=== PATIENT | male | born 1975 | race Two or more races ===

== ENCOUNTER 2018-01-17 12:29 | Inpatient (IN) | payer OTHER ==
[2018-01-17 14:16] VITALS: BMI 25.9
--- NOTE | 2018-01-17 14:50 | HP ---
CIWA Score Nausea/Vomitin Muscle Tremors: 2 Anxiety: 3 Agitation: 2 Paroxysmal Sweats: No Perspiration Orientation: 1-Uncertain about Date Tacttile Disturbances: 2-Mild Itch/Numbness/Burn Auditory Disturbances: 0-None Visual Disturbances: 0-None Headache: 2-Mild CIWA-Ar Total Score: 15 - Admission Criteria OASAS Guidelines: Admission for Medically Managed Detox: Requires at least one of the followin. CIWA greater than 12 2. Seizures within the past 24 hours 3. Delirium tremens within the past 24 hours 4. Hallucinations within the past 24 hours 5. Acute intervention needed for co occurring medical disorder 6. Acute intervention needed for co occurring psychiatric disorder 7. Severe withdrawal that cannot be handled at a lower level of care (continued vomiting, continued diarrhea, abnormal vital signs) requiring intravenous medication and/or fluids 8. Admission ROS [facility] - [facility] Chief Complaint: ETOH WITHDRAWAL SYMPTOMS AND MARIJUANA DEPENDENCE. Allergies/Adverse Reactions: Allergies Allergy/AdvReac Type Severity Reaction Status Date / Time No Known Allergies Allergy Verified 01/17/18 14:46 History of Present Illness: PATIENT PRESENTS WITH ETOH WITHDRAWAL SX AND MARIJUANA DEPENDENCE. PATIENT STARTED DRINKING AT AGE 16 AND DRINKS ONE PINT OF VODKA AND 2 40 OUNCE BEERS DAILY. LAST DRINK WAS TODAY. PATIENT WAS IN [address] 2-3 WEEKS AGO BUT LEFT HE STATES " I DIDN'T LIKE THE PLACE". UDS +BZO/THC. PATIENT SMOKES MARIJUANA 6 BLUNTS DAILY SINCE AGE 16 AND LAST TIME HE SMOKED WAS THIS MORNING. DENIES HX OF BLACKOUTS, SEIZURES AND FALLS. FIRST TIME ADMISSION TO [facility]. PMH INCLUDES BIPOLAR DISORDER, OCD, GERD, ANXIETY, HTN AND DEPRESSION. DENIES SI/HI AND SUICIDE ATTEMPTS. PATIENT CAME IN WITH CURRENT BLISTER PACK OF MEDICATION FROM [facility] AND REPORTS COMPLIANCE. Exam Limitations: No Limitations - Ebola screening Have you traveled outside of the country in the last 21 days: No Have you had contact with anyone from an Ebola affected area: No Have you been sick,other than usual withdrawal symptoms: No Do you have a fever: No - Review of Systems Constitutional: Chills, Night Sweats, Changes in sleep EENT: reports: No Symptoms Reported Respiratory: reports: No Symptoms reported Cardiac: reports: No Symptoms Reported GI: reports: Diarrhea, Nausea, Poor Fluid Intake, Abdominal cramping : reports: No Symptoms Reported Musculoskeletal: reports: Back Pain, Joint Pain, Muscle Pain Integumentary: reports: Sweating Neuro: reports: Headache, Numbness, Tingling, Tremors Endocrine: reports: No Symptoms Reported Hematology: reports: No Symptoms Reported Psychiatric: reports: Anxious, Depressed Patient History - Patient Medical History Hx Anemia: No Hx Asthma: No Hx Chronic Obstructive Pulmonary Disease (COPD): No Hx Cancer: No Hx Cardiac Disorders: No Hx Congestive Heart Failure: No Hx Hypertension: Yes Hx Hypercholesterolemia: No Hx Pacemaker: No HX Cerebrovascular Accident: No Hx Seizures: No Hx Dementia: No Hx Diabetes: No Hx Gastrointestinal Disorders: Yes (GERD) Hx Liver Disease: No Hx Genitourinary Disorders: No Hx Sexually Transmitted Disorders: No Hx Renal Disease (ESRD): No Hx Thyroid Disease: No Hx Human Immunodeficiency Virus (HIV): No Hx Hepatitis C: No Hx Depression: Yes Hx Suicide Attempt: No Hx Bipolar Disorder: Yes Hx Schizophrenia: No - Patient Surgical History Past Surgical History: Yes Other Surgical History: RIGHT INDEX FINGER SURGERY Anesthesia Reaction: No - PPD History Previous Implant?: Yes Documented Results: Negative w/o proof PPD to be Administered?: Yes - Smoking Cessation Smoking history: Current every day smoker Have you smoked in the past 12 months: Yes Aproximately how many cigarettes per day: 10 Hx Chewing Tobacco Use: No Initiated information on smoking cessation: Yes 'Breaking Loose' booklet given: 01/17/18 - Substance & Tx. History Hx Alcohol Use: Yes Hx Substance Use: Yes Substance Use Type: Alcohol, Marijuana Hx Substance Use Treatment: Yes - Substances Abused Alcohol Route: Oral Frequency: Daily Amount used: 1 PINT, 2 40OZ BEERS Age of first use: 16 Date of Last Use: 01/17/18 Marijuana/Hashish Route: Smoking Frequency: Daily Amount used: 6 BLUNTS Age of first use: 16 Date of Last Use: 01/17/18 Family Disease History - Family Disease History Family History: Denies Admission Physical Exam S - Vital Signs Vital Signs: Vital Signs - 24 hr 01/17/18 14:13 Temperature 96 F L Pulse Rate 84 Respiratory 20 Rate Blood Pressure 118/81 - Physical General Appearance: Yes: No Apparent Distress, Alcohol on Breath, Tremorous, Sweating, Anxious HEENTM: Yes: EOMI, Hearing grossly Normal, Normal ENT Inspection, Normocephalic , Normal Voice, MARIO, Pharynx Normal Respiratory: Yes: Chest Non-Tender, Lungs Clear, No Respiratory Distress, No Accessory Muscle Use, Wheezing Neck: Yes: No masses,lesions,Nodules, Supple, Trachea in good position Breast: Yes: Breast Exam Deferred Cardiology: Yes: Regular Rhythm, Regular Rate, S1, S2 Abdominal: Yes: Normal Bowel Sounds, Non Tender, Soft Genitourinary: Yes: Within Normal Limits Musculoskeletal: Yes: full range of Motion, Gait Steady, Back pain, Muscle Pain Extremities: Yes: Normal Inspection, Normal Range of Motion, Non-Tender, Tremors 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: Yes: criminal justice social worker II-XII NML intact, Fully Oriented, Alert, Motor Strength 5/5, Unresponsive, Depressed Affect Integumentary: Yes: Normal Color, Dry, Warm Lymphatic: Yes: Within Normal Limits Cleared for Admission [facility] - Detox or Rehab [facility] Level of Care: Medically Managed Detox Regimen/Protocol: Librium [facility] Breath Alcohol Content Breath Alcohol Content: 0.100 Vital Signs - Vital Signs Vital Signs Refused: Yes Temperature: 96.0 F Temperature Source: Oral Pulse Rate: 84 Respiratory Rate: 20 Blood Pressure: 118/81 BP Location: Left Arm Blood Pressure Position: Sitting - Height Height: 5 ft 7 in - Weight Weight: 166 lb Weight Measurement Method: Standing Scale Body Mass Index (BMI): 25.9 - Bowel Function Bowel Movement: Yes Urine Drug Screen - Results Drug Screen Negative: No Urine Drug Screen Results: THC-Marijuana, BZO-Benzodiazepines
[2018-01-17] MEDS ORDERED: ACETAMINOPHEN 325 MG TABLET (FP) PO PRN (15:11)
[2018-01-17] MEDS ORDERED: guaiFENesin/D-METHORPHAN HB 10 ML UNIT-DOSE CUPS PO PRN (15:11)
[2018-01-17] MEDS ORDERED: P-EPHED 60MG/TRIPROLIDI 2.5MG TABLET PO PRN (15:11)
[2018-01-17] MEDS ORDERED: MAGNESIUM CITRATE 300 ML BOTTLE PO PRN (15:11)
[2018-01-17] MEDS ORDERED: MAGNESIUM HYDROX 2400MG/30ML ORAL SUSPENSION 30 ML CUP PO PRN (15:11)
[2018-01-17] MEDS ORDERED: LOPERAMIDE HCL 2 MG CAPSULE PO PRN (15:11)
[2018-01-17] MEDS ORDERED: MAG HYDROX/AL HYDROX/SIMETH 30 ML UNIT-DOSE CUP PO PRN (15:11)
[2018-01-17] MEDS ORDERED: hydrOXYzine PAMOATE 50 MG CAPSULE (FP) PO PRN (15:11)
[2018-01-17] MEDS ORDERED: MENTHOL/PHENOL 1 EACH UD MM PRN (15:11)
[2018-01-17] MEDS ORDERED: IBUPROFEN 400 MG TABLET (FP) PO PRN (15:11)
[2018-01-17] MEDS ORDERED: NICOTINE POLACRILEX 2 MG GUM BC PRN (15:11)
[2018-01-17] MEDS ORDERED: chlordiazePOXIDE HCL 25 MG CAPSULE PO PRN (15:13)
[2018-01-17] MEDS: chlordiazePOXIDE HCL 25 MG CAPSULE PO SCH ×2 (17:59→22:56)
[2018-01-17] MEDS: RANITIDINE HCL 150 MG TABLET (FP) PO SCH (22:56)
[2018-01-17] MEDS: THIAMINE HCL 100 MG TABLET (FP) PO SCH (22:56)
[2018-01-18] MEDS: chlordiazePOXIDE HCL 25 MG CAPSULE PO SCH ×4 (05:12→22:13)
--- NOTE | 2018-01-18 07:36 | CONSULT ---
[facility] Psychiatric Consult - Data Date of interview: 01/18/18 Admission source: [facility] Identifying data: This is a 55 years old female, , mother of three, ellen, on PA, with no psychiatric hospitalization history, with history of Bipolar Disorder, currently on MMTP 150mg /day, repots Alcohol, Heroin, Cannabis and Nicotine dependence, reports withdrawal symptoms and seeking for detox. Substance Abuse History: Smoking history: Current every day smoker. Have you smoked in the past 12 months: Yes. Aproximately how many cigarettes per day: 10. Hx Chewing Tobacco Use: No. Initiated information on smoking cessation: Yes. 'Breaking Loose' booklet given: 01/17/18. - Substance & Tx. History. Hx Alcohol Use: Yes. Hx Substance Use: Yes. Substance Use Type: Alcohol, Marijuana. Hx Substance Use Treatment: Yes. - Substances Abused. Alcohol. Route: Oral. Frequency: Daily. Amount used: 1 PINT, 2 40OZ BEERS. Age of first use: 16. Date of Last Use: 01/17/18. Marijuana/Hashish. Route: Smoking. Frequency: Daily. Amount used: 6 BLUNTS. Age of first use: 16. Date of Last Use: 01/17/18 Medical History: Asthma, HepC+, HIV, HTN Psychiatric History: Patient reports to carry Bipolar Disorder, denies history of psychiatric hospitalizations, suicidal and homiciadal history, reports currently stable on: Zyprexa 5mg po qhs. Malinta 300mg po bid. Prozac 10mg poqd. Vistaril 50mg po pen q4 for anxiety Physical/Sexual Abuse/Trauma History: Denies Additional Comment: Zyprexa 5mg po qhs. Malinta 300mg po bid. Prozac 10mg poqd. Vistaril 50mg po pen q4 for anxiety Mental Status Exam - Mental Status Exam Alert and Oriented to: Person Cognitive Function: Fair Patient Appearance: Unkempt Mood: Sad Affect: Flat Patient Behavior: Cooperative Speech Pattern: Appropriate Voice Loudness: Mildly Soft/Quiet Thought Process: Circumstantial, Goal Oriented Thought Disorder: Being Controlled Hallucinations: Denies Suicidal Ideation: Denies Homicidal Ideation: Denies Insight/Judgement: Fair Sleep: Difficulty falling asleep Appetite: Fair Muscle strength/Tone: Mild Hypotonicity Gait/Station: Shuffling Additional Comments: Zyprexa 5mg po qhs. Malinta 300mg po bid. Prozac 10mg poqd. Vistaril 50mg po pen q4 for anxiety Psychiatric Findings - Problem List (Dema 1, 2,3) (1) Alcohol dependence with uncomplicated withdrawal Current Visit: Yes Status: Acute (2) Anxiety Current Visit: Yes Status: Chronic (3) Bipolar disorder Current Visit: Yes Status: Chronic Qualifiers: Current episode severity: unspecified (4) GERD (gastroesophageal reflux disease) Current Visit: Yes Status: Chronic Qualifiers: Esophagitis presence: without esophagitis Qualified Code(s): K21.9 - Gastro -esophageal reflux disease without esophagitis (5) HTN (hypertension) Current Visit: Yes Status: Chronic Qualifiers: Hypertension type: essential hypertension Qualified Code(s): I10 - Essential (primary) hypertension (6) Marijuana dependence Current Visit: Yes Status: Chronic - Initial Treatment Plan Initial Treatment Plan: Zyprexa 5mg po qhs. Malinta 300mg po bid. Prozac 10mg poqd. Vistaril 50mg po pen q4 for anxiety
[2018-01-18] MEDS ORDERED: hydrOXYzine PAMOATE 50 MG CAPSULE (FP) PO PRN (08:01)
[2018-01-18] MEDS ORDERED: FLUoxetine HCL 10 MG CAPSULE (FP) PO SCH (10:00)
[2018-01-18] MEDS ORDERED: LITHIUM CARBONATE 300 MG CAPSULE (FP) PO SCH (10:00)
[2018-01-18 10:09] LABS: HEMATOCRIT 46.8 % (35.4-49); HEMOGLOBIN 15.4 GM/dL (11.7-16.9); MCH 32.2 pg (25.7-33.7); MCHC 32.9 g/dl (32.0-35.9); MEAN PLT VOLUME 9.9 fl (7.5-11.1); PLATELET COUNT 175 K/MM3 (134-434); RBC 4.78 M/mm3 (4.00-5.60); RDW 14.3 % (11.9-15.9); WHITE BLOOD COUNT 4.5 K/mm3 (4.0-10.0)
[2018-01-18] MEDS: FLUoxetine HCL 10 MG CAPSULE (FP) PO SCH (10:27)
[2018-01-18] MEDS: RANITIDINE HCL 150 MG TABLET (FP) PO SCH ×2 (10:27→22:13)
[2018-01-18] MEDS: cloNIDine HCL 0.1 MG TABLET PO SCH (10:27)
[2018-01-18] MEDS: PRENATAL VITAMINS W/ FOLIC ACID TABLET (FP) PO SCH (10:27)
[2018-01-18] MEDS: NICOTINE 21 MG/24 HOURS TOPICAL PATCH TD SCH (10:28)
[2018-01-18] MEDS: LITHIUM CARBONATE 300 MG CAPSULE (FP) PO SCH ×2 (11:00→22:13)
[2018-01-18 11:31] LABS: ALBUMIN 3.3 g/dl (3.4-5.0); ALK PHOS 65 U/L (45-117); ANION GAP 7 MMOL/L (8-16); BILIRUBIN,TOTAL 1.2 mg/dL (0.2-1); BLOOD UREA NITROGEN 13 mg/dL (7-18); CALCIUM 8.6 mg/dL (8.5-10.1); CHLORIDE 105 mmol/L (98-107); CO2 27 mmol/L (21-32); CREATININE 0.7 mg/dL (0.55-1.3); GLUCOSE,RANDOM 78 mg/dL (74-106); POTASSIUM 3.9 mmol/L (3.5-5.1); SGOT/AST 53 U/L (15-37); SGPT/ALT 78 U/L (13-61); SODIUM 140 mmol/L (136-145); TOT PROT 6.2 g/dl (6.4-8.2)
[2018-01-18] MEDS ORDERED: FLU VACCINE QUAD 60 MCG/0.5 ML (MDV 18-19) IM ONE (12:00)
--- NOTE | 2018-01-18 13:39 | EKG ---
Test Reason : Blood Pressure : / mmHG Vent. Rate : 073 BPM Atrial Rate : 073 BPM P-R Int : 148 ms QRS Dur : 082 ms QT Int : 338 ms P-R-T Axes : 076 059 057 degrees QTc Int : 372 ms NORMAL SINUS RHYTHM POSSIBLE LEFT ATRIAL ENLARGEMENT BORDERLINE ECG NO PREVIOUS ECGS AVAILABLE Confirmed by DUNCAN FOSTER, YASH ([id number]) on 01/18/2018 1:39:04 PM Referred By: Confirmed By:YASH SONG MD
--- NOTE | 2018-01-18 13:46 | PN ---
[facility] CIWA - CIWA Score Nausea/Vomitin-Mild Nausea/No Vomiting Muscle Tremors: 3 Anxiety: 3 Agitation: 3 Paroxysmal Sweats: 1-Minimal Palms Moist Orientation: 0-Oriented Tacttile Disturbances: 0-None Auditory Disturbances: 0-None Visual Disturbances: 0-None Headache: 1-Very Mild CIWA-Ar Total Score: 12 S Progress Note (SOAP) Subjective: tremor sweat anxiety agitation restlessness Objective: 01/18/18 13:48 Vital Signs Temperature 98.1 F 01/18/18 08:54 Pulse Rate 82 01/18/18 08:54 Respiratory Rate 18 01/18/18 08:54 Blood Pressure 131/74 01/18/18 08:54 O2 Sat by Pulse Oximetry (%) Laboratory Last Values WBC 4.5 K/mm3 (4.0-10.0) 01/18/18 07:00 RBC 4.78 M/mm3 (4.00-5.60) 01/18/18 07:00 Hgb 15.4 GM/dL (11.7-16.9) 01/18/18 07:00 Hct 46.8 % (35.4-49) 01/18/18 07:00 MCV 98.0 fl (80-96) H 01/18/18 07:00 MCH 32.2 pg (25.7-33.7) 01/18/18 07:00 MCHC 32.9 g/dl (32.0-35.9) 01/18/18 07:00 RDW 14.3 % (11.9-15.9) 01/18/18 07:00 Plt Count 175 K/MM3 (134-434) 01/18/18 07:00 MPV 9.9 fl (7.5-11.1) 01/18/18 07:00 Sodium 140 mmol/L (136-145) 01/18/18 07:00 Potassium 3.9 mmol/L (3.5-5.1) 01/18/18 07:00 Chloride 105 mmol/L (98-107) 01/18/18 07:00 Carbon Dioxide 27 mmol/L (21-32) 01/18/18 07:00 Anion Gap 7 MMOL/L (8-16) L 01/18/18 07:00 BUN 13 mg/dL (7-18) 01/18/18 07:00 Creatinine 0.7 mg/dL (0.55-1.3) 01/18/18 07:00 Creat Clearance w eGFR > 60 (>60) 01/18/18 07:00 Random Glucose 78 mg/dL (74-106) 01/18/18 07:00 Calcium 8.6 mg/dL (8.5-10.1) 01/18/18 07:00 Total Bilirubin 1.2 mg/dL (0.2-1) H 01/18/18 07:00 AST 53 U/L (15-37) H 01/18/18 07:00 ALT 78 U/L (13-61) H 01/18/18 07:00 Alkaline Phosphatase 65 U/L (45-117) 01/18/18 07:00 Total Protein 6.2 g/dl (6.4-8.2) L 01/18/18 07:00 Albumin 3.3 g/dl (3.4-5.0) L 01/18/18 07:00 HIV 1&2 Antibody Screen Negative 01/18/18 07:00 HIV P24 Antigen Negative 01/18/18 07:00 lab noted Assessment: 01/18/18 13:49 withdrawal sx Plan: continue detox
[2018-01-18] MEDS ORDERED: OLANZapine 5 MG TABLET PO SCH (22:00)
[2018-01-18] MEDS: MELATONIN 5 MG TABLETS PO PRN (22:13)
[2018-01-18] MEDS: THIAMINE HCL 100 MG TABLET (FP) PO SCH (22:13)
[2018-01-18] MEDS: OLANZapine 5 MG TABLET PO SCH (22:14)
[2018-01-19] MEDS: chlordiazePOXIDE HCL 25 MG CAPSULE PO SCH ×2 (05:36→10:57)
[2018-01-19] MEDS: cloNIDine HCL 0.1 MG TABLET PO SCH (10:56)
[2018-01-19] MEDS: RANITIDINE HCL 150 MG TABLET (FP) PO SCH (10:57)
[2018-01-19] MEDS: LITHIUM CARBONATE 300 MG CAPSULE (FP) PO SCH ×2 (10:57→22:21)
[2018-01-19] MEDS: FLUoxetine HCL 10 MG CAPSULE (FP) PO SCH (10:57)
[2018-01-19] MEDS: NICOTINE 21 MG/24 HOURS TOPICAL PATCH TD SCH (10:57)
[2018-01-19] MEDS: PRENATAL VITAMINS W/ FOLIC ACID TABLET (FP) PO SCH (10:57)
--- NOTE | 2018-01-19 11:08 | PN ---
[facility] CIWA - CIWA Score Nausea/Vomitin Muscle Tremors: 2 Anxiety: 2 Agitation: 1-Slight > Activity Paroxysmal Sweats: 2 Orientation: 0-Oriented Tacttile Disturbances: 1-Very Mild Itch/Numbness Auditory Disturbances: 0-None Visual Disturbances: 0-None Headache: 0-None Present CIWA-Ar Total Score: 11 S Progress Note (SOAP) Subjective: I"m feeling lazy , tired , shakes : my reflux is bad Objective: 01/19/18 11:06 Vital Signs Temperature 97.7 F 01/19/18 06:00 Pulse Rate 70 01/19/18 06:00 Respiratory Rate 18 01/19/18 06:00 Blood Pressure 100/58 L 01/19/18 06:00 O2 Sat by Pulse Oximetry (%) Laboratory Tests 01/18/18 01/18/18 01/18/18 07:00 07:00 07:00 WBC 4.5 RBC 4.78 Hgb 15.4 Hct 46.8 MCV 98.0 H MCH 32.2 MCHC 32.9 RDW 14.3 Plt Count 175 MPV 9.9 Sodium 140 Potassium 3.9 Chloride 105 Carbon Dioxide 27 Anion Gap 7 L BUN 13 Creatinine 0.7 Creat Clearance w eGFR > 60 Random Glucose 78 Calcium 8.6 Total Bilirubin 1.2 H AST 53 H ALT 78 H Alkaline Phosphatase 65 Total Protein 6.2 L Albumin 3.3 L HIV 1&2 Antibody Screen Negative HIV P24 Antigen Negative pt aox3 in nad, lying in bed , appearing tired mildly elevated transaminases 01/19/18 11:07 Assessment: 01/19/18 11:07 withdrawal sx's gerd Plan: cont detox increase fluids d/c zantac start protonix
[2018-01-19] MEDS ORDERED: PANTOPRAZOLE 40 MG TABLET (FP) PO ONE (11:13)
[2018-01-19] MEDS: chlordiazePOXIDE 5 MG CAPSULE PO SCH ×2 (18:30→22:22)
[2018-01-19] MEDS: THIAMINE HCL 100 MG TABLET (FP) PO SCH (22:21)
[2018-01-19] MEDS: MELATONIN 5 MG TABLETS PO PRN (22:21)
[2018-01-19] MEDS: OLANZapine 5 MG TABLET PO SCH (22:21)
[2018-01-20] MEDS: chlordiazePOXIDE 5 MG CAPSULE PO SCH ×2 (06:05→10:15)
[2018-01-20] MEDS ORDERED: PANTOPRAZOLE 40 MG TABLET (FP) PO SCH (10:00)
[2018-01-20] MEDS: PRENATAL VITAMINS W/ FOLIC ACID TABLET (FP) PO SCH (10:14)
[2018-01-20] MEDS: cloNIDine HCL 0.1 MG TABLET PO SCH (10:14)
[2018-01-20] MEDS: LITHIUM CARBONATE 300 MG CAPSULE (FP) PO SCH ×2 (10:15→23:35)
[2018-01-20] MEDS: FLUoxetine HCL 10 MG CAPSULE (FP) PO SCH (10:15)
[2018-01-20] MEDS: NICOTINE 21 MG/24 HOURS TOPICAL PATCH TD SCH (10:16)
--- NOTE | 2018-01-20 10:19 | PN ---
[facility] Progress Note (SOAP) Subjective: Weakness, unable to sleep well Objective: 01/20/18 10:18 Vital Signs - 8 hr 01/20/18 01/20/18 01/20/18 03:30 06:32 09:06 Temperature 98.1 F 97.7 F Pulse Rate 81 89 Respiratory 18 18 16 Rate Blood Pressure 109/69 113/70 Laboratory Last Values WBC 4.5 K/mm3 (4.0-10.0) 01/18/18 07:00 RBC 4.78 M/mm3 (4.00-5.60) 01/18/18 07:00 Hgb 15.4 GM/dL (11.7-16.9) 01/18/18 07:00 Hct 46.8 % (35.4-49) 01/18/18 07:00 MCV 98.0 fl (80-96) H 01/18/18 07:00 MCH 32.2 pg (25.7-33.7) 01/18/18 07:00 MCHC 32.9 g/dl (32.0-35.9) 01/18/18 07:00 RDW 14.3 % (11.9-15.9) 01/18/18 07:00 Plt Count 175 K/MM3 (134-434) 01/18/18 07:00 MPV 9.9 fl (7.5-11.1) 01/18/18 07:00 Sodium 140 mmol/L (136-145) 01/18/18 07:00 Potassium 3.9 mmol/L (3.5-5.1) 01/18/18 07:00 Chloride 105 mmol/L (98-107) 01/18/18 07:00 Carbon Dioxide 27 mmol/L (21-32) 01/18/18 07:00 Anion Gap 7 MMOL/L (8-16) L 01/18/18 07:00 BUN 13 mg/dL (7-18) 01/18/18 07:00 Creatinine 0.7 mg/dL (0.55-1.3) 01/18/18 07:00 Creat Clearance w eGFR > 60 (>60) 01/18/18 07:00 Random Glucose 78 mg/dL (74-106) 01/18/18 07:00 Calcium 8.6 mg/dL (8.5-10.1) 01/18/18 07:00 Total Bilirubin 1.2 mg/dL (0.2-1) H 01/18/18 07:00 AST 53 U/L (15-37) H 01/18/18 07:00 ALT 78 U/L (13-61) H 01/18/18 07:00 Alkaline Phosphatase 65 U/L (45-117) 01/18/18 07:00 Total Protein 6.2 g/dl (6.4-8.2) L 01/18/18 07:00 Albumin 3.3 g/dl (3.4-5.0) L 01/18/18 07:00 RPR Titer Nonreactive (NONREACTIVE) 01/18/18 07:00 HIV 1&2 Antibody Screen Negative 01/18/18 07:00 HIV P24 Antigen Negative 01/18/18 07:00 Labs and vitals noted, no panic values Assessment: 01/20/18 10:19 Withdrawal sx Plan: Continue detox
[2018-01-20] MEDS: chlordiazePOXIDE HCL 10 MG CAPSULE PO SCH ×2 (17:55→23:35)
[2018-01-20] MEDS: THIAMINE HCL 100 MG TABLET (FP) PO SCH (23:35)
[2018-01-20] MEDS: OLANZapine 5 MG TABLET PO SCH (23:35)
[2018-01-21] MEDS: chlordiazePOXIDE HCL 10 MG CAPSULE PO SCH (06:05)
[2018-01-21 09:36] VITALS: BP 122/84; PULSE 74; TEMP 97.2
--- NOTE | 2018-01-21 09:54 | DS ---
[facility] Detox Discharge Summary Admission Date: 01/17/18 Discharge Date: 01/21/18 - History Present History: Alcohol Dependence Additional Comments: 42 years old male admitted on 01/17/18 for alcohol withdrawal sx completed detox regimen tolerated well alert oriented x 3 no acute distress aftercare [facility] - Physical Exam Results Vital Signs: Vital Signs Temperature 97.2 F L 01/21/18 09:35 Pulse Rate 74 01/21/18 09:35 Respiratory Rate 16 01/21/18 09:35 Blood Pressure 122/84 01/21/18 09:35 O2 Sat by Pulse Oximetry (%) Pertinent Admission Physical Exam Findings: alcohol withdrawal sx Vital Signs Temperature 97.2 F L 01/21/18 09:35 Pulse Rate 74 01/21/18 09:35 Respiratory Rate 16 01/21/18 09:35 Blood Pressure 122/84 01/21/18 09:35 O2 Sat by Pulse Oximetry (%) Laboratory Last Values WBC 4.5 K/mm3 (4.0-10.0) 01/18/18 07:00 RBC 4.78 M/mm3 (4.00-5.60) 01/18/18 07:00 Hgb 15.4 GM/dL (11.7-16.9) 01/18/18 07:00 Hct 46.8 % (35.4-49) 01/18/18 07:00 MCV 98.0 fl (80-96) H 01/18/18 07:00 MCH 32.2 pg (25.7-33.7) 01/18/18 07:00 MCHC 32.9 g/dl (32.0-35.9) 01/18/18 07:00 RDW 14.3 % (11.9-15.9) 01/18/18 07:00 Plt Count 175 K/MM3 (134-434) 01/18/18 07:00 MPV 9.9 fl (7.5-11.1) 01/18/18 07:00 Sodium 140 mmol/L (136-145) 01/18/18 07:00 Potassium 3.9 mmol/L (3.5-5.1) 01/18/18 07:00 Chloride 105 mmol/L (98-107) 01/18/18 07:00 Carbon Dioxide 27 mmol/L (21-32) 01/18/18 07:00 Anion Gap 7 MMOL/L (8-16) L 01/18/18 07:00 BUN 13 mg/dL (7-18) 01/18/18 07:00 Creatinine 0.7 mg/dL (0.55-1.3) 01/18/18 07:00 Creat Clearance w eGFR > 60 (>60) 01/18/18 07:00 Random Glucose 78 mg/dL (74-106) 01/18/18 07:00 Calcium 8.6 mg/dL (8.5-10.1) 01/18/18 07:00 Total Bilirubin 1.2 mg/dL (0.2-1) H 01/18/18 07:00 AST 53 U/L (15-37) H 01/18/18 07:00 ALT 78 U/L (13-61) H 01/18/18 07:00 Alkaline Phosphatase 65 U/L (45-117) 01/18/18 07:00 Total Protein 6.2 g/dl (6.4-8.2) L 01/18/18 07:00 Albumin 3.3 g/dl (3.4-5.0) L 01/18/18 07:00 RPR Titer Nonreactive (NONREACTIVE) 01/18/18 07:00 HIV 1&2 Antibody Screen Negative 01/18/18 07:00 HIV P24 Antigen Negative 01/18/18 07:00 lab noted - Treatment Hospital Course: Detox Protocol Followed, Detoxed Safely, Responded well, Discharged Condition Good, Rehab Referral Accepted Patient has Accepted a [facility] Referral to: [facility] - Medication Discharge Medications: Ambulatory Orders Clonidine HCl [Catapres] 0.1 mg PO DAILY 01/17/18 Ranitidine [Zantac -] 150 mg PO BID 01/17/18 hydrOXYzine PAMOATE [Vistaril -] 50 mg PO HS PRN 01/17/18 Fluoxetine HCl [Prozac -] 10 mg PO DAILY #30 capsule 01/18/18 Mesilla Carbonate [Eskalith -] 300 mg PO BID #60 capsule 01/18/18 Olanzapine [Zyprexa -] 5 mg PO HS #30 tablet 01/18/18 hydrOXYzine PAMOATE [Vistaril -] 50 mg PO Q4H PRN #90 capsule 12/06/18 - Diagnosis (1) Bipolar II disorder Current Visit: Yes Status: Suspected (2) Alcohol dependence with uncomplicated withdrawal Current Visit: Yes Status: Acute (3) GERD (gastroesophageal reflux disease) Current Visit: Yes Status: Chronic Qualifiers: Esophagitis presence: without esophagitis Qualified Code(s): K21.9 - Gastro -esophageal reflux disease without esophagitis (4) HTN (hypertension) Current Visit: Yes Status: Chronic Qualifiers: Hypertension type: essential hypertension Qualified Code(s): I10 - Essential (primary) hypertension - AMA Did Patient Leave Against Medical Advice: No
== END 2018-01-21 09:10 | disposition home or self-care (01) | DRG 773 ==
LOC: EDSEX → YASAS 12:29 → Y6N 15:58
PROC: HZ2ZZZZ Detoxification Services for Substance Abuse Treatment (ICD-10-PCS; principal; 2018-01-17)
DX: F10.230 Alcohol dependence with withdrawal, uncomplicated (principal); F12.20 Cannabis dependence, uncomplicated; F11.20 Opioid dependence, uncomplicated; F31.81 Bipolar II disorder; F41.9 Anxiety disorder, unspecified; F42.9 Obsessive-compulsive disorder, unspecified; I10 Essential (primary) hypertension; K21.9 Gastro-esophageal reflux disease without esophagitis; B18.2 Chronic viral hepatitis C
CPT/HCPCS: 36415; 80053; 85027; 86593; 87389; 93005; 93010; J0735

== ENCOUNTER 2018-03-08 09:39 | Inpatient (IN) | payer OTHER ==
[2018-03-08 10:13] VITALS: BMI 24.5
--- NOTE | 2018-03-08 12:16 | HP ---
CIWA Score Nausea/Vomitin Muscle Tremors: None Anxiety: 3 Agitation: 2 Paroxysmal Sweats: No Perspiration Orientation: 0-Oriented Tacttile Disturbances: 0-None Auditory Disturbances: 0-None Visual Disturbances: 0-None Headache: 3-Moderate CIWA-Ar Total Score: 10 - Admission Criteria OASAS Guidelines: Admission for Medically Managed Detox: Requires at least one of the followin. CIWA greater than 12 2. Seizures within the past 24 hours 3. Delirium tremens within the past 24 hours 4. Hallucinations within the past 24 hours 5. Acute intervention needed for co occurring medical disorder 6. Acute intervention needed for co occurring psychiatric disorder 7. Severe withdrawal that cannot be handled at a lower level of care (continued vomiting, continued diarrhea, abnormal vital signs) requiring intravenous medication and/or fluids 8. Admission ROS S - [facility] Chief Complaint: ETOH WITHDRAWAL SX Allergies/Adverse Reactions: Allergies Allergy/AdvReac Type Severity Reaction Status Date / Time No Known Allergies Allergy Verified 03/08/18 10:59 History of Present Illness: PATIENT IS KNOWN TO FACILITY. LAST DETOX ADMISSION HERE AT [facility] 12/2017. PATIENT STATES HE RELAPSED SOON AFTER D/C AND ADMITTED ONE MONTH AGO AT [facility] [place], [place] AND COMPLETED DETOX. RELAPSED AFTER PATIENT HAD ARGUMENT WITH DAUGHTER. PATIENT DRINKS 1 PINT OF VODKA DAILY SINCE AGE 17. LAST DRINK EARLY THIS MORNING. PATIENT REPORTS BINGE DRINKING AND DRINKS FIRST THING IN THE MORNING. PATIENT DENIES HX OF SEIZURES AND FALLS. PMH INCLUDES BIPOLAR DISORDER, ACID REFLUX, ANXIETY. DENIES SI/HI AND SUICIDE ATTEMPTS. + MARIJUANA USE, 3-4 BLUNTS DAILY. - Ebola screening Have you traveled outside of the country in the last 21 days: No Have you had contact with anyone from an Ebola affected area: No Have you been sick,other than usual withdrawal symptoms: No Do you have a fever: No - Review of Systems Constitutional: Night Sweats, Changes in sleep EENT: reports: No Symptoms Reported Respiratory: reports: Cough Cardiac: reports: No Symptoms Reported GI: reports: Nausea, Poor Fluid Intake, Abdominal cramping : reports: No Symptoms Reported Musculoskeletal: reports: Back Pain, Joint Pain Integumentary: reports: No Symptoms Reported Neuro: reports: Headache Endocrine: reports: No Symptoms Reported Hematology: reports: No Symptoms Reported Psychiatric: reports: Orientated x3, Anxious, Depressed Patient History - Patient Medical History Hx Anemia: No Hx Asthma: No Hx Chronic Obstructive Pulmonary Disease (COPD): No Hx Cancer: No Hx Cardiac Disorders: No Hx Congestive Heart Failure: No Hx Hypertension: Yes Hx Hypercholesterolemia: No Hx Pacemaker: No HX Cerebrovascular Accident: No Hx Seizures: No Hx Dementia: No Hx Diabetes: No Hx Gastrointestinal Disorders: Yes (Pt has acid reflux.) Hx Liver Disease: No Hx Genitourinary Disorders: No Hx Sexually Transmitted Disorders: No Hx Renal Disease (ESRD): No Hx Thyroid Disease: No Hx Human Immunodeficiency Virus (HIV): No Hx Hepatitis C: No Hx Depression: Yes Hx Suicide Attempt: No Hx Bipolar Disorder: Yes Hx Schizophrenia: No - Patient Surgical History Past Surgical History: Yes Other Surgical History: partial amputation, right index finger Anesthesia Reaction: No - PPD History Previous Implant?: Yes Documented Results: Negative w/proof Implanted On Prior [facility] Admission?: No Date: 01/19/18 Results: 0 mm PPD to be Administered?: No - Smoking Cessation Smoking history: Current every day smoker Have you smoked in the past 12 months: Yes Aproximately how many cigarettes per day: 10 Hx Chewing Tobacco Use: No Initiated information on smoking cessation: Yes 'Breaking Loose' booklet given: 03/08/18 - Substance & Tx. History Hx Alcohol Use: Yes Hx Substance Use: No Substance Use Type: Alcohol, Marijuana Hx Substance Use Treatment: Yes - Substances Abused Alcohol Route: Oral Frequency: Daily Amount used: 1 pint vodka Age of first use: 17 Date of Last Use: 03/08/18 Marijuana/Hashish Route: Smoking Frequency: Daily Amount used: 4-5 blunts Age of first use: 16 Date of Last Use: 03/08/18 Family Disease History - Family Disease History Family History: Denies Admission Physical Exam [facility] - Vital Signs Vital Signs: Vital Signs - 24 hr 03/08/18 10:08 Temperature 98.7 F Pulse Rate 95 H Respiratory 20 Rate Blood Pressure 139/88 - Physical General Appearance: Yes: Nourished, Appropriately Dressed, Alcohol on Breath, Anxious HEENTM: Yes: EOMI, Hearing grossly Normal, Normal ENT Inspection, Normocephalic , Normal Voice, MARIO, Pharynx Normal Respiratory: Yes: Chest Non-Tender, Lungs Clear, Normal Breath Sounds, No Respiratory Distress, No Accessory Muscle Use Neck: Yes: No masses,lesions,Nodules, Supple, Trachea in good position Breast: Yes: Breast Exam Deferred Cardiology: Yes: Regular Rhythm, Regular Rate, S1, S2 Abdominal: Yes: Normal Bowel Sounds, Non Tender, Soft Genitourinary: Yes: Within Normal Limits Back: Yes: Muscle Spasm Musculoskeletal: Yes: full range of Motion, Gait Steady, Back pain, Muscle Pain Extremities: Yes: Normal Inspection, Normal Range of Motion, Non-Tender 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: Yes: shake feeder II-XII NML intact, Fully Oriented, Alert, Motor Strength 5/5, Normal Response, Depressed Affect Integumentary: Yes: Normal Color, Dry, Warm Lymphatic: Yes: Within Normal Limits Cleared for Admission [facility] - Detox or Rehab [facility] Level of Care: Medically Managed Detox Regimen/Protocol: Librium [facility] Breath Alcohol Content Breath Alcohol Content: 0.082 Urine Drug Screen - Results Drug Screen Negative: No Urine Drug Screen Results: THC-Marijuana, BZO-Benzodiazepines
[2018-03-08] MEDS ORDERED: MENTHOL/PHENOL 1 EACH UD MM PRN (12:25)
[2018-03-08] MEDS ORDERED: guaiFENesin/D-METHORPHAN HB 10 ML UNIT-DOSE CUPS PO PRN (12:25)
[2018-03-08] MEDS ORDERED: NICOTINE POLACRILEX 2 MG GUM BUC PRN (12:25)
[2018-03-08] MEDS ORDERED: MAGNESIUM HYDROX 2400MG/30ML ORAL SUSPENSION 30 ML CUP PO PRN (12:25)
[2018-03-08] MEDS ORDERED: LOPERAMIDE HCL 2 MG CAPSULE PO PRN (12:25)
[2018-03-08] MEDS ORDERED: IBUPROFEN 400 MG TABLET (FP) PO PRN (12:25)
[2018-03-08] MEDS ORDERED: ACETAMINOPHEN 325 MG TABLET (FP) PO PRN (12:25)
[2018-03-08] MEDS ORDERED: P-EPHED 60MG/TRIPROLIDI 2.5MG TABLET PO PRN (12:25)
[2018-03-08] MEDS ORDERED: hydrOXYzine PAMOATE 50 MG CAPSULE (FP) PO PRN ×2 (12:25→14:40)
[2018-03-08] MEDS ORDERED: MAGNESIUM CITRATE 300 ML BOTTLE PO PRN (12:25)
[2018-03-08] MEDS ORDERED: MAG HYDROX/AL HYDROX/SIMETH 30 ML UNIT-DOSE CUP PO PRN (12:25)
[2018-03-08] MEDS ORDERED: chlordiazePOXIDE HCL 25 MG CAPSULE PO PRN (12:28)
--- NOTE | 2018-03-08 14:22 | CONSULT ---
[facility] Psychiatric Consult - Data Date of interview: 03/08/18 Admission source: [facility] Identifying data: This is a 42 years old male, father of one, homeless , on PA support, with Bipolar dsiorder history, with no psychiatric hospitalizatiopn history. Patient reports long history of Alcohol, Cannabis and Nicotine dependence, reports withdrawal symptoms and seeking for detox. Substance Abuse History: Smoking history: Current every day smoker. Have you smoked in the past 12 months: Yes. Aproximately how many cigarettes per day: 10. Hx Chewing Tobacco Use: No. Initiated information on smoking cessation: Yes. 'Breaking Loose' booklet given: 03/08/18. - Substance & Tx. History. Hx Alcohol Use: Yes. Hx Substance Use: No. Substance Use Type: Alcohol, Marijuana. Hx Substance Use Treatment: Yes. - Substances Abused. Alcohol. Route: Oral. Frequency: Daily. Amount used: 1 pint vodka. Age of first use : 17. Date of Last Use: 03/08/18. Marijuana/Hashish. Route: Smoking. Frequency: Daily. Amount used: 4-5 blunts. Age of first use: 16. Date of Last Use: 03/08/18 Medical History: HTN, GERD, Psychiatric History: Patient reports history of Bipolar Disorder, anxiety and depression, reports no psychiatric hospitalization history, no suicidal, homicidal history. Patient taking prior to admission: Zyprexa 5mg po qhs. Prozac 20mg poqd. [place] 300mg po bid. Vistaril 50mg po prn q4 for anxiety Physical/Sexual Abuse/Trauma History: Denies Additional Comment: Zyprexa 5mg po qhs. Prozac 20mg poqd. [place] 300mg po bid. Vistaril 50mg po prn q4 for anxiety Mental Status Exam - Mental Status Exam Alert and Oriented to: Person Cognitive Function: Fair Patient Appearance: Unkempt Mood: Anxious Affect: Mood Congruent Patient Behavior: Cooperative Speech Pattern: Appropriate Voice Loudness: Mildly Soft/Quiet Thought Process: Goal Oriented Thought Disorder: Being Controlled Hallucinations: Denies Suicidal Ideation: Denies Homicidal Ideation: Denies Insight/Judgement: Fair Sleep: Difficulty falling asleep Appetite: Fair Muscle strength/Tone: Normal Gait/Station: Normal Additional Comments: Zyprexa 5mg po qhs. Prozac 20mg poqd. [place] 300mg po bid. Vistaril 50mg po prn q4 for anxiety Psychiatric Findings - Problem List ([place] 1, 2,3) (1) Alcohol dependence with uncomplicated withdrawal Current Visit: Yes Status: Acute (2) Bipolar disorder Current Visit: Yes Status: Chronic Qualifiers: Current episode severity: unspecified (3) Marijuana dependence Current Visit: Yes Status: Chronic (4) GERD (gastroesophageal reflux disease) Current Visit: No Status: Chronic Qualifiers: Esophagitis presence: without esophagitis Qualified Code(s): K21.9 - Gastro -esophageal reflux disease without esophagitis (5) HTN (hypertension) Current Visit: No Status: Chronic Qualifiers: Hypertension type: essential hypertension Qualified Code(s): I10 - Essential (primary) hypertension - Initial Treatment Plan Initial Treatment Plan: Zyprexa 5mg po qhs. Prozac 20mg poqd. [place] 300mg po bid. Vistaril 50mg po prn q4 for anxiety. [place] blood level
[2018-03-08] MEDS: FLUoxetine HCL 20 MG CAPSULE (FP) PO SCH (15:44)
[2018-03-08] MEDS: chlordiazePOXIDE HCL 25 MG CAPSULE PO SCH ×2 (16:46→22:46)
[2018-03-08 17:25] LABS: URINE APPEARANCE CLEAR; URINE BILIRUBIN NEGATIVE (<2.0 mg/dL); URINE COLOR LTYELLOW; URINE GLUCOSE (UA) NEGATIVE (NEGATIVE); URINE KETONE NEGATIVE (NEGATIVE); URINE LEUK ESTERASE NEGATIVE (NEGATIVE); URINE NITRITE NEGATIVE (NEGATIVE); URINE PROTEIN NEGATIVE (NEGATIVE); URINE UROBILINOGEN NEGATIVE mg/dL (0.2-1.0)
[2018-03-08] MEDS ORDERED: MELATONIN 5 MG TABLETS PO PRN (22:00)
[2018-03-08] MEDS: LITHIUM CARBONATE 300 MG CAPSULE (FP) PO SCH (22:44)
[2018-03-08] MEDS: RANITIDINE HCL 150 MG TABLET (FP) PO SCH (22:44)
[2018-03-08] MEDS: THIAMINE HCL 100 MG TABLET (FP) PO SCH (22:45)
[2018-03-08] MEDS: OLANZapine 5 MG TABLET PO SCH (22:45)
[2018-03-08] MEDS: traZODone HCL 50 MG TABLET (FP) PO SCH (22:45)
[2018-03-09] MEDS: chlordiazePOXIDE HCL 25 MG CAPSULE PO SCH ×4 (05:21→23:09)
[2018-03-09 10:38] LABS: HEMATOCRIT 43.4 % (35.4-49); HEMOGLOBIN 14.9 GM/dL (11.7-16.9); MCH 34.2 pg (25.7-33.7); MCHC 34.2 g/dl (32.0-35.9); MEAN CELL VOLUME 99.8 fl (80-96); MEAN PLT VOLUME 10.5 fl (7.5-11.1); PLATELET COUNT 183 K/MM3 (134-434); RBC 4.35 M/mm3 (4.00-5.60); RDW 13.6 % (11.9-15.9); WHITE BLOOD COUNT 4.7 K/mm3 (4.0-10.0)
[2018-03-09] MEDS: RANITIDINE HCL 150 MG TABLET (FP) PO SCH ×2 (10:39→23:09)
[2018-03-09] MEDS: FLUoxetine HCL 20 MG CAPSULE (FP) PO SCH (10:39)
[2018-03-09] MEDS: NICOTINE 21 MG/24 HOURS TOPICAL PATCH TD SCH (10:39)
[2018-03-09] MEDS: LITHIUM CARBONATE 300 MG CAPSULE (FP) PO SCH ×2 (10:39→23:09)
[2018-03-09] MEDS: PRENATAL VITAMINS W/ FOLIC ACID TABLET (FP) PO SCH (10:41)
[2018-03-09 10:56] LABS: ALBUMIN 3.7 g/dl (3.4-5.0); ALK PHOS 78 U/L (45-117); ANION GAP 10 MMOL/L (8-16); BILIRUBIN,TOTAL 1.3 mg/dL (0.2-1); BLOOD UREA NITROGEN 17 mg/dL (7-18); CALCIUM 8.4 mg/dL (8.5-10.1); CHLORIDE 104 mmol/L (98-107); CO2 24 mmol/L (21-32); CREATININE 1.1 mg/dL (0.55-1.3); GLUCOSE,RANDOM 118 mg/dL (74-106); POTASSIUM 4.1 mmol/L (3.5-5.1); SGOT/AST 39 U/L (15-37); SGPT/ALT 47 U/L (13-61); SODIUM 138 mmol/L (136-145); TOT PROT 6.7 g/dl (6.4-8.2)
--- NOTE | 2018-03-09 15:55 | PN ---
S CIWA - CIWA Score Nausea/Vomitin Muscle Tremors: None Anxiety: 3 Agitation: 2 Paroxysmal Sweats: No Perspiration Orientation: 0-Oriented Tacttile Disturbances: 2-Mild Itch/Numbness/Burn Auditory Disturbances: 0-None Visual Disturbances: 2-Mild Sensitivity Headache: 2-Mild CIWA-Ar Total Score: 13 BHS Progress Note (SOAP) Subjective: Nausea, Fatigue, Anxious. Objective: PATIENT A & O X 3. IN NO ACUTE DISTRESS. 03/09/18 15:53 Vital Signs Temperature 98.1 F 03/09/18 14:02 Pulse Rate 78 03/09/18 14:02 Respiratory Rate 18 03/09/18 14:02 Blood Pressure 119/74 03/09/18 14:02 O2 Sat by Pulse Oximetry (%) Laboratory Tests 03/08/18 03/09/18 03/09/18 13:07 06:00 06:00 WBC 4.7 RBC 4.35 Hgb 14.9 Hct 43.4 MCV 99.8 H MCH 34.2 H MCHC 34.2 RDW 13.6 Plt Count 183 MPV 10.5 Sodium 138 Potassium 4.1 Chloride 104 Carbon Dioxide 24 Anion Gap 10 BUN 17 Creatinine 1.1 Creat Clearance w eGFR > 60 Random Glucose 118 H Calcium 8.4 L Total Bilirubin 1.3 H AST 39 H ALT 47 Alkaline Phosphatase 78 Total Protein 6.7 Albumin 3.7 Urine Color Ltyellow Urine Appearance Clear Urine pH 6.0 Ur Specific [place] 1.010 Urine Protein Negative Urine Glucose (UA) Negative Urine Ketones Negative Urine Blood Negative Urine Nitrite Negative Urine Bilirubin Negative Urine Urobilinogen Negative Ur Leukocyte Esterase Negative LABS NOTED. RPR RESULT PENDING. 03/09/18 15:54 Assessment: 03/09/18 15:53 WITHDRAWAL SYMPTOMS. Plan: CONTINUE DETOX.
[2018-03-09] MEDS: traZODone HCL 50 MG TABLET (FP) PO SCH (23:09)
[2018-03-09] MEDS: OLANZapine 5 MG TABLET PO SCH (23:09)
[2018-03-09] MEDS: THIAMINE HCL 100 MG TABLET (FP) PO SCH (23:09)
[2018-03-10] MEDS: chlordiazePOXIDE HCL 25 MG CAPSULE PO SCH ×2 (05:43→10:27)
[2018-03-10] MEDS: PRENATAL VITAMINS W/ FOLIC ACID TABLET (FP) PO SCH (10:27)
[2018-03-10] MEDS: LITHIUM CARBONATE 300 MG CAPSULE (FP) PO SCH ×2 (10:27→23:06)
[2018-03-10] MEDS: FLUoxetine HCL 20 MG CAPSULE (FP) PO SCH (10:27)
[2018-03-10] MEDS: RANITIDINE HCL 150 MG TABLET (FP) PO SCH ×2 (10:27→23:06)
[2018-03-10] MEDS: NICOTINE 21 MG/24 HOURS TOPICAL PATCH TD SCH (10:28)
--- NOTE | 2018-03-10 15:11 | PN ---
S CIWA - CIWA Score Nausea/Vomitin Muscle Tremors: None Anxiety: 3 Agitation: 1-Slight > Activity Paroxysmal Sweats: No Perspiration Orientation: 0-Oriented Tacttile Disturbances: 2-Mild Itch/Numbness/Burn Auditory Disturbances: 0-None Visual Disturbances: 2-Mild Sensitivity Headache: 0-None Present CIWA-Ar Total Score: 11 BHS Progress Note (SOAP) Subjective: Nausea, Stomach Cramping, Diarrhea. Objective: PATIENT A & O X 3, OBSERVED AMBULATING ON UNIT. IN NO ACUTE DISTRESS. 03/10/18 15:10 Vital Signs Temperature 98.7 F 03/10/18 13:26 Pulse Rate 82 03/10/18 13:26 Respiratory Rate 18 03/10/18 13:26 Blood Pressure 116/64 03/10/18 13:26 O2 Sat by Pulse Oximetry (%) Laboratory Tests 03/08/18 03/09/18 03/09/18 13:07 06:00 06:00 WBC 4.7 RBC 4.35 Hgb 14.9 Hct 43.4 MCV 99.8 H MCH 34.2 H MCHC 34.2 RDW 13.6 Plt Count 183 MPV 10.5 Sodium 138 Potassium 4.1 Chloride 104 Carbon Dioxide 24 Anion Gap 10 BUN 17 Creatinine 1.1 Creat Clearance w eGFR > 60 Random Glucose 118 H Calcium 8.4 L Total Bilirubin 1.3 H AST 39 H ALT 47 Alkaline Phosphatase 78 Total Protein 6.7 Albumin 3.7 Urine Color Ltyellow Urine Appearance Clear Urine pH 6.0 Ur Specific [place] 1.010 Urine Protein Negative Urine Glucose (UA) Negative Urine Ketones Negative Urine Blood Negative Urine Nitrite Negative Urine Bilirubin Negative Urine Urobilinogen Negative Ur Leukocyte Esterase Negative [place] RPR Titer 03/09/18 03/09/18 06:00 06:00 WBC RBC Hgb Hct MCV MCH MCHC RDW Plt Count MPV Sodium Potassium Chloride Carbon Dioxide Anion Gap BUN Creatinine Creat Clearance w eGFR Random Glucose Calcium Total Bilirubin AST ALT Alkaline Phosphatase Total Protein Albumin Urine Color Urine Appearance Urine pH Ur Specific [place] Urine Protein Urine Glucose (UA) Urine Ketones Urine Blood Urine Nitrite Urine Bilirubin Urine Urobilinogen Ur Leukocyte Esterase [place] < 0.1 L RPR Titer Nonreactive LABS NOTED. Assessment: 03/10/18 15:10 WITHDRAWAL SYMPTOMS. Plan: CONTINUE DETOX.
[2018-03-10] MEDS: chlordiazePOXIDE 5 MG CAPSULE PO SCH ×2 (18:03→23:06)
[2018-03-10] MEDS: OLANZapine 5 MG TABLET PO SCH (23:06)
[2018-03-10] MEDS: THIAMINE HCL 100 MG TABLET (FP) PO SCH (23:06)
[2018-03-10] MEDS: traZODone HCL 50 MG TABLET (FP) PO SCH (23:06)
[2018-03-11] MEDS: chlordiazePOXIDE 5 MG CAPSULE PO SCH (05:40)
[2018-03-11 06:23] VITALS: BP 108/78; PULSE 69; TEMP 97.7
--- NOTE | 2018-03-11 07:24 | DS ---
[facility] Detox Discharge Summary Admission Date: 03/08/18 Discharge Date: 03/11/18 - History Present History: Alcohol Dependence, Cannabis Dependence Pertinent Past History: NICOTINE DEPENDENCE HTN GERD - Physical Exam Results Vital Signs: Vital Signs Temperature 97.7 F 03/11/18 06:23 Pulse Rate 69 03/11/18 06:23 Respiratory Rate 18 03/11/18 06:23 Blood Pressure 108/78 03/11/18 06:23 O2 Sat by Pulse Oximetry (%) Pertinent Admission Physical Exam Findings: WITHDRAWAL SX'S - Treatment Hospital Course: Discharged Condition Good Patient has Accepted a Rehab Referral to: [facility] STATES HE WILL RETURN 2018 FOR REHAB SCREENING - Medication Discharge Medications: Ambulatory Orders Clonidine HCl [Catapres] 0.1 mg PO DAILY 01/17/18 Ranitidine [Zantac -] 150 mg PO BID 01/17/18 hydrOXYzine PAMOATE [Vistaril -] 50 mg PO HS PRN 01/17/18 Fluoxetine HCl [Prozac -] 10 mg PO DAILY #30 capsule 01/18/18 [place] Carbonate [Eskalith -] 300 mg PO BID #60 capsule 01/18/18 Olanzapine [Zyprexa -] 5 mg PO HS #30 tablet 01/18/18 - Diagnosis (1) Alcohol dependence with uncomplicated withdrawal Current Visit: Yes Status: Acute (2) Bipolar disorder Current Visit: Yes Status: Chronic Qualifiers: Current episode severity: unspecified (3) Marijuana dependence Current Visit: Yes Status: Chronic (4) GERD (gastroesophageal reflux disease) Current Visit: No Status: Chronic Qualifiers: Esophagitis presence: without esophagitis Qualified Code(s): K21.9 - Gastro -esophageal reflux disease without esophagitis (5) HTN (hypertension) Current Visit: No Status: Chronic Qualifiers: Hypertension type: essential hypertension Qualified Code(s): I10 - Essential (primary) hypertension - AMA Did Patient Leave Against Medical Advice: Yes (ACCEPTS RISK OF SEIZURE AND ; AWARE TO CALL 911 FOR ACUTE WITHDRAWAL )
[2018-03-11] MEDS ORDERED: chlordiazePOXIDE HCL 10 MG CAPSULE PO SCH (17:00)
== END 2018-03-11 07:25 | disposition left against medical advice (07) | DRG 770 ==
LOC: YASAS 09:39 → Y3N 12:57
PROVIDERS: ADMIT Neuromusculoskeletal Medicine & OMM; ATTEND Neuromusculoskeletal Medicine & OMM
PROC: HZ2ZZZZ Detoxification Services for Substance Abuse Treatment (ICD-10-PCS; principal; 2018-03-08)
DX: F10.230 Alcohol dependence with withdrawal, uncomplicated (principal); F12.20 Cannabis dependence, uncomplicated; F17.210 Nicotine dependence, cigarettes, uncomplicated; F31.9 Bipolar disorder, unspecified; I10 Essential (primary) hypertension; K21.9 Gastro-esophageal reflux disease without esophagitis; Z59.0 Homelessness
CPT/HCPCS: 36415; 80053; 80178; 81003; 85027; 86593

== ENCOUNTER 2018-04-21 09:13 | Inpatient (IN) | payer OTHER ==
[2018-04-21 10:41] VITALS: BMI 24.6
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
[2018-04-21] MEDS ORDERED: ACETAMINOPHEN 325 MG TABLET (FP) PO PRN ×2 (12:59)
[2018-04-21] MEDS ORDERED: chlordiazePOXIDE HCL 10 MG CAPSULE PO PRN (12:59)
[2018-04-21] MEDS ORDERED: DICYCLOMINE HCL 10 MG CAPSULE PO PRN (12:59)
[2018-04-21] MEDS ORDERED: MAGNESIUM HYDROX 2400MG/30ML ORAL SUSPENSION 30 ML CUP PO PRN (12:59)
[2018-04-21] MEDS ORDERED: MENTHOL/PHENOL 1 EACH UD MM PRN (12:59)
[2018-04-21] MEDS ORDERED: NICOTINE POLACRILEX 2 MG GUM BUC PRN (12:59)
[2018-04-21] MEDS ORDERED: IBUPROFEN 400 MG TABLET (FP) PO PRN (12:59)
[2018-04-21] MEDS ORDERED: MAGNESIUM CITRATE 300 ML BOTTLE PO PRN (12:59)
[2018-04-21] MEDS: chlordiazePOXIDE HCL 25 MG CAPSULE PO SCH ×2 (13:55→21:02)
[2018-04-21] MEDS: MAG HYDROX/AL HYDROX/SIMETH 30 ML UNIT-DOSE CUP PO PRN (17:12)
[2018-04-21] MEDS: THIAMINE HCL 100 MG TABLET (FP) PO SCH (21:02)
[2018-04-22] MEDS: chlordiazePOXIDE HCL 25 MG CAPSULE PO SCH (05:52)
[2018-04-22] MEDS: MAG HYDROX/AL HYDROX/SIMETH 30 ML UNIT-DOSE CUP PO PRN ×2 (05:53→13:05)
[2018-04-22] MEDS: PRENATAL VITAMINS W/ FOLIC ACID TABLET (FP) PO SCH (10:17)
[2018-04-22 10:55] LABS: ALBUMIN 3.4 g/dl (3.4-5.0); ALK PHOS 64 U/L (45-117); ANION GAP 4 MMOL/L (8-16); BILIRUBIN,TOTAL 0.8 mg/dL (0.2-1); BLOOD UREA NITROGEN 10 mg/dL (7-18); CALCIUM 8.4 mg/dL (8.5-10.1); CHLORIDE 103 mmol/L (98-107); CO2 30 mmol/L (21-32); CREATININE 0.8 mg/dL (0.55-1.3); GLUCOSE,RANDOM 87 mg/dL (74-106); POTASSIUM 4.2 mmol/L (3.5-5.1); SGOT/AST 41 U/L (15-37); SGPT/ALT 62 U/L (13-61); SODIUM 137 mmol/L (136-145); TOT PROT 6.3 g/dl (6.4-8.2)
[2018-04-22 11:30] LABS: HEMATOCRIT 45.1 % (35.4-49); HEMOGLOBIN 15.3 GM/dL (11.7-16.9); MCH 33.3 pg (25.7-33.7); MCHC 33.8 g/dl (32.0-35.9); MEAN CELL VOLUME 98.5 fl (80-96); MEAN PLT VOLUME 10.4 fl (7.5-11.1); PLATELET COUNT 164 K/MM3 (134-434); RBC 4.58 M/mm3 (4.00-5.60); RDW 13.1 % (11.9-15.9); WHITE BLOOD COUNT 5.9 K/mm3 (4.0-10.0)
--- NOTE | 2018-04-22 12:03 | CONSULT ---
[facility] Psychiatric Consult - Data Date of interview: 04/22/18 Admission source: Self-referred Identifying data: Mr Forman is a 43 years old eritrean-Macanese male, father of 3 children, unemployed on public assistance, homeless seeking detox treatment for alcohol and cannabis Substance Abuse History: Reports history of alcohol and marijuana use. Refer to addiction counselor's summary for further informartion Medical History: Significant for hypertension, history of orthosurgery for partial amputation right index finger at age 18. Smokes cigarettes up to 1ppd Psychiatric History: Reports that his first psychiatric contact was approximately 4-5 years ago while in detox at [facility]. He was diagnosed with Bipolar Disorder and OCD and started on Prozac, [place] and Zyprexa. Reports no adherence to OPD care and medications. Claims that he only sees psychiatrist and takes medications whenever he is admitted to inpatient substance abuse program. Reports seeing psychiatrist and taking medications last in March 2018 while at [facility]. Claims that he was prescribed Prozac 10 mg po daily, Zyprexa 5 mg po HS and [place] 300 mg po BID. Told principal technical writer that he does not take medication when he is outside and only takes them only while on inpatient detox. according to EMR, he was last admitted in this facility in February 2018 and he was prescribed these medications by Dr Flood. At present, repports feeling depressed and sleeping poorly Physical/Sexual Abuse/Trauma History: Denies history of emotional, physical or sexual abuse as well as DV relationship. No service Additional Comment: Denies criminal history Mental Status Exam - Mental Status Exam Alert and Oriented to: Time, Place, Person Cognitive Function: Fair Patient Appearance: Well Groomed Mood: Depressed Affect: Appropriate Patient Behavior: Cooperative Speech Pattern: Clear Voice Loudness: Normal Thought Process: Intact, Goal Oriented Thought Disorder: Not Present Hallucinations: Denies Suicidal Ideation: Denies Homicidal Ideation: Denies Insight/Judgement: Poor Sleep: Poorly Appetite: Good Muscle strength/Tone: Normal Gait/Station: Normal Psychiatric Findings - Problem List ([place] 1, 2,3) (1) Mood disorder Current Visit: Yes Status: Chronic (2) Bipolar disorder Current Visit: No Status: Ruled-out Qualifiers: Current episode severity: unspecified (3) OCD (obsessive compulsive disorder) Current Visit: Yes Status: Ruled-out (4) Substance induced mood disorder Current Visit: Yes Status: Acute (5) Substance-induced sleep disorder Current Visit: Yes Status: Acute (6) Alcohol dependence with uncomplicated withdrawal Current Visit: No Status: Acute (7) Cannabis dependence Current Visit: Yes Status: Acute (8) Nicotine dependence Current Visit: Yes Status: Acute Qualifiers: Nicotine product type: cigarettes (9) GERD (gastroesophageal reflux disease) Current Visit: No Status: Chronic Qualifiers: Esophagitis presence: without esophagitis Qualified Code(s): K21.9 - Gastro -esophageal reflux disease without esophagitis (10) HTN (hypertension) Current Visit: No Status: Chronic Qualifiers: Hypertension type: essential hypertension Qualified Code(s): I10 - Essential (primary) hypertension - Initial Treatment Plan Initial Treatment Plan: 1) Start Prozac 10 mg po daily and Zyprexa 5 mg po HS. Patient educated on the importance of medication compliance. 2) Continue inpatient detoxification
[2018-04-22] MEDS: FLUoxetine HCL 10 MG CAPSULE (FP) PO SCH (13:09)
[2018-04-22] MEDS: chlordiazePOXIDE 5 MG CAPSULE PO SCH ×2 (13:09→22:35)
--- NOTE | 2018-04-22 16:23 | PN ---
S CIWA - CIWA Score Nausea/Vomitin Muscle Tremors: 4-Moderate,w/Arms Extend Anxiety: 4-Mod. Anxious/Guarded Agitation: 4-Moderately Restless Paroxysmal Sweats: 3 Orientation: 0-Oriented Tacttile Disturbances: 0-None Auditory Disturbances: 0-None Visual Disturbances: 0-None Headache: 0-None Present CIWA-Ar Total Score: 17 BHS Progress Note (SOAP) Subjective: Interrupted sleep Objective: 04/22/18 16:21 Last Vital Signs Temp Pulse Resp BP Pulse Ox 98.1 F 71 16 122/74 04/22/18 14:11 04/22/18 14:11 04/22/18 14:11 04/22/18 14:11 Laboratory Tests 04/22/18 04/22/18 08:00 08:00 WBC 5.9 RBC 4.58 Hgb 15.3 Hct 45.1 MCV 98.5 H MCH 33.3 MCHC 33.8 RDW 13.1 Plt Count 164 MPV 10.4 Sodium 137 Potassium 4.2 Chloride 103 Carbon Dioxide 30 Anion Gap 4 L BUN 10 Creatinine 0.8 Creat Clearance w eGFR > 60 Random Glucose 87 Calcium 8.4 L Total Bilirubin 0.8 AST 41 H ALT 62 H Alkaline Phosphatase 64 Total Protein 6.3 L Albumin 3.4 Labs reviewed Assessment: 04/22/18 16:22 Withdrawal symptoms Plan: Continue detox Encouraged PO water intake
[2018-04-22] MEDS: MELATONIN 5 MG TABLETS PO PRN (22:34)
[2018-04-22] MEDS: OLANZapine 5 MG TABLET PO SCH (22:34)
[2018-04-22] MEDS: THIAMINE HCL 100 MG TABLET (FP) PO SCH (22:34)
[2018-04-23] MEDS: chlordiazePOXIDE 5 MG CAPSULE PO SCH (05:39)
[2018-04-23] MEDS: FLUoxetine HCL 10 MG CAPSULE (FP) PO SCH (10:16)
[2018-04-23] MEDS: PRENATAL VITAMINS W/ FOLIC ACID TABLET (FP) PO SCH (10:16)
[2018-04-23] MEDS ORDERED: chlordiazePOXIDE HCL 10 MG CAPSULE PO PRN (13:00)
--- NOTE | 2018-04-23 14:42 | PN ---
S CIWA - CIWA Score Nausea/Vomitin-No Nausea/No Vomiting Muscle Tremors: None Anxiety: 3 Agitation: 0-Normal Activity Paroxysmal Sweats: No Perspiration Orientation: 0-Oriented Tacttile Disturbances: 0-None Auditory Disturbances: 2-Mild Harshness/Frighten Visual Disturbances: 3-Moderate Sensitivity Headache: 0-None Present CIWA-Ar Total Score: 8 BHS Progress Note (SOAP) Subjective: Fatigue, Stomach Cramping, Interrupted Sleep. Objective: PATIENT A & O X 3. IN NO ACUTE DISTRESS. 04/23/18 14:41 Vital Signs Temperature 98.7 F 04/23/18 09:34 Pulse Rate 78 04/23/18 09:34 Respiratory Rate 18 04/23/18 09:34 Blood Pressure 101/53 L 04/23/18 09:34 O2 Sat by Pulse Oximetry (%) Laboratory Tests 04/22/18 04/22/18 04/22/18 08:00 08:00 08:00 WBC 5.9 RBC 4.58 Hgb 15.3 Hct 45.1 MCV 98.5 H MCH 33.3 MCHC 33.8 RDW 13.1 Plt Count 164 MPV 10.4 Sodium 137 Potassium 4.2 Chloride 103 Carbon Dioxide 30 Anion Gap 4 L BUN 10 Creatinine 0.8 Creat Clearance w eGFR > 60 Random Glucose 87 Calcium 8.4 L Total Bilirubin 0.8 AST 41 H ALT 62 H Alkaline Phosphatase 64 Total Protein 6.3 L Albumin 3.4 RPR Titer Nonreactive LABS NOTED. Assessment: 04/23/18 14:42 WITHDRAWAL SYMPTOMS. Plan: CONTINUE DETOX. INCREASE DAILY PO FLUID INTAKE.
[2018-04-23] MEDS: chlordiazePOXIDE HCL 10 MG CAPSULE PO SCH ×2 (15:34→22:23)
[2018-04-23] MEDS: OLANZapine 5 MG TABLET PO SCH (22:23)
[2018-04-23] MEDS: MELATONIN 5 MG TABLETS PO PRN (22:23)
[2018-04-23] MEDS: THIAMINE HCL 100 MG TABLET (FP) PO SCH (22:23)
[2018-04-24] MEDS: chlordiazePOXIDE HCL 10 MG CAPSULE PO SCH (06:32)
[2018-04-24 07:16] VITALS: BP 144/90; PULSE 82; TEMP 97.2
--- NOTE | 2018-04-24 09:18 | DS ---
[facility] Detox Discharge Summary Admission Date: 04/21/18 Discharge Date: 04/24/18 - History Present History: Alcohol Dependence, Cannabis Dependence - Physical Exam Results Vital Signs: Vital Signs Temperature 97.2 F L 04/24/18 07:15 Pulse Rate 82 04/24/18 07:15 Respiratory Rate 18 04/24/18 07:15 Blood Pressure 144/90 04/24/18 07:15 O2 Sat by Pulse Oximetry (%) - Treatment Hospital Course: Detox Protocol Followed, Detoxed Safely, Responded well, Discharged Condition Good, Rehab Referral Accepted - Medication Discharge Medications: Ambulatory Orders Clonidine HCl [Catapres] 0.1 mg PO DAILY 01/17/18 Ranitidine [Zantac -] 150 mg PO BID 01/17/18 Fluoxetine HCl [Prozac -] 10 mg PO DAILY #30 capsule 01/18/18 [place] Carbonate [Eskalith -] 300 mg PO BID #60 capsule 01/18/18 Olanzapine [Zyprexa -] 5 mg PO HS #30 tablet 01/18/18 - Diagnosis (1) Cannabis dependence Current Visit: Yes Status: Chronic (2) Nicotine dependence Current Visit: Yes Status: Chronic Qualifiers: Nicotine product type: cigarettes Substance use status: uncomplicated Qualified Code(s): F17.210 - Nicotine dependence, cigarettes, uncomplicated (3) Substance induced mood disorder Current Visit: Yes Status: Acute (4) Substance-induced sleep disorder Current Visit: Yes Status: Acute (5) Mood disorder Current Visit: Yes Status: Chronic (6) OCD (obsessive compulsive disorder) Current Visit: Yes Status: Ruled-out (7) Alcohol dependence with uncomplicated withdrawal Current Visit: Yes Status: Chronic (8) Anxiety Current Visit: No Status: Chronic (9) GERD (gastroesophageal reflux disease) Current Visit: No Status: Chronic Qualifiers: Esophagitis presence: without esophagitis Qualified Code(s): K21.9 - Gastro -esophageal reflux disease without esophagitis (10) HTN (hypertension) Current Visit: No Status: Chronic Qualifiers: Hypertension type: essential hypertension Qualified Code(s): I10 - Essential (primary) hypertension (11) Marijuana dependence Current Visit: Yes Status: Chronic (12) Bipolar II disorder Current Visit: No Status: Suspected (13) Bipolar disorder Current Visit: No Status: Ruled-out Qualifiers: Current episode severity: unspecified - AMA Did Patient Leave Against Medical Advice: No (refused rehab; going home)
== END 2018-04-24 08:47 | disposition home or self-care (01) | DRG 774 ==
LOC: YASAS 09:13 → Y6N 12:50
PROVIDERS: ADMIT Surgery; ATTEND Surgery
PROC: HZ2ZZZZ Detoxification Services for Substance Abuse Treatment (ICD-10-PCS; principal; 2018-04-21)
DX: F10.230 Alcohol dependence with withdrawal, uncomplicated (principal); F14.20 Cocaine dependence, uncomplicated; F12.20 Cannabis dependence, uncomplicated; F17.210 Nicotine dependence, cigarettes, uncomplicated; F19.24 Other psychoactive substance dependence with psychoactive substance-induced mood disorder; F19.282 Other psychoactive substance dependence with psychoactive substance-induced sleep disorder; F31.81 Bipolar II disorder; F39 Unspecified mood [affective] disorder; F41.9 Anxiety disorder, unspecified; F42.9 Obsessive-compulsive disorder, unspecified; I10 Essential (primary) hypertension; K21.9 Gastro-esophageal reflux disease without esophagitis; Z59.0 Homelessness
CPT/HCPCS: 36415; 80053; 85027; 86593

== ENCOUNTER 2018-05-12 10:44 | Inpatient (IN) | payer OTHER ==
[2018-05-12 10:52] VITALS: BMI 25.5
--- NOTE | 2018-05-12 11:14 | HP ---
CIWA Score Nausea/Vomitin Muscle Tremors: 2 Anxiety: 2 Agitation: 2 Paroxysmal Sweats: 1-Minimal Palms Moist Orientation: 0-Oriented Tacttile Disturbances: 1-Very Mild Itch/Numbness Auditory Disturbances: 1-Very Mild Visual Disturbances: 0-None Headache: 2-Mild CIWA-Ar Total Score: 13 - Admission Criteria OASAS Guidelines: Admission for Medically Managed Detox: Requires at least one of the followin. CIWA greater than 12 2. Seizures within the past 24 hours 3. Delirium tremens within the past 24 hours 4. Hallucinations within the past 24 hours 5. Acute intervention needed for co occurring medical disorder 6. Acute intervention needed for co occurring psychiatric disorder 7. Severe withdrawal that cannot be handled at a lower level of care (continued vomiting, continued diarrhea, abnormal vital signs) requiring intravenous medication and/or fluids 8. Admission ROS BHS - HPI Chief Complaint: i need help to stop drinking alcohol and marijuana Allergies/Adverse Reactions: Allergies Allergy/AdvReac Type Severity Reaction Status Date / Time No Known Allergies Allergy Verified 05/12/18 12:56 History of Present Illness: this 43 years old male with alcohol and marijuana abused,seeking detox, withdrawal symptom, multiple admissions in detox,but keep relapsing nicotine dependence 1 pack/day,requesting patch longest period of sobriety 4 months plan for rehab after detox - Ebola screening Have you traveled outside of the country in the last 21 days: No (N) Have you had contact with anyone from an Ebola affected area: No Have you been sick,other than usual withdrawal symptoms: No Do you have a fever: No - Review of Systems Constitutional: Night Sweats, Changes in sleep, Unintentional Wgt. Loss EENT: reports: Nose Congestion Respiratory: reports: No Symptoms reported Cardiac: reports: No Symptoms Reported GI: reports: Nausea, Poor Appetite, Abdominal cramping : reports: No Symptoms Reported Musculoskeletal: reports: Back Pain, Muscle Pain Integumentary: reports: Dryness Neuro: reports: Tremors Endocrine: reports: No Symptoms Reported Hematology: reports: No Symptoms Reported Psychiatric: reports: No Sypmtoms Reported, Judgement Intact, Mood/Affect Appropiate, Orientated x3 Other Systems: Reviewed and Negative Patient History - Patient Medical History Hx Anemia: No Hx Asthma: No Hx Chronic Obstructive Pulmonary Disease (COPD): No Hx Cancer: No Hx Cardiac Disorders: No Hx Congestive Heart Failure: No Hx Hypertension: Yes (no medication) Hx Hypercholesterolemia: No Hx Pacemaker: No HX Cerebrovascular Accident: No Hx Seizures: No Hx Dementia: No Hx Diabetes: No Hx Gastrointestinal Disorders: No Hx Liver Disease: No Hx Genitourinary Disorders: No Hx Sexually Transmitted Disorders: No Hx Renal Disease (ESRD): No Hx Thyroid Disease: No Hx Human Immunodeficiency Virus (HIV): No Hx Hepatitis C: No Hx Depression: Yes Hx Suicide Attempt: No Hx Bipolar Disorder: Yes Hx Schizophrenia: No Other Medical History: no suicidal,no homicidal - Patient Surgical History Past Surgical History: Yes Other Surgical History: partial amputation, right index finger in 2017 Anesthesia Reaction: No - PPD History Previous Implant?: Yes Documented Results: Negative w/proof Date: 01/19/18 Results: 0 mm PPD to be Administered?: No - Smoking Cessation Smoking history: Current every day smoker Have you smoked in the past 12 months: Yes Aproximately how many cigarettes per day: 10 Hx Chewing Tobacco Use: No Initiated information on smoking cessation: Yes 'Breaking Loose' booklet given: 05/12/18 - Substance & Tx. History Hx Alcohol Use: Yes Hx Substance Use: Yes Substance Use Type: Alcohol, Marijuana Hx Substance Use Treatment: Yes (04/21/18 to 04/24/18 [facility]) - Substances Abused Alcohol Route: Oral Frequency: Daily Amount used: 1pint of vodka/2 of 40 ozs of beer Age of first use: 17 Date of Last Use: 05/12/18 Marijuana/Hashish Route: Smoking Frequency: Daily Amount used: 30$ Age of first use: 16 Date of Last Use: 05/12/18 Family Disease History - Family Disease History Family History: Denies Admission Physical Exam S - Vital Signs Vital Signs: Vital Signs - 24 hr 05/12/18 10:50 Temperature 98.1 F Pulse Rate 94 H Respiratory 18 Rate Blood Pressure 125/89 - Physical General Appearance: Yes: Moderate Distress, Tremorous, Irritable, Sweating, Anxious HEENTM: Yes: Normal ENT Inspection, MARIO, Pharynx Normal Respiratory: Yes: Lungs Clear, Normal Breath Sounds, No Respiratory Distress Neck: Yes: Within Normal Limits, Supple, Trachea in good position Breast: Yes: Within Normal Limits Cardiology: Yes: Within Normal Limits, Regular Rhythm, Regular Rate, S1, S2 Abdominal: Yes: Within Normal Limits, Normal Bowel Sounds, Non Tender, Soft Genitourinary: Yes: Within Normal Limits Back: Yes: Normal Inspection, Muscle Spasm Musculoskeletal: Yes: full range of Motion, Back pain, Muscle Pain Extremities: Yes: Tremors 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: Yes: Within Normal Limits, appointment coordinator II-XII NML intact, Alert, Motor Strength 5/5 Integumentary: Yes: Dry Lymphatic: Yes: Within Normal Limits - Diagnostic (1) Alcohol dependence with uncomplicated withdrawal Current Visit: No Status: Chronic (2) GERD (gastroesophageal reflux disease) Current Visit: No Status: Chronic Qualifiers: Esophagitis presence: without esophagitis Qualified Code(s): K21.9 - Gastro -esophageal reflux disease without esophagitis (3) HTN (hypertension) Current Visit: No Status: Chronic Qualifiers: Hypertension type: essential hypertension Qualified Code(s): I10 - Essential (primary) hypertension (4) Marijuana dependence Current Visit: No Status: Chronic (5) Nicotine dependence Current Visit: No Status: Chronic Qualifiers: Nicotine product type: cigarettes Substance use status: uncomplicated Qualified Code(s): F17.210 - Nicotine dependence, cigarettes, uncomplicated (6) Bipolar disorder Current Visit: No Status: Ruled-out Qualifiers: Current episode severity: unspecified Cleared for Admission [facility] - Detox or Rehab [facility] Level of Care: Medically Managed Detox Regimen/Protocol: Librium [facility] Breath Alcohol Content Breath Alcohol Content: 0.057 Urine Drug Screen - Results Drug Screen Negative: No Urine Drug Screen Results: THC-Marijuana, BZO-Benzodiazepines Inpatient Rehab Admission - Rehab Decision to Admit Inpatient rehab admission?: No
[2018-05-12] MEDS ORDERED: MENTHOL/PHENOL 1 EACH UD MM PRN (11:25)
[2018-05-12] MEDS ORDERED: MAGNESIUM HYDROX 2400MG/30ML ORAL SUSPENSION 30 ML CUP PO PRN (11:25)
[2018-05-12] MEDS ORDERED: ACETAMINOPHEN 325 MG TABLET (FP) PO PRN ×2 (11:25)
[2018-05-12] MEDS ORDERED: METHOCARBAMOL 500 MG TABLET PO PRN (11:25)
[2018-05-12] MEDS ORDERED: MAGNESIUM CITRATE 300 ML BOTTLE PO PRN (11:25)
[2018-05-12] MEDS ORDERED: IBUPROFEN 400 MG TABLET (FP) PO PRN (11:25)
[2018-05-12] MEDS ORDERED: hydrOXYzine PAMOATE 25 MG CAPSULE (FP) PO PRN (11:25)
[2018-05-12] MEDS ORDERED: MAG HYDROX/AL HYDROX/SIMETH 30 ML UNIT-DOSE CUP PO PRN (11:25)
[2018-05-12] MEDS ORDERED: BISMUTH SUBSALICYLATE 524 MG/30 ML UD PO PRN (11:25)
[2018-05-12] MEDS: NICOTINE 21 MG/24 HOURS TOPICAL PATCH TD SCH (13:45)
[2018-05-12] MEDS: chlordiazePOXIDE HCL 25 MG CAPSULE PO PRN (13:45)
[2018-05-12] MEDS: chlordiazePOXIDE HCL 25 MG CAPSULE PO SCH ×2 (18:00→23:00)
[2018-05-12 19:28] LABS: PH,URINE 6.5 (5.0-8.0); URINE APPEARANCE CLEAR; URINE BILIRUBIN NEGATIVE (NEGATIVE); URINE COLOR YELLOW; URINE GLUCOSE (UA) NEGATIVE (NEGATIVE); URINE KETONE NEGATIVE (NEGATIVE); URINE LEUK ESTERASE NEGATIVE (NEGATIVE); URINE NITRITE NEGATIVE (NEGATIVE); URINE PROTEIN NEGATIVE (NEGATIVE); URINE UROBILINOGEN 0.2 mg/dL (0.2-1.0)
[2018-05-12] MEDS: RANITIDINE HCL 150 MG TABLET (FP) PO SCH (23:00)
[2018-05-12] MEDS: THIAMINE HCL 100 MG TABLET (FP) PO SCH (23:00)
[2018-05-12] MEDS: MELATONIN 5 MG TABLETS PO PRN (23:17)
[2018-05-13] MEDS: chlordiazePOXIDE HCL 25 MG CAPSULE PO SCH ×4 (05:34→22:30)
[2018-05-13] MEDS: chlordiazePOXIDE HCL 25 MG CAPSULE PO PRN (09:26)
[2018-05-13 10:34] LABS: HEMATOCRIT 45.8 % (35.4-49); HEMOGLOBIN 14.9 GM/dL (11.7-16.9); MCHC 32.6 g/dl (32.0-35.9); MEAN CELL VOLUME 98.1 fl (80-96); MEAN PLT VOLUME 10.2 fl (7.5-11.1); PLATELET COUNT 168 K/MM3 (134-434); RBC 4.67 M/mm3 (4.00-5.60); RDW 13.4 % (11.9-15.9); WHITE BLOOD COUNT 5.5 K/mm3 (4.0-10.0)
[2018-05-13 10:39] LABS: ALBUMIN 3.3 g/dl (3.4-5.0); ALK PHOS 50 U/L (45-117); ANION GAP 7 MMOL/L (8-16); BILIRUBIN,TOTAL 0.6 mg/dL (0.2-1); BLOOD UREA NITROGEN 12 mg/dL (7-18); CALCIUM 8.6 mg/dL (8.5-10.1); CHLORIDE 105 mmol/L (98-107); CO2 27 mmol/L (21-32); CREATININE 0.8 mg/dL (0.55-1.3); GLUCOSE,RANDOM 93 mg/dL (74-106); POTASSIUM 3.9 mmol/L (3.5-5.1); SGOT/AST 41 U/L (15-37); SGPT/ALT 45 U/L (13-61); SODIUM 140 mmol/L (136-145)
[2018-05-13] MEDS: RANITIDINE HCL 150 MG TABLET (FP) PO SCH ×2 (10:42→22:30)
[2018-05-13] MEDS: PRENATAL VITAMINS W/ FOLIC ACID TABLET (FP) PO SCH (10:43)
[2018-05-13] MEDS: NICOTINE 21 MG/24 HOURS TOPICAL PATCH TD SCH (10:43)
--- NOTE | 2018-05-13 12:02 | PN ---
[facility] CIWA - CIWA Score Nausea/Vomitin-No Nausea/No Vomiting Muscle Tremors: 2 Anxiety: 2 Agitation: 1-Slight > Activity Paroxysmal Sweats: 1-Minimal Palms Moist Orientation: 2-Disoriented Date<2 days Tacttile Disturbances: 0-None Auditory Disturbances: 0-None Visual Disturbances: 0-None Headache: 1-Very Mild CIWA-Ar Total Score: 9 S Progress Note (SOAP) Subjective: tremor feeling tired restlessness Objective: 05/13/18 12:01 Vital Signs Temperature 96.9 F L 05/13/18 09:48 Pulse Rate 78 05/13/18 09:48 Respiratory Rate 18 05/13/18 09:48 Blood Pressure 124/86 05/13/18 09:48 O2 Sat by Pulse Oximetry (%) Laboratory Last Values WBC 5.5 K/mm3 (4.0-10.0) 05/13/18 07:30 RBC 4.67 M/mm3 (4.00-5.60) 05/13/18 07:30 Hgb 14.9 GM/dL (11.7-16.9) 05/13/18 07:30 Hct 45.8 % (35.4-49) 05/13/18 07:30 MCV 98.1 fl (80-96) H 05/13/18 07:30 MCH 32.0 pg (25.7-33.7) 05/13/18 07:30 MCHC 32.6 g/dl (32.0-35.9) 05/13/18 07:30 RDW 13.4 % (11.9-15.9) 05/13/18 07:30 Plt Count 168 K/MM3 (134-434) 05/13/18 07:30 MPV 10.2 fl (7.5-11.1) 05/13/18 07:30 Sodium 140 mmol/L (136-145) 05/13/18 07:30 Potassium 3.9 mmol/L (3.5-5.1) 05/13/18 07:30 Chloride 105 mmol/L (98-107) 05/13/18 07:30 Carbon Dioxide 27 mmol/L (21-32) 05/13/18 07:30 Anion Gap 7 MMOL/L (8-16) L 05/13/18 07:30 BUN 12 mg/dL (7-18) 05/13/18 07:30 Creatinine 0.8 mg/dL (0.55-1.3) 05/13/18 07:30 Creat Clearance w eGFR 105.51 (>60) 05/13/18 07:30 Random Glucose 93 mg/dL (74-106) 05/13/18 07:30 Calcium 8.6 mg/dL (8.5-10.1) 05/13/18 07:30 Total Bilirubin 0.6 mg/dL (0.2-1) 05/13/18 07:30 AST 41 U/L (15-37) H 05/13/18 07:30 ALT 45 U/L (13-61) 05/13/18 07:30 Alkaline Phosphatase 50 U/L (45-117) 05/13/18 07:30 Total Protein 6.0 g/dl (6.4-8.2) L 05/13/18 07:30 Albumin 3.3 g/dl (3.4-5.0) L 05/13/18 07:30 Urine Color Yellow 05/12/18 15:47 Urine Appearance Clear 05/12/18 15:47 Urine pH 6.5 (5.0-8.0) 05/12/18 15:47 Ur Specific [place] 1.005 (1.010-1.035) L 05/12/18 15:47 Urine Protein Negative (NEGATIVE) 05/12/18 15:47 Urine Glucose (UA) Negative (NEGATIVE) 05/12/18 15:47 Urine Ketones Negative (NEGATIVE) 05/12/18 15:47 Urine Blood Negative (NEGATIVE) 05/12/18 15:47 Urine Nitrite Negative (NEGATIVE) 05/12/18 15:47 Urine Bilirubin Negative (NEGATIVE) 05/12/18 15:47 Urine Urobilinogen 0.2 mg/dL (0.2-1.0) 05/12/18 15:47 Ur Leukocyte Esterase Negative (NEGATIVE) 05/12/18 15:47 RPR Titer Nonreactive (NONREACTIVE) 05/13/18 07:30 lab noted Assessment: 05/13/18 12:02 withdrawal sx Plan: continue detox
[2018-05-13] MEDS: THIAMINE HCL 100 MG TABLET (FP) PO SCH (22:30)
[2018-05-13] MEDS: MELATONIN 5 MG TABLETS PO PRN (22:30)
[2018-05-14] MEDS: chlordiazePOXIDE HCL 25 MG CAPSULE PO SCH ×2 (05:18→10:31)
[2018-05-14 06:15] VITALS: BP 120/82; PULSE 77; TEMP 97.5
--- NOTE | 2018-05-14 08:29 | PN ---
S Progress Note Note: Patient did not want to be seen. He told development writer that he was leaving
[2018-05-14] MEDS: NICOTINE 21 MG/24 HOURS TOPICAL PATCH TD SCH (09:26)
[2018-05-14] MEDS: PRENATAL VITAMINS W/ FOLIC ACID TABLET (FP) PO SCH (09:27)
[2018-05-14] MEDS: RANITIDINE HCL 150 MG TABLET (FP) PO SCH (09:27)
[2018-05-14] MEDS ORDERED: chlordiazePOXIDE HCL 10 MG CAPSULE PO SCH (17:00)
[2018-05-14] MEDS ORDERED: chlordiazePOXIDE HCL 10 MG CAPSULE PO PRN (17:00)
--- NOTE | 2018-05-14 17:45 | PN ---
S CIWA - CIWA Score Nausea/Vomitin-No Nausea/No Vomiting Muscle Tremors: 2 Anxiety: 3 Agitation: 2 Paroxysmal Sweats: No Perspiration Orientation: 0-Oriented Tacttile Disturbances: 1-Very Mild Itch/Numbness Auditory Disturbances: 1-Very Mild Visual Disturbances: 2-Mild Sensitivity Headache: 0-None Present CIWA-Ar Total Score: 11 BHS Progress Note (SOAP) Subjective: Tremors, Anxious, Restless, Interrupted Sleep. Objective: PATIENT A & O X 3, OBSERVED AMBULATING ON UNIT. IN NO ACUTE DISTRESS. 05/14/18 17:44 Vital Signs Temperature 97.5 F L 05/14/18 06:15 Pulse Rate 77 05/14/18 06:15 Respiratory Rate 18 05/14/18 06:30 Blood Pressure 120/82 05/14/18 06:15 O2 Sat by Pulse Oximetry (%) Laboratory Tests 05/12/18 05/13/18 05/13/18 15:47 07:30 07:30 WBC 5.5 RBC 4.67 Hgb 14.9 Hct 45.8 MCV 98.1 H MCH 32.0 MCHC 32.6 RDW 13.4 Plt Count 168 MPV 10.2 Sodium 140 Potassium 3.9 Chloride 105 Carbon Dioxide 27 Anion Gap 7 L BUN 12 Creatinine 0.8 Creat Clearance w eGFR 105.51 Random Glucose 93 Calcium 8.6 Total Bilirubin 0.6 AST 41 H ALT 45 Alkaline Phosphatase 50 Total Protein 6.0 L Albumin 3.3 L Urine Color Yellow Urine Appearance Clear Urine pH 6.5 Ur Specific [place] 1.005 L Urine Protein Negative Urine Glucose (UA) Negative Urine Ketones Negative Urine Blood Negative Urine Nitrite Negative Urine Bilirubin Negative Urine Urobilinogen 0.2 Ur Leukocyte Esterase Negative RPR Titer 05/13/18 07:30 WBC RBC Hgb Hct MCV MCH MCHC RDW Plt Count MPV Sodium Potassium Chloride Carbon Dioxide Anion Gap BUN Creatinine Creat Clearance w eGFR Random Glucose Calcium Total Bilirubin AST ALT Alkaline Phosphatase Total Protein Albumin Urine Color Urine Appearance Urine pH Ur Specific [place] Urine Protein Urine Glucose (UA) Urine Ketones Urine Blood Urine Nitrite Urine Bilirubin Urine Urobilinogen Ur Leukocyte Esterase RPR Titer Nonreactive LABS NOTED. Assessment: 05/14/18 17:44 WITHDRAWAL SYMPTOMS. Plan: CONTINUE DETOX.
--- NOTE | 2018-05-14 17:49 | DS ---
[facility] Detox Discharge Summary Admission Date: 05/12/18 Discharge Date: 05/14/18 - History Present History: Alcohol Dependence, Cannabis Dependence Additional Comments: DESPITE ATTEMPTS BY SUGAR SAMPLER AND BY NURSING AND COUNSELING STAFF TO ADDRESS PATIENT'S MEDICAL NEEDS AND CONCERNS, PATIENT DOES NOT WISH TO REMAIN TO COMPLETE DETOX REGIMEN. RISKS OF LEAVING DETOX UNIT AGAINST MEDICAL ADVICE AND PRIOR TO COMPLETION OF DETOX REGIMEN EXPLAINED TO PATIENT. PATIENT ADVISED TO GO IMMEDIATELY TO NEAREST ER SHOULD ANY INTOLERABLE WITHDRAWAL / DETOX SYMPTOMS DEVELOP AT ANY TIME. PATIENT VERBALIZED UNDERSTANDING OF ALL INFORMATION / RECOMMENDATIONS PRESENTED TO HIM PRIOR TO DEPARTURE FROM DETOX UNIT. PATIENT LEFT DETOX UNIT IN STABLE MEDICAL CONDITION. Pertinent Past History: HTN, Depression, Nicotine Dependence, Bipolar Disorder, G.E.R.D. - Physical Exam Results Vital Signs: Vital Signs Temperature 97.5 F L 05/14/18 06:15 Pulse Rate 77 05/14/18 06:15 Respiratory Rate 18 05/14/18 06:30 Blood Pressure 120/82 05/14/18 06:15 O2 Sat by Pulse Oximetry (%) Pertinent Admission Physical Exam Findings: WITHDRAWAL SYMPTOMS. Laboratory Tests 05/12/18 05/13/18 05/13/18 15:47 07:30 07:30 WBC 5.5 RBC 4.67 Hgb 14.9 Hct 45.8 MCV 98.1 H MCH 32.0 MCHC 32.6 RDW 13.4 Plt Count 168 MPV 10.2 Sodium 140 Potassium 3.9 Chloride 105 Carbon Dioxide 27 Anion Gap 7 L BUN 12 Creatinine 0.8 Creat Clearance w eGFR 105.51 Random Glucose 93 Calcium 8.6 Total Bilirubin 0.6 AST 41 H ALT 45 Alkaline Phosphatase 50 Total Protein 6.0 L Albumin 3.3 L Urine Color Yellow Urine Appearance Clear Urine pH 6.5 Ur Specific [place] 1.005 L Urine Protein Negative Urine Glucose (UA) Negative Urine Ketones Negative Urine Blood Negative Urine Nitrite Negative Urine Bilirubin Negative Urine Urobilinogen 0.2 Ur Leukocyte Esterase Negative RPR Titer 05/13/18 07:30 WBC RBC Hgb Hct MCV MCH MCHC RDW Plt Count MPV Sodium Potassium Chloride Carbon Dioxide Anion Gap BUN Creatinine Creat Clearance w eGFR Random Glucose Calcium Total Bilirubin AST ALT Alkaline Phosphatase Total Protein Albumin Urine Color Urine Appearance Urine pH Ur Specific [place] Urine Protein Urine Glucose (UA) Urine Ketones Urine Blood Urine Nitrite Urine Bilirubin Urine Urobilinogen Ur Leukocyte Esterase RPR Titer Nonreactive LABS NOTED. - Treatment Hospital Course: Detox Protocol Followed, Detoxed Safely - Medication Discharge Medications: Ambulatory Orders Ranitidine [Zantac -] 150 mg PO BID 01/17/18 Fluoxetine HCl [Prozac -] 10 mg PO DAILY #30 capsule 01/18/18 [place] Carbonate [Eskalith -] 300 mg PO BID #60 capsule 01/18/18 Olanzapine [Zyprexa -] 5 mg PO HS #30 tablet 01/18/18 - Diagnosis (1) Alcohol dependence with uncomplicated withdrawal Status: Acute (2) GERD (gastroesophageal reflux disease) Status: Chronic Qualifiers: Esophagitis presence: without esophagitis Qualified Code(s): K21.9 - Gastro -esophageal reflux disease without esophagitis (3) HTN (hypertension) Status: Chronic Qualifiers: Hypertension type: essential hypertension Qualified Code(s): I10 - Essential (primary) hypertension (4) Marijuana dependence Status: Chronic (5) Nicotine dependence Status: Chronic Qualifiers: Nicotine product type: cigarettes Substance use status: uncomplicated Qualified Code(s): F17.210 - Nicotine dependence, cigarettes, uncomplicated (6) Bipolar II disorder Status: Suspected - AMA Did Patient Leave Against Medical Advice: Yes (PATIENT DID NOT WISH TO REMAIN TO COMPLETE DETOX REGIMEN.)
[2018-05-15] MEDS ORDERED: chlordiazePOXIDE HCL 10 MG CAPSULE PO SCH (17:00)
== END 2018-05-14 11:43 | disposition left against medical advice (07) | DRG 770 ==
LOC: YASAS 10:44 → Y3N 13:03
PROVIDERS: ADMIT Surgery; ATTEND Surgery
PROC: HZ2ZZZZ Detoxification Services for Substance Abuse Treatment (ICD-10-PCS; principal; 2018-05-12)
DX: F10.230 Alcohol dependence with withdrawal, uncomplicated (principal); F12.20 Cannabis dependence, uncomplicated; F17.213 Nicotine dependence, cigarettes, with withdrawal; I10 Essential (primary) hypertension; K21.9 Gastro-esophageal reflux disease without esophagitis; Z89.021 Acquired absence of right finger(s); Z59.0 Homelessness
CPT/HCPCS: 36415; 80053; 81003; 85027; 86593

== ENCOUNTER 2018-06-09 11:38 | Inpatient (IN) | payer OTHER ==
[2018-06-09 12:54] VITALS: BMI 27.4
--- NOTE | 2018-06-09 13:29 | HP ---
CIWA Score Nausea/Vomitin Muscle Tremors: 3 Anxiety: 3 Agitation: 2 Paroxysmal Sweats: 1-Minimal Palms Moist Orientation: 0-Oriented Tacttile Disturbances: 1-Very Mild Itch/Numbness Auditory Disturbances: 1-Very Mild Visual Disturbances: 0-None Headache: 2-Mild CIWA-Ar Total Score: 15 - Admission Criteria OASAS Guidelines: Admission for Medically Managed Detox: Requires at least one of the followin. CIWA greater than 12 2. Seizures within the past 24 hours 3. Delirium tremens within the past 24 hours 4. Hallucinations within the past 24 hours 5. Acute intervention needed for co occurring medical disorder 6. Acute intervention needed for co occurring psychiatric disorder 7. Severe withdrawal that cannot be handled at a lower level of care (continued vomiting, continued diarrhea, abnormal vital signs) requiring intravenous medication and/or fluids 8. Admission ROS BHS - HPI Chief Complaint: i need help to stop drinking alcohol and marijuana Allergies/Adverse Reactions: Allergies Allergy/AdvReac Type Severity Reaction Status Date / Time No Known Allergies Allergy Verified 06/09/18 13:01 History of Present Illness: this 43 years old male with alcohol and marijuana dependence,seeking detox, withdrawal symptom, multiple admissions in detox but keep relapsing last detox 04/15/18 to 05/14/18 syncope alcohol related nicotine dependence 1 pack/day, requesting nicotine patch and gum longest period of sobriety 3 months weight loss bipolar disorder with depression no med Exam Limitations: No Limitations - Ebola screening Have you traveled outside of the country in the last 21 days: No Have you had contact with anyone from an Ebola affected area: No - Review of Systems Constitutional: Chills, Loss of Appetite, Malaise, Night Sweats, Changes in sleep, Weakness, Unintentional Wgt. Loss EENT: reports: Tearing, Nose Congestion Respiratory: reports: No Symptoms reported Cardiac: reports: No Symptoms Reported GI: reports: Diarrhea, Nausea, Poor Appetite, Abdominal cramping : reports: No Symptoms Reported Musculoskeletal: reports: Back Pain, Muscle Pain Integumentary: reports: Dryness Neuro: reports: Headache, Tremors Endocrine: reports: No Symptoms Reported Hematology: reports: No Symptoms Reported Psychiatric: reports: No Sypmtoms Reported, Judgement Intact, Orientated x3, other (bipolar disorder with depression) Patient History - Patient Medical History Hx Anemia: No Hx Asthma: No Hx Chronic Obstructive Pulmonary Disease (COPD): No Hx Cancer: No Hx Cardiac Disorders: No Hx Congestive Heart Failure: No Hx Hypertension: Yes (no medication) Hx Hypercholesterolemia: No Hx Pacemaker: No HX Cerebrovascular Accident: No Hx Seizures: No Hx Dementia: No Hx Diabetes: No Hx Gastrointestinal Disorders: No Hx Liver Disease: No Hx Genitourinary Disorders: No Hx Sexually Transmitted Disorders: No Hx Renal Disease (ESRD): No Hx Thyroid Disease: No Hx Human Immunodeficiency Virus (HIV): No (last 2017 negative) Hx Hepatitis C: No Hx Depression: Yes Hx Suicide Attempt: No Hx Bipolar Disorder: Yes Hx Schizophrenia: No Other Medical History: no sucidal,no homicidal - Patient Surgical History Past Surgical History: Yes Other Surgical History: partial amputation, right index finger in 2017 Anesthesia Reaction: No - PPD History Previous Implant?: Yes Documented Results: Negative w/proof Implanted On Prior [facility] Admission?: Yes Date: 01/19/18 Results: 0 mm PPD to be Administered?: Yes - Smoking Cessation Smoking history: Current every day smoker Have you smoked in the past 12 months: Yes Aproximately how many cigarettes per day: 10 Hx Chewing Tobacco Use: No Initiated information on smoking cessation: Yes 'Breaking Loose' booklet given: 06/09/18 - Substance & Tx. History Hx Alcohol Use: Yes Hx Substance Use: Yes Substance Use Type: Alcohol, Marijuana Hx Substance Use Treatment: Yes ( to 05/14/18) - Substances abused Alcohol Substance route: Oral Frequency: Daily Amount used: 1 pint VODKA +2/[id number] Age of first use: 17 Date of last use: 06/09/18 Marijuana/Hashish Substance route: Smoking Frequency: Daily Amount used: 5 BLUNTS Age of first use: 16 Date of last use: 06/09/18 Family Disease History - Family Disease History Family History: Denies Family Disease History: Other: Father (alcohol,sober) Admission Physical Exam BHS - Vital Signs Vital Signs: Vital Signs - 24 hr 06/09/18 06/09/18 12:52 13:01 Temperature 98.6 F 98.6 F Pulse Rate 93 H 93 H Respiratory 18 18 Rate Blood Pressure 122/82 122/82 - Physical General Appearance: Yes: Moderate Distress, Tremorous, Irritable, Anxious HEENTM: Yes: Normal ENT Inspection, MARIO, Pharynx Normal Respiratory: Yes: Within Normal Limits, Lungs Clear, Normal Breath Sounds Neck: Yes: Within Normal Limits, Supple, Trachea in good position Breast: Yes: Within Normal Limits Cardiology: Yes: Within Normal Limits, Regular Rhythm, Regular Rate, S1, S2 Abdominal: Yes: Within Normal Limits, Normal Bowel Sounds, Flat, Soft Genitourinary: Yes: Within Normal Limits Back: Yes: Muscle Spasm Musculoskeletal: Yes: Back pain, Muscle Pain Extremities: Yes: Tremors, Other (s/p traumatic amputaion of right index) 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: Yes: fairing man II-XII NML intact, Alert, Motor Strength 5/5, Normal Mood /Affect Integumentary: Yes: Dry Lymphatic: Yes: Within Normal Limits - Diagnostic (1) Alcohol dependence with uncomplicated withdrawal Current Visit: No Status: Acute (2) GERD (gastroesophageal reflux disease) Current Visit: No Status: Chronic Qualifiers: Esophagitis presence: without esophagitis Qualified Code(s): K21.9 - Gastro -esophageal reflux disease without esophagitis (3) HTN (hypertension) Current Visit: No Status: Chronic Qualifiers: Hypertension type: essential hypertension Qualified Code(s): I10 - Essential (primary) hypertension (4) Marijuana dependence Current Visit: No Status: Chronic (5) Nicotine dependence Current Visit: No Status: Chronic Qualifiers: Nicotine product type: cigarettes Substance use status: uncomplicated Qualified Code(s): F17.210 - Nicotine dependence, cigarettes, uncomplicated (6) Syncope Current Visit: Yes Status: Acute (7) Dehydration Current Visit: Yes Status: Acute Cleared for Admission S - Detox or Rehab [facility] Level of Care: Medically Managed Detox Regimen/Protocol: Librium Breathalyzer - Breathalyzer Breathalyzer: 0.037 Urine Drug Screen - Test Device Lot number: [id number] Expiration date: 01/13/20 - Control Is test valid?: Yes - Results Drug screen NEGATIVE: No Urine drug screen results: THC-Marijuana, BZO-Benzodiazepines Inpatient Rehab Admission - Rehab Decision to Admit Inpatient rehab admission?: No
[2018-06-09] MEDS ORDERED: ACETAMINOPHEN 325 MG TABLET (FP) PO PRN ×2 (13:44)
[2018-06-09] MEDS ORDERED: MAGNESIUM HYDROX 2400MG/30ML ORAL SUSPENSION 30 ML CUP PO PRN (13:44)
[2018-06-09] MEDS ORDERED: MELATONIN 5 MG TABLETS PO PRN (13:44)
[2018-06-09] MEDS ORDERED: MENTHOL/PHENOL 1 EACH UD MM PRN (13:44)
[2018-06-09] MEDS ORDERED: IBUPROFEN 400 MG TABLET (FP) PO PRN (13:44)
[2018-06-09] MEDS ORDERED: MAG HYDROX/AL HYDROX/SIMETH 30 ML UNIT-DOSE CUP PO PRN (13:44)
[2018-06-09] MEDS ORDERED: chlordiazePOXIDE HCL 25 MG CAPSULE PO PRN (13:44)
[2018-06-09] MEDS ORDERED: MAGNESIUM CITRATE 300 ML BOTTLE PO PRN (13:44)
[2018-06-09] MEDS ORDERED: METHOCARBAMOL 500 MG TABLET PO PRN (13:44)
[2018-06-09] MEDS ORDERED: BISMUTH SUBSALICYLATE 524 MG/30 ML UD PO PRN (13:44)
[2018-06-09] MEDS ORDERED: NICOTINE POLACRILEX 2 MG GUM BUC PRN (13:44)
[2018-06-09] MEDS: NICOTINE 21 MG/24 HOURS TOPICAL PATCH TD SCH (15:08)
[2018-06-09] MEDS: chlordiazePOXIDE HCL 25 MG CAPSULE PO SCH ×2 (16:52→22:52)
[2018-06-09] MEDS: hydrOXYzine PAMOATE 25 MG CAPSULE (FP) PO PRN (16:52)
[2018-06-09] MEDS: RANITIDINE HCL 150 MG TABLET (FP) PO SCH (22:52)
[2018-06-09] MEDS: THIAMINE HCL 100 MG TABLET (FP) PO SCH (22:52)
[2018-06-10] MEDS: chlordiazePOXIDE HCL 25 MG CAPSULE PO SCH ×4 (06:13→22:55)
--- NOTE | 2018-06-10 09:36 | CONSULT ---
[facility] Psychiatric Consult - Data Date of interview: 06/10/18 Admission source: Self-referred Identifying data: This is a 43 y/o male with a history of substance use disorder admitted to Detox due to withdrwal symptoms. He is single, father of 3 , unemployed, homeless on public assistance Substance Abuse History: Patient has been using drinking alcohol since age 17 and smokingg marijuana daily. Drinks beers and Vodka, history of black out spells. He smokes cigarettes i pack a day. He has had numerous Detox admission since 1997 and kept relapsing following treatment. His most recent admission was @ [facility] last month. He has been in Rehab twice and left AMA. Refer to addiction counselor summary for more detailed drug history Medical History: Medical history: HTN, no medication. GERD. 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 He is treated with Prozac 40 mg po daily, lithium 300 mg po tid,. Past treatment with Zoloft, Zyprexa. He complains of insomnia, depression and anxiety , no clear evidence of OCD symptoms or behavior. Denies monika , psychosis, denies suicidal or homicidal ideation. Past Physical/Sexual Abuse/Trauma History: Denies history of abuse or trauma Mental Status Exam - Mental Status Exam Alert and Oriented to: Time, Place, Person Cognitive Function: Grossly Intact Patient Appearance: Well Groomed Mood: Anxious Affect: Appropriate Patient Behavior: Appropriate, Cooperative Speech Pattern: Appropriate Voice Loudness: Normal Thought Process: Intact, Goal Oriented Thought Disorder: Not Present Hallucinations: None Suicidal Ideation: None Homicidal Ideation: None Insight/Judgement: Poor Sleep: Poorly Appetite: Fair Muscle strength/Tone: Normal Gait/Station: Normal Psychiatric Findings - Problem List ([place] 1, 2,3) (1) Alcohol dependence with uncomplicated withdrawal Current Visit: No Status: Acute (2) Substance induced mood disorder Current Visit: No Status: Acute (3) Substance-induced sleep disorder Current Visit: No Status: Acute (4) Anxiety Current Visit: No Status: Chronic (5) Cannabis dependence Current Visit: No Status: Chronic (6) HTN (hypertension) Current Visit: No Status: Chronic Qualifiers: Hypertension type: essential hypertension Qualified Code(s): I10 - Essential (primary) hypertension (7) Nicotine dependence Current Visit: No Status: Chronic Qualifiers: Nicotine product type: cigarettes Substance use status: uncomplicated Qualified Code(s): F17.210 - Nicotine dependence, cigarettes, uncomplicated (8) OCD (obsessive compulsive disorder) Current Visit: No Status: Ruled-out - Initial Treatment Plan Initial Treatment Plan: Continue Detox treatment. Psychoeducation. Renew prozac 40 mg po daily. [place] carbonate 300 mg po bis. Thyroid function test. Blood serum lithium level. Monitor progress
[2018-06-10] MEDS ORDERED: PRENATAL VITAMINS W/ FOLIC ACID TABLET (FP) PO SCH (10:00)
[2018-06-10] MEDS ORDERED: FLUoxetine HCL 20 MG CAPSULE (FP) PO SCH (10:00)
[2018-06-10 10:52] LABS: ALBUMIN 3.5 g/dl (3.4-5.0); ALK PHOS 60 U/L (45-117); ANION GAP 3 MMOL/L (8-16); BILIRUBIN,TOTAL 0.5 mg/dL (0.2-1); BLOOD UREA NITROGEN 13 mg/dL (7-18); CALCIUM 8.9 mg/dL (8.5-10.1); CHLORIDE 102 mmol/L (98-107); CO2 31 mmol/L (21-32); CREATININE 0.8 mg/dL (0.55-1.3); GLUCOSE,RANDOM 59 mg/dL (74-106); POTASSIUM 4.2 mmol/L (3.5-5.1); SGOT/AST 26 U/L (15-37); SGPT/ALT 67 U/L (13-61); SODIUM 136 mmol/L (136-145); TOT PROT 6.8 g/dl (6.4-8.2)
[2018-06-10 10:55] LABS: HEMATOCRIT 44.3 % (35.4-49); MCH 33.5 pg (25.7-33.7); MCHC 33.9 g/dl (32.0-35.9); MEAN CELL VOLUME 98.8 fl (80-96); MEAN PLT VOLUME 10.5 fl (7.5-11.1); PLATELET COUNT 174 K/MM3 (134-434); RBC 4.48 M/mm3 (4.00-5.60); RDW 13.2 % (11.9-15.9); WHITE BLOOD COUNT 8.7 K/mm3 (4.0-10.0)
--- NOTE | 2018-06-10 10:58 | PN ---
S CIWA - CIWA Score Nausea/Vomitin-No Nausea/No Vomiting Muscle Tremors: 3 Anxiety: 3 Agitation: 4-Moderately Restless Paroxysmal Sweats: 2 Orientation: 0-Oriented Tacttile Disturbances: 0-None Auditory Disturbances: 0-None Visual Disturbances: 0-None Headache: 0-None Present CIWA-Ar Total Score: 12 BHS Progress Note (SOAP) Subjective: patient c/o feeling anxious, restless, sweating and shakes. Objective: 06/10/18 10:56 Laboratory Tests 06/10/18 07:00 Sodium 136 Potassium 4.2 Chloride 102 Carbon Dioxide 31 Anion Gap 3 L BUN 13 Creatinine 0.8 Creat Clearance w eGFR 105.51 Random Glucose 59 L Calcium 8.9 Total Bilirubin 0.5 AST 26 ALT 67 H Alkaline Phosphatase 60 Total Protein 6.8 Albumin 3.5 Vital Signs Temperature 97.5 F L 06/10/18 09:33 Pulse Rate 75 06/10/18 09:33 Respiratory Rate 18 06/10/18 09:33 Blood Pressure 126/82 06/10/18 09:33 O2 Sat by Pulse Oximetry (%) pe: alert and oriented x 3 skin warm, +facial moisture ext full rom, amb ad esthela, mild tremors anxious Assessment: 06/10/18 10:57 withdrawal sx Plan: continue detox encourage fluids monitor
[2018-06-10] MEDS: hydrOXYzine PAMOATE 25 MG CAPSULE (FP) PO PRN (11:06)
[2018-06-10] MEDS: RANITIDINE HCL 150 MG TABLET (FP) PO SCH ×2 (11:07→22:55)
[2018-06-10] MEDS: NICOTINE 21 MG/24 HOURS TOPICAL PATCH TD SCH (11:07)
[2018-06-10] MEDS: LITHIUM CARBONATE 300 MG CAPSULE (FP) PO SCH ×2 (12:18→22:55)
[2018-06-10] MEDS: THIAMINE HCL 100 MG TABLET (FP) PO SCH (22:55)
[2018-06-11] MEDS: chlordiazePOXIDE HCL 25 MG CAPSULE PO SCH (05:12)
[2018-06-11 09:04] VITALS: BP 129/87; PULSE 82; TEMP 97.5
--- NOTE | 2018-06-11 09:49 | PN ---
S Progress Note Note: pt states he wanted to go home and didnt want to stay for detox. Pt signed out AMA.
--- NOTE | 2018-06-11 09:51 | DS ---
[facility] Detox Discharge Summary Admission Date: 06/09/18 Discharge Date: 06/11/18 - History Present History: Alcohol Dependence, Cannabis Dependence - Physical Exam Results Vital Signs: Vital Signs Temperature 97.5 F L 06/11/18 09:03 Pulse Rate 82 06/11/18 09:03 Respiratory Rate 18 06/11/18 09:03 Blood Pressure 129/87 06/11/18 09:03 O2 Sat by Pulse Oximetry (%) - Treatment Hospital Course: Detox Protocol Followed, Detoxed Safely, Responded well, Discharged Condition Good, Rehab Referral Accepted - Medication Discharge Medications: Ambulatory Orders Ranitidine [Zantac -] 150 mg PO BID 01/17/18 Fluoxetine HCl [Prozac -] 10 mg PO DAILY #30 capsule 01/18/18 [place] Carbonate [Eskalith -] 300 mg PO BID #60 capsule 01/18/18 Olanzapine [Zyprexa -] 5 mg PO HS #30 tablet 01/18/18 - Diagnosis (1) Dehydration Current Visit: Yes Status: Chronic (2) Syncope Current Visit: Yes Status: Acute (3) Alcohol dependence with uncomplicated withdrawal Current Visit: Yes Status: Chronic (4) Substance induced mood disorder Current Visit: No Status: Acute (5) Substance-induced sleep disorder Current Visit: No Status: Acute (6) Anxiety Current Visit: No Status: Chronic (7) Cannabis dependence Current Visit: Yes Status: Chronic (8) GERD (gastroesophageal reflux disease) Current Visit: No Status: Chronic Qualifiers: Esophagitis presence: without esophagitis Qualified Code(s): K21.9 - Gastro -esophageal reflux disease without esophagitis (9) HTN (hypertension) Current Visit: Yes Status: Chronic Qualifiers: Hypertension type: essential hypertension Qualified Code(s): I10 - Essential (primary) hypertension (10) Mood disorder Current Visit: No Status: Chronic (11) Nicotine dependence Current Visit: Yes Status: Chronic Qualifiers: Nicotine product type: cigarettes Substance use status: uncomplicated Qualified Code(s): F17.210 - Nicotine dependence, cigarettes, uncomplicated (12) Bipolar II disorder Current Visit: No Status: Suspected (13) Bipolar disorder Current Visit: No Status: Ruled-out Qualifiers: Current episode severity: unspecified (14) OCD (obsessive compulsive disorder) Current Visit: No Status: Ruled-out - AMA Did Patient Leave Against Medical Advice: Yes (going home)
[2018-06-11] MEDS ORDERED: chlordiazePOXIDE HCL 10 MG CAPSULE PO PRN (17:00)
[2018-06-11] MEDS ORDERED: chlordiazePOXIDE HCL 10 MG CAPSULE PO SCH (17:00)
[2018-06-12] MEDS ORDERED: chlordiazePOXIDE HCL 10 MG CAPSULE PO SCH (17:00)
== END 2018-06-11 08:50 | disposition left against medical advice (07) | DRG 770 ==
LOC: YASAS 11:38 → Y6N 13:20
PROVIDERS: ADMIT Surgery; ATTEND Surgery
PROC: HZ2ZZZZ Detoxification Services for Substance Abuse Treatment (ICD-10-PCS; principal; 2018-06-09)
DX: F10.230 Alcohol dependence with withdrawal, uncomplicated (principal); F17.210 Nicotine dependence, cigarettes, uncomplicated; F31.9 Bipolar disorder, unspecified; F39 Unspecified mood [affective] disorder; F19.24 Other psychoactive substance dependence with psychoactive substance-induced mood disorder; F19.282 Other psychoactive substance dependence with psychoactive substance-induced sleep disorder; F41.9 Anxiety disorder, unspecified; I10 Essential (primary) hypertension; K21.9 Gastro-esophageal reflux disease without esophagitis; E86.0 Dehydration; Z59.0 Homelessness; Z89.021 Acquired absence of right finger(s)
CPT/HCPCS: 36415; 80053; 85027; 86593

== ENCOUNTER 2018-07-02 12:15 | Inpatient (IN) | payer OTHER ==
[2018-07-02 13:53] VITALS: BMI 28.0
--- NOTE | 2018-07-02 15:37 | HP ---
CIWA Score Nausea/Vomitin Muscle Tremors: 3 Anxiety: 2 Agitation: 2 Paroxysmal Sweats: 2 Orientation: 0-Oriented Tacttile Disturbances: 0-None Auditory Disturbances: 0-None Visual Disturbances: 0-None Headache: 1-Very Mild CIWA-Ar Total Score: 12 - Admission Criteria OASAS Guidelines: Admission for Medically Managed Detox: Requires at least one of the followin. CIWA greater than 12 2. Seizures within the past 24 hours 3. Delirium tremens within the past 24 hours 4. Hallucinations within the past 24 hours 5. Acute intervention needed for co occurring medical disorder 6. Acute intervention needed for co occurring psychiatric disorder 7. Severe withdrawal that cannot be handled at a lower level of care (continued vomiting, continued diarrhea, abnormal vital signs) requiring intravenous medication and/or fluids 8. Patient presents the following: CIWA greater than 12 Admission Criteria Met: Admission criteria met Admission [facility] Chief Complaint: alcohol detox 43 yo with h/o depression, OCD, bipolar. Was last here a month ago for alcohol detox, left A after 2 days (has been here every month since Jan 2018). Pt states he intends to finish detox and will go to rehab. Says he relapsed with alcohol use, immediately after leaving here. Pt was in detox last week at [facility] before completing treatment. Pt states he is homeless- lives in friends' house. Does not work. Alcohol- 2 40oz beer and a pint of Mikel Vodka daily, no h/o seizures/DT's MJ- 5 blunts/day no other drug use. DUR/ISTOP: librium #8 on 06/25/18 IDRIS- 0.083 Utox: THC and BZO Allergies/Adverse Reactions: Allergies Allergy/AdvReac Type Severity Reaction Status Date / Time No Known Allergies Allergy Verified 07/02/18 13:46 - Ebola screening Have you traveled outside of the country in the last 21 days: No (N) Have you had contact with anyone from an Ebola affected area: No Do you have a fever: No Patient History - Patient Medical History Hx Anemia: No Hx Asthma: No Hx Chronic Obstructive Pulmonary Disease (COPD): No Hx Cancer: No Hx Cardiac Disorders: No Hx Congestive Heart Failure: No Hx Hypertension: Yes (no medication) Hx Hypercholesterolemia: No Hx Pacemaker: No HX Cerebrovascular Accident: No Hx Seizures: No Hx Dementia: No Hx Diabetes: No Hx Gastrointestinal Disorders: No Hx Liver Disease: No Hx Genitourinary Disorders: No Hx Sexually Transmitted Disorders: No Hx Renal Disease (ESRD): No Hx Thyroid Disease: No Hx Human Immunodeficiency Virus (HIV): No (last 2017 negative) Hx Hepatitis C: No Hx Depression: Yes Hx Suicide Attempt: No Hx Bipolar Disorder: Yes Hx Schizophrenia: No - Patient Surgical History Past Surgical History: Yes Other Surgical History: partial amputation, right index finger in 2017 Anesthesia Reaction: No - PPD History Date: 01/19/18 Results: 0 mm - Smoking Cessation Smoking history: Current every day smoker Have you smoked in the past 12 months: Yes Aproximately how many cigarettes per day: 10 Hx Chewing Tobacco Use: No Initiated information on smoking cessation: Yes 'Breaking Loose' booklet given: 07/02/18 - Substances abused Alcohol Substance route: Oral Frequency: Daily Amount used: 1 pint VODKA +2/40ZBEER Age of first use: 17 Date of last use: 07/02/18 Marijuana/Hashish Substance route: Smoking Frequency: Daily Amount used: 5 BLUNTS Age of first use: 16 Date of last use: 07/02/18 Family Disease History - Family Disease History Family Disease History: Other: Father (alcohol,sober) Admission Physical Exam S - Vital Signs Vital Signs: Vital Signs - 24 hr 07/02/18 07/02/18 13:50 14:55 Temperature 98.9 F 98.9 F Pulse Rate 100 H 100 H Respiratory 19 19 Rate Blood Pressure 124/82 124/82 - Physical General Appearance: Yes: Disheveled, Anxious HEENTM: Yes: Within Normal Limits, EOMI, Hearing grossly Normal, Normal Voice, MARIO Respiratory: Yes: Within Normal Limits, Chest Non-Tender, Lungs Clear Neck: Yes: Within Normal Limits Cardiology: Yes: Within Normal Limits, Regular Rhythm, Regular Rate Abdominal: Yes: Within Normal Limits, Normal Bowel Sounds, Non Tender Back: Yes: Within Normal Limits, Normal Inspection Musculoskeletal: Yes: Within Normal Limits, Gait Steady Extremities: Yes: Within Normal Limits 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: Yes: Within Normal Limits, 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, Fully Oriented Integumentary: Yes: Within Normal Limits - Diagnostic (1) Alcohol dependence with uncomplicated withdrawal Current Visit: No Status: Chronic (2) Nicotine dependence Current Visit: No Status: Chronic Qualifiers: Nicotine product type: cigarettes Substance use status: uncomplicated Qualified Code(s): F17.210 - Nicotine dependence, cigarettes, uncomplicated (3) Bipolar II disorder Current Visit: No Status: Suspected Breathalyzer - Breathalyzer Breathalyzer: 0.083 Urine Drug Screen - Test Device Lot number: [id number] Expiration date: 03/15/20 - Control Is test valid?: Yes - Results Drug screen NEGATIVE: No Urine drug screen results: THC-Marijuana, BZO-Benzodiazepines Inpatient Rehab Admission - Rehab Decision to Admit Inpatient rehab admission?: No
[2018-07-02] MEDS ORDERED: LOPERAMIDE HCL 2 MG CAPSULE PO PRN (15:48)
[2018-07-02] MEDS ORDERED: guaiFENesin 200 MG/10 ML 10 ML UNIT-DOSE CUPS PO PRN (15:48)
[2018-07-02] MEDS ORDERED: MENTHOL/PHENOL 1 EACH UD MM PRN (15:48)
[2018-07-02] MEDS ORDERED: P-EPHED 60MG/TRIPROLIDI 2.5MG TABLET PO PRN (15:48)
[2018-07-02] MEDS ORDERED: ACETAMINOPHEN 325 MG TABLET (FP) PO PRN (15:48)
[2018-07-02] MEDS ORDERED: MAGNESIUM HYDROX 2400MG/30ML ORAL SUSPENSION 30 ML CUP PO PRN (15:48)
[2018-07-02] MEDS ORDERED: IBUPROFEN 400 MG TABLET (FP) PO PRN (15:48)
[2018-07-02] MEDS ORDERED: MAGNESIUM CITRATE 300 ML BOTTLE PO PRN (15:48)
[2018-07-02] MEDS ORDERED: hydrOXYzine PAMOATE 25 MG CAPSULE (FP) PO PRN (15:48)
[2018-07-02] MEDS ORDERED: chlordiazePOXIDE HCL 25 MG CAPSULE PO PRN (15:48)
[2018-07-02] MEDS ORDERED: chlordiazePOXIDE HCL 25 MG CAPSULE PO ONE (17:30)
[2018-07-02 18:19] LABS: HEMOGLOBIN 15.7 GM/dL (11.7-16.9); MCH 32.2 pg (25.7-33.7); MCHC 33.3 g/dl (32.0-35.9); MEAN CELL VOLUME 96.7 fl (80-96); MEAN PLT VOLUME 10.2 fl (7.5-11.1); PLATELET COUNT 204 K/MM3 (134-434); RBC 4.86 M/mm3 (4.00-5.60); RDW 13.6 % (11.9-15.9); WHITE BLOOD COUNT 6.8 K/mm3 (4.0-10.0)
[2018-07-02 18:26] LABS: BILIRUBIN,TOTAL 1.3 mg/dL (0.2-1); CALCIUM 9.2 mg/dL (8.5-10.1); CREATININE 0.8 mg/dL (0.55-1.3); POTASSIUM 3.8 mmol/L (3.5-5.1); TOT PROT 7.6 g/dl (6.4-8.2)
[2018-07-02] MEDS: MAG HYDROX/AL HYDROX/SIMETH 30 ML UNIT-DOSE CUP PO PRN (18:53)
[2018-07-02] MEDS: chlordiazePOXIDE HCL 25 MG CAPSULE PO SCH (22:16)
[2018-07-02] MEDS: THIAMINE HCL 100 MG TABLET (FP) PO SCH (22:16)
[2018-07-02] MEDS: MELATONIN 5 MG TABLETS PO PRN (22:18)
[2018-07-02] MEDS: LITHIUM CARBONATE 300 MG CAPSULE (FP) PO SCH (22:36)
[2018-07-02 23:05] LABS: URINE APPEARANCE CLEAR; URINE BILIRUBIN NEGATIVE (NEGATIVE); URINE COLOR YELLOW; URINE GLUCOSE (UA) NEGATIVE (NEGATIVE); URINE KETONE NEGATIVE (NEGATIVE); URINE LEUK ESTERASE NEGATIVE (NEGATIVE); URINE NITRITE NEGATIVE (NEGATIVE); URINE PROTEIN NEGATIVE (NEGATIVE); URINE UROBILINOGEN 0.2 mg/dL (0.2-1.0)
[2018-07-03] MEDS: chlordiazePOXIDE HCL 25 MG CAPSULE PO SCH ×4 (06:23→22:05)
[2018-07-03] MEDS: MAG HYDROX/AL HYDROX/SIMETH 30 ML UNIT-DOSE CUP PO PRN (06:25)
--- NOTE | 2018-07-03 09:21 | PN ---
S CIWA - CIWA Score Nausea/Vomitin Muscle Tremors: 2 Anxiety: 2 Agitation: 2 Paroxysmal Sweats: 1-Minimal Palms Moist Orientation: 0-Oriented Tacttile Disturbances: 1-Very Mild Itch/Numbness Auditory Disturbances: 1-Very Mild Visual Disturbances: 0-None Headache: 2-Mild CIWA-Ar Total Score: 13 BHS Progress Note (SOAP) Subjective: alert,irritable,anxious,interrupted sleep,tremor Objective: 07/03/18 09:19 Vital Signs Temperature 97.0 F L 07/03/18 09:18 Pulse Rate 77 07/03/18 09:18 Respiratory Rate 18 07/03/18 09:18 Blood Pressure 131/89 07/03/18 09:18 O2 Sat by Pulse Oximetry (%) 07/03/18 09:19 Laboratory Last Values WBC 6.8 K/mm3 (4.0-10.0) 07/02/18 15:50 RBC 4.86 M/mm3 (4.00-5.60) 07/02/18 15:50 Hgb 15.7 GM/dL (11.7-16.9) 07/02/18 15:50 Hct 47.0 % (35.4-49) 07/02/18 15:50 MCV 96.7 fl (80-96) H 07/02/18 15:50 MCH 32.2 pg (25.7-33.7) 07/02/18 15:50 MCHC 33.3 g/dl (32.0-35.9) 07/02/18 15:50 RDW 13.6 % (11.9-15.9) 07/02/18 15:50 Plt Count 204 K/MM3 (134-434) 07/02/18 15:50 MPV 10.2 fl (7.5-11.1) 07/02/18 15:50 Sodium 137 mmol/L (136-145) 07/02/18 15:50 Potassium 3.8 mmol/L (3.5-5.1) 07/02/18 15:50 Chloride 104 mmol/L (98-107) 07/02/18 15:50 Carbon Dioxide 24 mmol/L (21-32) 07/02/18 15:50 Anion Gap 9 MMOL/L (8-16) 07/02/18 15:50 BUN 19 mg/dL (7-18) H 07/02/18 15:50 Creatinine 0.8 mg/dL (0.55-1.3) 07/02/18 15:50 Est GFR (CKD-EPI)AfAm 126.81 07/02/18 15:50 Est GFR (CKD-EPI)NonAf 109.41 07/02/18 15:50 Random Glucose 119 mg/dL (74-106) H 07/02/18 15:50 Calcium 9.2 mg/dL (8.5-10.1) 07/02/18 15:50 Total Bilirubin 1.3 mg/dL (0.2-1) H 07/02/18 15:50 AST 30 U/L (15-37) 07/02/18 15:50 ALT 39 U/L (13-61) 07/02/18 15:50 Alkaline Phosphatase 59 U/L (45-117) 07/02/18 15:50 Total Protein 7.6 g/dl (6.4-8.2) 07/02/18 15:50 Albumin 4.0 g/dl (3.4-5.0) 07/02/18 15:50 Urine Color Yellow 07/02/18 23:00 Urine Appearance Clear 07/02/18 23:00 Urine pH 5.0 (5.0-8.0) D 07/02/18 23:00 Ur Specific [place] 1.008 (1.010-1.035) L 07/02/18 23:00 Urine Protein Negative (NEGATIVE) 07/02/18 23:00 Urine Glucose (UA) Negative (NEGATIVE) 07/02/18 23:00 Urine Ketones Negative (NEGATIVE) 07/02/18 23:00 Urine Blood Negative (NEGATIVE) 07/02/18 23:00 Urine Nitrite Negative (NEGATIVE) 07/02/18 23:00 Urine Bilirubin Negative (NEGATIVE) 07/02/18 23:00 Urine Urobilinogen 0.2 mg/dL (0.2-1.0) 07/02/18 23:00 Ur Leukocyte Esterase Negative (NEGATIVE) 07/02/18 23:00 RPR Titer Nonreactive (NONREACTIVE) 07/02/18 15:50 Assessment: 07/03/18 09:20 withdrawal symptom Plan: continue detox,fasting glucose in am
[2018-07-03] MEDS: NICOTINE 21 MG/24 HOURS TOPICAL PATCH TD SCH (10:27)
[2018-07-03] MEDS: FLUoxetine HCL 10 MG CAPSULE (FP) PO SCH (10:27)
[2018-07-03] MEDS: LITHIUM CARBONATE 300 MG CAPSULE (FP) PO SCH ×2 (10:27→22:05)
[2018-07-03] MEDS: PRENATAL VITAMINS W/ FOLIC ACID TABLET (FP) PO SCH (10:27)
--- NOTE | 2018-07-03 15:08 | CONSULT ---
[facility] Psychiatric Consult - Data Date of interview: 07/03/18 Admission source: [facility] Identifying data: This is one of multiple re-admissions to [facility] for this 43 y/o [place] male self-referred for detoxification (alcohol, cannabis) . Examined on . Patient is , a father of three, homeless, unemployed and supported on welfare. Substance Abuse History: Confirmed by patient. Discussed in interview. Details in current [facility] report as follows : Smoking history: Current every day smoker. Have you smoked in the past 12 months: Yes. Aproximately how many cigarettes per day: 10. Hx Chewing Tobacco Use: No. Initiated information on smoking cessation: Yes. 'Breaking Loose' booklet given: 07/02/18. - Substances abused. Alcohol. Substance route: Oral. Frequency: Daily. Amount used: 1 pint VODKA +2/40ZBEER. Age of first use: 17. Date of last use: 07/02/18. Marijuana/Hashish. Substance route: Smoking. Frequency: Daily. Amount used: 5 BLUNTS. Age of first use: 16. Date of last use: 07/02/18 Medical History: Medical profile is remarkable for hypertension, history of orthosurgery (partial amputation right index finger). Psychiatric History: Recent history of contacts with psychiatric care providers (admission to [facility] program, five years ago, for detoxification). Diagnosed with Bipolar Disorder + OCD while in detoxification treatment at [facility] and medicated with prozac + lithium + olanzapine. Mr Forman never stays adherent to OPD care. Ignores aftercare referrals. Last took psychotropic medications in March 2018 while at [facility] (was prescribed prozac 10 mg/day + zyprexa 5 mg/hs + lithium 300 mg/BID). Patient has remained non-adherent to pharmacotherapy in spite of several re-admissions to [facility] in past 5-6 months. Denies history of suicide attempts. Physical/Sexual Abuse/Trauma History: Patient denies. Additional Comment: Urine drug screen results: THC-Marijuana, BZO- Benzodiazepines. Noted. Mental Status Exam - Mental Status Exam Alert and Oriented to: Time, Place, Person Cognitive Function: Grossly Intact Patient Appearance: Unkempt, Disheveled Mood: Nervous, Expansive Affect: Mood Congruent, Labile Patient Behavior: Fatigued, Cooperative (overfriendly) Speech Pattern: Clear, Excessive Voice Loudness: Normal Thought Process: Goal Oriented Thought Disorder: Bizarre Hallucinations: Denies Suicidal Ideation: Denies Homicidal Ideation: Denies Insight/Judgement: Poor Sleep: Well Appetite: Good Muscle strength/Tone: Normal Gait/Station: Normal Psychiatric Findings - Problem List ([place] 1, 2,3) (1) Alcohol dependence with uncomplicated withdrawal Current Visit: Yes Status: Acute (2) Cannabis dependence Current Visit: Yes Status: Chronic (3) Nicotine dependence Current Visit: Yes Status: Chronic Qualifiers: Nicotine product type: cigarettes Substance use status: uncomplicated Qualified Code(s): F17.210 - Nicotine dependence, cigarettes, uncomplicated (4) Bipolar disorder Current Visit: Yes Status: Chronic Qualifiers: Current episode severity: unspecified Comment: As per history. On medications. (5) Substance induced mood disorder Current Visit: Yes Status: Chronic (6) Non-compliance Current Visit: Yes Status: Chronic - Initial Treatment Plan Initial Treatment Plan: [place] level (07/03/18) = 0.1 (indicative of non- adherence). Psychoeducation : patient is reminded of importance of adherence to OPD care + abstinence from drugs/alcohol. Made aware of benefits of Medication- assisted program (MAT) for relapse prevention. Motivational counseling. Sleep hyigiene. AA meetings. Groups. Medications revisited : prozac 10 mg po daily + lithium 300 mg po bid + olanzapine 5 mg po hs. Side effects/benefits of these drugs are discussed with the patient. Informed of risk of thyroid dysfunction, renal dysfunction, weight gain, cardiovascular adverse events, metabolic syndrome, sexual dysfunction and suicidal ideation. Patient gave verbal consent to MD. Denis.
[2018-07-03] MEDS: OLANZapine 5 MG TABLET PO SCH (22:05)
[2018-07-03] MEDS: THIAMINE HCL 100 MG TABLET (FP) PO SCH (22:05)
[2018-07-04] MEDS: chlordiazePOXIDE HCL 25 MG CAPSULE PO SCH ×3 (06:26→17:26)
[2018-07-04] MEDS: NICOTINE 21 MG/24 HOURS TOPICAL PATCH TD SCH (10:04)
[2018-07-04] MEDS: FLUoxetine HCL 10 MG CAPSULE (FP) PO SCH (10:05)
[2018-07-04] MEDS: PRENATAL VITAMINS W/ FOLIC ACID TABLET (FP) PO SCH (10:05)
[2018-07-04] MEDS: LITHIUM CARBONATE 300 MG CAPSULE (FP) PO SCH ×2 (10:05→22:21)
[2018-07-04] MEDS ORDERED: PROCHLORPERAZINE MALEATE 5 MG TABLET PO PRN (10:52)
--- NOTE | 2018-07-04 13:25 | PN ---
S CIWA - CIWA Score Nausea/Vomitin Muscle Tremors: None Anxiety: 4-Mod. Anxious/Guarded Agitation: 4-Moderately Restless Paroxysmal Sweats: No Perspiration Orientation: 0-Oriented Tacttile Disturbances: 1-Very Mild Itch/Numbness Auditory Disturbances: 0-None Visual Disturbances: 0-None Headache: 2-Mild CIWA-Ar Total Score: 14 BHS Progress Note (SOAP) Subjective: Anxious, Stomach Cramping, Diarrhea, Nausea, Poor Appetite, H/A. Objective: PATIENT A & O X 3, OBSERVED AMBULATING ON UNIT UNASSISTED. IN NO ACUTE DISTRESS. 07/04/18 13:21 Vital Signs Temperature 96.8 F L 07/04/18 10:43 Pulse Rate 83 07/04/18 10:43 Respiratory Rate 18 07/04/18 10:43 Blood Pressure 119/79 07/04/18 10:43 O2 Sat by Pulse Oximetry (%) Laboratory Tests 07/02/18 07/02/18 07/02/18 15:50 15:50 15:50 WBC 6.8 RBC 4.86 Hgb 15.7 Hct 47.0 MCV 96.7 H MCH 32.2 MCHC 33.3 RDW 13.6 Plt Count 204 MPV 10.2 Sodium 137 Potassium 3.8 Chloride 104 Carbon Dioxide 24 Anion Gap 9 BUN 19 H Creatinine 0.8 Est GFR (CKD-EPI)AfAm 126.81 Est GFR (CKD-EPI)NonAf 109.41 Random Glucose 119 H Calcium 9.2 Total Bilirubin 1.3 H AST 30 ALT 39 Alkaline Phosphatase 59 Total Protein 7.6 Albumin 4.0 Urine Color Urine Appearance Urine pH Ur Specific [place] Urine Protein Urine Glucose (UA) Urine Ketones Urine Blood Urine Nitrite Urine Bilirubin Urine Urobilinogen Ur Leukocyte Esterase [place] RPR Titer Nonreactive 07/02/18 07/03/18 23:00 06:00 WBC RBC Hgb Hct MCV MCH MCHC RDW Plt Count MPV Sodium Potassium Chloride Carbon Dioxide Anion Gap BUN Creatinine Est GFR (CKD-EPI)AfAm Est GFR (CKD-EPI)NonAf Random Glucose Calcium Total Bilirubin AST ALT Alkaline Phosphatase Total Protein Albumin Urine Color Yellow Urine Appearance Clear Urine pH 5.0 D Ur Specific [place] 1.008 L Urine Protein Negative Urine Glucose (UA) Negative Urine Ketones Negative Urine Blood Negative Urine Nitrite Negative Urine Bilirubin Negative Urine Urobilinogen 0.2 Ur Leukocyte Esterase Negative [place] 0 L RPR Titer LABS NOTED. PATIENT HAS HAD ELEVATED BILIRUBIN LEVELS ON PREVIOUS ADMISSIONS. 07/04/18 13:23 Assessment: 07/04/18 13:22 WITHDRAWAL SYMPTOMS. HYPERBILIRUBINEMIA. Plan: CONTINUE DETOX. INCREASE DAILY PO FLUID / WATER INTAKE.
[2018-07-04] MEDS: OLANZapine 5 MG TABLET PO SCH (22:21)
[2018-07-04] MEDS: THIAMINE HCL 100 MG TABLET (FP) PO SCH (22:21)
[2018-07-04] MEDS: MELATONIN 5 MG TABLETS PO PRN (22:21)
[2018-07-04] MEDS: chlordiazePOXIDE HCL 10 MG CAPSULE PO SCH (22:21)
[2018-07-04] MEDS ORDERED: chlordiazePOXIDE HCL 10 MG CAPSULE PO PRN (23:00)
[2018-07-05] MEDS: chlordiazePOXIDE HCL 10 MG CAPSULE PO SCH (05:58)
--- NOTE | 2018-07-05 08:32 | PN ---
S Progress Note Note: pt states this place and its medication is not doing anything for me. I rather go home. Pt signed out AMA.
--- NOTE | 2018-07-05 09:24 | DS ---
[facility] Detox Discharge Summary Admission Date: 07/02/18 - History Present History: Alcohol Dependence, Cannabis Dependence - Physical Exam Results Vital Signs: Vital Signs Temperature 97.7 F 07/05/18 07:29 Pulse Rate 77 07/05/18 07:29 Respiratory Rate 18 07/05/18 07:29 Blood Pressure 107/54 L 07/05/18 07:29 O2 Sat by Pulse Oximetry (%) - Treatment Hospital Course: Discharged Condition Good Patient has Accepted a Rehab Referral to: pt declined aftercare/referral - Medication Discharge Medications: Ambulatory Orders Ranitidine [Zantac -] 150 mg PO BID 01/17/18 Fluoxetine HCl [Prozac -] 10 mg PO DAILY #30 capsule 01/18/18 [place] Carbonate [Eskalith -] 300 mg PO BID #60 capsule 01/18/18 Olanzapine [Zyprexa -] 5 mg PO HS #30 tablet 01/18/18 - Diagnosis (1) Alcohol dependence with uncomplicated withdrawal Current Visit: Yes Status: Chronic (2) Hyperbilirubinemia Current Visit: Yes Status: Acute (3) Bipolar disorder Current Visit: Yes Status: Chronic Qualifiers: Current episode severity: unspecified (4) Cannabis dependence Current Visit: Yes Status: Chronic (5) Nicotine dependence Current Visit: Yes Status: Chronic Qualifiers: Nicotine product type: cigarettes Substance use status: uncomplicated Qualified Code(s): F17.210 - Nicotine dependence, cigarettes, uncomplicated (6) Non-compliance Current Visit: Yes Status: Chronic (7) Substance induced mood disorder Current Visit: Yes Status: Chronic (8) Substance-induced sleep disorder Current Visit: No Status: Acute (9) Syncope Current Visit: No Status: Acute (10) Anxiety Current Visit: No Status: Chronic (11) Dehydration Current Visit: No Status: Chronic (12) GERD (gastroesophageal reflux disease) Current Visit: Yes Status: Chronic Qualifiers: Esophagitis presence: without esophagitis Qualified Code(s): K21.9 - Gastro -esophageal reflux disease without esophagitis (13) HTN (hypertension) Current Visit: Yes Status: Chronic Qualifiers: Hypertension type: essential hypertension Qualified Code(s): I10 - Essential (primary) hypertension (14) Mood disorder Current Visit: No Status: Chronic (15) Bipolar II disorder Current Visit: No Status: Suspected (16) OCD (obsessive compulsive disorder) Current Visit: No Status: Ruled-out - AMA Did Patient Leave Against Medical Advice: Yes (going home.)
[2018-07-05 09:30] VITALS: BP 143/86; PULSE 76; TEMP 97
[2018-07-05] MEDS ORDERED: chlordiazePOXIDE HCL 10 MG CAPSULE PO SCH (23:00)
== END 2018-07-05 08:53 | disposition left against medical advice (07) | DRG 770 ==
LOC: YASAS 12:15 → Y6N 16:28
PROVIDERS: ADMIT Surgery; ATTEND Surgery
PROC: HZ2ZZZZ Detoxification Services for Substance Abuse Treatment (ICD-10-PCS; principal; 2018-07-02)
DX: F10.230 Alcohol dependence with withdrawal, uncomplicated (principal); F12.20 Cannabis dependence, uncomplicated; F17.210 Nicotine dependence, cigarettes, uncomplicated; F31.9 Bipolar disorder, unspecified; F19.24 Other psychoactive substance dependence with psychoactive substance-induced mood disorder; F19.282 Other psychoactive substance dependence with psychoactive substance-induced sleep disorder; F39 Unspecified mood [affective] disorder; F41.9 Anxiety disorder, unspecified; F42.9 Obsessive-compulsive disorder, unspecified; E80.6 Other disorders of bilirubin metabolism; R55 Syncope and collapse; K21.9 Gastro-esophageal reflux disease without esophagitis; Z59.0 Homelessness; Z91.19 Patient's noncompliance with other medical treatment and regimen
CPT/HCPCS: 36415; 80053; 80178; 81003; 85027; 86593

== ENCOUNTER 2018-07-26 11:32 | Inpatient (IN) | payer OTHER ==
[2018-07-26 14:11] VITALS: BMI 27.2
--- NOTE | 2018-07-26 15:34 | HP ---
CIWA Score Nausea/Vomitin Muscle Tremors: 2 Anxiety: 2 Agitation: 2 Paroxysmal Sweats: 1-Minimal Palms Moist Orientation: 0-Oriented Tacttile Disturbances: 1-Very Mild Itch/Numbness Auditory Disturbances: 1-Very Mild Visual Disturbances: 0-None Headache: 2-Mild CIWA-Ar Total Score: 13 - Admission Criteria OASAS Guidelines: Admission for Medically Managed Detox: Requires at least one of the followin. CIWA greater than 12 2. Seizures within the past 24 hours 3. Delirium tremens within the past 24 hours 4. Hallucinations within the past 24 hours 5. Acute intervention needed for co occurring medical disorder 6. Acute intervention needed for co occurring psychiatric disorder 7. Severe withdrawal that cannot be handled at a lower level of care (continued vomiting, continued diarrhea, abnormal vital signs) requiring intravenous medication and/or fluids 8. Admission ROS B[facility] - HPI Chief Complaint: i need help to stop drinking alcohol and marijuana Allergies/Adverse Reactions: Allergies Allergy/AdvReac Type Severity Reaction Status Date / Time No Known Allergies Allergy Verified 07/26/18 14:03 History of Present Illness: this 43 years old male with alcohol and marijuana dependence,seeking detox, withdrawal symptom, multiple admissions in detox,last detox 07/02/18 to 07/05/18 syncope alcohol related weight loss nicotine dependence 1 pack,requesting nicotine patch bipolar disorder,ocd,depression,ptsd plan for rehab after detox Exam Limitations: No Limitations - Ebola screening Have you traveled outside of the country in the last 21 days: No (N) Have you had contact with anyone from an Ebola affected area: No Do you have a fever: No - Review of Systems Constitutional: Loss of Appetite, Malaise, Night Sweats, Changes in sleep, Weakness, Unintentional Wgt. Loss EENT: reports: Nose Congestion Respiratory: reports: No Symptoms reported Cardiac: reports: No Symptoms Reported GI: reports: Nausea, Poor Appetite, Abdominal cramping : reports: No Symptoms Reported Integumentary: reports: Dryness Neuro: reports: Headache, Tremors Endocrine: reports: No Symptoms Reported Hematology: reports: No Symptoms Reported Psychiatric: reports: No Sypmtoms Reported, Judgement Intact, Mood/Affect Appropiate, Orientated x3 Other Systems: Reviewed and Negative Patient History - Patient Medical History Hx Anemia: No Hx Asthma: No Hx Chronic Obstructive Pulmonary Disease (COPD): No Hx Cancer: No Hx Cardiac Disorders: No Hx Congestive Heart Failure: No Hx Hypertension: Yes (no medication) Hx Hypercholesterolemia: No Hx Pacemaker: No HX Cerebrovascular Accident: No Hx Seizures: No Hx Dementia: No Hx Diabetes: No Hx Gastrointestinal Disorders: No Hx Liver Disease: No Hx Genitourinary Disorders: No Hx Sexually Transmitted Disorders: No Hx Renal Disease (ESRD): No Hx Thyroid Disease: No Hx Human Immunodeficiency Virus (HIV): No (last 2017 negative) Hx Hepatitis C: No Hx Depression: Yes Hx Suicide Attempt: No Hx Bipolar Disorder: Yes Hx Schizophrenia: No Other Medical History: no suicidal,no homicidal - Patient Surgical History Past Surgical History: Yes Hx Neurologic Surgery: No Hx Cataract Extraction: No Hx Cardiac Surgery: No Hx Lung Surgery: No Hx Breast Surgery: No Hx Breast Biopsy: No Hx Abdominal Surgery: No Hx Appendectomy: No Hx Cholecystectomy: No Hx Genitourinary Surgery: No Hx Section: No Hx Orthopedic Surgery: No Other Surgical History: partial amputation, right index finger in 2017 Anesthesia Reaction: No - PPD History Previous Implant?: Yes Documented Results: Negative w/proof Implanted On Prior [facility] Admission?: Yes Date: 01/19/18 Results: 0 mm PPD to be Administered?: No - Smoking Cessation Smoking history: Current every day smoker Have you smoked in the past 12 months: Yes Aproximately how many cigarettes per day: 20 Hx Chewing Tobacco Use: No Initiated information on smoking cessation: Yes 'Breaking Loose' booklet given: 07/26/18 - Substance & Tx. History Hx Alcohol Use: Yes Hx Substance Use: Yes Substance Use Type: Alcohol, Marijuana Hx Substance Use Treatment: Yes ([facility] 07/02/18 to 07/05/18) - Substances abused Alcohol Substance route: Oral Frequency: Daily Amount used: 1 pint VODKA +2/40ZBEER Age of first use: 17 Date of last use: 07/26/18 Marijuana/Hashish Substance route: Smoking Frequency: Daily Amount used: 5 BLUNTS Age of first use: 16 Date of last use: 07/26/18 Family Disease History - Family Disease History Family Disease History: Other: Father (alcohol,sober) Admission Physical Exam BHS - Vital Signs Vital Signs: Vital Signs - 24 hr 07/26/18 07/26/18 14:06 14:51 Temperature 97.6 F 97.6 F Pulse Rate 79 79 Respiratory 18 18 Rate Blood Pressure 119/79 119/79 - Physical General Appearance: Yes: Moderate Distress, Tremorous, Irritable, Sweating, Anxious HEENTM: Yes: Normal ENT Inspection, Normocephalic, MARIO, Pharynx Normal Respiratory: Yes: Lungs Clear, Normal Breath Sounds, No Respiratory Distress Neck: Yes: Within Normal Limits, Supple, Trachea in good position Breast: Yes: Within Normal Limits Cardiology: Yes: Within Normal Limits, Regular Rhythm, Regular Rate, S1, S2 Abdominal: Yes: Within Normal Limits, Normal Bowel Sounds, Non Tender, Soft Genitourinary: Yes: Within Normal Limits Back: Yes: Muscle Spasm Musculoskeletal: Yes: full range of Motion, Back pain, Muscle Pain Extremities: Yes: Within Normal Limits, Normal Range of Motion, Tremors 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: Yes: valve liner rubber II-XII NML intact, Fully Oriented, Alert, Motor Strength 5/5 Integumentary: Yes: Dry Lymphatic: Yes: Within Normal Limits - Diagnostic (1) Alcohol dependence with uncomplicated withdrawal Current Visit: No Status: Chronic (2) Syncope Current Visit: No Status: Acute (3) Bipolar disorder Current Visit: No Status: Chronic Qualifiers: Current episode severity: unspecified Comment: As per history. On medications. (4) Cannabis dependence Current Visit: No Status: Chronic (5) Dehydration Current Visit: No Status: Chronic (6) GERD (gastroesophageal reflux disease) Current Visit: No Status: Chronic Qualifiers: Esophagitis presence: without esophagitis Qualified Code(s): K21.9 - Gastro -esophageal reflux disease without esophagitis (7) HTN (hypertension) Current Visit: No Status: Chronic Qualifiers: Hypertension type: essential hypertension Qualified Code(s): I10 - Essential (primary) hypertension (8) Nicotine dependence Current Visit: No Status: Chronic Qualifiers: Nicotine product type: cigarettes Substance use status: uncomplicated Qualified Code(s): F17.210 - Nicotine dependence, cigarettes, uncomplicated (9) OCD (obsessive compulsive disorder) Current Visit: No Status: Ruled-out Cleared for Admission S - Detox or Rehab [facility] Level of Care: Medically Managed Detox Regimen/Protocol: Librium Breathalyzer - Breathalyzer Breathalyzer: 0 Urine Drug Screen - Test Device Lot number: [id number] Expiration date: 04/12/18 - Control Is test valid?: Yes - Results Drug screen NEGATIVE: No Urine drug screen results: THC-Marijuana, BZO-Benzodiazepines Inpatient Rehab Admission - Rehab Decision to Admit Inpatient rehab admission?: No
[2018-07-26] MEDS ORDERED: MAG HYDROX/AL HYDROX/SIMETH 30 ML UNIT-DOSE CUP PO PRN (15:47)
[2018-07-26] MEDS ORDERED: hydrOXYzine PAMOATE 25 MG CAPSULE (FP) PO PRN (15:47)
[2018-07-26] MEDS ORDERED: ACETAMINOPHEN 325 MG TABLET (FP) PO PRN ×2 (15:47)
[2018-07-26] MEDS ORDERED: IBUPROFEN 400 MG TABLET (FP) PO PRN (15:47)
[2018-07-26] MEDS ORDERED: chlordiazePOXIDE HCL 25 MG CAPSULE PO PRN (15:47)
[2018-07-26] MEDS ORDERED: BISMUTH SUBSALICYLATE 524 MG/30 ML UD PO PRN (15:47)
[2018-07-26] MEDS ORDERED: METHOCARBAMOL 500 MG TABLET PO PRN (15:47)
[2018-07-26] MEDS ORDERED: MAGNESIUM CITRATE 300 ML BOTTLE PO PRN (15:47)
[2018-07-26] MEDS ORDERED: MAGNESIUM HYDROX 2400MG/30ML ORAL SUSPENSION 30 ML CUP PO PRN (15:47)
[2018-07-26] MEDS ORDERED: MENTHOL/PHENOL 1 EACH UD MM PRN (15:47)
[2018-07-26] MEDS: NICOTINE 21 MG/24 HOURS TOPICAL PATCH TD SCH (17:27)
[2018-07-26] MEDS: chlordiazePOXIDE HCL 25 MG CAPSULE PO SCH ×2 (17:28→22:06)
[2018-07-26] MEDS: THIAMINE HCL 100 MG TABLET (FP) PO SCH (22:06)
[2018-07-26] MEDS: RANITIDINE HCL 150 MG TABLET (FP) PO SCH (22:06)
[2018-07-26] MEDS: MELATONIN 5 MG TABLETS PO PRN (22:07)
[2018-07-27] MEDS: chlordiazePOXIDE HCL 25 MG CAPSULE PO SCH ×4 (05:45→22:07)
[2018-07-27 10:02] LABS: HEMATOCRIT 50.2 % (35.4-49); HEMOGLOBIN 16.7 GM/dL (11.7-16.9); MCHC 33.4 g/dl (32.0-35.9); MEAN CELL VOLUME 98.9 fl (80-96); MEAN PLT VOLUME 10.4 fl (7.5-11.1); PLATELET COUNT 238 K/MM3 (134-434); RBC 5.07 M/mm3 (4.00-5.60); RDW 13.9 % (11.9-15.9)
[2018-07-27 10:14] LABS: ALBUMIN 3.9 g/dl (3.4-5.0); BILIRUBIN,TOTAL 0.8 mg/dL (0.2-1); BLOOD UREA NITROGEN 11.2 mg/dL (7-18); CALCIUM 9.3 mg/dL (8.5-10.1); CREATININE 1.1 mg/dL (0.55-1.3); POTASSIUM 4.1 mmol/L (3.5-5.1); TOT PROT 7.5 g/dl (6.4-8.2)
[2018-07-27] MEDS: NICOTINE 21 MG/24 HOURS TOPICAL PATCH TD SCH (10:26)
[2018-07-27] MEDS: PRENATAL VITAMINS W/ FOLIC ACID TABLET (FP) PO SCH (10:26)
[2018-07-27] MEDS: RANITIDINE HCL 150 MG TABLET (FP) PO SCH ×2 (10:26→22:08)
--- NOTE | 2018-07-27 10:44 | CONSULT ---
[facility] Psychiatric Consult - Data Date of interview: 07/27/18 Admission source: [facility] Identifying data: Readmission to [facility] for this 43 y/o [place] male self-referred for detoxification (alcohol, cannabis). Examined on . Patient is , a father of three, homeless, unemployed and supported on welfare. Substance Abuse History: Confirmed in this interview. details in current [facility] report as follows : Smoking history: Current every day smoker. Have you smoked in the past 12 months: Yes. Aproximately how many cigarettes per day: 20. Hx Chewing Tobacco Use: No. Initiated information on smoking cessation: Yes. ' Breaking Loose' booklet given: 07/26/18. - Substance & Tx. History. Hx Alcohol Use: Yes. Hx Substance Use: Yes. Substance Use Type: Alcohol, Marijuana. Hx Substance Use Treatment: Yes ([facility] 07/02/18 to 07/05/18). - Substances abused. Alcohol. Substance route: Oral. Frequency: Daily. Amount used: 1 pint VODKA +2/40ZBEER. Age of first use: 17. Date of last use: 07/26/18. Marijuana/Hashish. Substance route: Smoking. Frequency: Daily. Amount used: 5 BLUNTS. Age of first use: 16. Date of last use: 07/26/18 Medical History: Medical profile is remarkable for hypertension, history of orthosurgery (partial amputation right index finger). Psychiatric History: Patient denies history of psychiatric hospitalizations. Recent history of contacts with psychiatric care providers (admission to [facility] program, five years ago, for detoxification). Diagnosed with Bipolar Disorder + OCD while in detoxification treatment at [facility] and medicated with prozac + lithium + olanzapine. Mr Forman never stays adherent to OPD care. Ignores aftercare referrals. Gets medications from admissions to inpatient substance abuse treatment centers. Last took psychotropic medications in March 2018 while at [facility] (was prescribed prozac 10 mg/day + zyprexa 5 mg/hs + lithium 300 mg/bid). Patient has remained non-adherent to pharmacotherapy in spite of several re-admissions to [facility] in past 6 months. Denies history of suicide attempts. Physical/Sexual Abuse/Trauma History: Patient denies. Additional Comment: Urine drug screen results: THC-Marijuana, BZO- Benzodiazepines. Noted. Mental Status Exam - Mental Status Exam Alert and Oriented to: Time, Place, Person Cognitive Function: Good Patient Appearance: Well Groomed Mood: Withdrawn, Hopeful Affect: Appropriate, Normal Range Patient Behavior: Fatigued, Cooperative Speech Pattern: Clear, Appropriate Voice Loudness: Normal Thought Process: Goal Oriented Thought Disorder: Not Present Hallucinations: Denies Suicidal Ideation: Denies Homicidal Ideation: Denies Insight/Judgement: Poor Sleep: Well Appetite: Good Muscle strength/Tone: Normal Gait/Station: Normal Psychiatric Findings - Problem List ([place] 1, 2,3) (1) Alcohol dependence with uncomplicated withdrawal Current Visit: Yes Status: Acute (2) Cannabis dependence Current Visit: Yes Status: Chronic (3) Nicotine dependence Current Visit: Yes Status: Chronic Qualifiers: Nicotine product type: cigarettes Substance use status: uncomplicated Qualified Code(s): F17.210 - Nicotine dependence, cigarettes, uncomplicated (4) Substance induced mood disorder Current Visit: Yes Status: Chronic (5) Bipolar disorder Current Visit: Yes Status: Chronic Qualifiers: Current episode severity: unspecified Comment: As per history. On medications. (6) OCD (obsessive compulsive disorder) Current Visit: Yes Status: Chronic Comment: As per self-report. (7) Non-compliance Current Visit: Yes Status: Chronic - Initial Treatment Plan Initial Treatment Plan: Psychoeducation. Sleep hygiene. Detoxification. AA meetings. Relapse prevention (MAT) : discussed in this session. Resumed : lithium 300 mg po bid + zyprexa 5 mg po hs + prozac 20 mg po daily. Side effects /benefits of each drug are discused with patient. Mr Forman agrees with this plan of care. Verbal consent given to MD. [place] level requested. Observation.
--- NOTE | 2018-07-27 14:32 | PN ---
S CIWA - CIWA Score Nausea/Vomitin Muscle Tremors: 2 Anxiety: 2 Agitation: 1-Slight > Activity Paroxysmal Sweats: 1-Minimal Palms Moist Orientation: 0-Oriented Tacttile Disturbances: 2-Mild Itch/Numbness/Burn Auditory Disturbances: 1-Very Mild Visual Disturbances: 0-None Headache: 0-None Present CIWA-Ar Total Score: 12 BHS Progress Note (SOAP) Subjective: Stomach Cramping, Nausea, Poor Appetite, Tremors. Objective: PATIENT A & O X 3, OBSERVED AMBULATING ON UNIT UNASSISTED. IN NO ACUTE DISTRESS. 07/27/18 14:33 Vital Signs Temperature 97.0 F L 07/27/18 14:14 Pulse Rate 72 07/27/18 14:14 Respiratory Rate 18 07/27/18 14:14 Blood Pressure 136/86 07/27/18 14:14 O2 Sat by Pulse Oximetry (%) Laboratory Tests 07/27/18 07/27/18 07/27/18 07:00 07:00 07:00 WBC 6.0 RBC 5.07 Hgb 16.7 Hct 50.2 H MCV 98.9 H MCH 33.0 MCHC 33.4 RDW 13.9 Plt Count 238 MPV 10.4 Sodium 139 Potassium 4.1 Chloride 101 Carbon Dioxide 30 Anion Gap 8 BUN 11.2 Creatinine 1.1 Est GFR (CKD-EPI)AfAm 94.79 Est GFR (CKD-EPI)NonAf 81.78 Random Glucose 141 H Calcium 9.3 Total Bilirubin 0.8 AST 38 H ALT 49 Alkaline Phosphatase 70 Total Protein 7.5 Albumin 3.9 RPR Titer Nonreactive LABS NOTED. Assessment: 07/27/18 14:35 WITHDRAWAL SYMPTOMS. HYPERGLYCEMIA. Plan: CONTINUE DETOX. INCREASE DAILY PO FLUID / WATER INTAKE. BGM ACBK FOR ELEVATED ADMISSION RANDOM GLUCOSE LEVEL. PRN ZOFRAN SL FOR NAUSEA/VOMITING. ENSURE PO FOR CALORIC SUPPLEMENTATION.
[2018-07-27] MEDS ORDERED: ONDANSETRON *ODT* 4 MG TABLET SL PRN (14:34)
[2018-07-27 18:52] LABS: PH,URINE 7.5 (5.0-8.0); URINE APPEARANCE CLEAR; URINE BILIRUBIN NEGATIVE (NEGATIVE); URINE COLOR YELLOW; URINE GLUCOSE (UA) NEGATIVE (NEGATIVE); URINE KETONE NEGATIVE (NEGATIVE); URINE LEUK ESTERASE NEGATIVE (NEGATIVE); URINE NITRITE NEGATIVE (NEGATIVE); URINE PROTEIN NEGATIVE (NEGATIVE); URINE UROBILINOGEN 0.2 mg/dL (0.2-1.0)
[2018-07-27] MEDS: THIAMINE HCL 100 MG TABLET (FP) PO SCH (22:07)
[2018-07-27] MEDS: OLANZapine 5 MG TABLET PO SCH (22:08)
[2018-07-27] MEDS: MELATONIN 5 MG TABLETS PO PRN (22:08)
[2018-07-27] MEDS: LITHIUM CARBONATE 300 MG CAPSULE (FP) PO SCH (22:08)
[2018-07-28] MEDS: chlordiazePOXIDE HCL 25 MG CAPSULE PO SCH ×2 (05:50→10:43)
[2018-07-28] MEDS: FLUoxetine HCL 10 MG CAPSULE (FP) PO SCH (10:43)
[2018-07-28] MEDS: PRENATAL VITAMINS W/ FOLIC ACID TABLET (FP) PO SCH (10:43)
[2018-07-28] MEDS: LITHIUM CARBONATE 300 MG CAPSULE (FP) PO SCH ×2 (10:43→22:16)
[2018-07-28] MEDS: NICOTINE 21 MG/24 HOURS TOPICAL PATCH TD SCH (10:43)
[2018-07-28] MEDS: RANITIDINE HCL 150 MG TABLET (FP) PO SCH ×2 (10:43→22:16)
--- NOTE | 2018-07-28 13:11 | PN ---
S CIWA - CIWA Score Nausea/Vomitin-No Nausea/No Vomiting Muscle Tremors: 2 Anxiety: 2 Agitation: 2 Paroxysmal Sweats: 3 Orientation: 0-Oriented Tacttile Disturbances: 0-None Auditory Disturbances: 0-None Visual Disturbances: 0-None Headache: 2-Mild CIWA-Ar Total Score: 11 S Progress Note (SOAP) Subjective: c/o interrupted sleep, anxiety, sweats, and headache. Objective: 07/28/18 13:10 Vital Signs 07/28/18 07/28/18 06:27 09:44 Temperature 96.7 F L 97.3 F L Pulse Rate 70 72 Respiratory 18 17 Rate Blood Pressure 101/63 86/65 L Lab Results WBC 6.0 K/mm3 (4.0-10.0) 07/27/18 07:00 RBC 5.07 M/mm3 (4.00-5.60) 07/27/18 07:00 Hgb 16.7 GM/dL (11.7-16.9) 07/27/18 07:00 Hct 50.2 % (35.4-49) H 07/27/18 07:00 MCV 98.9 fl (80-96) H 07/27/18 07:00 MCHC 33.4 g/dl (32.0-35.9) 07/27/18 07:00 RDW 13.9 % (11.9-15.9) 07/27/18 07:00 Plt Count 238 K/MM3 (134-434) 07/27/18 07:00 Sodium 139 mmol/L (136-145) 07/27/18 07:00 Potassium 4.1 mmol/L (3.5-5.1) 07/27/18 07:00 Chloride 101 mmol/L (98-107) 07/27/18 07:00 Carbon Dioxide 30 mmol/L (21-32) 07/27/18 07:00 Anion Gap 8 MMOL/L (8-16) 07/27/18 07:00 BUN 11.2 mg/dL (7-18) 07/27/18 07:00 Creatinine 1.1 mg/dL (0.55-1.3) 07/27/18 07:00 Random Glucose 141 mg/dL (74-106) H 07/27/18 07:00 Calcium 9.3 mg/dL (8.5-10.1) 07/27/18 07:00 Labs noted. Assessment: 07/28/18 13:10 AOX3, in no acute distress Full ROM, ambulating in the unit. Withdrawal symptoms. Plan: continue detox increase fluids.
[2018-07-28] MEDS ORDERED: chlordiazePOXIDE HCL 10 MG CAPSULE PO PRN (17:00)
[2018-07-28] MEDS: chlordiazePOXIDE HCL 10 MG CAPSULE PO SCH ×2 (17:49→22:16)
[2018-07-28] MEDS: OLANZapine 5 MG TABLET PO SCH (22:16)
[2018-07-28] MEDS: THIAMINE HCL 100 MG TABLET (FP) PO SCH (22:16)
[2018-07-28] MEDS: MELATONIN 5 MG TABLETS PO PRN (22:17)
[2018-07-29] MEDS: chlordiazePOXIDE HCL 10 MG CAPSULE PO SCH ×3 (05:25→18:52)
[2018-07-29] MEDS: LITHIUM CARBONATE 300 MG CAPSULE (FP) PO SCH ×2 (10:30→22:50)
[2018-07-29] MEDS: NICOTINE 21 MG/24 HOURS TOPICAL PATCH TD SCH (10:30)
[2018-07-29] MEDS: FLUoxetine HCL 10 MG CAPSULE (FP) PO SCH (10:30)
[2018-07-29] MEDS: PRENATAL VITAMINS W/ FOLIC ACID TABLET (FP) PO SCH (10:30)
[2018-07-29] MEDS: RANITIDINE HCL 150 MG TABLET (FP) PO SCH ×2 (10:30→22:50)
--- NOTE | 2018-07-29 14:40 | PN ---
S CIWA - CIWA Score Nausea/Vomitin-Mild Nausea/No Vomiting Muscle Tremors: 2 Anxiety: 1-Mildly Anxious Agitation: 1-Slight > Activity Paroxysmal Sweats: 1-Minimal Palms Moist Orientation: 0-Oriented Tacttile Disturbances: 0-None Auditory Disturbances: 0-None Visual Disturbances: 1-Very Mild Sensitivity Headache: 1-Very Mild CIWA-Ar Total Score: 8 BHS Progress Note (SOAP) Subjective: POOR SLEEP, GI UPSET, SAHKY Objective: 07/29/18 14:39 Vital Signs - 24 hr 07/28/18 07/28/18 07/29/18 18:19 21:54 00:30 Temperature 97.5 F L 97.7 F Pulse Rate 82 75 Respiratory 18 18 18 Rate Blood Pressure 101/67 113/79 07/29/18 07/29/18 07/29/18 03:30 06:49 09:13 Temperature 96.8 F L 97.2 F L Pulse Rate 78 78 Respiratory 18 18 18 Rate Blood Pressure 104/66 121/82 07/29/18 13:18 Temperature 96.2 F L Pulse Rate 84 Respiratory 18 Rate Blood Pressure 116/72 Laboratory Tests 07/27/18 07/27/18 07/27/18 00:00 07:00 07:00 WBC 6.0 RBC 5.07 Hgb 16.7 Hct 50.2 H MCV 98.9 H MCH 33.0 MCHC 33.4 RDW 13.9 Plt Count 238 MPV 10.4 Sodium 139 Potassium 4.1 Chloride 101 Carbon Dioxide 30 Anion Gap 8 BUN 11.2 Creatinine 1.1 Est GFR (CKD-EPI)AfAm 94.79 Est GFR (CKD-EPI)NonAf 81.78 Random Glucose 141 H Calcium 9.3 Total Bilirubin 0.8 AST 38 H ALT 49 Alkaline Phosphatase 70 Total Protein 7.5 Albumin 3.9 Urine Color Yellow Urine Appearance Clear Urine pH 7.5 D Ur Specific [place] 1.003 L Urine Protein Negative Urine Glucose (UA) Negative Urine Ketones Negative Urine Blood Negative Urine Nitrite Negative Urine Bilirubin Negative Urine Urobilinogen 0.2 Ur Leukocyte Esterase Negative [place] RPR Titer 07/27/18 07/27/18 07:00 11:00 WBC RBC Hgb Hct MCV MCH MCHC RDW Plt Count MPV Sodium Potassium Chloride Carbon Dioxide Anion Gap BUN Creatinine Est GFR (CKD-EPI)AfAm Est GFR (CKD-EPI)NonAf Random Glucose Calcium Total Bilirubin AST ALT Alkaline Phosphatase Total Protein Albumin Urine Color Urine Appearance Urine pH Ur Specific [place] Urine Protein Urine Glucose (UA) Urine Ketones Urine Blood Urine Nitrite Urine Bilirubin Urine Urobilinogen Ur Leukocyte Esterase [place] 0 L RPR Titer Nonreactive Assessment: 07/29/18 14:40 ACUTE WITHDRAWAL Plan: CONT DETOX PROTOCOL
[2018-07-29] MEDS: OLANZapine 5 MG TABLET PO SCH (22:50)
[2018-07-29] MEDS: THIAMINE HCL 100 MG TABLET (FP) PO SCH (22:50)
[2018-07-29] MEDS: MELATONIN 5 MG TABLETS PO PRN (22:51)
[2018-07-30] MEDS: chlordiazePOXIDE HCL 10 MG CAPSULE PO SCH (05:48)
[2018-07-30 09:43] VITALS: BP 133/82; PULSE 73; TEMP 96.8
[2018-07-30] MEDS: PRENATAL VITAMINS W/ FOLIC ACID TABLET (FP) PO SCH (10:33)
[2018-07-30] MEDS: RANITIDINE HCL 150 MG TABLET (FP) PO SCH (10:33)
[2018-07-30] MEDS: NICOTINE 21 MG/24 HOURS TOPICAL PATCH TD SCH (10:33)
[2018-07-30] MEDS: LITHIUM CARBONATE 300 MG CAPSULE (FP) PO SCH (10:33)
[2018-07-30] MEDS: FLUoxetine HCL 10 MG CAPSULE (FP) PO SCH (12:21)
--- NOTE | 2018-07-30 13:15 | DS ---
[facility] Detox Discharge Summary Admission Date: 07/26/18 Discharge Date: 07/30/18 - History Present History: Alcohol Dependence, Cannabis Dependence Additional Comments: PATIENT GOING TO [facility] ([facility]) FOR AFTERCARE. PATIENT WAS DISCHARGED FROM DETOX UNIT TO BE TAKEN OVER TO REHAB UNIT IN STABLE MEDICAL CONDITION. Pertinent Past History: History Of Syncope, Bipolar Disorder, Dehydration, G.E.R.D., Nicotine Dependence , HTN, Obsessive Compulsive Disorder, Depression, Post-Traumatic Stress Disorder. - Physical Exam Results Vital Signs: Vital Signs Temperature 96.8 F L 07/30/18 09:43 Pulse Rate 73 07/30/18 09:43 Respiratory Rate 20 07/30/18 09:43 Blood Pressure 133/82 07/30/18 09:43 O2 Sat by Pulse Oximetry (%) Pertinent Admission Physical Exam Findings: WITHDRAWAL SYMPTOMS. Laboratory Tests 07/27/18 07/27/18 07/27/18 00:00 07:00 07:00 WBC 6.0 RBC 5.07 Hgb 16.7 Hct 50.2 H MCV 98.9 H MCH 33.0 MCHC 33.4 RDW 13.9 Plt Count 238 MPV 10.4 Sodium 139 Potassium 4.1 Chloride 101 Carbon Dioxide 30 Anion Gap 8 BUN 11.2 Creatinine 1.1 Est GFR (CKD-EPI)AfAm 94.79 Est GFR (CKD-EPI)NonAf 81.78 Random Glucose 141 H Calcium 9.3 Total Bilirubin 0.8 AST 38 H ALT 49 Alkaline Phosphatase 70 Total Protein 7.5 Albumin 3.9 Urine Color Yellow Urine Appearance Clear Urine pH 7.5 D Ur Specific [place] 1.003 L Urine Protein Negative Urine Glucose (UA) Negative Urine Ketones Negative Urine Blood Negative Urine Nitrite Negative Urine Bilirubin Negative Urine Urobilinogen 0.2 Ur Leukocyte Esterase Negative [place] RPR Titer 07/27/18 07/27/18 07:00 11:00 WBC RBC Hgb Hct MCV MCH MCHC RDW Plt Count MPV Sodium Potassium Chloride Carbon Dioxide Anion Gap BUN Creatinine Est GFR (CKD-EPI)AfAm Est GFR (CKD-EPI)NonAf Random Glucose Calcium Total Bilirubin AST ALT Alkaline Phosphatase Total Protein Albumin Urine Color Urine Appearance Urine pH Ur Specific [place] Urine Protein Urine Glucose (UA) Urine Ketones Urine Blood Urine Nitrite Urine Bilirubin Urine Urobilinogen Ur Leukocyte Esterase [place] 0 L RPR Titer Nonreactive LABS NOTED. - Treatment Hospital Course: Detox Protocol Followed, Detoxed Safely, Responded well, Discharged Condition Good, Rehab Referral Accepted Patient has Accepted a Rehab Referral to: [facility] ([place], [place]). - Medication Discharge Medications: Ambulatory Orders Ranitidine [Zantac -] 150 mg PO BID 01/17/18 Fluoxetine HCl [Prozac -] 10 mg PO DAILY #30 capsule 01/18/18 [place] Carbonate [Eskalith -] 300 mg PO BID #60 capsule 01/18/18 Olanzapine [Zyprexa -] 5 mg PO HS #30 tablet 01/18/18 Olanzapine [Zyprexa -] 5 mg PO HS #30 tablet 07/28/18 - Diagnosis (1) Alcohol dependence with uncomplicated withdrawal Status: Acute (2) Syncope Status: Acute Qualifiers: Syncope type: unspecified Qualified Code(s): R55 - Syncope and collapse (3) Bipolar disorder Status: Chronic Qualifiers: Active/Remission status: remission status unspecified Qualified Code(s): F31.9 - Bipolar disorder, unspecified (4) Cannabis dependence Status: Chronic (5) Dehydration Status: Chronic (6) GERD (gastroesophageal reflux disease) Status: Chronic Qualifiers: Esophagitis presence: without esophagitis Qualified Code(s): K21.9 - Gastro -esophageal reflux disease without esophagitis (7) HTN (hypertension) Status: Chronic Qualifiers: Hypertension type: essential hypertension Qualified Code(s): I10 - Essential (primary) hypertension (8) Nicotine dependence Status: Chronic Qualifiers: Nicotine product type: cigarettes Substance use status: uncomplicated Qualified Code(s): F17.210 - Nicotine dependence, cigarettes, uncomplicated (9) OCD (obsessive compulsive disorder) Status: Chronic Qualifiers: Obsessive-compulsive disorder type: unspecified Qualified Code(s): F42.9 - Obsessive-compulsive disorder, unspecified (10) Non-compliance Status: Chronic (11) Substance induced mood disorder Status: Chronic - AMA Did Patient Leave Against Medical Advice: No
== END 2018-07-30 13:07 | disposition home or self-care (01) | DRG 775 ==
LOC: YASAS 11:32 → Y3N 15:38
PROVIDERS: ADMIT Surgery; ATTEND Surgery
PROC: HZ2ZZZZ Detoxification Services for Substance Abuse Treatment (ICD-10-PCS; principal; 2018-07-26)
DX: F10.230 Alcohol dependence with withdrawal, uncomplicated (principal); F12.20 Cannabis dependence, uncomplicated; F17.210 Nicotine dependence, cigarettes, uncomplicated; F31.9 Bipolar disorder, unspecified; F42.9 Obsessive-compulsive disorder, unspecified; F19.24 Other psychoactive substance dependence with psychoactive substance-induced mood disorder; I10 Essential (primary) hypertension; E86.0 Dehydration; K21.9 Gastro-esophageal reflux disease without esophagitis; R73.9 Hyperglycemia, unspecified; R63.4 Abnormal weight loss; Z91.19 Patient's noncompliance with other medical treatment and regimen; Z89.021 Acquired absence of right finger(s); Z59.0 Homelessness
CPT/HCPCS: 36415; 80053; 80178; 81003; 85027; 86593

== ENCOUNTER 2018-07-30 13:06 | Inpatient (IN) | payer OTHER ==
[2018-07-30] MEDS ORDERED: ACETAMINOPHEN 325 MG TABLET (FP) PO PRN (13:20)
[2018-07-30] MEDS ORDERED: MAGNESIUM CITRATE 300 ML BOTTLE PO PRN (13:20)
[2018-07-30] MEDS ORDERED: P-EPHED 60MG/TRIPROLIDI 2.5MG TABLET PO PRN (13:20)
[2018-07-30] MEDS ORDERED: MENTHOL/PHENOL 1 EACH UD MM PRN (13:20)
[2018-07-30] MEDS ORDERED: IBUPROFEN 400 MG TABLET (FP) PO PRN (13:20)
[2018-07-30] MEDS ORDERED: MAG HYDROX/AL HYDROX/SIMETH 30 ML UNIT-DOSE CUP PO PRN (13:20)
[2018-07-30] MEDS ORDERED: LOPERAMIDE HCL 2 MG CAPSULE PO PRN (13:20)
[2018-07-30] MEDS ORDERED: MAGNESIUM HYDROX 2400MG/30ML ORAL SUSPENSION 30 ML CUP PO PRN (13:20)
[2018-07-30] MEDS ORDERED: guaiFENesin 200 MG/10 ML 10 ML UNIT-DOSE CUPS PO PRN (13:20)
--- NOTE | 2018-07-30 13:23 | HP ---
[facility] Rehab Assess/Revision - Admission History Admitted to Rehab from: [facility] Date of Admission to Rehab: 07/30/2018 - Vital signs Vital Signs: NOTED; STABLE. - Findings Detox History & Physical reviewed: Yes Concur with findings: Yes Comments/Additional Findings: PATIENT'S MEDICAL / MEDICATION HISTORY REVIEWED PRIOR TO DISCHARGE FROM DETOX UNIT. PATIENT WAS DISCHARGED FROM DETOX UNIT TO BE TAKEN OVER TO REHAB UNIT IN STABLE MEDICAL CONDITION. Inpatient Rehab Admission - Rehab Decision to Admit Inpatient rehab admission?: Yes - Initial Determination Are CD services needed?: Yes Free of communicable disease: Yes Not in need of hospitalization: Yes - Rehab Admission Criteria Previous failed treatment: Yes Poor recovery environment: Yes Comorbidities: Yes Lacks judgement: No Patient is meeting Inpatient Rehab admission criteria:: Yes
[2018-07-30] MEDS ORDERED: hydrOXYzine PAMOATE 25 MG CAPSULE (FP) PO PRN (15:15)
--- NOTE | 2018-07-30 17:04 | PN ---
[facility] Progress Note Note: Psychiatry Attending's note : Discharged from [address] [place] [address]. Transfer[address] to [address] Continuity of care : lithium 300 mg po bid zyprexa 5 mg po hs prozac 10 mg po daily Resumed.
[2018-07-30] MEDS: LITHIUM CARBONATE 300 MG CAPSULE (FP) PO SCH (21:15)
[2018-07-30] MEDS: RANITIDINE HCL 150 MG TABLET (FP) PO SCH (21:15)
[2018-07-30] MEDS ORDERED: THIAMINE HCL 100 MG TABLET (FP) PO SCH (22:00)
[2018-07-30] MEDS ORDERED: MELATONIN 5 MG TABLETS PO PRN (22:00)
[2018-07-30] MEDS ORDERED: OLANZapine 5 MG TABLET PO SCH (22:00)
[2018-07-31 06:56] VITALS: BP 109/76; PULSE 67; TEMP 97.6
--- NOTE | 2018-07-31 09:01 | PN ---
[facility]HS Progress Note (SOAP) Subjective: patient leaving AMA. States he does not like it here because he wants to smoke and cannot. Objective: No neurological deficits noted. Heart rate regular, lungs clear, abd soft, non- tender, non-distended. +BS. 07/31/18 09:00 Vital Signs (72 hours) 07/31/18 07/31/18 07/31/18 00:30 03:30 06:55 Temperature 97.6 F Pulse Rate 67 Respiratory 18 18 18 Rate Blood Pressure 109/76 Assessment: medically stable for discharge Discharge Dx; HTN ETOH dependence GERD 07/31/18 09:02 Plan: Patient is not seeking aftercare, does not have a PCP and does not need prescriptions. Encouraged patient to seek aftercare and/or AA meetings. Encouraged patient to establish primary care.
[2018-07-31] MEDS: LITHIUM CARBONATE 300 MG CAPSULE (FP) PO SCH (09:03)
[2018-07-31] MEDS: RANITIDINE HCL 150 MG TABLET (FP) PO SCH (09:03)
[2018-07-31] MEDS ORDERED: NICOTINE 21 MG/24 HOURS TOPICAL PATCH TD SCH (10:00)
[2018-07-31] MEDS ORDERED: PRENATAL VITAMINS W/ FOLIC ACID TABLET (FP) PO SCH (10:00)
[2018-07-31] MEDS ORDERED: FLUoxetine HCL 10 MG CAPSULE (FP) PO SCH (10:00)
== END 2018-07-31 09:05 | disposition left against medical advice (07) | DRG 770 ==
LOC: YASAS 13:06 → Y3W 13:07
PROVIDERS: ADMIT Neuromusculoskeletal Medicine & OMM; ATTEND Neuromusculoskeletal Medicine & OMM
PROC: HZ42ZZZ Group Counseling for Substance Abuse Treatment, Cognitive-Behavioral (ICD-10-PCS; principal; 2018-07-30)
DX: F10.20 Alcohol dependence, uncomplicated (principal); F12.20 Cannabis dependence, uncomplicated; F17.210 Nicotine dependence, cigarettes, uncomplicated; F31.9 Bipolar disorder, unspecified; F42.9 Obsessive-compulsive disorder, unspecified; I10 Essential (primary) hypertension; E86.0 Dehydration; K21.9 Gastro-esophageal reflux disease without esophagitis; R63.4 Abnormal weight loss; Z59.0 Homelessness

== ENCOUNTER 2018-08-22 08:38 | Inpatient (IN) | payer OTHER ==
[2018-08-22 09:07] VITALS: BMI 30.7
--- NOTE | 2018-08-22 09:37 | HP ---
CIWA Score Nausea/Vomitin Muscle Tremors: 2 Anxiety: 2 Agitation: 2 Paroxysmal Sweats: 1-Minimal Palms Moist Orientation: 0-Oriented Tacttile Disturbances: 1-Very Mild Itch/Numbness Auditory Disturbances: 1-Very Mild Visual Disturbances: 0-None Headache: 2-Mild CIWA-Ar Total Score: 13 - Admission Criteria [facility]ASAS Guidelines: Admission for Medically Managed Detox: Requires at least one of the followin. CIWA greater than 12 2. Seizures within the past 24 hours 3. Delirium tremens within the past 24 hours 4. Hallucinations within the past 24 hours 5. Acute intervention needed for co occurring medical disorder 6. Acute intervention needed for co occurring psychiatric disorder 7. Severe withdrawal that cannot be handled at a lower level of care (continued vomiting, continued diarrhea, abnormal vital signs) requiring intravenous medication and/or fluids 8. Admission ROS S - HPI Chief Complaint: i need help to stop drinking alcohol,cocaine and marijuana Allergies/Adverse Reactions: Allergies Allergy/AdvReac Type Severity Reaction Status Date / Time No Known Allergies Allergy Verified 07/26/18 14:03 History of Present Illness: this 43 years old male with alcohol,cocaine and marijuana dependence,seeking detox,withdrawal symptom extensive history of alcohol dependence multiple admissions in detox last 07/26/18 to 07/30/18 [facility] ,rehab 07/30/18 to but not completed stated hit the right knee on a chair 2 days ago,has abrasion and redness of right knee nicotine dependence 20 to 30 cigarette/day,would like to have nicotine patch weight loss syncope alcohol related anxiety,depression,bipolar disorder non compliance last medication 1 month ago - Ebola screening Have you traveled outside of the country in the last 21 days: No (N) Have you had contact with anyone from an Ebola affected area: No Do you have a fever: No - Review of Systems Constitutional: Loss of Appetite, Malaise, Night Sweats, Changes in sleep, Weakness, Unintentional Wgt. Loss EENT: reports: Nose Congestion Respiratory: reports: No Symptoms reported Cardiac: reports: No Symptoms Reported GI: reports: Nausea, Poor Appetite, Abdominal cramping : reports: No Symptoms Reported Musculoskeletal: reports: Back Pain, Muscle Pain Integumentary: reports: Dryness Neuro: reports: Tremors Endocrine: reports: No Symptoms Reported Hematology: reports: No Symptoms Reported Psychiatric: reports: No Sypmtoms Reported, Judgement Intact, Mood/Affect Appropiate, Orientated x3, other (bipolar disorder) Patient History - Patient Medical History Hx Anemia: No Hx Asthma: No Hx Chronic Obstructive Pulmonary Disease (COPD): No Hx Cancer: No Hx Cardiac Disorders: No Hx Congestive Heart Failure: No Hx Hypertension: Yes (no medication) Hx Hypercholesterolemia: No Hx Pacemaker: No HX Cerebrovascular Accident: No Hx Seizures: No Hx Dementia: No Hx Diabetes: No Hx Gastrointestinal Disorders: Yes (ACID REFLUX) Hx Liver Disease: No Hx Genitourinary Disorders: No Hx Sexually Transmitted Disorders: No Hx Renal Disease (ESRD): No Hx Thyroid Disease: No Hx Human Immunodeficiency Virus (HIV): No (last 2017 negative) Hx Hepatitis C: No Hx Depression: Yes (no med) Hx Suicide Attempt: No Hx Bipolar Disorder: Yes (no med for 1 month) Hx Schizophrenia: No Other Medical History: no suicidal,no homicidal,swelling of right knee for 2 days - Patient Surgical History Past Surgical History: Yes Hx Neurologic Surgery: No Hx Cataract Extraction: No Hx Cardiac Surgery: No Hx Lung Surgery: No Hx Breast Surgery: No Hx Breast Biopsy: No Hx Abdominal Surgery: No Hx Appendectomy: No Hx Cholecystectomy: No Hx Genitourinary Surgery: No Hx Section: No Hx Orthopedic Surgery: No Other Surgical History: partial amputation, right index finger in 2017 Anesthesia Reaction: No - PPD History Documented Results: Negative w/proof Implanted On Prior [facility] Admission?: Yes Date: 01/19/18 Results: not read PPD to be Administered?: No - Smoking Cessation Smoking history: Current every day smoker Have you smoked in the past 12 months: Yes Aproximately how many cigarettes per day: 20 Hx Chewing Tobacco Use: No Initiated information on smoking cessation: Yes 'Breaking Loose' booklet given: 08/22/18 - Substance & Tx. History Hx Alcohol Use: Yes Hx Substance Use: Yes Substance Use Type: Alcohol, Marijuana Hx Substance Use Treatment: Yes ([facility] 07/26/18 to 07/30/18) - Substances abused Alcohol Substance route: Oral Frequency: Daily Amount used: 1 pint VODKA +2/[id number] Age of first use: 17 Date of last use: 08/22/18 Marijuana/Hashish Substance route: Smoking Frequency: Daily Amount used: 5 BLUNTS Age of first use: 16 Date of last use: 08/22/18 Family Disease History - Family Disease History Family Disease History: Other: Father (alcohol,sober) Admission Physical Exam [facility] - Vital Signs Vital Signs: Vital Signs - 24 hr 08/22/18 09:03 Temperature 97.8 F Pulse Rate 83 Respiratory 18 Rate Blood Pressure 125/82 - Physical General Appearance: Yes: Moderate Distress, Tremorous, Irritable, Sweating, Anxious HEENTM: Yes: Normal ENT Inspection, MARIO, Pharynx Normal Respiratory: Yes: Lungs Clear, Normal Breath Sounds, No Respiratory Distress Neck: Yes: Within Normal Limits, Supple, Trachea in good position Breast: Yes: Within Normal Limits Cardiology: Yes: Within Normal Limits, Regular Rhythm, Regular Rate, S1, S2 Abdominal: Yes: Within Normal Limits, Normal Bowel Sounds, Non Tender, Flat, Soft Genitourinary: Yes: Within Normal Limits Back: Yes: Muscle Spasm Musculoskeletal: Yes: Back pain, Muscle Pain Extremities: Yes: Tremors, Other (pattial amputation of right index cellulitis of righ t knee with redness and warm on touch) 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: Yes: filler spreader II-XII NML intact, Fully Oriented, Alert, Motor Strength 5/5 Integumentary: Yes: Dry Lymphatic: Yes: Within Normal Limits - Diagnostic (1) Alcohol dependence with uncomplicated withdrawal Current Visit: No Status: Acute (2) Cellulitis of right knee Current Visit: Yes Status: Acute (3) Syncope Current Visit: No Status: Acute Qualifiers: Syncope type: unspecified Qualified Code(s): R55 - Syncope and collapse (4) Bipolar disorder Current Visit: No Status: Chronic Qualifiers: Active/Remission status: remission status unspecified Qualified Code(s): F31.9 - Bipolar disorder, unspecified Comment: As per history. On medications. (5) Cannabis dependence Current Visit: No Status: Chronic (6) Dehydration Current Visit: No Status: Chronic (7) HTN (hypertension) Current Visit: No Status: Chronic Qualifiers: Hypertension type: essential hypertension Qualified Code(s): I10 - Essential (primary) hypertension (8) Nicotine dependence Current Visit: No Status: Chronic Qualifiers: Nicotine product type: cigarettes Substance use status: uncomplicated Qualified Code(s): F17.210 - Nicotine dependence, cigarettes, uncomplicated (9) OCD (obsessive compulsive disorder) Current Visit: No Status: Chronic Qualifiers: Obsessive-compulsive disorder type: unspecified Qualified Code(s): F42.9 - Obsessive-compulsive disorder, unspecified Comment: As per self-report. Cleared for Admission S - Detox or Rehab [facility] Level of Care: Medically Managed Detox Regimen/Protocol: Librium Breathalyzer - Breathalyzer Breathalyzer: 0 Urine Drug Screen - Test Device Lot number: [id number] Expiration date: 04/12/18 - Control Is test valid?: Yes - Results Drug screen NEGATIVE: No Urine drug screen results: THC-Marijuana, BZO-Benzodiazepines Inpatient Rehab Admission - Rehab Decision to Admit Inpatient rehab admission?: No
[2018-08-22] MEDS ORDERED: BISMUTH SUBSALICYLATE 524 MG/30 ML UD PO PRN (09:47)
[2018-08-22] MEDS ORDERED: MAG HYDROX/AL HYDROX/SIMETH 30 ML UNIT-DOSE CUP PO PRN (09:47)
[2018-08-22] MEDS ORDERED: ACETAMINOPHEN 325 MG TABLET (FP) PO PRN ×2 (09:47)
[2018-08-22] MEDS ORDERED: MENTHOL/PHENOL 1 EACH UD MM PRN (09:47)
[2018-08-22] MEDS ORDERED: MAGNESIUM CITRATE 300 ML BOTTLE PO PRN (09:47)
[2018-08-22] MEDS ORDERED: METHOCARBAMOL 500 MG TABLET PO PRN (09:47)
[2018-08-22] MEDS ORDERED: MAGNESIUM HYDROX 2400MG/30ML ORAL SUSPENSION 30 ML CUP PO PRN (09:47)
[2018-08-22] MEDS ORDERED: chlordiazePOXIDE HCL 25 MG CAPSULE PO PRN (09:47)
[2018-08-22] MEDS ORDERED: hydrOXYzine HCL 25 MG TABLET (FP) PO PRN (09:47)
[2018-08-22] MEDS: IBUPROFEN 400 MG TABLET (FP) PO PRN ×2 (11:21→16:57)
[2018-08-22] MEDS: chlordiazePOXIDE HCL 25 MG CAPSULE PO SCH ×3 (11:21→22:39)
[2018-08-22] MEDS: PRENATAL VITAMINS W/ FOLIC ACID TABLET (FP) PO SCH (11:22)
[2018-08-22] MEDS: RANITIDINE HCL 150 MG TABLET (FP) PO SCH ×2 (11:22→22:36)
[2018-08-22] MEDS: NICOTINE 21 MG/24 HOURS TOPICAL PATCH TD SCH (11:22)
[2018-08-22] MEDS: CEPHALEXIN MONOHYDRATE 500 MG CAPSULE (UD) PO SCH ×2 (11:22→19:22)
[2018-08-22 12:12] LABS: HEMATOCRIT 49.7 % (35.4-49); HEMOGLOBIN 17.1 GM/dL (11.7-16.9); MCH 33.1 pg (25.7-33.7); MCHC 34.3 g/dl (32.0-35.9); MEAN CELL VOLUME 96.4 fl (80-96); MEAN PLT VOLUME 10.5 fl (7.5-11.1); RBC 5.16 M/mm3 (4.00-5.60); RDW 13.3 % (11.9-15.9); WHITE BLOOD COUNT 9.2 K/mm3 (4.0-10.0)
[2018-08-22 12:15] LABS: ALBUMIN 4.3 g/dl (3.4-5.0); BLOOD UREA NITROGEN 12.9 mg/dL (7-18); POTASSIUM 3.6 mmol/L (3.5-5.1); TOT PROT 7.8 g/dl (6.4-8.2)
[2018-08-22 12:51] LABS: PLATELET COUNT 207 K/MM3 (134-434)
[2018-08-22 14:40] LABS: PH,URINE 5.5 (5.0-8.0); URINE APPEARANCE CLEAR; URINE BILIRUBIN NEGATIVE (NEGATIVE); URINE COLOR YELLOW; URINE GLUCOSE (UA) NEGATIVE (NEGATIVE); URINE KETONE NEGATIVE (NEGATIVE); URINE LEUK ESTERASE NEGATIVE (NEGATIVE); URINE NITRITE NEGATIVE (NEGATIVE); URINE PROTEIN NEGATIVE (NEGATIVE); URINE UROBILINOGEN 0.2 mg/dL (0.2-1.0)
[2018-08-22] MEDS: THIAMINE HCL 100 MG TABLET (FP) PO SCH (22:35)
[2018-08-22] MEDS: MELATONIN 5 MG TABLETS PO PRN (22:35)
[2018-08-23] MEDS: CEPHALEXIN MONOHYDRATE 500 MG CAPSULE (UD) PO SCH ×4 (00:33→17:18)
[2018-08-23] MEDS: chlordiazePOXIDE HCL 25 MG CAPSULE PO SCH ×4 (05:17→22:43)
[2018-08-23] MEDS: IBUPROFEN 400 MG TABLET (FP) PO PRN ×2 (05:20→17:14)
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
[2018-08-23] MEDS: NICOTINE 21 MG/24 HOURS TOPICAL PATCH TD SCH (10:18)
[2018-08-23] MEDS: FLUoxetine HCL 10 MG CAPSULE (FP) PO SCH (10:19)
[2018-08-23] MEDS: PRENATAL VITAMINS W/ FOLIC ACID TABLET (FP) PO SCH (10:19)
[2018-08-23] MEDS: RANITIDINE HCL 150 MG TABLET (FP) PO SCH ×2 (10:19→22:43)
[2018-08-23] MEDS: LITHIUM CARBONATE 300 MG CAPSULE (FP) PO SCH ×2 (10:20→22:44)
[2018-08-23] MEDS ORDERED: guaiFENesin 200 MG/10 ML 10 ML UNIT-DOSE CUPS PO PRN (11:54)
--- NOTE | 2018-08-23 11:57 | PN ---
S CIWA - CIWA Score Nausea/Vomitin-No Nausea/No Vomiting Muscle Tremors: 3 Anxiety: 3 Agitation: 3 Paroxysmal Sweats: 3 Orientation: 0-Oriented Tacttile Disturbances: 0-None Auditory Disturbances: 0-None Visual Disturbances: 0-None Headache: 0-None Present CIWA-Ar Total Score: 12 BHS Progress Note (SOAP) Subjective: cough agitation sweats body aches interrupted sleep Objective: 08/23/18 11:56 Vital Signs Temperature 97.0 F L 08/23/18 09:46 Pulse Rate 75 08/23/18 09:46 Respiratory Rate 18 08/23/18 09:46 Blood Pressure 120/74 08/23/18 09:46 O2 Sat by Pulse Oximetry (%) Laboratory Tests 08/22/18 08/22/18 08/22/18 10:10 10:10 10:10 WBC 9.2 RBC 5.16 Hgb 17.1 H Hct 49.7 H MCV 96.4 H MCH 33.1 MCHC 34.3 RDW 13.3 Plt Count 207 MPV 10.5 Sodium 139 Potassium 3.6 Chloride 104 Carbon Dioxide 27 Anion Gap 7 L BUN 12.9 Creatinine 1.0 Est GFR (CKD-EPI)AfAm 106.36 Est GFR (CKD-EPI)NonAf 91.77 Random Glucose 81 Calcium 9.0 Total Bilirubin 1.0 AST 25 ALT 36 Alkaline Phosphatase 60 Total Protein 7.8 Albumin 4.3 Urine Color Urine Appearance Urine pH Ur Specific [place] Urine Protein Urine Glucose (UA) Urine Ketones Urine Blood Urine Nitrite Urine Bilirubin Urine Urobilinogen Ur Leukocyte Esterase RPR Titer Nonreactive 08/22/18 11:30 WBC RBC Hgb Hct MCV MCH MCHC RDW Plt Count MPV Sodium Potassium Chloride Carbon Dioxide Anion Gap BUN Creatinine Est GFR (CKD-EPI)AfAm Est GFR (CKD-EPI)NonAf Random Glucose Calcium Total Bilirubin AST ALT Alkaline Phosphatase Total Protein Albumin Urine Color Yellow Urine Appearance Clear Urine pH 5.5 D Ur Specific [place] 1.007 L Urine Protein Negative Urine Glucose (UA) Negative Urine Ketones Negative Urine Blood Negative Urine Nitrite Negative Urine Bilirubin Negative Urine Urobilinogen 0.2 Ur Leukocyte Esterase Negative RPR Titer labs noted aaox3 ambulating no acute distress Assessment: 08/23/18 11:56 withdrawal sx Plan: continue detox increase fluids
[2018-08-23] MEDS: THIAMINE HCL 100 MG TABLET (FP) PO SCH (22:43)
[2018-08-23] MEDS: OLANZapine 5 MG TABLET PO SCH (22:44)
[2018-08-23] MEDS: MELATONIN 5 MG TABLETS PO PRN (22:45)
[2018-08-24] MEDS: CEPHALEXIN MONOHYDRATE 500 MG CAPSULE (UD) PO SCH ×4 (00:18→17:29)
[2018-08-24] MEDS: chlordiazePOXIDE HCL 25 MG CAPSULE PO SCH ×4 (05:54→22:15)
[2018-08-24] MEDS: IBUPROFEN 400 MG TABLET (FP) PO PRN (05:56)
[2018-08-24] MEDS: NICOTINE 21 MG/24 HOURS TOPICAL PATCH TD SCH (10:26)
[2018-08-24] MEDS: LITHIUM CARBONATE 300 MG CAPSULE (FP) PO SCH ×2 (10:26→22:15)
[2018-08-24] MEDS: FLUoxetine HCL 10 MG CAPSULE (FP) PO SCH (10:26)
[2018-08-24] MEDS: PRENATAL VITAMINS W/ FOLIC ACID TABLET (FP) PO SCH (10:26)
[2018-08-24] MEDS: RANITIDINE HCL 150 MG TABLET (FP) PO SCH ×2 (10:26→22:15)
--- NOTE | 2018-08-24 12:06 | PN ---
[facility] CIWA - CIWA Score Nausea/Vomitin-No Nausea/No Vomiting Muscle Tremors: 3 Anxiety: 3 Agitation: 3 Paroxysmal Sweats: 2 Orientation: 0-Oriented Tacttile Disturbances: 0-None Auditory Disturbances: 0-None Visual Disturbances: 0-None Headache: 0-None Present CIWA-Ar Total Score: 11 S Progress Note (SOAP) Subjective: sweats mild shakes interrupted sleep Objective: 08/24/18 12:01 Vital Signs Temperature 97.5 F L 08/24/18 09:53 Pulse Rate 76 08/24/18 09:53 Respiratory Rate 18 08/24/18 09:53 Blood Pressure 123/83 08/24/18 09:53 O2 Sat by Pulse Oximetry (%) Laboratory Tests 08/22/18 08/22/18 08/22/18 10:10 10:10 10:10 WBC 9.2 RBC 5.16 Hgb 17.1 H Hct 49.7 H MCV 96.4 H MCH 33.1 MCHC 34.3 RDW 13.3 Plt Count 207 MPV 10.5 Sodium 139 Potassium 3.6 Chloride 104 Carbon Dioxide 27 Anion Gap 7 L BUN 12.9 Creatinine 1.0 Est GFR (CKD-EPI)AfAm 106.36 Est GFR (CKD-EPI)NonAf 91.77 Random Glucose 81 Calcium 9.0 Total Bilirubin 1.0 AST 25 ALT 36 Alkaline Phosphatase 60 Total Protein 7.8 Albumin 4.3 Urine Color Urine Appearance Urine pH Ur Specific [place] Urine Protein Urine Glucose (UA) Urine Ketones Urine Blood Urine Nitrite Urine Bilirubin Urine Urobilinogen Ur Leukocyte Esterase RPR Titer TB (QFT) Incubation TB Test (QFT) Nil 0.10 TB Test (QFT) Mitogen >10.00 TB Test (QFT) Antigen 0.17 TB Test (QFT) Negative TB Positive Criteria 08/22/18 08/22/18 10:10 11:30 WBC RBC Hgb Hct MCV MCH MCHC RDW Plt Count MPV Sodium Potassium Chloride Carbon Dioxide Anion Gap BUN Creatinine Est GFR (CKD-EPI)AfAm Est GFR (CKD-EPI)NonAf Random Glucose Calcium Total Bilirubin AST ALT Alkaline Phosphatase Total Protein Albumin Urine Color Yellow Urine Appearance Clear Urine pH 5.5 D Ur Specific [place] 1.007 L Urine Protein Negative Urine Glucose (UA) Negative Urine Ketones Negative Urine Blood Negative Urine Nitrite Negative Urine Bilirubin Negative Urine Urobilinogen 0.2 Ur Leukocyte Esterase Negative RPR Titer Nonreactive TB (QFT) Incubation TB Test (QFT) Nil TB Test (QFT) Mitogen TB Test (QFT) Antigen TB Test (QFT) TB Positive Criteria labs noted aaox3 ambulating no acute distress Assessment: 08/24/18 12:05 withdrawal sx Plan: continue detox increase fluids
[2018-08-24] MEDS: OLANZapine 5 MG TABLET PO SCH (22:16)
[2018-08-24] MEDS: THIAMINE HCL 100 MG TABLET (FP) PO SCH (22:16)
[2018-08-25] MEDS ORDERED: chlordiazePOXIDE HCL 10 MG CAPSULE PO PRN
[2018-08-25] MEDS: CEPHALEXIN MONOHYDRATE 500 MG CAPSULE (UD) PO SCH ×5 (00:04→23:59)
[2018-08-25] MEDS: IBUPROFEN 400 MG TABLET (FP) PO PRN ×2 (05:51→22:34)
[2018-08-25] MEDS: chlordiazePOXIDE HCL 10 MG CAPSULE PO SCH ×4 (05:51→22:32)
[2018-08-25] MEDS: RANITIDINE HCL 150 MG TABLET (FP) PO SCH ×2 (10:19→22:32)
[2018-08-25] MEDS: LITHIUM CARBONATE 300 MG CAPSULE (FP) PO SCH ×2 (10:19→22:32)
[2018-08-25] MEDS: PRENATAL VITAMINS W/ FOLIC ACID TABLET (FP) PO SCH (10:19)
[2018-08-25] MEDS: FLUoxetine HCL 10 MG CAPSULE (FP) PO SCH (10:19)
[2018-08-25] MEDS: NICOTINE 21 MG/24 HOURS TOPICAL PATCH TD SCH (10:20)
--- NOTE | 2018-08-25 12:13 | PN ---
S CIWA - CIWA Score Nausea/Vomitin-No Nausea/No Vomiting Muscle Tremors: 2 Anxiety: 2 Agitation: 1-Slight > Activity Paroxysmal Sweats: 3 Orientation: 0-Oriented Tacttile Disturbances: 0-None Auditory Disturbances: 0-None Visual Disturbances: 0-None Headache: 1-Very Mild CIWA-Ar Total Score: 9 BHS Progress Note (SOAP) Subjective: c/o sweats, anxiety, and headache. Objective: 08/25/18 12:13 Vital Signs 08/25/18 08/25/18 06:00 09:22 Temperature 97.3 F L 98.5 F Pulse Rate 75 80 Respiratory 18 18 Rate Blood Pressure 118/79 110/72 Assessment: 08/25/18 12:13 AOX3, in no acute respiratory distress Full ROM, ambulating in the unit. Withdrawal symptoms. Plan: continue detox.
[2018-08-25] MEDS: OLANZapine 5 MG TABLET PO SCH (22:32)
[2018-08-25] MEDS: MELATONIN 5 MG TABLETS PO PRN (22:32)
[2018-08-25] MEDS: THIAMINE HCL 100 MG TABLET (FP) PO SCH (22:32)
[2018-08-26] MEDS: CEPHALEXIN MONOHYDRATE 500 MG CAPSULE (UD) PO SCH ×3 (05:16→17:46)
[2018-08-26] MEDS: chlordiazePOXIDE HCL 10 MG CAPSULE PO SCH ×2 (05:16→17:46)
[2018-08-26] MEDS: IBUPROFEN 400 MG TABLET (FP) PO PRN (05:18)
[2018-08-26] MEDS: LITHIUM CARBONATE 300 MG CAPSULE (FP) PO SCH ×2 (10:23→22:14)
[2018-08-26] MEDS: RANITIDINE HCL 150 MG TABLET (FP) PO SCH ×2 (10:23→22:14)
[2018-08-26] MEDS: FLUoxetine HCL 10 MG CAPSULE (FP) PO SCH (10:23)
[2018-08-26] MEDS: PRENATAL VITAMINS W/ FOLIC ACID TABLET (FP) PO SCH (10:23)
[2018-08-26] MEDS: NICOTINE 21 MG/24 HOURS TOPICAL PATCH TD SCH (10:23)
--- NOTE | 2018-08-26 16:02 | PN ---
[facility] CIWA - CIWA Score Nausea/Vomitin-No Nausea/No Vomiting Muscle Tremors: None Anxiety: 3 Agitation: 3 Paroxysmal Sweats: 2 Orientation: 0-Oriented Tacttile Disturbances: 0-None Auditory Disturbances: 0-None Visual Disturbances: 0-None Headache: 0-None Present CIWA-Ar Total Score: 8 S Progress Note (SOAP) Subjective: Legs hurt, interrupted sleep Objective: 08/26/18 16:00 Last Vital Signs Temp Pulse Resp BP Pulse Ox 97.9 F 75 18 129/83 08/26/18 14:09 08/26/18 14:09 08/26/18 14:09 08/26/18 14:09 Laboratory Tests 08/22/18 08/22/18 08/22/18 10:10 10:10 10:10 WBC 9.2 RBC 5.16 Hgb 17.1 H Hct 49.7 H MCV 96.4 H MCH 33.1 MCHC 34.3 RDW 13.3 Plt Count 207 MPV 10.5 Sodium 139 Potassium 3.6 Chloride 104 Carbon Dioxide 27 Anion Gap 7 L BUN 12.9 Creatinine 1.0 Est GFR (CKD-EPI)AfAm 106.36 Est GFR (CKD-EPI)NonAf 91.77 Random Glucose 81 Calcium 9.0 Total Bilirubin 1.0 AST 25 ALT 36 Alkaline Phosphatase 60 Total Protein 7.8 Albumin 4.3 Urine Color Urine Appearance Urine pH Ur Specific [place] Urine Protein Urine Glucose (UA) Urine Ketones Urine Blood Urine Nitrite Urine Bilirubin Urine Urobilinogen Ur Leukocyte Esterase RPR Titer TB (QFT) Incubation TB Test (QFT) Nil 0.10 TB Test (QFT) Mitogen >10.00 TB Test (QFT) Antigen 0.17 TB Test (QFT) Negative TB Positive Criteria 08/22/18 08/22/18 10:10 11:30 WBC RBC Hgb Hct MCV MCH MCHC RDW Plt Count MPV Sodium Potassium Chloride Carbon Dioxide Anion Gap BUN Creatinine Est GFR (CKD-EPI)AfAm Est GFR (CKD-EPI)NonAf Random Glucose Calcium Total Bilirubin AST ALT Alkaline Phosphatase Total Protein Albumin Urine Color Yellow Urine Appearance Clear Urine pH 5.5 D Ur Specific [place] 1.007 L Urine Protein Negative Urine Glucose (UA) Negative Urine Ketones Negative Urine Blood Negative Urine Nitrite Negative Urine Bilirubin Negative Urine Urobilinogen 0.2 Ur Leukocyte Esterase Negative RPR Titer Nonreactive TB (QFT) Incubation TB Test (QFT) Nil TB Test (QFT) Mitogen TB Test (QFT) Antigen TB Test (QFT) TB Positive Criteria Labs reviewed Assessment: 08/26/18 16:01 Withdrawal symptoms Plan: Continue detox Encouraged PO water intake Scheduled for discharge tomorrow
[2018-08-26] MEDS: OLANZapine 5 MG TABLET PO SCH (22:14)
[2018-08-26] MEDS: THIAMINE HCL 100 MG TABLET (FP) PO SCH (22:14)
[2018-08-27] MEDS: CEPHALEXIN MONOHYDRATE 500 MG CAPSULE (UD) PO SCH ×2 (00:34→05:11)
[2018-08-27] MEDS ORDERED: chlordiazePOXIDE HCL 10 MG CAPSULE PO ONE (05:00)
[2018-08-27 06:23] VITALS: BP 112/67; PULSE 71; TEMP 97.3
--- NOTE | 2018-08-27 09:54 | DS ---
[facility] Detox Discharge Summary Admission Date: 08/22/18 Discharge Date: 08/27/18 - History Present History: Alcohol Dependence, Cannabis Dependence - Physical Exam Results Vital Signs: Vital Signs Temperature 97.3 F L 08/27/18 06:00 Pulse Rate 71 08/27/18 06:00 Respiratory Rate 18 08/27/18 06:00 Blood Pressure 112/67 08/27/18 06:00 O2 Sat by Pulse Oximetry (%) Pertinent Admission Physical Exam Findings: pt arrived in withdrawal Laboratory Tests 08/22/18 08/22/18 08/22/18 10:10 10:10 10:10 WBC 9.2 RBC 5.16 Hgb 17.1 H Hct 49.7 H MCV 96.4 H MCH 33.1 MCHC 34.3 RDW 13.3 Plt Count 207 MPV 10.5 Sodium 139 Potassium 3.6 Chloride 104 Carbon Dioxide 27 Anion Gap 7 L BUN 12.9 Creatinine 1.0 Est GFR (CKD-EPI)AfAm 106.36 Est GFR (CKD-EPI)NonAf 91.77 Random Glucose 81 Calcium 9.0 Total Bilirubin 1.0 AST 25 ALT 36 Alkaline Phosphatase 60 Total Protein 7.8 Albumin 4.3 Urine Color Urine Appearance Urine pH Ur Specific [place] Urine Protein Urine Glucose (UA) Urine Ketones Urine Blood Urine Nitrite Urine Bilirubin Urine Urobilinogen Ur Leukocyte Esterase RPR Titer TB (QFT) Incubation TB Test (QFT) Nil 0.10 TB Test (QFT) Mitogen >10.00 TB Test (QFT) Antigen 0.17 TB Test (QFT) Negative TB Positive Criteria 08/22/18 08/22/18 10:10 11:30 WBC RBC Hgb Hct MCV MCH MCHC RDW Plt Count MPV Sodium Potassium Chloride Carbon Dioxide Anion Gap BUN Creatinine Est GFR (CKD-EPI)AfAm Est GFR (CKD-EPI)NonAf Random Glucose Calcium Total Bilirubin AST ALT Alkaline Phosphatase Total Protein Albumin Urine Color Yellow Urine Appearance Clear Urine pH 5.5 D Ur Specific [place] 1.007 L Urine Protein Negative Urine Glucose (UA) Negative Urine Ketones Negative Urine Blood Negative Urine Nitrite Negative Urine Bilirubin Negative Urine Urobilinogen 0.2 Ur Leukocyte Esterase Negative RPR Titer Nonreactive TB (QFT) Incubation TB Test (QFT) Nil TB Test (QFT) Mitogen TB Test (QFT) Antigen TB Test (QFT) TB Positive Criteria - Treatment Hospital Course: Detox Protocol Followed, Detoxed Safely, Responded well, Discharged Condition Good, Rehab Referral Accepted - Diagnosis (1) Alcohol dependence with uncomplicated withdrawal Status: Chronic (2) Cannabis dependence Status: Chronic (3) Cellulitis of right knee Status: Chronic (4) Substance induced mood disorder Status: Acute (5) Substance-induced sleep disorder Status: Acute (6) Syncope Status: Acute Qualifiers: Syncope type: unspecified Qualified Code(s): R55 - Syncope and collapse (7) Anxiety Status: Chronic (8) Bipolar disorder Status: Chronic Qualifiers: Active/Remission status: remission status unspecified Qualified Code(s): F31.9 - Bipolar disorder, unspecified (9) Dehydration Status: Chronic (10) GERD (gastroesophageal reflux disease) Status: Chronic Qualifiers: Esophagitis presence: without esophagitis Qualified Code(s): K21.9 - Gastro -esophageal reflux disease without esophagitis (11) HTN (hypertension) Status: Chronic Qualifiers: Hypertension type: essential hypertension Qualified Code(s): I10 - Essential (primary) hypertension (12) Mood disorder Status: Chronic (13) Nicotine dependence Status: Chronic Qualifiers: Nicotine product type: cigarettes Substance use status: uncomplicated Qualified Code(s): F17.210 - Nicotine dependence, cigarettes, uncomplicated (14) OCD (obsessive compulsive disorder) Status: Chronic Qualifiers: Obsessive-compulsive disorder type: unspecified Qualified Code(s): F42.9 - Obsessive-compulsive disorder, unspecified (15) Substance induced mood disorder Status: Chronic (16) Bipolar II disorder Status: Suspected - AMA Did Patient Leave Against Medical Advice: No (pt declined aftercare; referral provided)
== END 2018-08-27 08:58 | disposition home or self-care (01) | DRG 775 ==
LOC: YASAS 08:38 → Y6N 09:51
PROVIDERS: ADMIT Surgery; ATTEND Surgery
PROC: HZ2ZZZZ Detoxification Services for Substance Abuse Treatment (ICD-10-PCS; principal; 2018-08-22)
DX: F10.230 Alcohol dependence with withdrawal, uncomplicated (principal); F12.20 Cannabis dependence, uncomplicated; F17.210 Nicotine dependence, cigarettes, uncomplicated; F19.24 Other psychoactive substance dependence with psychoactive substance-induced mood disorder; F19.282 Other psychoactive substance dependence with psychoactive substance-induced sleep disorder; F41.9 Anxiety disorder, unspecified; F31.9 Bipolar disorder, unspecified; F39 Unspecified mood [affective] disorder; F42.9 Obsessive-compulsive disorder, unspecified; F31.89 Other bipolar disorder; I10 Essential (primary) hypertension; K21.9 Gastro-esophageal reflux disease without esophagitis; E60 Dietary zinc deficiency; L03.115 Cellulitis of right lower limb; Z59.0 Homelessness
CPT/HCPCS: 36415; 80053; 81003; 85027; 86480; 86593

== ENCOUNTER 2018-09-17 10:55 | Inpatient (IN) | payer OTHER ==
[2018-09-17 11:36] VITALS: BMI 28.7
[2018-09-17] MEDS ORDERED: chlordiazePOXIDE HCL 25 MG CAPSULE PO PRN (13:00)
[2018-09-17] MEDS ORDERED: ACETAMINOPHEN 325 MG TABLET (FP) PO PRN ×2 (13:03)
[2018-09-17] MEDS ORDERED: MAG HYDROX/AL HYDROX/SIMETH 30 ML UNIT-DOSE CUP PO PRN (13:03)
[2018-09-17] MEDS ORDERED: hydrOXYzine PAMOATE 25 MG CAPSULE (FP) PO PRN (13:03)
[2018-09-17] MEDS ORDERED: BISMUTH SUBSALICYLATE 524 MG/30 ML UD PO PRN (13:03)
[2018-09-17] MEDS ORDERED: MELATONIN 5 MG TABLETS PO PRN (13:03)
[2018-09-17] MEDS ORDERED: IBUPROFEN 400 MG TABLET (FP) PO PRN (13:03)
[2018-09-17] MEDS ORDERED: MAGNESIUM HYDROX 2400MG/30ML ORAL SUSPENSION 30 ML CUP PO PRN (13:03)
[2018-09-17] MEDS ORDERED: METHOCARBAMOL 500 MG TABLET PO PRN (13:03)
[2018-09-17] MEDS ORDERED: MAGNESIUM CITRATE 300 ML BOTTLE PO PRN (13:03)
[2018-09-17] MEDS ORDERED: MENTHOL/PHENOL 1 EACH UD MM PRN (13:03)
--- NOTE | 2018-09-17 13:19 | HP ---
CIWA Score Nausea/Vomitin-Int. Nausea w/Dry Heave Muscle Tremors: 2 Anxiety: 1-Mildly Anxious Agitation: 1-Slight > Activity Paroxysmal Sweats: No Perspiration Orientation: 0-Oriented Tacttile Disturbances: 1-Very Mild Itch/Numbness Auditory Disturbances: 0-None Visual Disturbances: 0-None Headache: 5-Severe CIWA-Ar Total Score: 14 - Admission Criteria [facility]ASAS Guidelines: Admission for Medically Managed Detox: Requires at least one of the followin. CIWA greater than 12 2. Seizures within the past 24 hours 3. Delirium tremens within the past 24 hours 4. Hallucinations within the past 24 hours 5. Acute intervention needed for co occurring medical disorder 6. Acute intervention needed for co occurring psychiatric disorder 7. Severe withdrawal that cannot be handled at a lower level of care (continued vomiting, continued diarrhea, abnormal vital signs) requiring intravenous medication and/or fluids 8. Admission ROS [facility] Chief Complaint: detox from ETOH and marijuana Allergies/Adverse Reactions: Allergies Allergy/AdvReac Type Severity Reaction Status Date / Time No Known Allergies Allergy Verified 09/17/18 11:28 History of Present Illness: Mr. Magaña is a 43yo male with history of ETOH use disorder, marijuana use disorder, tobacco use disorder, depression, bipolar disorder, and HTN who presents for detox from ETOH and marijuana. He has been to detox at this facility approximately once a month since January. He has been vomiting and having RUQ pain that he states is related to his liver and that is why he presents today. He reports drinking 1 pint vodka and 2 40oz beers daily with his last drink at 3:00am this morning. He began drinking at age 16. He reports the longest he has been sober is 6 months. He reports occasional blackouts and denies seizures. He also reports smoking 5 blunts of marijuana daily with last use at 5:00am this morning. He also began smoking at age 16. He states he uses because of depression and being stressed. He has been on daily psychiatric meds that he reports was reduced on one admission and believes this is why he keeps relapsing. He also reports occasional use of cocaine, most recently 1 month ago. Drug screen was positive for BZD, but pt denies use. He was last admitted here 08/22-08/27. Pt smokes 1/2-1ppd. Pt currently reports [place], dizziness, RUQ pain, n/v, loss of appetite, insomnia, LE edema. He denies chest pain and SOB. He reports occasional coffee ground emesis. He has not had GI workup. 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 family hx: unremarkable meds: lithium, Zyprexa, Prozac allergies: NKDA - Ebola screening Have you traveled outside of the country in the last 21 days: No Have you had contact with anyone from an Ebola affected area: No Do you have a fever: No - Review of Systems Constitutional: Loss of Appetite, Weakness EENT: reports: Throat Pain Respiratory: reports: Cough Cardiac: reports: No Symptoms Reported GI: reports: Nausea, Vomiting Musculoskeletal: reports: No Symptoms Reported Integumentary: reports: No Symptoms Reported Neuro: reports: Headache, Dizziness Endocrine: reports: No Symptoms Reported Hematology: reports: No Symptoms Reported Psychiatric: reports: Judgement Intact, Mood/Affect Appropiate, Orientated x3 Patient History - Patient Medical History Hx Anemia: No Hx Asthma: No Hx Chronic Obstructive Pulmonary Disease (COPD): No Hx Cancer: No Hx Cardiac Disorders: No Hx Congestive Heart Failure: No Hx Hypertension: Yes (no medication) Hx Hypercholesterolemia: No Hx Pacemaker: No HX Cerebrovascular Accident: No Hx Seizures: No Hx Dementia: No Hx Diabetes: No Hx Gastrointestinal Disorders: Yes (ACID REFLUX) Hx Liver Disease: No Hx Genitourinary Disorders: No Hx Sexually Transmitted Disorders: No Hx Renal Disease (ESRD): No Hx Thyroid Disease: No Hx Human Immunodeficiency Virus (HIV): No (last 2017 negative) Hx Hepatitis C: No Hx Depression: Yes (no med) Hx Suicide Attempt: No Hx Bipolar Disorder: Yes (no med for 1 month) Hx Schizophrenia: No - Patient Surgical History Past Surgical History: Yes Hx Neurologic Surgery: No Hx Cataract Extraction: No Hx Cardiac Surgery: No Hx Lung Surgery: No Hx Breast Surgery: No Hx Breast Biopsy: No Hx Abdominal Surgery: No Hx Appendectomy: No Hx Cholecystectomy: No Hx Genitourinary Surgery: No Hx Section: No Hx Orthopedic Surgery: No Other Surgical History: partial amputation, right index finger in 2017 Anesthesia Reaction: No - PPD History Date: 01/19/18 Results: not read - Smoking Cessation Smoking history: Current every day smoker Have you smoked in the past 12 months: Yes Aproximately how many cigarettes per day: 20 Hx Chewing Tobacco Use: No Initiated information on smoking cessation: Yes 'Breaking Loose' booklet given: 09/17/18 - Substance & Tx. History Hx Alcohol Use: Yes Hx Substance Use: Yes Substance Use Type: Alcohol, Cocaine, Marijuana Hx Substance Use Treatment: Yes - Substances abused Alcohol Substance route: Oral Frequency: Daily Amount used: 1 pint VODKA +2/40ZBEER Age of first use: 17 Date of last use: 09/17/18 Marijuana/Hashish Substance route: Smoking Frequency: Daily Amount used: 5 BLUNTS Age of first use: 16 Date of last use: 09/17/18 Family Disease History - Family Disease History Family Disease History: Other: Father (alcohol,sober) Admission Physical Exam [facility] - Vital Signs Vital Signs: Vital Signs - 24 hr 09/17/18 09/17/18 11:30 12:19 Temperature 97.3 F L 97.3 F L Pulse Rate 85 85 Respiratory 20 20 Rate Blood Pressure 118/75 118/75 - Physical General Appearance: Yes: No Apparent Distress HEENTM: Yes: Hearing grossly Normal, MARIO Respiratory: Yes: Wheezing (right lower lobe) Neck: Yes: Within Normal Limits Cardiology: Yes: Regular Rhythm, Regular Rate Abdominal: Yes: Normal Bowel Sounds, Non Tender Back: Yes: Within Normal Limits Musculoskeletal: Yes: full range of Motion Extremities: Yes: Normal Range of Motion, Pedal Edema (minimal) 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: Yes: 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
--- NOTE | 2018-09-17 14:09 | PN ---
Teaching Attending Note Name of Resident: Marlin Goldstein ATTENDING PHYSICIAN STATEMENT I saw and evaluated the patient. I reviewed the resident's note and discussed the case with the resident. I agree with the resident's findings and plan as documented. SUBJECTIVE: this 43 years old male with alcohol dependence and marijuana abused,with multiple admissions in detox,syncope,no seizure,seeking help OBJECTIVE: withdrawal signs and symptom ASSESSMENT AND PLAN: patient need inpatient detox,medically managed,librium regimen,strongly recommend furth level of care rehab
[2018-09-17] MEDS: NICOTINE 21 MG/24 HOURS TOPICAL PATCH TD SCH (14:31)
[2018-09-17 15:20] LABS: HEMATOCRIT 45.9 % (35.4-49); HEMOGLOBIN 15.7 GM/dL (11.7-16.9); MCH 32.9 pg (25.7-33.7); MCHC 34.3 g/dl (32.0-35.9); MEAN CELL VOLUME 95.9 fl (80-96); MEAN PLT VOLUME 10.1 fl (7.5-11.1); PLATELET COUNT 246 K/MM3 (134-434); RBC 4.78 M/mm3 (4.00-5.60); RDW 13.6 % (11.9-15.9)
[2018-09-17 15:40] LABS: ALBUMIN 3.9 g/dl (3.4-5.0); BILIRUBIN,TOTAL 1.1 mg/dL (0.2-1); BLOOD UREA NITROGEN 16.6 mg/dL (7-18); CREATININE 1.1 mg/dL (0.55-1.3); POTASSIUM 3.6 mmol/L (3.5-5.1); TOT PROT 7.3 g/dl (6.4-8.2)
[2018-09-17] MEDS: chlordiazePOXIDE HCL 25 MG CAPSULE PO SCH ×2 (18:12→22:37)
[2018-09-17] MEDS: THIAMINE HCL 100 MG TABLET (FP) PO SCH (22:37)
[2018-09-18] MEDS: chlordiazePOXIDE HCL 25 MG CAPSULE PO SCH ×4 (05:27→22:09)
[2018-09-18] MEDS: PRENATAL VITAMINS W/ FOLIC ACID TABLET (FP) PO SCH (10:36)
[2018-09-18] MEDS: NICOTINE 21 MG/24 HOURS TOPICAL PATCH TD SCH (10:37)
--- NOTE | 2018-09-18 12:13 | PN ---
[facility] CIWA - CIWA Score Nausea/Vomitin-Mild Nausea/No Vomiting Muscle Tremors: 2 Anxiety: 3 Agitation: 2 Paroxysmal Sweats: 1-Minimal Palms Moist Orientation: 0-Oriented Tacttile Disturbances: 1-Very Mild Itch/Numbness Auditory Disturbances: 0-None Visual Disturbances: 0-None Headache: 0-None Present CIWA-Ar Total Score: 10 S Progress Note (SOAP) Subjective: 43 years old male admitted on 09/17/18 for acute alcohol withdrawal sx management doing well with librium detox regimen less tremor ambulating on hallway mild sweat otherwise feeling ok Objective: 09/18/18 13:18 Vital Signs Temperature 97.0 F L 09/18/18 13:14 Pulse Rate 78 09/18/18 13:14 Respiratory Rate 18 09/18/18 13:14 Blood Pressure 134/87 09/18/18 13:14 O2 Sat by Pulse Oximetry (%) Laboratory Last Values WBC 6.0 K/mm3 (4.0-10.0) 09/17/18 13:00 RBC 4.78 M/mm3 (4.00-5.60) 09/17/18 13:00 Hgb 15.7 GM/dL (11.7-16.9) 09/17/18 13:00 Hct 45.9 % (35.4-49) 09/17/18 13:00 MCV 95.9 fl (80-96) 09/17/18 13:00 MCH 32.9 pg (25.7-33.7) 09/17/18 13:00 MCHC 34.3 g/dl (32.0-35.9) 09/17/18 13:00 RDW 13.6 % (11.9-15.9) 09/17/18 13:00 Plt Count 246 K/MM3 (134-434) 09/17/18 13:00 MPV 10.1 fl (7.5-11.1) 09/17/18 13:00 Sodium 140 mmol/L (136-145) 09/17/18 13:00 Potassium 3.6 mmol/L (3.5-5.1) 09/17/18 13:00 Chloride 106 mmol/L (98-107) 09/17/18 13:00 Carbon Dioxide 25 mmol/L (21-32) 09/17/18 13:00 Anion Gap 9 MMOL/L (8-16) 09/17/18 13:00 BUN 16.6 mg/dL (7-18) 09/17/18 13:00 Creatinine 1.1 mg/dL (0.55-1.3) 09/17/18 13:00 Est GFR (CKD-EPI)AfAm 94.79 09/17/18 13:00 Est GFR (CKD-EPI)NonAf 81.78 09/17/18 13:00 Random Glucose 136 mg/dL (74-106) H 09/17/18 13:00 Calcium 9.0 mg/dL (8.5-10.1) 09/17/18 13:00 Total Bilirubin 1.1 mg/dL (0.2-1) H 09/17/18 13:00 AST 40 U/L (15-37) H 09/17/18 13:00 ALT 76 U/L (13-61) H 09/17/18 13:00 Alkaline Phosphatase 69 U/L (45-117) 09/17/18 13:00 Total Protein 7.3 g/dl (6.4-8.2) 09/17/18 13:00 Albumin 3.9 g/dl (3.4-5.0) 09/17/18 13:00 [place] 0 MEQ/L (0.6-1.2) L 09/17/18 13:25 RPR Titer Nonreactive (NONREACTIVE) 09/17/18 13:00 lab noted Assessment: 09/18/18 13:18 alcohol withdrawal sx Plan: continue alcohol detox
--- NOTE | 2018-09-18 14:23 | CONSULT ---
[facility] Psychiatric Consult - Data Date of interview: 09/18/18 Admission source: [facility] Identifying data: One of multiple admissions to [facility] for this 43 y/o [place] Citizen [place] male self-referred for detoxification (alcohol, cocaine, cannabis). Examined on . Patient is , a father of three, homeless, unemployed and supported on welfare. Substance Abuse History: Discussed in this interview. Patterns of substance use disorder are confirmed by patient as described in current [facility] report : Smoking history: Current every day smoker. Have you smoked in the past 12 months: Yes. Aproximately how many cigarettes per day: 20. Hx Chewing Tobacco Use: No. Initiated information on smoking cessation: Yes. 'Breaking Loose' booklet given : 09/17/18. - Substance & Tx. History. Hx Alcohol Use: Yes. Hx Substance Use : Yes. Substance Use Type: Alcohol, Cocaine, Marijuana. Hx Substance Use Treatment: Yes. - Substances abused. Alcohol. Substance route: Oral. Frequency: Daily. Amount used: 1 pint VODKA +2/40ZBEER. Age of first use: 17. Date of last use: 09/17/18. Marijuana/Hashish. Substance route: Smoking. Frequency: Daily. Amount used: 5 BLUNTS. Age of first use: 16. Date of last use: 09/17/18 Medical History: Medical profile is remarkable for hypertension, GERD, history of orthosurgery (partial amputation right index finger). Psychiatric History: First contact with the mental health system occurred 5 years ago (inpatient detoxification treatment at [facility]). At the time, the patient received the diagnosis of Bipolar Disorder + OCD. Mr Forman was placed on a regimen of lithium, fluoxetine and olanzapine. Patient admits to chronic non-adherence to his medications. No contact with psychiatric OPD care providers (takes medications ONLY when inpatient at local detox/rehab facilities ). Dropped out of OPD care after discharge. Patient denies history of suicide attempts. Physical/Sexual Abuse/Trauma History: No history. Additional Comment: Urine drug screen results: THC-Marijuana, BZO- Benzodiazepines. Noted. Mental Status Exam - Mental Status Exam Alert and Oriented to: Time, Place, Person Cognitive Function: Good Patient Appearance: Unkempt, Disheveled Mood: Nervous, Withdrawn Affect: Mood Congruent, Constricted Patient Behavior: Fatigued, Cooperative Speech Pattern: Clear, Appropriate Voice Loudness: Normal Thought Process: Goal Oriented Thought Disorder: Not Present Hallucinations: Denies Suicidal Ideation: Denies Homicidal Ideation: Denies Insight/Judgement: Poor Sleep: Poorly, Difficulty falling asleep Appetite: Good Muscle strength/Tone: Normal Gait/Station: Other (not observed ; in bed all day) Psychiatric Findings - Problem List ([place] 1, 2,3) (1) Alcohol dependence with uncomplicated withdrawal Current Visit: Yes Status: Acute (2) Cannabis dependence Current Visit: Yes Status: Chronic (3) Nicotine dependence Current Visit: Yes Status: Chronic Qualifiers: Nicotine product type: cigarettes Substance use status: uncomplicated Qualified Code(s): F17.210 - Nicotine dependence, cigarettes, uncomplicated (4) Bipolar disorder Current Visit: Yes Status: Chronic Qualifiers: Active/Remission status: remission status unspecified Qualified Code(s): F31.9 - Bipolar disorder, unspecified Comment: As per history. Not compliant with prescribed medications. (5) OCD (obsessive compulsive disorder) Current Visit: Yes Status: Chronic Qualifiers: Obsessive-compulsive disorder type: unspecified Qualified Code(s): F42.9 - Obsessive-compulsive disorder, unspecified Comment: As per self-report. (6) Substance induced mood disorder Current Visit: Yes Status: Chronic (7) Insomnia Current Visit: Yes Status: Chronic (8) Non-compliance Current Visit: Yes Status: Chronic - Initial Treatment Plan Initial Treatment Plan: Psychoeducation. Sleep hygiene. Detoxification. Medications resumed as : zyprexa 5 mg po hs + prozac 10 mg po daily + trazodone 50 mg po hs. Side effects/benefits discussed with patient, including the risks for metabolic syndrome and priapism. Verbal consent given to . ABIGAIL meetings. MAT maintenance for relapse prevention : discussed with the patient. Mr Dickson expresses no interest. [place] level on admission = 0 (proof of non-adherence). Observation.
[2018-09-18] MEDS: THIAMINE HCL 100 MG TABLET (FP) PO SCH (22:08)
[2018-09-18] MEDS: OLANZapine 5 MG TABLET PO SCH (22:08)
[2018-09-18] MEDS: traZODone HCL 50 MG TABLET (FP) PO SCH (22:08)
[2018-09-19] MEDS: chlordiazePOXIDE HCL 25 MG CAPSULE PO SCH ×4 (05:45→22:08)
[2018-09-19] MEDS: PRENATAL VITAMINS W/ FOLIC ACID TABLET (FP) PO SCH (10:50)
[2018-09-19] MEDS: FLUoxetine HCL 10 MG CAPSULE (FP) PO SCH (10:50)
[2018-09-19] MEDS: NICOTINE 21 MG/24 HOURS TOPICAL PATCH TD SCH (10:52)
--- NOTE | 2018-09-19 16:12 | PN ---
[facility] CIWA - CIWA Score Nausea/Vomitin-Mild Nausea/No Vomiting Muscle Tremors: 2 Anxiety: 1-Mildly Anxious Agitation: 2 Paroxysmal Sweats: 1-Minimal Palms Moist Orientation: 0-Oriented Tacttile Disturbances: 0-None Auditory Disturbances: 0-None Visual Disturbances: 0-None Headache: 0-None Present CIWA-Ar Total Score: 7 S Progress Note (SOAP) Subjective: patient is worry about no insurance and no place to go alert mild tremor well rested insurance personal was called and will contact with the patient Objective: 09/19/18 16:11 Vital Signs Temperature 97.7 F 09/19/18 13:32 Pulse Rate 88 09/19/18 13:32 Respiratory Rate 18 09/19/18 13:32 Blood Pressure 121/78 09/19/18 13:32 O2 Sat by Pulse Oximetry (%) Laboratory Last Values WBC 6.0 K/mm3 (4.0-10.0) 09/17/18 13:00 RBC 4.78 M/mm3 (4.00-5.60) 09/17/18 13:00 Hgb 15.7 GM/dL (11.7-16.9) 09/17/18 13:00 Hct 45.9 % (35.4-49) 09/17/18 13:00 MCV 95.9 fl (80-96) 09/17/18 13:00 MCH 32.9 pg (25.7-33.7) 09/17/18 13:00 MCHC 34.3 g/dl (32.0-35.9) 09/17/18 13:00 RDW 13.6 % (11.9-15.9) 09/17/18 13:00 Plt Count 246 K/MM3 (134-434) 09/17/18 13:00 MPV 10.1 fl (7.5-11.1) 09/17/18 13:00 Sodium 140 mmol/L (136-145) 09/17/18 13:00 Potassium 3.6 mmol/L (3.5-5.1) 09/17/18 13:00 Chloride 106 mmol/L (98-107) 09/17/18 13:00 Carbon Dioxide 25 mmol/L (21-32) 09/17/18 13:00 Anion Gap 9 MMOL/L (8-16) 09/17/18 13:00 BUN 16.6 mg/dL (7-18) 09/17/18 13:00 Creatinine 1.1 mg/dL (0.55-1.3) 09/17/18 13:00 Est GFR (CKD-EPI)AfAm 94.79 09/17/18 13:00 Est GFR (CKD-EPI)NonAf 81.78 09/17/18 13:00 Random Glucose 136 mg/dL (74-106) H 09/17/18 13:00 Calcium 9.0 mg/dL (8.5-10.1) 09/17/18 13:00 Total Bilirubin 1.1 mg/dL (0.2-1) H 09/17/18 13:00 AST 40 U/L (15-37) H 09/17/18 13:00 ALT 76 U/L (13-61) H 09/17/18 13:00 Alkaline Phosphatase 69 U/L (45-117) 09/17/18 13:00 Total Protein 7.3 g/dl (6.4-8.2) 09/17/18 13:00 Albumin 3.9 g/dl (3.4-5.0) 09/17/18 13:00 [place] 0 MEQ/L (0.6-1.2) L 09/17/18 13:25 RPR Titer Nonreactive (NONREACTIVE) 09/17/18 13:00 lab noted Assessment: 09/19/18 16:12 alcohol withdrawal sx Plan: continue alcohol detox
[2018-09-19] MEDS: OLANZapine 5 MG TABLET PO SCH (22:08)
[2018-09-19] MEDS: traZODone HCL 50 MG TABLET (FP) PO SCH (22:08)
[2018-09-19] MEDS: THIAMINE HCL 100 MG TABLET (FP) PO SCH (22:08)
[2018-09-20] MEDS ORDERED: chlordiazePOXIDE HCL 10 MG CAPSULE PO PRN
[2018-09-20] MEDS: chlordiazePOXIDE HCL 10 MG CAPSULE PO SCH ×4 (05:33→22:31)
[2018-09-20] MEDS: PRENATAL VITAMINS W/ FOLIC ACID TABLET (FP) PO SCH (10:26)
[2018-09-20] MEDS: NICOTINE 21 MG/24 HOURS TOPICAL PATCH TD SCH (10:27)
[2018-09-20] MEDS: FLUoxetine HCL 10 MG CAPSULE (FP) PO SCH (10:27)
--- NOTE | 2018-09-20 12:44 | PN ---
[facility] CIWA - CIWA Score Nausea/Vomitin (Upset Stomach; Heartburn.) Muscle Tremors: 2 Anxiety: 2 Agitation: 2 Paroxysmal Sweats: No Perspiration Orientation: 0-Oriented Tacttile Disturbances: 0-None Auditory Disturbances: 0-None Visual Disturbances: 0-None Headache: 0-None Present CIWA-Ar Total Score: 8 [facility] Progress Note (SOAP) Subjective: Upset Stomach, Heartburn, Anxious. Objective: PATIENT A & O X 3, OBSERVED AMBULATING ON UNIT UNASSISTED. IN NO ACUTE DISTRESS. 09/20/18 13:28 Vital Signs Temperature 98.3 F 09/20/18 09:20 Pulse Rate 78 09/20/18 09:20 Respiratory Rate 18 09/20/18 09:20 Blood Pressure 123/80 09/20/18 09:20 O2 Sat by Pulse Oximetry (%) Laboratory Tests 09/17/18 09/17/18 09/17/18 13:00 13:00 13:00 WBC 6.0 RBC 4.78 Hgb 15.7 Hct 45.9 MCV 95.9 MCH 32.9 MCHC 34.3 RDW 13.6 Plt Count 246 MPV 10.1 Sodium 140 Potassium 3.6 Chloride 106 Carbon Dioxide 25 Anion Gap 9 BUN 16.6 Creatinine 1.1 Est GFR (CKD-EPI)AfAm 94.79 Est GFR (CKD-EPI)NonAf 81.78 Random Glucose 136 H Calcium 9.0 Total Bilirubin 1.1 H AST 40 H ALT 76 H Alkaline Phosphatase 69 Total Protein 7.3 Albumin 3.9 [place] RPR Titer Nonreactive 09/17/18 13:25 WBC RBC Hgb Hct MCV MCH MCHC RDW Plt Count MPV Sodium Potassium Chloride Carbon Dioxide Anion Gap BUN Creatinine Est GFR (CKD-EPI)AfAm Est GFR (CKD-EPI)NonAf Random Glucose Calcium Total Bilirubin AST ALT Alkaline Phosphatase Total Protein Albumin [place] 0 L RPR Titer LABS NOTED. Assessment: 09/20/18 13:29 WITHDRAWAL SYMPTOMS. Plan: CONTINUE DETOX. INCREASE DAILY PO WATER INTAKE. REPORTS THAT CURRENT WITHDRAWAL SYMPTOMS ARE FAIRLY MILD IN DEGREE AND THAT HE IS TOLERATING THEM WELL. AT PATIENT'S REQUEST, CURRENT DETOX MEDICATION REGIMEN MODIFIED SO THAT PATIENT MAY BE DISCHARGED TOMORROW TO PROCEED ON TO AFTERCARE PLAN.
[2018-09-20] MEDS ORDERED: ONDANSETRON *ODT* 4 MG TABLET SL PRN (13:13)
[2018-09-20] MEDS ORDERED: RANITIDINE HCL 150 MG TABLET (FP) PO ONE (14:00)
[2018-09-20] MEDS ORDERED: RANITIDINE HCL 150 MG TABLET (FP) PO SCH (22:00)
[2018-09-20] MEDS: traZODone HCL 50 MG TABLET (FP) PO SCH (22:30)
[2018-09-20] MEDS: THIAMINE HCL 100 MG TABLET (FP) PO SCH (22:30)
[2018-09-20] MEDS: OLANZapine 5 MG TABLET PO SCH (22:31)
[2018-09-21] MEDS ORDERED: chlordiazePOXIDE HCL 10 MG CAPSULE PO ONE (05:00)
[2018-09-21] MEDS ORDERED: chlordiazePOXIDE HCL 10 MG CAPSULE PO SCH (05:00)
[2018-09-21 06:25] VITALS: BP 108/71; PULSE 73; TEMP 97.2
--- NOTE | 2018-09-21 17:50 | DS ---
[facility] Detox Discharge Summary Admission Date: 09/17/18 Discharge Date: 09/21/18 - History Present History: Alcohol Dependence, Cannabis Dependence Additional Comments: PATIENT GOING HOME FOR WEEKEND; WILL RETURN TO APPLY FOR ADMISSION AT [facility] [place]) IN THE NEXT FEW DAYS. PATIENT WAS DISCHARGED FORM DETOX UNIT IN STABLE MEDICAL CONDITION. Pertinent Past History: Nicotine Dependence, HTN, History Of Acid Reflux, Depression, Bipolar Disorder, Insomnia, Obsessive-Compulsive Disorder. - Physical Exam Results Vital Signs: Vital Signs Temperature 97.2 F L 09/21/18 06:24 Pulse Rate 73 09/21/18 06:24 Respiratory Rate 18 09/21/18 06:24 Blood Pressure 108/71 09/21/18 06:24 O2 Sat by Pulse Oximetry (%) Pertinent Admission Physical Exam Findings: WITHDRAWAL SYMPTOMS. Laboratory Tests 09/17/18 09/17/18 09/17/18 13:00 13:00 13:00 WBC 6.0 RBC 4.78 Hgb 15.7 Hct 45.9 MCV 95.9 MCH 32.9 MCHC 34.3 RDW 13.6 Plt Count 246 MPV 10.1 Sodium 140 Potassium 3.6 Chloride 106 Carbon Dioxide 25 Anion Gap 9 BUN 16.6 Creatinine 1.1 Est GFR (CKD-EPI)AfAm 94.79 Est GFR (CKD-EPI)NonAf 81.78 Random Glucose 136 H Calcium 9.0 Total Bilirubin 1.1 H AST 40 H ALT 76 H Alkaline Phosphatase 69 Total Protein 7.3 Albumin 3.9 [place] RPR Titer Nonreactive 09/17/18 13:25 WBC RBC Hgb Hct MCV MCH MCHC RDW Plt Count MPV Sodium Potassium Chloride Carbon Dioxide Anion Gap BUN Creatinine Est GFR (CKD-EPI)AfAm Est GFR (CKD-EPI)NonAf Random Glucose Calcium Total Bilirubin AST ALT Alkaline Phosphatase Total Protein Albumin [place] 0 L RPR Titer LABS NOTED. - Treatment Hospital Course: Detox Protocol Followed, Detoxed Safely, Responded well, Discharged Condition Good Patient has Accepted a Rehab Referral to: PATIENT WILL RETURN TO APPLY FOR ADMISSION AT [facility]. - Medication Discharge Medications: Ambulatory Orders Fluoxetine HCl [Prozac -] 40 mg PO DAILY 09/17/18 [place] Carbonate [Eskalith -] 300 mg PO TID 09/17/18 Olanzapine [Zyprexa] 5 mg PO HS 09/17/18 - Diagnosis (1) Alcohol dependence with uncomplicated withdrawal Status: Acute (2) Bipolar disorder Status: Chronic Qualifiers: Active/Remission status: remission status unspecified Qualified Code(s): F31.9 - Bipolar disorder, unspecified (3) Cannabis dependence Status: Chronic (4) Insomnia Status: Chronic Qualifiers: Insomnia type: unspecified Qualified Code(s): G47.00 - Insomnia, unspecified (5) Nicotine dependence Status: Chronic Qualifiers: Nicotine product type: cigarettes Substance use status: uncomplicated Qualified Code(s): F17.210 - Nicotine dependence, cigarettes, uncomplicated (6) Non-compliance Status: Chronic (7) OCD (obsessive compulsive disorder) Status: Chronic Qualifiers: Obsessive-compulsive disorder type: unspecified Qualified Code(s): F42.9 - Obsessive-compulsive disorder, unspecified (8) Substance induced mood disorder Status: Chronic - AMA Did Patient Leave Against Medical Advice: No
[2018-09-22] MEDS ORDERED: chlordiazePOXIDE HCL 10 MG CAPSULE PO ONE (05:00)
== END 2018-09-21 08:40 | disposition home or self-care (01) | DRG 775 ==
LOC: YASAS 10:55 → Y3N 13:31
PROVIDERS: ADMIT Surgery; ATTEND Surgery
PROC: HZ2ZZZZ Detoxification Services for Substance Abuse Treatment (ICD-10-PCS; principal; 2018-09-17)
DX: F10.230 Alcohol dependence with withdrawal, uncomplicated (principal); F12.20 Cannabis dependence, uncomplicated; F17.210 Nicotine dependence, cigarettes, uncomplicated; F31.9 Bipolar disorder, unspecified; F42.9 Obsessive-compulsive disorder, unspecified; F19.24 Other psychoactive substance dependence with psychoactive substance-induced mood disorder; G47.00 Insomnia, unspecified; K21.9 Gastro-esophageal reflux disease without esophagitis; Z91.19 Patient's noncompliance with other medical treatment and regimen; Z59.0 Homelessness
CPT/HCPCS: 36415; 80053; 80178; 85027; 86593

== ENCOUNTER 2018-10-09 12:21 | Inpatient (IN) | payer OTHER ==
--- NOTE | 2018-10-09 14:02 | HP ---
CIWA Score Nausea/Vomitin-Mild Nausea/No Vomiting Muscle Tremors: 3 Anxiety: 3 Agitation: 3 Paroxysmal Sweats: No Perspiration Orientation: 0-Oriented Tacttile Disturbances: 2-Mild Itch/Numbness/Burn Auditory Disturbances: 2-Mild Harshness/Frighten Visual Disturbances: 0-None Headache: 3-Moderate CIWA-Ar Total Score: 17 - Admission Criteria OASAS Guidelines: Admission for Medically Managed Detox: Requires at least one of the followin. CIWA greater than 12 2. Seizures within the past 24 hours 3. Delirium tremens within the past 24 hours 4. Hallucinations within the past 24 hours 5. Acute intervention needed for co occurring medical disorder 6. Acute intervention needed for co occurring psychiatric disorder 7. Severe withdrawal that cannot be handled at a lower level of care (continued vomiting, continued diarrhea, abnormal vital signs) requiring intravenous medication and/or fluids 8. Admission ROS [facility] Chief Complaint: alcohol detox Allergies/Adverse Reactions: Allergies Allergy/AdvReac Type Severity Reaction Status Date / Time No Known Allergies Allergy Verified 10/09/18 13:12 History of Present Illness: Patient is a 43 yo M with a PMhx of depression, anxiety, OCD, bipolar, presenting here for alcohol detox. Drinks 1 Pint of vodka and 2 40oz every night of beer/liquor. Last drink this Am, half pint. Has been drinking since he was 17 yo. Denies seizures. Has blacked out multiple times, last being 1 month ago. Last here for detox 09/17-09/21. Unemployed. Homeless. Lives with a friend right now. Smokes 5-6 blunts a day. Smokes 1/2-1 PPD cigarettes. - Ebola screening Have you traveled outside of the country in the last 21 days: No Have you had contact with anyone from an Ebola affected area: No Do you have a fever: No - Review of Systems Constitutional: Loss of Appetite, Unintentional Wgt. Loss EENT: reports: Nose Congestion Respiratory: reports: Cough (says he has allergies). denies: Shortness of Breath, Wheezing GI: reports: Diarrhea (3-4 days diarrhea.), Nausea, Poor Appetite, Abdominal cramping Patient History - Patient Medical History Hx Anemia: No Hx Asthma: No Hx Chronic Obstructive Pulmonary Disease (COPD): No Hx Cancer: No Hx Cardiac Disorders: No Hx Congestive Heart Failure: No Hx Hypertension: Yes (no medication) Hx Hypercholesterolemia: No Hx Pacemaker: No HX Cerebrovascular Accident: No Hx Seizures: No Hx Dementia: No Hx Diabetes: No Hx Gastrointestinal Disorders: Yes (ACID REFLUX) Hx Liver Disease: No Hx Genitourinary Disorders: No Hx Sexually Transmitted Disorders: No Hx Renal Disease (ESRD): No Hx Thyroid Disease: No Hx Human Immunodeficiency Virus (HIV): No (last 2017 negative) Hx Hepatitis C: No Hx Depression: Yes (no med) Hx Suicide Attempt: No Hx Bipolar Disorder: Yes (no med for 1 month) Hx Schizophrenia: No - Patient Surgical History Past Surgical History: Yes Hx Neurologic Surgery: No Hx Cataract Extraction: No Hx Cardiac Surgery: No Hx Lung Surgery: No Hx Breast Surgery: No Hx Breast Biopsy: No Hx Abdominal Surgery: No Hx Appendectomy: No Hx Cholecystectomy: No Hx Genitourinary Surgery: No Hx Section: No Hx Orthopedic Surgery: No Other Surgical History: partial amputation, right index finger in 2016 Anesthesia Reaction: No - PPD History Date: 01/19/18 Results: not read - Smoking Cessation Smoking history: Current every day smoker Have you smoked in the past 12 months: Yes Aproximately how many cigarettes per day: 20 Hx Chewing Tobacco Use: No Initiated information on smoking cessation: Yes 'Breaking Loose' booklet given: 10/09/18 - Substances abused Alcohol Substance route: Oral Frequency: Daily Amount used: 1 pint VODKA +2/40ZBEER Age of first use: 17 Date of last use: 09/17/18 Marijuana/Hashish Substance route: Smoking Frequency: Daily Amount used: 5 BLUNTS Age of first use: 16 Date of last use: 09/17/18 Family Disease History - Family Disease History Family Disease History: Other: Father (alcohol,sober) Admission Physical Exam BHS - Vital Signs Vital Signs: Vital Signs - 24 hr 10/09/18 13:06 Temperature 97.4 F L Pulse Rate 80 Respiratory 18 Rate Blood Pressure 125/78 - Physical General Appearance: Yes: Alcohol on Breath, Anxious HEENTM: Yes: Other (eye redness) Respiratory: Yes: No Respiratory Distress, No Accessory Muscle Use Abdominal: Yes: Non Tender, Soft - Diagnostic (1) Alcohol dependence with uncomplicated withdrawal Current Visit: No Status: Acute (2) Substance-induced sleep disorder Current Visit: No Status: Acute (3) Anxiety Current Visit: No Status: Chronic (4) Bipolar disorder Current Visit: No Status: Chronic Qualifiers: Active/Remission status: remission status unspecified Qualified Code(s): F31.9 - Bipolar disorder, unspecified Comment: As per history. Not compliant with prescribed medications. (5) Cannabis dependence Current Visit: No Status: Chronic (6) GERD (gastroesophageal reflux disease) Current Visit: No Status: Chronic Qualifiers: Esophagitis presence: without esophagitis Qualified Code(s): K21.9 - Gastro -esophageal reflux disease without esophagitis (7) Insomnia Current Visit: No Status: Chronic Qualifiers: Insomnia type: unspecified Qualified Code(s): G47.00 - Insomnia, unspecified (8) Mood disorder Current Visit: No Status: Chronic (9) Nicotine dependence Current Visit: No Status: Chronic Qualifiers: Nicotine product type: cigarettes Substance use status: uncomplicated Qualified Code(s): F17.210 - Nicotine dependence, cigarettes, uncomplicated (10) OCD (obsessive compulsive disorder) Current Visit: No Status: Chronic Qualifiers: Obsessive-compulsive disorder type: unspecified Qualified Code(s): F42.9 - Obsessive-compulsive disorder, unspecified Comment: As per self-report. Cleared for Admission BHS - Detox or Rehab S Level of Care: Medically Managed Breathalyzer - Breathalyzer Breathalyzer: 0.103 Urine Drug Screen - Test Device Lot number: [id number] Expiration date: 04/12/18 - Control Is test valid?: Yes - Results Drug screen NEGATIVE: No Urine drug screen results: THC-Marijuana, BZO-Benzodiazepines Inpatient Rehab Admission - Rehab Decision to Admit Inpatient rehab admission?: No
[2018-10-09] MEDS ORDERED: hydrOXYzine PAMOATE 25 MG CAPSULE (FP) PO PRN (14:15)
[2018-10-09] MEDS ORDERED: chlordiazePOXIDE HCL 25 MG CAPSULE PO PRN (14:15)
[2018-10-09] MEDS ORDERED: MAGNESIUM HYDROX 2400MG/30ML ORAL SUSPENSION 30 ML CUP PO PRN (14:15)
[2018-10-09] MEDS ORDERED: BISMUTH SUBSALICYLATE 262 MG/15 ML BTL PO PRN (14:15)
[2018-10-09] MEDS ORDERED: MAGNESIUM CITRATE 300 ML BOTTLE PO PRN (14:15)
[2018-10-09] MEDS ORDERED: METHOCARBAMOL 500 MG TABLET PO PRN (14:15)
[2018-10-09] MEDS ORDERED: MENTHOL/PHENOL 1 EACH UD MM PRN (14:15)
[2018-10-09] MEDS ORDERED: MAG HYDROX/AL HYDROX/SIMETH 30 ML UNIT-DOSE CUP PO PRN (14:15)
[2018-10-09] MEDS ORDERED: IBUPROFEN 400 MG TABLET (FP) PO PRN (14:15)
[2018-10-09] MEDS ORDERED: ACETAMINOPHEN 325 MG TABLET (FP) PO PRN ×2 (14:15)
[2018-10-09] MEDS ORDERED: MELATONIN 5 MG TABLETS PO PRN (14:15)
--- NOTE | 2018-10-09 15:43 | PN ---
Teaching Attending Note Name of Resident: Britney Zaragoza ATTENDING PHYSICIAN STATEMENT I saw and evaluated the patient. I reviewed the resident's note and discussed the case with the resident. I agree with the resident's findings and plan as documented. SUBJECTIVE: Agree with subjective findings OBJECTIVE: Agree with objective findings ASSESSMENT AND PLAN: Agree with plan and treatment.
[2018-10-09] MEDS: chlordiazePOXIDE HCL 25 MG CAPSULE PO SCH ×2 (17:19→22:34)
[2018-10-09 18:15] LABS: HEMATOCRIT 46.6 % (35.4-49); HEMOGLOBIN 15.8 GM/dL (11.7-16.9); MCH 33.7 pg (25.7-33.7); MCHC 33.9 g/dl (32.0-35.9); MEAN CELL VOLUME 99.2 fl (80-96); MEAN PLT VOLUME 10.3 fl (7.5-11.1); PLATELET COUNT 198 K/MM3 (134-434); RDW 14.6 % (11.9-15.9); WHITE BLOOD COUNT 6.3 K/mm3 (4.0-10.0)
[2018-10-09 18:30] LABS: ALBUMIN 3.6 g/dl (3.4-5.0); BILIRUBIN,TOTAL 1.1 mg/dL (0.2-1); BLOOD UREA NITROGEN 17.3 mg/dL (7-18); CALCIUM 8.5 mg/dL (8.5-10.1); POTASSIUM 3.9 mmol/L (3.5-5.1)
[2018-10-09] MEDS: OLANZapine 5 MG TABLET PO SCH (22:35)
[2018-10-09] MEDS: THIAMINE HCL 100 MG TABLET (FP) PO SCH (22:35)
[2018-10-09] MEDS: LITHIUM CARBONATE 300 MG CAPSULE (FP) PO SCH (22:35)
[2018-10-10] MEDS: chlordiazePOXIDE HCL 25 MG CAPSULE PO SCH ×4 (06:04→22:47)
[2018-10-10] MEDS: LITHIUM CARBONATE 300 MG CAPSULE (FP) PO SCH ×3 (06:04→22:45)
--- NOTE | 2018-10-10 09:42 | PN ---
S CIWA - CIWA Score Nausea/Vomitin Muscle Tremors: 2 Anxiety: 3 Agitation: 2 Paroxysmal Sweats: 1-Minimal Palms Moist Orientation: 0-Oriented Tacttile Disturbances: 1-Very Mild Itch/Numbness Auditory Disturbances: 0-None Visual Disturbances: 0-None Headache: 2-Mild CIWA-Ar Total Score: 13 BHS Progress Note (SOAP) Subjective: alert,irritable,anxious,interrupted sleep,tremor Objective: 10/10/18 09:38 Vital Signs Temperature 96.8 F L 10/10/18 09:14 Pulse Rate 78 10/10/18 09:14 Respiratory Rate 18 10/10/18 09:14 Blood Pressure 133/98 10/10/18 09:14 O2 Sat by Pulse Oximetry (%) Laboratory Last Values WBC 6.3 K/mm3 (4.0-10.0) 10/09/18 14:35 RBC 4.70 M/mm3 (4.00-5.60) 10/09/18 14:35 Hgb 15.8 GM/dL (11.7-16.9) 10/09/18 14:35 Hct 46.6 % (35.4-49) 10/09/18 14:35 MCV 99.2 fl (80-96) H 10/09/18 14:35 MCH 33.7 pg (25.7-33.7) 10/09/18 14:35 MCHC 33.9 g/dl (32.0-35.9) 10/09/18 14:35 RDW 14.6 % (11.9-15.9) 10/09/18 14:35 Plt Count 198 K/MM3 (134-434) 10/09/18 14:35 MPV 10.3 fl (7.5-11.1) 10/09/18 14:35 Sodium 141 mmol/L (136-145) 10/09/18 14:35 Potassium 3.9 mmol/L (3.5-5.1) 10/09/18 14:35 Chloride 107 mmol/L (98-107) 10/09/18 14:35 Carbon Dioxide 26 mmol/L (21-32) 10/09/18 14:35 Anion Gap 8 MMOL/L (8-16) 10/09/18 14:35 BUN 17.3 mg/dL (7-18) 10/09/18 14:35 Creatinine 1.0 mg/dL (0.55-1.3) 10/09/18 14:35 Est GFR (CKD-EPI)AfAm 106.36 10/09/18 14:35 Est GFR (CKD-EPI)NonAf 91.77 10/09/18 14:35 Random Glucose 201 mg/dL (74-106) H 10/09/18 14:35 Calcium 8.5 mg/dL (8.5-10.1) 10/09/18 14:35 Total Bilirubin 1.1 mg/dL (0.2-1) H 10/09/18 14:35 AST 66 U/L (15-37) H 10/09/18 14:35 ALT 107 U/L (13-61) H 10/09/18 14:35 Alkaline Phosphatase 74 U/L (45-117) 10/09/18 14:35 Total Protein 7.0 g/dl (6.4-8.2) 10/09/18 14:35 Albumin 3.6 g/dl (3.4-5.0) 10/09/18 14:35 Assessment: 10/10/18 09:40 withdrawal symptom Plan: continue detox librium regimen ,glucose 201,fasting blood glucose in am,bgm monitoring, ast 66,alt 107,repeat cmp in am
[2018-10-10] MEDS: FLUoxetine HCL 20 MG CAPSULE (FP) PO SCH (10:10)
[2018-10-10] MEDS: PRENATAL VITAMINS W/ FOLIC ACID TABLET (FP) PO SCH (10:10)
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
[2018-10-10] MEDS: THIAMINE HCL 100 MG TABLET (FP) PO SCH (22:45)
[2018-10-10] MEDS: OLANZapine 5 MG TABLET PO SCH (22:45)
[2018-10-10] MEDS: traZODone HCL 50 MG TABLET (FP) PO SCH (22:46)
[2018-10-11] MEDS: chlordiazePOXIDE HCL 25 MG CAPSULE PO SCH ×4 (06:20→22:32)
[2018-10-11] MEDS: LITHIUM CARBONATE 300 MG CAPSULE (FP) PO SCH ×3 (06:20→22:32)
--- NOTE | 2018-10-11 09:58 | PN ---
S CIWA - CIWA Score Nausea/Vomitin Muscle Tremors: 2 Anxiety: 2 Agitation: 2 Paroxysmal Sweats: No Perspiration Orientation: 0-Oriented Tacttile Disturbances: 0-None Auditory Disturbances: 0-None Visual Disturbances: 0-None Headache: 2-Mild CIWA-Ar Total Score: 10 BHS Progress Note (SOAP) Subjective: alert,irritable,anxious,interrupted sleep,pain in the body and back Objective: 10/11/18 09:57 Vital Signs Temperature 96.6 F L 10/11/18 09:27 Pulse Rate 68 10/11/18 09:27 Respiratory Rate 18 10/11/18 09:27 Blood Pressure 125/76 10/11/18 09:27 O2 Sat by Pulse Oximetry (%) Laboratory Results - last 24 hr 10/09/18 10/10/18 10/11/18 14:35 16:29 06:26 POC Glucometer 97 121 RPR Titer Nonreactive fasting glucose is 97 normal Assessment: 10/11/18 09:58 withdrawal symptom Plan: continue detox librium regimen
[2018-10-11] MEDS: FLUoxetine HCL 20 MG CAPSULE (FP) PO SCH (10:56)
[2018-10-11] MEDS: PRENATAL VITAMINS W/ FOLIC ACID TABLET (FP) PO SCH (10:56)
[2018-10-11 11:47] LABS: ALBUMIN 3.1 g/dl (3.4-5.0); BILIRUBIN,TOTAL 0.6 mg/dL (0.2-1); BLOOD UREA NITROGEN 13.2 mg/dL (7-18); CREATININE 0.9 mg/dL (0.55-1.3)
[2018-10-11 20:34] VITALS: PULSE 76
[2018-10-11] MEDS: traZODone HCL 50 MG TABLET (FP) PO SCH (22:32)
[2018-10-11] MEDS: THIAMINE HCL 100 MG TABLET (FP) PO SCH (22:32)
[2018-10-11] MEDS: OLANZapine 5 MG TABLET PO SCH (23:16)
[2018-10-12] MEDS ORDERED: chlordiazePOXIDE HCL 10 MG CAPSULE PO PRN
[2018-10-12] MEDS ORDERED: chlordiazePOXIDE HCL 10 MG CAPSULE PO SCH (05:00)
[2018-10-12] MEDS: LITHIUM CARBONATE 300 MG CAPSULE (FP) PO SCH (05:09)
[2018-10-12 06:54] VITALS: BP 108/71; TEMP 97.2
--- NOTE | 2018-10-12 09:06 | DS ---
[facility] Detox Discharge Summary Admission Date: 10/09/18 Discharge Date: 10/12/18 - History Present History: Alcohol Dependence, Cannabis Dependence - Physical Exam Results Vital Signs: Vital Signs Temperature 97.2 F L 10/12/18 06:00 Pulse Rate 76 10/12/18 06:00 Respiratory Rate 18 10/12/18 06:00 Blood Pressure 108/71 10/12/18 06:00 O2 Sat by Pulse Oximetry (%) Pertinent Admission Physical Exam Findings: pt arrived in withdrawals Laboratory Tests 10/09/18 10/09/18 10/09/18 14:35 14:35 14:35 WBC 6.3 RBC 4.70 Hgb 15.8 Hct 46.6 MCV 99.2 H MCH 33.7 MCHC 33.9 RDW 14.6 Plt Count 198 MPV 10.3 Sodium 141 Potassium 3.9 Chloride 107 Carbon Dioxide 26 Anion Gap 8 BUN 17.3 Creatinine 1.0 Est GFR (CKD-EPI)AfAm 106.36 Est GFR (CKD-EPI)NonAf 91.77 POC Glucometer Random Glucose 201 H Fasting Glucose Calcium 8.5 Total Bilirubin 1.1 H AST 66 H ALT 107 H Alkaline Phosphatase 74 Total Protein 7.0 Albumin 3.6 RPR Titer Nonreactive 10/10/18 10/11/18 10/11/18 16:29 06:26 07:30 WBC RBC Hgb Hct MCV MCH MCHC RDW Plt Count MPV Sodium 139 Potassium 4.0 Chloride 105 Carbon Dioxide 29 Anion Gap 5 L BUN 13.2 Creatinine 0.9 Est GFR (CKD-EPI)AfAm 120.81 Est GFR (CKD-EPI)NonAf 104.24 POC Glucometer 97 121 Random Glucose 63 L Fasting Glucose 63 L Calcium 9.0 Total Bilirubin 0.6 AST 48 H ALT 85 H Alkaline Phosphatase 58 Total Protein 6.0 L Albumin 3.1 L RPR Titer 10/11/18 16:23 WBC RBC Hgb Hct MCV MCH MCHC RDW Plt Count MPV Sodium Potassium Chloride Carbon Dioxide Anion Gap BUN Creatinine Est GFR (CKD-EPI)AfAm Est GFR (CKD-EPI)NonAf POC Glucometer 110 Random Glucose Fasting Glucose Calcium Total Bilirubin AST ALT Alkaline Phosphatase Total Protein Albumin RPR Titer today pt is aaox3 ambulating no acute distress no s/s of withdrawals - Treatment Hospital Course: Detox Protocol Followed, Detoxed Safely, Responded well, Discharged Condition Good, Rehab Referral Accepted Patient has Accepted a Rehab Referral to: pt declined rehab; referral provided - Medication Discharge Medications: Ambulatory Orders Fluoxetine HCl [Prozac -] 40 mg PO DAILY 09/17/18 [place] Carbonate [Eskalith -] 300 mg PO TID 09/17/18 Olanzapine [Zyprexa] 5 mg PO HS 09/17/18 - Diagnosis (1) Substance induced mood disorder Current Visit: Yes Status: Acute (2) Alcohol dependence with uncomplicated withdrawal Current Visit: Yes Status: Chronic (3) Cannabis dependence Current Visit: Yes Status: Chronic (4) Substance-induced sleep disorder Current Visit: No Status: Acute (5) Syncope Current Visit: No Status: Acute Qualifiers: Syncope type: unspecified Qualified Code(s): R55 - Syncope and collapse (6) Anxiety Current Visit: No Status: Chronic (7) Bipolar II disorder Current Visit: No Status: Chronic (8) Cellulitis of right knee Current Visit: No Status: Chronic (9) GERD (gastroesophageal reflux disease) Current Visit: Yes Status: Chronic Qualifiers: Esophagitis presence: without esophagitis Qualified Code(s): K21.9 - Gastro -esophageal reflux disease without esophagitis (10) HTN (hypertension) Current Visit: Yes Status: Chronic Qualifiers: Hypertension type: essential hypertension Qualified Code(s): I10 - Essential (primary) hypertension (11) Mood disorder Current Visit: No Status: Chronic (12) Nicotine dependence Current Visit: Yes Status: Chronic Qualifiers: Nicotine product type: cigarettes Substance use status: uncomplicated Qualified Code(s): F17.210 - Nicotine dependence, cigarettes, uncomplicated (13) OCD (obsessive compulsive disorder) Current Visit: No Status: Chronic Qualifiers: Obsessive-compulsive disorder type: unspecified Qualified Code(s): F42.9 - Obsessive-compulsive disorder, unspecified (14) Substance induced mood disorder Current Visit: No Status: Chronic - AMA Did Patient Leave Against Medical Advice: No
[2018-10-13] MEDS ORDERED: chlordiazePOXIDE HCL 10 MG CAPSULE PO SCH (05:00)
[2018-10-14] MEDS ORDERED: chlordiazePOXIDE HCL 10 MG CAPSULE PO ONE (05:00)
== END 2018-10-12 09:30 | disposition home or self-care (01) | DRG 775 ==
LOC: YASAS 12:21 → Y6N 15:07
PROVIDERS: ADMIT Surgery; ATTEND Surgery
PROC: HZ2ZZZZ Detoxification Services for Substance Abuse Treatment (ICD-10-PCS; principal; 2018-10-09)
DX: F10.230 Alcohol dependence with withdrawal, uncomplicated (principal); F12.20 Cannabis dependence, uncomplicated; F17.210 Nicotine dependence, cigarettes, uncomplicated; F42.9 Obsessive-compulsive disorder, unspecified; F19.24 Other psychoactive substance dependence with psychoactive substance-induced mood disorder; F19.282 Other psychoactive substance dependence with psychoactive substance-induced sleep disorder; F31.81 Bipolar II disorder; I10 Essential (primary) hypertension; K21.9 Gastro-esophageal reflux disease without esophagitis; Z59.0 Homelessness
CPT/HCPCS: 36415; 80053; 82947; 82962; 85027; 86593

== ENCOUNTER 2019-09-12 10:44 | Inpatient (IN) | payer OTHER ==
--- NOTE | 2019-09-12 11:08 | BHS.RME ---
Substance Use & Tx History - Substance Use History Alcohol Substance amount: 1 pint vodka + beers Frequency of use: Daily Substance route: Oral Date of Last Use: 09/12/19 Marijuana/Hashish Substance amount: 5-6 blunts Frequency of use: Daily Substance route: Smoking Date of Last Use: 09/12/19 Nicotine Substance amount: 1 pack Frequency of use: Daily Substance route: Smoking Date of Last Use: 09/12/19 Physical/Psych/Mental Status - Behavior General Behavior: Increased activity (restlessness, agitation) Eye Contact: Normal - Cooperativeness Cooperativeness: Cooperative - Thinking Thought Processes: Tight, Logical, Goal Directed - Physical Health Problems Is patient presently having any pain?: No Does patient presently have any injuries (include location): No Does patient currently have a fever: No Is patient : No CIWA Nausea/Vomitin-No Nausea/No Vomiting Muscle Tremors: 1-None Visible, but [place] Anxiety: 2 Agitation: 2 Paroxysmal Sweats: 1-Minimal Palms Moist Orientation: 0-Oriented Tacttile Disturbances: 0-None Auditory Disturbances: 0-None Visual Disturbances: 0-None Headache: 0-None Present CIWA-Ar Total Score: 6
--- NOTE | 2019-09-12 11:30 | HP ---
CIWA Score Nausea/Vomitin-No Nausea/No Vomiting Muscle Tremors: 1-None Visible, but [place] Anxiety: 2 Agitation: 2 Paroxysmal Sweats: 1-Minimal Palms Moist Orientation: 0-Oriented Tacttile Disturbances: 0-None Auditory Disturbances: 0-None Visual Disturbances: 0-None Headache: 0-None Present CIWA-Ar Total Score: 6 - Admission Criteria OASAS Guidelines: Admission for Medically Managed Detox: Requires at least one of the followin. CIWA greater than 12 2. Seizures within the past 24 hours 3. Delirium tremens within the past 24 hours 4. Hallucinations within the past 24 hours 5. Acute intervention needed for co occurring medical disorder 6. Acute intervention needed for co occurring psychiatric disorder 7. Severe withdrawal that cannot be handled at a lower level of care (continued vomiting, continued diarrhea, abnormal vital signs) requiring intravenous medication and/or fluids 8. Admitting History and Physical - Admission Chief Complaint: Mr. Forman is a 44 yo gentleman who presents to [facility] stating "I want to stop drinking". History of Present Illness: Mr. Forman is a 44 yo gentleman who presents to [facility] stating "I want to stop drinking". He was last here in September of 2018 for detox. PMH: GERD, HTN PSH: none Psych: anxiety, bipolar, OCD SOC: homeless, on streets Legal:none Substance Use History Alcohol Substance amount: 1 pint vodka + beers Frequency of use: Daily Substance route: Oral Date of Last Use: 09/12/19 First use age 16 y No seizure, no blackouts. 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 Marijuana/Hashish Substance amount: 5-6 blunts Frequency of use: Daily Substance route: Smoking Date of Last Use: 09/12/19 First use age 16 y Nicotine Substance amount: 1 pack Frequency of use: Daily Substance route: Smoking Date of Last Use: 09/12/19 First use age 15 y History Source: Patient Limitations to Obtaining History: No Limitations - Smoking History Smoking history: Current every day smoker Have you smoked in the past 12 months: Yes Aproximately how many cigarettes per day: 20 - Alcohol/Substance Use Hx Alcohol Use: Yes Admission ROS [facility] - [facility] Allergies/Adverse Reactions: Allergies Allergy/AdvReac Type Severity Reaction Status Date / Time No Known Allergies Allergy Verified 10/09/18 13:12 Exam Limitations: No Limitations - Ebola screening Have you traveled outside of the country in the last 21 days: No Have you been sick,other than usual withdrawal symptoms: No Do you have a fever: No - Review of Systems Constitutional: Changes in sleep (poor sleep quality) EENT: reports: No Symptoms Reported Respiratory: reports: No Symptoms reported Cardiac: reports: No Symptoms Reported GI: reports: Nausea (hx of GERD) : reports: No Symptoms Reported Musculoskeletal: reports: Muscle Pain (nonspecific) Integumentary: reports: Other (pt scratching right forearm and left leg, both areas with scabs) Neuro: reports: No Symptoms reported Endocrine: reports: No Symptoms Reported Hematology: reports: No Symptoms Reported Psychiatric: reports: Anxious Patient History - Patient Medical History Hx Anemia: No Hx Asthma: No Hx Chronic Obstructive Pulmonary Disease (COPD): No Hx Cancer: No Hx Cardiac Disorders: No Hx Congestive Heart Failure: No Hx Hypertension: No Hx Hypercholesterolemia: No Hx Pacemaker: No HX Cerebrovascular Accident: No Hx Seizures: No Hx Dementia: No Hx Diabetes: No Hx Gastrointestinal Disorders: No Hx Liver Disease: No Hx Genitourinary Disorders: No Hx Sexually Transmitted Disorders: No Hx Renal Disease (ESRD): No Hx Thyroid Disease: No Hx Human Immunodeficiency Virus (HIV): No (last 2017 negative) Hx Hepatitis C: No Hx Depression: Yes Hx Suicide Attempt: No Hx Bipolar Disorder: Yes (no med for 1 month) Hx Schizophrenia: No - Patient Surgical History Past Surgical History: Yes Hx Neurologic Surgery: No Hx Cataract Extraction: No Hx Cardiac Surgery: No Hx Lung Surgery: No Hx Breast Surgery: No Hx Breast Biopsy: No Hx Abdominal Surgery: No Hx Appendectomy: No Hx Cholecystectomy: No Hx Genitourinary Surgery: No Hx Section: No Hx Orthopedic Surgery: No Other Surgical History: partial amputation, right index finger in 2017 Anesthesia Reaction: No - PPD History Date: 01/19/18 Results: not read - Smoking Cessation Smoking history: Current every day smoker Have you smoked in the past 12 months: Yes Aproximately how many cigarettes per day: 20 Hx Chewing Tobacco Use: No Initiated information on smoking cessation: Yes 'Breaking Loose' booklet given: 09/12/19 - Substances abused Alcohol Substance route: Oral Frequency: Daily Amount used: one pint Vodka, 2 x 40 ounce beer Age of first use: 16 Date of last use: 09/12/19 Marijuana/Hashish Substance route: Smoking Amount used: 5-6 blunts Age of first use: 16 Admission Physical Exam [facility] - Physical General Appearance: Yes: No Apparent Distress, Nourished, Appropriately Dressed HEENTM: Yes: EOMI, Hearing grossly Normal, Normocephalic, Normal Voice Respiratory: Yes: Lungs Clear, Normal Breath Sounds, No Respiratory Distress, No Accessory Muscle Use Neck: Yes: Within Normal Limits, Supple Breast: Yes: Breast Exam Deferred Cardiology: Yes: Regular Rhythm, Regular Rate, S1, S2 Abdominal: Yes: Normal Bowel Sounds, Tenderness (mild, diffuse, upper right and left quadrants.) Genitourinary: Yes: Within Normal Limits Back: Yes: Normal Inspection Musculoskeletal: Yes: Gait Steady Extremities: Yes: Normal Inspection, Non-Tender 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: Yes: Alert, Normal Response Integumentary: Yes: Other (scabs right forearm and left lateral leg ~ 1") Cleared for Admission [facility] - Detox or Rehab [facility] Level of Care: Medically Managed Detox Regimen/Protocol: Librium Breathalyzer - Breathalyzer Breathalyzer: 0.103 Urine Drug Screen - Test Device Lot number: [id number] Expiration date: 04/12/18 - Control Is test valid?: Yes - Results Drug screen NEGATIVE: No Urine drug screen results: THC-Marijuana, BZO-Benzodiazepines Inpatient Rehab Admission - Rehab Decision to Admit Inpatient rehab admission?: No
[2019-09-12 11:35] VITALS: BMI 27.3
[2019-09-12] MEDS ORDERED: ONDANSETRON *ODT* 4 MG TABLET SL PRN (11:50)
[2019-09-12] MEDS ORDERED: MENTHOL/PHENOL 1 EACH UD MM PRN (11:50)
[2019-09-12] MEDS ORDERED: BISMUTH SUBSALICYLATE 262 MG/15 ML BTL PO PRN (11:50)
[2019-09-12] MEDS ORDERED: METHOCARBAMOL 500 MG TABLET PO PRN (11:50)
[2019-09-12] MEDS ORDERED: NICOTINE POLACRILEX 2 MG GUM BUC PRN (11:50)
[2019-09-12] MEDS ORDERED: MAGNESIUM HYDROX 2400MG/30ML ORAL SUSPENSION 30 ML CUP PO PRN (11:50)
[2019-09-12] MEDS ORDERED: IBUPROFEN 400 MG TABLET (FP) PO PRN (11:50)
[2019-09-12] MEDS ORDERED: chlordiazePOXIDE HCL 25 MG CAPSULE PO PRN (11:50)
[2019-09-12] MEDS ORDERED: MAGNESIUM CITRATE 300 ML BOTTLE PO PRN (11:50)
[2019-09-12] MEDS ORDERED: ACETAMINOPHEN 325 MG TABLET (FP) PO PRN ×2 (11:50)
[2019-09-12] MEDS ORDERED: MAG HYDROX/AL HYDROX/SIMETH 30 ML UNIT-DOSE CUP PO PRN (11:50)
[2019-09-12] MEDS: PANTOPRAZOLE 40 MG TABLET PO SCH (13:32)
[2019-09-12] MEDS: NICOTINE 21 MG/24 HOURS TOPICAL PATCH TD SCH (13:35)
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
[2019-09-12] MEDS ORDERED: hydrOXYzine PAMOATE 25 MG CAPSULE (FP) PO SCH (14:00)
[2019-09-12] MEDS ORDERED: hydrOXYzine PAMOATE 25 MG CAPSULE (FP) PO PRN (14:52)
[2019-09-12 15:09] LABS: HEMATOCRIT 45.4 % (35.4-49); HEMOGLOBIN 14.9 GM/dL (11.7-16.9); MCH 29.9 pg (25.7-33.7); MCHC 32.9 g/dl (32.0-35.9); MEAN CELL VOLUME 90.9 fl (80-96); MEAN PLT VOLUME 10.8 fl (7.5-11.1); PLATELET COUNT 286 K/MM3 (134-434); RBC 4.99 M/mm3 (4.00-5.60); RDW 14.7 % (11.9-15.9); WHITE BLOOD COUNT 8.4 K/mm3 (4.0-10.0)
[2019-09-12 15:22] LABS: ALBUMIN 3.7 g/dl (3.4-5.0); BILIRUBIN,TOTAL 1.2 mg/dL (0.2-1); BLOOD UREA NITROGEN 16.2 mg/dL (7-18); CALCIUM 8.4 mg/dL (8.5-10.1); POTASSIUM 3.6 mmol/L (3.5-5.1); TOT PROT 7.5 g/dl (6.4-8.2)
[2019-09-12] MEDS: chlordiazePOXIDE HCL 25 MG CAPSULE PO SCH ×2 (18:24→23:45)
[2019-09-12] MEDS: traZODone HCL 50 MG TABLET (FP) PO SCH (23:00)
[2019-09-12] MEDS: OLANZapine 5 MG TABLET PO SCH (23:00)
[2019-09-12] MEDS: MELATONIN 5 MG TABLETS PO SCH (23:00)
[2019-09-12] MEDS: THIAMINE HCL 100 MG TABLET (FP) PO SCH (23:00)
[2019-09-13] MEDS: chlordiazePOXIDE HCL 25 MG CAPSULE PO SCH ×4 (06:09→22:07)
--- NOTE | 2019-09-13 09:36 | PN ---
[facility] CIWA - CIWA Score Nausea/Vomitin-No Nausea/No Vomiting Muscle Tremors: 3 Anxiety: 3 Agitation: 3 Paroxysmal Sweats: 2 Orientation: 0-Oriented Tacttile Disturbances: 0-None Auditory Disturbances: 0-None Visual Disturbances: 0-None Headache: 0-None Present CIWA-Ar Total Score: 11 [facility] Progress Note (SOAP) Subjective: irritable sweats shakes body aches Objective: 09/13/19 09:35 Vital Signs Temperature 96.9 F L 09/13/19 08:51 Pulse Rate 72 09/13/19 08:51 Respiratory Rate 18 09/13/19 08:51 Blood Pressure 116/75 09/13/19 08:51 O2 Sat by Pulse Oximetry (%) 95 09/13/19 08:51 Laboratory Tests 09/12/19 09/12/19 09/12/19 11:45 11:45 11:45 WBC 8.4 RBC 4.99 Hgb 14.9 Hct 45.4 MCV 90.9 MCH 29.9 D MCHC 32.9 RDW 14.7 Plt Count 286 D MPV 10.8 Sodium 137 Potassium 3.6 Chloride 107 Carbon Dioxide 22 Anion Gap 8 BUN 16.2 Creatinine 1.0 Est GFR (CKD-EPI)AfAm 105.62 Est GFR (CKD-EPI)NonAf 91.13 Random Glucose 120 H Calcium 8.4 L Total Bilirubin 1.2 H AST 14 L ALT 24 Alkaline Phosphatase 90 Total Protein 7.5 Albumin 3.7 Syphilis Serology Non-reactive COVID-19 ([facility]) HIV Ag/Ab Combo Qual 09/12/19 09/12/19 13:30 13:30 WBC RBC Hgb Hct MCV MCH MCHC RDW Plt Count MPV Sodium Potassium Chloride Carbon Dioxide Anion Gap BUN Creatinine Est GFR (CKD-EPI)AfAm Est GFR (CKD-EPI)NonAf Random Glucose Calcium Total Bilirubin AST ALT Alkaline Phosphatase Total Protein Albumin Syphilis Serology COVID-19 ([facility]ERA) Not detected HIV Ag/Ab Combo Qual Negative labs noted aaox3 ambulating no acute distress Assessment: 09/13/19 09:35 withdrawals Plan: continue detox increase fluids
[2019-09-13] MEDS ORDERED: PRENATAL VITAMINS W/ FOLIC ACID TABLET (FP) PO SCH (10:00)
[2019-09-13] MEDS: NICOTINE 21 MG/24 HOURS TOPICAL PATCH TD SCH (11:46)
[2019-09-13] MEDS: PANTOPRAZOLE 40 MG TABLET PO SCH (11:47)
[2019-09-13] MEDS: THIAMINE HCL 100 MG TABLET (FP) PO SCH (22:07)
[2019-09-13] MEDS: traZODone HCL 50 MG TABLET (FP) PO SCH (22:07)
[2019-09-13] MEDS: MELATONIN 5 MG TABLETS PO SCH (22:08)
[2019-09-13] MEDS: OLANZapine 5 MG TABLET PO SCH (22:08)
[2019-09-14] MEDS ORDERED: chlordiazePOXIDE HCL 25 MG CAPSULE PO SCH (05:00)
[2019-09-14 09:43] VITALS: BP 122/79; PULSE 79; TEMP 97.3
--- NOTE | 2019-09-14 17:58 | DS ---
[facility] Detox Discharge Summary Admission Date: 09/12/19 Discharge Date: 09/14/19 - History Present History: Alcohol Dependence, Cannabis Dependence Additional Comments: Patient reports that he has a personal matter to attend to and that he does not wish to remain to complete detox regimen. Risks of leaving Detox Unit against medical advice and prior to completion of Detox Regimen explained to Patient. Patient advised to go immediately to nearest ER should any intolerable withdrawal / detox symptoms develop at any time. Patient verbalized understanding of all information / recommendations presented to him prior to departure from detox unit. Patient left detox unit in stable medical condition. Pertinent Past History: Depression, Bipolar Disorder, Nicotine dependence, Hypertension.Obsessive- Compulsive Disorder, Anxiety. - Physical Exam Results Vital Signs: Vital Signs Temperature 97.3 F L 09/14/19 09:09 Pulse Rate 79 09/14/19 09:09 Respiratory Rate 16 09/14/19 09:09 Blood Pressure 122/79 09/14/19 09:09 O2 Sat by Pulse Oximetry (%) 98 09/14/19 06:14 Pertinent Admission Physical Exam Findings: WITHDRAWAL SYMPTOMS. Laboratory Tests 09/12/19 09/12/19 09/12/19 11:45 11:45 11:45 WBC 8.4 RBC 4.99 Hgb 14.9 Hct 45.4 MCV 90.9 MCH 29.9 D MCHC 32.9 RDW 14.7 Plt Count 286 D MPV 10.8 Sodium 137 Potassium 3.6 Chloride 107 Carbon Dioxide 22 Anion Gap 8 BUN 16.2 Creatinine 1.0 Est GFR (CKD-EPI)AfAm 105.62 Est GFR (CKD-EPI)NonAf 91.13 Random Glucose 120 H Calcium 8.4 L Total Bilirubin 1.2 H AST 14 L ALT 24 Alkaline Phosphatase 90 Total Protein 7.5 Albumin 3.7 Syphilis Serology Non-reactive COVID-19 ([facility]) HIV Ag/Ab Combo Qual 09/12/19 09/12/19 13:30 13:30 WBC RBC Hgb Hct MCV MCH MCHC RDW Plt Count MPV Sodium Potassium Chloride Carbon Dioxide Anion Gap BUN Creatinine Est GFR (CKD-EPI)AfAm Est GFR (CKD-EPI)NonAf Random Glucose Calcium Total Bilirubin AST ALT Alkaline Phosphatase Total Protein Albumin Syphilis Serology COVID-19 ([facility]) Not detected HIV Ag/Ab Combo Qual Negative Lab results noted. - Medication Discharge Medications: Ambulatory Orders Fluoxetine HCl [Prozac -] 40 mg PO DAILY 09/17/18 [place] Carbonate [Eskalith -] 300 mg PO TID 09/17/18 Olanzapine [Zyprexa] 5 mg PO HS 09/17/18 - Diagnosis (1) Alcohol dependence with uncomplicated withdrawal Status: Acute (2) Cannabis dependence Status: Acute (3) Substance induced mood disorder Status: Acute (4) Substance-induced sleep disorder Status: Acute (5) Bipolar disorder Status: Chronic Qualifiers: Active/Remission status: remission status unspecified Qualified Code(s): F31.9 - Bipolar disorder, unspecified (6) HTN (hypertension) Status: Chronic Qualifiers: Hypertension type: essential hypertension Qualified Code(s): I10 - Essential (primary) hypertension (7) Nicotine dependence Status: Chronic Qualifiers: Nicotine product type: cigarettes Substance use status: uncomplicated Qualified Code(s): F17.210 - Nicotine dependence, cigarettes, uncomplicated - AMA Did Patient Leave Against Medical Advice: Yes (Patient had personal issue and did not wish to complete Detox.)
[2019-09-15] MEDS ORDERED: chlordiazePOXIDE HCL 10 MG CAPSULE PO PRN
[2019-09-15] MEDS ORDERED: chlordiazePOXIDE HCL 10 MG CAPSULE PO SCH (05:00)
[2019-09-16] MEDS ORDERED: chlordiazePOXIDE HCL 10 MG CAPSULE PO SCH (05:00)
[2019-09-17] MEDS ORDERED: chlordiazePOXIDE HCL 10 MG CAPSULE PO ONE (05:00)
== END 2019-09-14 09:55 | disposition left against medical advice (07) | DRG 770 ==
LOC: YASAS 10:44 → Y6N 12:36
PROVIDERS: ADMIT Allergy & Immunology; ATTEND Allergy & Immunology
PROC: HZ2ZZZZ Detoxification Services for Substance Abuse Treatment (ICD-10-PCS; principal; 2019-09-12)
DX: F10.230 Alcohol dependence with withdrawal, uncomplicated (principal); F12.20 Cannabis dependence, uncomplicated; F17.210 Nicotine dependence, cigarettes, uncomplicated; F19.24 Other psychoactive substance dependence with psychoactive substance-induced mood disorder; F19.282 Other psychoactive substance dependence with psychoactive substance-induced sleep disorder; F31.9 Bipolar disorder, unspecified; I10 Essential (primary) hypertension; Z89.021 Acquired absence of right finger(s)
CPT/HCPCS: 36415; 80053; 85027; 86780; 87389; U0003

== ENCOUNTER 2019-10-14 16:53 | Inpatient (IN) | payer OTHER ==
[2019-10-14 17:43] VITALS: BMI 30.7
--- NOTE | 2019-10-14 19:00 | HP ---
CIWA Score Nausea/Vomitin Muscle Tremors: 2 Anxiety: 3 Agitation: 1-Slight > Activity Paroxysmal Sweats: 1-Minimal Palms Moist Orientation: 1-Uncertain about Date Tacttile Disturbances: 1-Very Mild Itch/Numbness Auditory Disturbances: 0-None Visual Disturbances: 0-None Headache: 3-Moderate CIWA-Ar Total Score: 15 - Admission Criteria OASAS Guidelines: Admission for Medically Managed Detox: Requires at least one of the followin. CIWA greater than 12 2. Seizures within the past 24 hours 3. Delirium tremens within the past 24 hours 4. Hallucinations within the past 24 hours 5. Acute intervention needed for co occurring medical disorder 6. Acute intervention needed for co occurring psychiatric disorder 7. Severe withdrawal that cannot be handled at a lower level of care (continued vomiting, continued diarrhea, abnormal vital signs) requiring intravenous medication and/or fluids 8. Admitting History and Physical - Admission History of Present Illness: Patient is a 44 y.o. M presenting to [facility] for detox. Patient presenting for substance abuse. 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 Marijuana 6 blunts a day. 1 pack a cigarettes a day. 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 Cardiovascular: No: HTN, Hyperlipdemia Gastrointestinal: No: Constipation Hepatobiliary: No: Hepatitis A, Hepatitis B, Hepatitis C - Past Surgical History Past Surgical History: Yes: None - Smoking History Smoking history: Current every day smoker Have you smoked in the past 12 months: Yes Aproximately how many cigarettes per day: 20 - Alcohol/Substance Use Hx Alcohol Use: Yes History of Substance Use: reports: Marijuana - Social History Usual Living Arrangement: Yes: Other ADL: Independent History of Recent Travel: Yes (to the [facility]) Admission ROS [facility] Allergies/Adverse Reactions: Allergies Allergy/AdvReac Type Severity Reaction Status Date / Time No Known Allergies Allergy Verified 09/12/19 12:29 Exam Limitations: No Limitations - Ebola screening Have you traveled outside of the country in the last 21 days: No Have you had contact with anyone from an Ebola affected area: No Have you been sick,other than usual withdrawal symptoms: No Do you have a fever: No - Review of Systems Constitutional: No Symptoms Reported EENT: reports: No Symptoms Reported Respiratory: reports: Cough. denies: Shortness of Breath Cardiac: denies: Chest Pain, Lightheadedness GI: reports: Nausea. denies: Constipated, Diarrhea, Vomiting Integumentary: reports: No Symptoms Reported Neuro: reports: No Symptoms reported Psychiatric: reports: No Sypmtoms Reported, Judgement Intact, Mood/Affect Appropiate, Orientated x3 Patient History - Patient Medical History Hx Anemia: No Hx Asthma: No Hx Chronic Obstructive Pulmonary Disease (COPD): No Hx Cancer: No Hx Cardiac Disorders: No Hx Congestive Heart Failure: No Hx Hypertension: Yes Hx Hypercholesterolemia: No Hx Pacemaker: No HX Cerebrovascular Accident: No Hx Seizures: No Hx Dementia: No Hx Diabetes: No Hx Gastrointestinal Disorders: (GERDS) Hx Liver Disease: No Hx Genitourinary Disorders: No Hx Sexually Transmitted Disorders: No Hx Renal Disease (ESRD): No Hx Thyroid Disease: No Hx Human Immunodeficiency Virus (HIV): No (last 2017 negative) Hx Hepatitis C: No Hx Depression: Yes (bipolar) Hx Suicide Attempt: No Hx Bipolar Disorder: Yes (no med for 1 month) Hx Schizophrenia: No - Patient Surgical History Past Surgical History: Yes Hx Neurologic Surgery: No Hx Cataract Extraction: No Hx Cardiac Surgery: No Hx Lung Surgery: No Hx Breast Surgery: No Hx Breast Biopsy: No Hx Abdominal Surgery: No Hx Appendectomy: No Hx Cholecystectomy: No Hx Genitourinary Surgery: No Hx Section: No Hx Orthopedic Surgery: No Other Surgical History: partial amputation, right index finger in 2017 Anesthesia Reaction: No - PPD History Date: 09/14/19 Results: not read - Smoking Cessation Smoking history: Current every day smoker Have you smoked in the past 12 months: Yes Aproximately how many cigarettes per day: 20 Hx Chewing Tobacco Use: No Initiated information on smoking cessation: Yes 'Breaking Loose' booklet given: 10/14/19 Admission Physical Exam [facility] - Vital Signs Vital Signs: Vital Signs - 24 hr 10/14/19 17:40 Temperature 97.9 F Pulse Rate 102 H Respiratory 18 Rate Blood Pressure 138/89 - Physical General Appearance: Yes: Within Normal Limits, No Apparent Distress, Nourished, Appropriately Dressed Respiratory: Yes: Within Normal Limits, Lungs Clear, Normal Breath Sounds, No Respiratory Distress, No Accessory Muscle Use Cardiology: Yes: Within Normal Limits, Regular Rhythm, Regular Rate Abdominal: Yes: Within Normal Limits, Normal Bowel Sounds, Non Tender, Flat, Soft Extremities: Yes: Within Normal Limits, Non-Tender, Pedal Edema 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: Yes: Within Normal Limits, Fully Oriented, Alert, Normal Mood/Affect, Normal Response - Diagnostic (1) Alcohol dependence with uncomplicated withdrawal Current Visit: No Status: Acute (2) Cannabis dependence Current Visit: No Status: Acute (3) Substance induced mood disorder Current Visit: No Status: Acute (4) Substance-induced sleep disorder Current Visit: No Status: Acute (5) Anxiety Current Visit: No Status: Chronic (6) Bipolar II disorder Current Visit: No Status: Chronic (7) Bipolar disorder Current Visit: No Status: Chronic Qualifiers: Active/Remission status: remission status unspecified Qualified Code(s): F31.9 - Bipolar disorder, unspecified Cleared for Admission [facility] - Detox or Rehab [facility] Level of Care: Medically Managed Detox Regimen/Protocol: Librium Claeared for Rehab Admission: No Breathalyzer - Breathalyzer Breathalyzer: 0.072 Vital Signs - Vital Signs Vital signs refused: No Temperature: 97.9 F Pulse Rate: 102 Respiratory Rate: 18 Blood Pressure: 138/89 - Height Height: 1.68 m - Weight Weight: 86.183 kg - BMI Body Mass Index (BMI): 30.7 Urine Drug Screen - Test Device Lot number: [id number] Expiration date: 10/13/20 - Control Is test valid?: Yes - Results Drug screen NEGATIVE: No Urine drug screen results: THC-Marijuana, BZO-Benzodiazepines Inpatient Rehab Admission - Rehab Decision to Admit Inpatient rehab admission?: No
[2019-10-14] MEDS ORDERED: MAGNESIUM HYDROX 2400MG/30ML ORAL SUSPENSION 30 ML CUP PO PRN (19:07)
[2019-10-14] MEDS ORDERED: MENTHOL/PHENOL 1 EACH UD MM PRN (19:07)
[2019-10-14] MEDS ORDERED: chlordiazePOXIDE HCL 25 MG CAPSULE PO PRN (19:07)
[2019-10-14] MEDS ORDERED: ACETAMINOPHEN 325 MG TABLET (FP) PO PRN ×2 (19:07)
[2019-10-14] MEDS ORDERED: MAG HYDROX/AL HYDROX/SIMETH 30 ML UNIT-DOSE CUP PO PRN (19:07)
[2019-10-14] MEDS ORDERED: MAGNESIUM CITRATE 300 ML BOTTLE PO PRN (19:07)
[2019-10-14] MEDS ORDERED: IBUPROFEN 400 MG TABLET (FP) PO PRN (19:07)
[2019-10-14] MEDS ORDERED: METHOCARBAMOL 500 MG TABLET PO PRN (19:07)
[2019-10-14] MEDS ORDERED: NICOTINE POLACRILEX 2 MG GUM BUC PRN (19:07)
[2019-10-14] MEDS ORDERED: BISMUTH SUBSALICYLATE 524 MG/30 ML UD PO PRN (19:07)
[2019-10-14] MEDS ORDERED: ONDANSETRON *ODT* 4 MG TABLET SL ONE (19:45)
[2019-10-14] MEDS: hydrOXYzine PAMOATE 25 MG CAPSULE (FP) PO SCH (21:47)
[2019-10-14] MEDS ORDERED: MELATONIN 5 MG TABLETS PO SCH (22:00)
[2019-10-14] MEDS ORDERED: THIAMINE HCL 100 MG TABLET (FP) PO SCH (22:00)
[2019-10-14] MEDS: chlordiazePOXIDE HCL 25 MG CAPSULE PO SCH (22:27)
[2019-10-15] MEDS: chlordiazePOXIDE HCL 25 MG CAPSULE PO SCH ×2 (07:37→10:07)
[2019-10-15] MEDS: hydrOXYzine PAMOATE 25 MG CAPSULE (FP) PO SCH ×2 (07:37→10:08)
[2019-10-15 09:23] VITALS: BP 138/83; PULSE 91; TEMP 97.1
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
[2019-10-15] MEDS ORDERED: PRENATAL VITAMINS W/ FOLIC ACID TABLET (FP) PO SCH (10:00)
[2019-10-15] MEDS ORDERED: NICOTINE 7 MG/24 HOURS TOPICAL PATCH TD SCH (10:00)
--- NOTE | 2019-10-15 10:27 | PN ---
S CIWA - CIWA Score Nausea/Vomitin-Mild Nausea/No Vomiting Muscle Tremors: 2 Anxiety: 2 Agitation: 2 Paroxysmal Sweats: No Perspiration Orientation: 0-Oriented Tacttile Disturbances: 1-Very Mild Itch/Numbness Auditory Disturbances: 0-None Visual Disturbances: 0-None Headache: 2-Mild CIWA-Ar Total Score: 10 BHS Progress Note (SOAP) Subjective: alert,irritable,anxious,interrupted sleep,tremor,aching pain in the body,ambul ation on the unit Objective: 10/15/19 10:25 Vital Signs Temperature 97.1 F L 10/15/19 08:41 Pulse Rate 91 H 10/15/19 08:41 Respiratory Rate 18 10/15/19 08:41 Blood Pressure 138/83 10/15/19 08:41 O2 Sat by Pulse Oximetry (%) 99 10/15/19 08:41 labs pending Assessment: 10/15/19 10:26 withdrawal symptom Plan: continue detox librium regimen
[2019-10-15 10:29] LABS: HEMATOCRIT 48.3 % (35.4-49); HEMOGLOBIN 16.1 GM/dL (11.7-16.9); MCH 31.3 pg (25.7-33.7); MCHC 33.3 g/dl (32.0-35.9); MEAN CELL VOLUME 93.8 fl (80-96); MEAN PLT VOLUME 10.2 fl (7.5-11.1); PLATELET COUNT 201 K/MM3 (134-434); RBC 5.15 M/mm3 (4.00-5.60); RDW 15.3 % (11.9-15.9); WHITE BLOOD COUNT 7.6 K/mm3 (4.0-10.0)
--- NOTE | 2019-10-15 10:33 | DS ---
[facility] Detox Discharge Summary Admission Date: 10/14/19 Discharge Date: 10/15/19 - History Present History: Alcohol Dependence, Cannabis Dependence Additional Comments: alert,oriented x 3 ambulation on the unit lung clear on auscultation bilaterally abdomen soft,no pain,no tenderness patient did not want to complete treatment,high risk of relapsing explained,understood, signed release ama left the unit in stable condition Pertinent Past History: hypertension gerd hyperlipidemia bipolar disorder - Physical Exam Results Vital Signs: Vital Signs Temperature 97.1 F L 10/15/19 08:41 Pulse Rate 91 H 10/15/19 08:41 Respiratory Rate 18 10/15/19 08:41 Blood Pressure 138/83 10/15/19 08:41 O2 Sat by Pulse Oximetry (%) 99 10/15/19 08:41 Pertinent Admission Physical Exam Findings: withdrawal signs and symptom Laboratory Last Values WBC 7.6 K/mm3 (4.0-10.0) 10/15/19 08:15 RBC 5.15 M/mm3 (4.00-5.60) 10/15/19 08:15 Hgb 16.1 GM/dL (11.7-16.9) 10/15/19 08:15 Hct 48.3 % (35.4-49) 10/15/19 08:15 MCV 93.8 fl (80-96) 10/15/19 08:15 MCH 31.3 pg (25.7-33.7) 10/15/19 08:15 MCHC 33.3 g/dl (32.0-35.9) 10/15/19 08:15 RDW 15.3 % (11.9-15.9) 10/15/19 08:15 Plt Count 201 K/MM3 (134-434) D 10/15/19 08:15 MPV 10.2 fl (7.5-11.1) 10/15/19 08:15 labs pending - Medication Discharge Medications: Ambulatory Orders Fluoxetine HCl [Prozac -] 40 mg PO DAILY 09/17/18 [place] Carbonate [Eskalith -] 300 mg PO TID 09/17/18 Olanzapine [Zyprexa] 5 mg PO HS 09/17/18 - Diagnosis (1) Alcohol dependence with uncomplicated withdrawal Current Visit: No Status: Acute (2) HLD (hyperlipidemia) Current Visit: Yes Status: Chronic (3) Cannabis dependence Current Visit: No Status: Acute (4) Syncope Current Visit: No Status: Acute Qualifiers: Syncope type: unspecified Qualified Code(s): R55 - Syncope and collapse (5) Bipolar disorder Current Visit: No Status: Chronic Qualifiers: Active/Remission status: remission status unspecified Qualified Code(s): F31.9 - Bipolar disorder, unspecified (6) HTN (hypertension) Current Visit: No Status: Chronic Qualifiers: Hypertension type: essential hypertension Qualified Code(s): I10 - Essential (primary) hypertension (7) Nicotine dependence Current Visit: No Status: Chronic Qualifiers: Nicotine product type: cigarettes Substance use status: uncomplicated Qualified Code(s): F17.210 - Nicotine dependence, cigarettes, uncomplicated - AMA Did Patient Leave Against Medical Advice: Yes
[2019-10-15 10:39] LABS: ALBUMIN 3.5 g/dl (3.4-5.0); BLOOD UREA NITROGEN 13.2 mg/dL (7-18); CALCIUM 9.1 mg/dL (8.5-10.1); CREATININE 0.9 mg/dL (0.55-1.3); POTASSIUM 4.3 mmol/L (3.5-5.1); TOT PROT 6.9 g/dl (6.4-8.2)
--- NOTE | 2019-10-15 10:39 | EKG ---
Test Reason : Blood Pressure : / mmHG Vent. Rate : 084 BPM Atrial Rate : 084 BPM P-R Int : 146 ms QRS Dur : 076 ms QT Int : 354 ms P-R-T Axes : 072 064 063 degrees QTc Int : 418 ms NORMAL SINUS RHYTHM WITH SINUS ARRHYTHMIA POSSIBLE LEFT ATRIAL ENLARGEMENT BORDERLINE ECG WHEN COMPARED WITH ECG OF 18-JAN-2018 12:36, NO SIGNIFICANT CHANGE WAS FOUND Confirmed by Adriel Corbin MD ([id number]) on 10/15/2019 10:38:41 AM Referred By: Confirmed By:Adriel Corbin MD
--- NOTE | 2019-10-15 10:45 | PN ---
[facility] Progress Note Note: Patient is discharged today. Scripts for 30 days supply of medications(Zyprexa 5 mg/hs, Trazadone 50 mg/hs) are electronically transmitted to [facility], [facility] [place] [address]
[2019-10-15] MEDS ORDERED: traZODone HCL 50 MG TABLET (FP) PO SCH (22:00)
[2019-10-15] MEDS ORDERED: OLANZapine 5 MG TABLET PO SCH (22:00)
[2019-10-16] MEDS ORDERED: chlordiazePOXIDE HCL 25 MG CAPSULE PO SCH (05:00)
--- NOTE | 2019-10-16 08:21 | PN ---
Teaching Attending Note Name of Resident: Kaiden Joya ATTENDING PHYSICIAN STATEMENT I saw and evaluated the patient. I reviewed the resident's note and discussed the case with the resident. I agree with the resident's findings and plan as documented. SUBJECTIVE: OBJECTIVE: ASSESSMENT AND PLAN: Agree with resident's findings and plan for detox.
[2019-10-17] MEDS ORDERED: chlordiazePOXIDE HCL 10 MG CAPSULE PO PRN
[2019-10-17] MEDS ORDERED: chlordiazePOXIDE HCL 10 MG CAPSULE PO SCH (05:00)
[2019-10-18] MEDS ORDERED: chlordiazePOXIDE HCL 10 MG CAPSULE PO SCH (05:00)
[2019-10-19] MEDS ORDERED: chlordiazePOXIDE HCL 10 MG CAPSULE PO ONE (05:00)
== END 2019-10-15 10:54 | disposition left against medical advice (07) | DRG 770 ==
LOC: YASAS 16:53 → Y6N 19:30
PROVIDERS: ADMIT Allergy & Immunology; ATTEND Allergy & Immunology
PROC: HZ2ZZZZ Detoxification Services for Substance Abuse Treatment (ICD-10-PCS; principal; 2019-10-14)
DX: F10.230 Alcohol dependence with withdrawal, uncomplicated (principal); F12.20 Cannabis dependence, uncomplicated; F17.210 Nicotine dependence, cigarettes, uncomplicated; F19.282 Other psychoactive substance dependence with psychoactive substance-induced sleep disorder; F19.24 Other psychoactive substance dependence with psychoactive substance-induced mood disorder; F31.9 Bipolar disorder, unspecified; F41.9 Anxiety disorder, unspecified; I10 Essential (primary) hypertension; K21.9 Gastro-esophageal reflux disease without esophagitis; Z89.021 Acquired absence of right finger(s); Z56.0 Unemployment, unspecified; Z59.0 Homelessness
CPT/HCPCS: 36415; 80053; 85027; 86780; 93005; 93010; Q0162; U0003

== ENCOUNTER 2019-11-10 12:13 | Inpatient (IN) | payer OTHER ==
--- OUTSIDE RECORDS SUMMARY | 2019-11-10 12:17 | XMS ---
:1975 Author Organization [facility] Support Name Relationship Address Phone UE Unavailable Unavailable Unavailable DELIA GAR FRIEND UNKNOWN [place], [place] [phone] HOLLIS GAR FRIEND UNKNOWN [place], [place] [phone] HOLLIS GAR Other UNKNOWN Unavailable [place], [place] [phone] Re-disclosure Warning The records that you are about to access may contain information from federally- assisted alcohol or drug abuse programs. If such information is present, then the following federally mandated warning applies: This information has been disclosed to you from records protected by federal confidentiality rules (42 CFR part 2). The federal rules prohibit you from making any further disclosure of this information unless further disclosure is expressly permitted by the written consent of the person to whom it pertains or as otherwise permitted by 42 CFR part 2. A general authorization for the release of medical or other information is NOT sufficient for this purpose. The Federal rules restrict any use of the information to criminally investigate or prosecute any alcohol or drug abuse patient.The records that you are about to access may contain highly sensitive health information, the redisclosure of which is protected by Article 27-F of the [facility] Public Health law. If you continue you may haveaccess to information: Regarding HIV / AIDS; Provided by facilities licensed or operated by the [facility] Office of Mental Health; or Provided by the [facility] Office for People With Developmental Disabilities. If such information is present, then the following [facility] mandated warning applies: This information has been disclosed to you from confidential records which are protected by state law. State law prohibits you from making any further disclosure of this information without the specific written consent of the person to whom it pertains, or as otherwise permitted by law. Any unauthorized further disclosure in violation of state law may result in a fine or usp sentence or both. A general authorization for the release of medical or other information is NOT sufficient authorization for further disclosure. Insurance Providers Payer name Policy type Policy ID Covered Covered libertarian's Policy P lenny / Coverage libertarian ID relationship to Evangelista Inf ormation type evangelista BEACON [id number] SP [id number] METROPLUS BEACON [id number] SP [id number] METROPLUS BEACON [id number] SP [id number] METROPLUS METRO PLUS [id number] SP [id number] HEALTH PLAN BEACON [id number] SP [id number] MET[employer] MEDICAID [id number] SP [id number] PENDING EXCHANGE SELF PAY SP INSURANCE Results ID Date Data Source [id number] 10/14/2019 07:50:00 PM EDT [facility] Name Value Range Interpretation Description Data Sup porting Code Source(s) Document(s ) SARS [facility] coronavirus 2 RNA This lab was ordered by [facility] and reported by [facility]. ID Date Data Source [id number] 10/04/2019 12:37:00 AM EDT [facility] Name Value Range Interpretation Description Data Sup porting Code Source(s) Document(s ) SARS [facility] Coronavirus 2 RNA Presence Respiratory Specimen SERA Probe Detection This lab was ordered by [facility] and reported by [facility]. ID Date Data Source [id number] 09/12/2019 01:30:00 PM EDT [facility] Name Value Range Interpretation Description Data Sup porting Code Source(s) Document(s ) SARS [facility] coronavirus 2 RNA This lab was ordered by [facility] and reported by [facility]. ID Date Data Source [id number] 08/30/2019 12:00:00 AM EDT [facility] Name Value Range Interpretation Code Description Data Halle rce(s) Supporting Document(s ) 2019-nCoV [facility] RNA XXX SERA+probe- Imp This lab was ordered by [facility] and reported by [employer] Procedure
--- NOTE | 2019-11-10 13:04 | BHS.RME ---
Substance Use & Tx History - Substance Use History Alcohol Substance amount: 1 pnint of vodak,2 of 40 ozs of beer Frequency of use: Daily Substance route: Oral Date of Last Use: 11/10/19 Cannabis Substance amount: 40$ of marijuana Frequency of use: Daily Substance route: Smoking Date of Last Use: 11/10/19 - Last Treatment Date of last treatment: [facility] 10/14/19 to 10/15/19 Where was last treatment: Detox Physical/Psych/Mental Status - Behavior Eye Contact: Normal - Cooperativeness Cooperativeness: Cooperative - Thinking Thought Processes: Logical Thought content: Future oriented - Physical Health Problems Is patient presently having any pain?: No Does patient presently have any injuries (include location): No Does patient currently have a fever: No CIWA Nausea/Vomitin Muscle Tremors: 3 Anxiety: 3 Agitation: 3 Paroxysmal Sweats: 1-Minimal Palms Moist Orientation: 0-Oriented Tacttile Disturbances: 1-Very Mild Itch/Numbness Auditory Disturbances: 0-None Visual Disturbances: 0-None Headache: 2-Mild CIWA-Ar Total Score: 15
--- NOTE | 2019-11-10 13:09 | HP ---
CIWA Score Nausea/Vomitin Muscle Tremors: 3 Anxiety: 3 Agitation: 3 Paroxysmal Sweats: 1-Minimal Palms Moist Orientation: 0-Oriented Tacttile Disturbances: 1-Very Mild Itch/Numbness Auditory Disturbances: 0-None Visual Disturbances: 0-None Headache: 2-Mild CIWA-Ar Total Score: 15 - Admission Criteria OASAS Guidelines: Admission for Medically Managed Detox: Requires at least one of the followin. CIWA greater than 12 2. Seizures within the past 24 hours 3. Delirium tremens within the past 24 hours 4. Hallucinations within the past 24 hours 5. Acute intervention needed for co occurring medical disorder 6. Acute intervention needed for co occurring psychiatric disorder 7. Severe withdrawal that cannot be handled at a lower level of care (continued vomiting, continued diarrhea, abnormal vital signs) requiring intravenous medication and/or fluids 8. Admitting History and Physical - Admission Chief Complaint: i need help to stop drinking alcohol History of Present Illness: this 44 years old male with alcohol dependence seeking detox History Source: Patient Limitations to Obtaining History: No Limitations - Past Medical History Gastrointestinal: Yes: GERD Psych: Yes: Anxiety (ocd), Bipolar, Depression - Past Surgical History Past Surgical History: Yes: None - Smoking History Smoking history: Current every day smoker Have you smoked in the past 12 months: Yes Aproximately how many cigarettes per day: 20 - Alcohol/Substance Use Hx Alcohol Use: Yes History of Substance Use: reports: Marijuana - Social History Usual Living Arrangement: Yes: Other (homeless) Do you think of yourself as: Straight/Heterosexual ADL: Support Services Occupation: unemployed History of Recent Travel: [place] Other Social History: unemployed,nicotine dependence,no legal issuue,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 Admission ROS [facility] - HPI Chief Complaint: i need help to stop drinking alcohol Allergies/Adverse Reactions: Allergies Allergy/AdvReac Type Severity Reaction Status Date / Time No Known Allergies Allergy Verified 11/10/19 13:44 History of Present Illness: this 44 years old male with alcohol dependence ,seeking detox, Exam Limitations: No Limitations - Ebola screening Have you traveled outside of the country in the last 21 days: No Have you had contact with anyone from an Ebola affected area: No Have you been sick,other than usual withdrawal symptoms: No Do you have a fever: No - Review of Systems Constitutional: Loss of Appetite, Malaise, Night Sweats, Changes in sleep, Weakness EENT: reports: Nose Congestion Respiratory: reports: No Symptoms reported Cardiac: reports: No Symptoms Reported GI: reports: Diarrhea, Nausea, Vomiting, Abdominal cramping : reports: No Symptoms Reported Musculoskeletal: reports: Back Pain, Muscle Pain Integumentary: reports: Dryness Neuro: reports: Headache, Tremors Endocrine: reports: No Symptoms Reported Hematology: reports: No Symptoms Reported Psychiatric: reports: No Sypmtoms Reported, Judgement Intact, Mood/Affect Appropiate, Orientated x3, other (bipolar disorder,ocd,anxiety ,insomnia) Patient History - Patient Medical History Hx Anemia: No Hx Asthma: No Hx Chronic Obstructive Pulmonary Disease (COPD): No Hx Cancer: No Hx Cardiac Disorders: No Hx Congestive Heart Failure: No Hx Hypertension: No Hx Hypercholesterolemia: No Hx Pacemaker: No HX Cerebrovascular Accident: No Hx Seizures: No Hx Dementia: No Hx Diabetes: No Hx Gastrointestinal Disorders: Yes Hx Liver Disease: No Hx Genitourinary Disorders: No Hx Sexually Transmitted Disorders: No Hx Renal Disease (ESRD): No Hx Thyroid Disease: No Hx Human Immunodeficiency Virus (HIV): No (last 2017 negative) Hx Hepatitis C: No Hx Depression: Yes Hx Suicide Attempt: No Hx Bipolar Disorder: Yes (no med for 1 month) Hx Schizophrenia: No Other Medical History: no suicidal,no homicidal - Patient Surgical History Past Surgical History: Yes Hx Neurologic Surgery: No Hx Cataract Extraction: No Hx Cardiac Surgery: No Hx Lung Surgery: No Hx Breast Surgery: No Hx Breast Biopsy: No Hx Abdominal Surgery: No Hx Appendectomy: No Hx Cholecystectomy: No Hx Genitourinary Surgery: No Hx Section: No Hx Orthopedic Surgery: No Other Surgical History: partial amputation, right index finger in 2017 Anesthesia Reaction: No - PPD History Previous Implant?: Yes Documented Results: Negative w/o proof Implanted On Prior R Admission?: Yes Date: 10/16/19 Results: not read PPD to be Administered?: Yes - Smoking Cessation Smoking history: Current every day smoker Have you smoked in the past 12 months: Yes Aproximately how many cigarettes per day: 20 Hx Chewing Tobacco Use: No Initiated information on smoking cessation: Yes 'Breaking Loose' booklet given: 11/10/19 - Substance & Tx. History Hx Alcohol Use: Yes Hx Substance Use: Yes Substance Use Type: Alcohol, Marijuana - Substances abused Alcohol Substance route: Oral Frequency: Daily Amount used: 1 pint of vodka/2 of 40 ozs of beer Age of first use: 16 Date of last use: 11/10/19 Marijuana/Hashish Substance route: Smoking Frequency: Daily Amount used: 40$ Age of first use: 16 Date of last use: 11/10/19 Admission Physical Exam BHS - Vital Signs Vital Signs: bp 132/75 p106 r18 t 97.7 twila 0.165 pulse 98% - Physical General Appearance: Yes: Moderate Distress, Tremorous, Irritable, Sweating, Anxious HEENTM: Yes: Normal ENT Inspection, MARIO, Pharynx Normal Respiratory: Yes: Lungs Clear, Normal Breath Sounds, No Respiratory Distress Neck: Yes: Within Normal Limits, Supple, Trachea in good position Breast: Yes: Within Normal Limits Cardiology: Yes: Tachycardia Abdominal: Yes: Within Normal Limits, Normal Bowel Sounds, Non Tender, Soft Genitourinary: Yes: Within Normal Limits Back: Yes: Muscle Spasm Musculoskeletal: Yes: Back pain, Muscle Pain Extremities: Yes: Tremors, Other (traumatic amputation of right index finger) 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: Yes: a operator II-XII NML intact, Fully Oriented, Alert, Motor Strength 5/5 Integumentary: Yes: Dry Lymphatic: Yes: Within Normal Limits - Diagnostic (1) Alcohol dependence with uncomplicated withdrawal Current Visit: No Status: Acute (2) Cannabis dependence Current Visit: No Status: Acute (3) Syncope Current Visit: No Status: Acute Qualifiers: Syncope type: unspecified Qualified Code(s): R55 - Syncope and collapse (4) Bipolar disorder Current Visit: No Status: Chronic Qualifiers: Active/Remission status: remission status unspecified Qualified Code(s): F31.9 - Bipolar disorder, unspecified (5) GERD (gastroesophageal reflux disease) Current Visit: No Status: Chronic Qualifiers: Esophagitis presence: without esophagitis Qualified Code(s): K21.9 - Gastro-esophageal reflux disease without esophagitis (6) Nicotine dependence Current Visit: No Status: Chronic Qualifiers: Nicotine product type: cigarettes Substance use status: uncomplicated Qualified Code(s): F17.210 - Nicotine dependence, cigarettes, uncomplicated (7) OCD (obsessive compulsive disorder) Current Visit: No Status: Chronic Qualifiers: Obsessive-compulsive disorder type: unspecified Qualified Code(s): F42.9 - Obsessive-compulsive disorder, unspecified Comment: As per self-report. (8) Homeless Current Visit: Yes Status: Acute Cleared for Admission [facility] - Detox or Rehab [facility] Level of Care: Medically Managed Detox Regimen/Protocol: Librium Breathalyzer - Breathalyzer Breathalyzer: 0.072 Urine Drug Screen - Test Device Lot number: [id number] Expiration date: 10/13/20 - Control Is test valid?: Yes - Results Drug screen NEGATIVE: No Urine drug screen results: THC-Marijuana, BZO-Benzodiazepines Inpatient Rehab Admission - Rehab Decision to Admit Inpatient rehab admission?: No
[2019-11-10] MEDS ORDERED: ACETAMINOPHEN 325 MG TABLET (FP) PO PRN ×2 (13:25)
[2019-11-10] MEDS ORDERED: IBUPROFEN 400 MG TABLET (FP) PO PRN (13:25)
[2019-11-10] MEDS ORDERED: MAGNESIUM CITRATE 300 ML BOTTLE PO PRN (13:25)
[2019-11-10] MEDS ORDERED: MENTHOL/PHENOL 1 EACH UD MM PRN (13:25)
[2019-11-10] MEDS ORDERED: chlordiazePOXIDE HCL 25 MG CAPSULE PO PRN (13:25)
[2019-11-10] MEDS ORDERED: NICOTINE POLACRILEX 2 MG GUM BUC PRN (13:25)
[2019-11-10] MEDS ORDERED: ONDANSETRON *ODT* 4 MG TABLET SL PRN (13:25)
[2019-11-10] MEDS ORDERED: MAGNESIUM HYDROX 2400MG/30ML ORAL SUSPENSION 30 ML CUP PO PRN (13:25)
[2019-11-10] MEDS ORDERED: BISMUTH SUBSALICYLATE 524 MG/30 ML UD PO PRN (13:25)
[2019-11-10] MEDS ORDERED: METHOCARBAMOL 500 MG TABLET PO PRN (13:25)
[2019-11-10] MEDS ORDERED: NICOTINE 21 MG/24 HOURS TOPICAL PATCH TD SCH (13:30)
--- OUTSIDE RECORDS SUMMARY | 2019-11-10 13:52 | XMS ---
:1975 Author Organization [facility] Support Name Relationship Address Phone UE Unavailable Unavailable Unavailable DELIA GAR FRIEND UNKNOWN [place], [place] [phone] HOLLIS GAR FRIEND UNKNOWN [place], [place] [phone] HOLLIS GAR Other UNKNOWN Unavailable [place], [place] [phone] Re-disclosure Warning The records that you are [...] is protected by Article 27-F of the [facility] Public Health law. If you continue you may haveaccess to information: Regarding HIV / AIDS; Provided by facilities licensed or operated by the [facility] Office of Mental Health; or Provided by the [facility] Office for People With Developmental Disabilities. If such information is present, then the following [facility] mandated warning applies: This information has been [...] law may result in a fine or senior living sentence or both. A general authorization for the release of medical or other information is NOT sufficient authorization for further disclosure. Insurance Providers Payer name Policy type Policy ID Covered Covered republican's Policy P lenny / Coverage republican ID relationship to Evangelista Inf ormation type evangelista BEACON [id number] SP [id number] MET[employer]OP[employer]US BEACON [id number] SP [id number] METROPLUS BEACON [id number] SP [id number] METROPLUS METRO PLUS [id number] SP [id number] HEALTH PLAN BEACON [id number] SP [id number] [employer] MEDICAID [id number] SP [id number] PENDING EXCHANGE SELF PAY SP INSURANCE Results ID Date Data Source [id number] 10/14/2019 07:50:00 PM EDT [facility] Name Value Range Interpretation Description Data Sup porting Code Source(s) Document(s ) SARS [facility] coronavirus 2 RNA This lab was ordered by [facility] and reported by [facility]. ID Date Data Source [id number] 10/04/2019 12:37:00 AM EDT [facility] Name Value Range Interpretation Description Data Sup porting Code Source(s) Document(s ) SARS [facility] Coronavirus 2 RNA Presence Respiratory Specimen SERA Probe Detection This lab was ordered by [facility] and reported by [facility]. ID Date Data Source [id number] 09/12/2019 01:30:00 PM EDT [facility] Name Value Range Interpretation Description Data Sup porting Code Source(s) Document(s ) SARS [facility] coronavirus 2 RNA This lab was ordered by [facility] and reported by [facility]. ID Date Data Source [id number] 08/30/2019 12:00:00 AM EDT [facility] Name Value Range Interpretation Code Description Data Halle rce(s) Supporting Document(s ) 2019-nCoV [facility] RNA XXX SERA+probe- Imp This lab was ordered by [facility] and reported by [employer] Procedure
[2019-11-10 13:54] VITALS: BMI 28.1
[2019-11-10] MEDS: hydrOXYzine PAMOATE 25 MG CAPSULE (FP) PO SCH ×2 (14:54→23:06)
[2019-11-10] MEDS: MAG HYDROX/AL HYDROX/SIMETH 30 ML UNIT-DOSE CUP PO PRN (17:04)
[2019-11-10] MEDS: chlordiazePOXIDE HCL 25 MG CAPSULE PO SCH ×2 (18:12→22:36)
[2019-11-10] MEDS ORDERED: MELATONIN 5 MG TABLETS PO SCH (22:00)
[2019-11-10] MEDS ORDERED: THIAMINE HCL 100 MG TABLET (FP) PO SCH (22:00)
[2019-11-11] MEDS: chlordiazePOXIDE HCL 25 MG CAPSULE PO SCH (06:20)
[2019-11-11] MEDS: MAG HYDROX/AL HYDROX/SIMETH 30 ML UNIT-DOSE CUP PO PRN (06:20)
[2019-11-11] MEDS: hydrOXYzine PAMOATE 25 MG CAPSULE (FP) PO SCH (06:20)
[2019-11-11 07:45] VITALS: BP 136/93; PULSE 85; TEMP 97.7
--- NOTE | 2019-11-11 08:55 | PN ---
S Progress Note Note: pt chose not to complete detox. Pt states he wants to leave now. Pt was explained the risks of relapse, seizure, DT/OD and or loss. Pt chose to sign out AMA.
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
--- NOTE | 2019-11-11 08:58 | CONSULT ---
[facility] Psychiatric Consult - Data Date of interview: 11/11/19 Admission source: Self-referred Identifying data: Mr Forman is a 44 years old [place] male, father of 3 children, unemployed receiving food stamp, homeless seeking detox treatment for alcohol and cannabis Substance Abuse History: Reports history of alcohol and marijuana use. Refer to addiction counselor's summary for further information Medical History: Significant for hypertension, GERD, history of orthosurgery for partial amputation right index finger in 2017. Smokes cigarettes 1 ppd Psychiatric History: Patient is well known for multiple previous admissions to this facility. He was approached while he was in the hallway for psychiatric evaluation. 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
[2019-11-11] MEDS ORDERED: PRENATAL VITAMINS W/ FOLIC ACID TABLET (FP) PO SCH (10:00)
--- NOTE | 2019-11-11 11:18 | DS ---
[facility] Detox Discharge Summary Admission Date: 11/10/19 - History Present History: Alcohol Dependence, Cannabis Dependence - Physical Exam Results Vital Signs: Vital Signs Temperature 97.7 F 11/11/19 05:21 Pulse Rate 85 11/11/19 05:21 Respiratory Rate 19 11/11/19 05:21 Blood Pressure 136/93 11/11/19 05:21 O2 Sat by Pulse Oximetry (%) 97 11/11/19 05:21 Pertinent Admission Physical Exam Findings: Vital Signs Temperature 97.7 F 11/11/19 05:21 Pulse Rate 85 11/11/19 05:21 Respiratory Rate 11/11/19 05:21 Blood Pressure 136/93 11/11/19 05:21 O2 Sat by Pulse Oximetry (%) 97 11/11/19 05:21 [email or web address] ambulating no acute distress pt chose to sign out AMA. - Treatment Patient has Accepted a Rehab Referral to: pt refused referral - Medication Discharge Medications: Ambulatory Orders Fluoxetine HCl [Prozac -] 10 mg PO DAILY 11/10/19 [place] Carbonate [Eskalith -] 300 mg PO BID 11/10/19 Mirtazapine 15 mg PO HS 11/10/19 traZODone HCL [Desyrel -] 50 mg PO HS 11/10/19 - Diagnosis (1) Alcohol dependence with uncomplicated withdrawal Status: Acute (2) Cannabis dependence Status: Acute (3) Homeless Status: Acute (4) Substance induced mood disorder Status: Acute (5) Substance-induced sleep disorder Status: Acute (6) Syncope Status: Acute Qualifiers: Syncope type: unspecified Qualified Code(s): R55 - Syncope and collapse (7) Anxiety Status: Chronic (8) Bipolar II disorder Status: Chronic (9) Bipolar disorder Status: Chronic Qualifiers: Active/Remission status: remission status unspecified Qualified Code(s): F31.9 - Bipolar disorder, unspecified (10) Cellulitis of right knee Status: Chronic (11) GERD (gastroesophageal reflux disease) Status: Chronic Qualifiers: Esophagitis presence: without esophagitis Qualified Code(s): K21.9 - Gastro-esophageal reflux disease without esophagitis (12) HLD (hyperlipidemia) Status: Chronic (13) HTN (hypertension) Status: Chronic Qualifiers: Hypertension type: essential hypertension Qualified Code(s): I10 - Essential (primary) hypertension (14) Mood disorder Status: Chronic (15) Nicotine dependence Status: Chronic Qualifiers: Nicotine product type: cigarettes Substance use status: uncomplicated Qualified Code(s): F17.210 - Nicotine dependence, cigarettes, uncomplicated (16) OCD (obsessive compulsive disorder) Status: Chronic Qualifiers: Obsessive-compulsive disorder type: unspecified Qualified Code(s): F42.9 - Obsessive-compulsive disorder, unspecified (17) Substance induced mood disorder Status: Chronic - AMA Did Patient Leave Against Medical Advice: Yes
[2019-11-12] MEDS ORDERED: chlordiazePOXIDE HCL 25 MG CAPSULE PO SCH (05:00)
[2019-11-13] MEDS ORDERED: chlordiazePOXIDE HCL 10 MG CAPSULE PO PRN
[2019-11-13] MEDS ORDERED: chlordiazePOXIDE HCL 10 MG CAPSULE PO SCH (05:00)
[2019-11-14] MEDS ORDERED: chlordiazePOXIDE HCL 10 MG CAPSULE PO SCH (05:00)
[2019-11-15] MEDS ORDERED: chlordiazePOXIDE HCL 10 MG CAPSULE PO ONE (05:00)
== END 2019-11-11 09:22 | disposition left against medical advice (07) | DRG 770 ==
LOC: YASAS 12:13 → Y6N 13:47
PROVIDERS: ADMIT Allergy & Immunology; ATTEND Allergy & Immunology
PROC: HZ2ZZZZ Detoxification Services for Substance Abuse Treatment (ICD-10-PCS; principal; 2019-11-10)
DX: F10.230 Alcohol dependence with withdrawal, uncomplicated (principal); F12.20 Cannabis dependence, uncomplicated; F17.210 Nicotine dependence, cigarettes, uncomplicated; F39 Unspecified mood [affective] disorder; F41.9 Anxiety disorder, unspecified; F31.81 Bipolar II disorder; F31.9 Bipolar disorder, unspecified; F19.24 Other psychoactive substance dependence with psychoactive substance-induced mood disorder; F19.282 Other psychoactive substance dependence with psychoactive substance-induced sleep disorder; L03.115 Cellulitis of right lower limb; K21.9 Gastro-esophageal reflux disease without esophagitis; Z59.0 Homelessness
CPT/HCPCS: Q0162; U0003

== ENCOUNTER 2020-02-03 12:56 | Inpatient (IN) | payer OTHER ==
[2020-02-03 17:01] VITALS: BMI 27.9
[2020-02-03] MEDS ORDERED: METHOCARBAMOL 500 MG TABLET PO PRN (17:32)
[2020-02-03] MEDS ORDERED: ACETAMINOPHEN 325 MG TABLET (FP) PO PRN ×2 (17:32)
[2020-02-03] MEDS ORDERED: MAGNESIUM HYDROX 2400MG/30ML ORAL SUSPENSION 30 ML CUP PO PRN (17:32)
[2020-02-03] MEDS ORDERED: ONDANSETRON *ODT* 4 MG TABLET SL PRN (17:32)
[2020-02-03] MEDS ORDERED: MAG HYDROX/AL HYDROX/SIMETH 30 ML UNIT-DOSE CUP PO PRN (17:32)
[2020-02-03] MEDS ORDERED: NICOTINE POLACRILEX 2 MG GUM BUC PRN (17:32)
[2020-02-03] MEDS ORDERED: IBUPROFEN 400 MG TABLET (FP) PO PRN (17:32)
[2020-02-03] MEDS ORDERED: BISMUTH SUBSALICYLATE 524 MG/30 ML UD PO PRN (17:32)
[2020-02-03] MEDS ORDERED: MENTHOL/PHENOL 1 EACH UD MM PRN (17:32)
[2020-02-03] MEDS ORDERED: MAGNESIUM CITRATE 300 ML BOTTLE PO PRN (17:32)
[2020-02-03] MEDS ORDERED: chlordiazePOXIDE HCL 25 MG CAPSULE PO PRN (17:32)
[2020-02-03] MEDS: chlordiazePOXIDE HCL 25 MG CAPSULE PO SCH ×2 (18:31→22:30)
[2020-02-03] MEDS: hydrOXYzine PAMOATE 25 MG CAPSULE (FP) PO SCH ×2 (18:31→22:30)
[2020-02-03] MEDS: THIAMINE HCL 100 MG TABLET (FP) PO SCH (22:30)
[2020-02-03] MEDS: MELATONIN 5 MG TABLETS PO SCH (22:30)
[2020-02-04] MEDS: hydrOXYzine PAMOATE 25 MG CAPSULE (FP) PO SCH ×5 (06:20→22:22)
[2020-02-04] MEDS: chlordiazePOXIDE HCL 25 MG CAPSULE PO SCH ×4 (06:20→22:22)
[2020-02-04] MEDS ORDERED: PRENATAL VITAMINS W/ FOLIC ACID TABLET (FP) PO SCH (10:00)
[2020-02-04] MEDS ORDERED: NICOTINE 21 MG/24 HOURS TOPICAL PATCH TD SCH (10:00)
[2020-02-04 10:30] LABS: POTASSIUM 4.1 mmol/L (3.5-5.1)
[2020-02-04 10:33] LABS: ALBUMIN 2.9 g/dl (3.4-5.0); CALCIUM 8.5 mg/dL (8.5-10.1); HEMATOCRIT 40.7 % (35.4-49); HEMOGLOBIN 13.5 GM/dL (11.7-16.9); MCHC 33.1 g/dl (32.0-35.9); MEAN CELL VOLUME 96.6 fl (80-96); MEAN PLT VOLUME 10.7 fl (7.5-11.1); PLATELET COUNT 150 K/MM3 (134-434); RBC 4.21 M/mm3 (4.00-5.60); RDW 14.2 % (11.9-15.9); WHITE BLOOD COUNT 5.4 K/mm3 (4.0-10.0)
[2020-02-04 10:34] LABS: BLOOD UREA NITROGEN 13.2 mg/dL (7-18)
[2020-02-04 10:36] LABS: CREATININE 0.8 mg/dL (0.55-1.3)
[2020-02-04 10:38] LABS: TOT PROT 5.8 g/dl (6.4-8.2)
[2020-02-04] MEDS ORDERED: OLANZapine 5 MG TABLET PO SCH (22:00)
[2020-02-04] MEDS ORDERED: traZODone HCL 50 MG TABLET (FP) PO SCH (22:00)
[2020-02-04] MEDS: MELATONIN 5 MG TABLETS PO SCH (22:22)
[2020-02-04] MEDS: THIAMINE HCL 100 MG TABLET (FP) PO SCH (22:22)
[2020-02-05] MEDS ORDERED: chlordiazePOXIDE HCL 25 MG CAPSULE PO SCH (05:00)
[2020-02-05] MEDS: hydrOXYzine PAMOATE 25 MG CAPSULE (FP) PO SCH (06:26)
[2020-02-05 09:21] VITALS: BP 135/90; PULSE 80; TEMP 97.7
[2020-02-05] MEDS ORDERED: FLUoxetine HCL 10 MG CAPSULE PO SCH (10:00)
[2020-02-06] MEDS ORDERED: chlordiazePOXIDE HCL 10 MG CAPSULE PO PRN
[2020-02-06] MEDS ORDERED: chlordiazePOXIDE HCL 10 MG CAPSULE PO SCH (05:00)
[2020-02-07] MEDS ORDERED: chlordiazePOXIDE HCL 10 MG CAPSULE PO SCH (05:00)
[2020-02-08] MEDS ORDERED: chlordiazePOXIDE HCL 10 MG CAPSULE PO ONE (05:00)
== END 2020-02-05 10:10 | disposition left against medical advice (07) | DRG 770 ==
LOC: YASAS 12:56 → Y3N 17:37
PROVIDERS: ADMIT Allergy & Immunology; ATTEND Allergy & Immunology
PROC: HZ2ZZZZ Detoxification Services for Substance Abuse Treatment (ICD-10-PCS; principal; 2020-02-03)
DX: F10.230 Alcohol dependence with withdrawal, uncomplicated (principal); F12.20 Cannabis dependence, uncomplicated; F19.24 Other psychoactive substance dependence with psychoactive substance-induced mood disorder; F31.9 Bipolar disorder, unspecified; I10 Essential (primary) hypertension; K21.9 Gastro-esophageal reflux disease without esophagitis; E78.5 Hyperlipidemia, unspecified; G47.00 Insomnia, unspecified; R25.1 Tremor, unspecified; Z91.14 Patient's other noncompliance with medication regimen; Z56.0 Unemployment, unspecified; Z59.0 Homelessness
CPT/HCPCS: 36415; 80053; 80178; 85027; 86780; 93005; 93010; C9803; U0003

== ENCOUNTER 2020-03-14 12:45 | Inpatient (IN) | payer OTHER ==
[2020-03-14] MEDS ORDERED: IBUPROFEN 400 MG TABLET (FP) PO PRN (16:07)
[2020-03-14] MEDS ORDERED: BISMUTH SUBSALICYLATE 524 MG/30 ML UD PO PRN (16:07)
[2020-03-14] MEDS ORDERED: ONDANSETRON *ODT* 4 MG TABLET SL PRN (16:07)
[2020-03-14] MEDS ORDERED: MAGNESIUM HYDROX 2400MG/30ML ORAL SUSPENSION 30 ML CUP PO PRN (16:07)
[2020-03-14] MEDS ORDERED: chlordiazePOXIDE HCL 25 MG CAPSULE PO PRN (16:07)
[2020-03-14] MEDS ORDERED: MAGNESIUM CITRATE 300 ML BOTTLE PO PRN (16:07)
[2020-03-14] MEDS ORDERED: METHOCARBAMOL 500 MG TABLET PO PRN (16:07)
[2020-03-14] MEDS ORDERED: NICOTINE POLACRILEX 2 MG GUM BUC PRN (16:07)
[2020-03-14] MEDS ORDERED: MAG HYDROX/AL HYDROX/SIMETH 30 ML UNIT-DOSE CUP PO PRN (16:07)
[2020-03-14] MEDS ORDERED: ACETAMINOPHEN 325 MG TABLET (FP) PO PRN ×2 (16:07)
[2020-03-14] MEDS ORDERED: MENTHOL/PHENOL 1 EACH UD MM PRN (16:07)
[2020-03-14 18:00] VITALS: BMI 28.4
[2020-03-14] MEDS ORDERED: THIAMINE HCL 100 MG TABLET (FP) PO SCH (22:00)
[2020-03-14] MEDS ORDERED: MELATONIN 5 MG TABLETS PO SCH (22:00)
[2020-03-15] MEDS: chlordiazePOXIDE HCL 25 MG CAPSULE PO SCH ×4 (00:10→10:28)
[2020-03-15] MEDS: hydrOXYzine PAMOATE 25 MG CAPSULE (FP) PO SCH ×4 (00:15→10:27)
[2020-03-15] MEDS: NICOTINE 21 MG/24 HOURS TOPICAL PATCH TD SCH ×2 (01:03→10:25)
[2020-03-15] MEDS ORDERED: PRENATAL VITAMINS W/ FOLIC ACID TABLET (FP) PO SCH (10:00)
[2020-03-15] MEDS ORDERED: FLUoxetine HCL 10 MG CAPSULE PO SCH (10:45)
[2020-03-15 13:23] VITALS: BP 130/80; PULSE 79; TEMP 97.5
[2020-03-15 16:54] LABS: POTASSIUM 3.9 mmol/L (3.5-5.1)
[2020-03-15 16:55] LABS: HEMATOCRIT 39.9 % (35.4-49); HEMOGLOBIN 13.5 GM/dL (11.7-16.9); MCH 32.8 pg (25.7-33.7); MCHC 33.8 g/dl (32.0-35.9); MEAN CELL VOLUME 97.1 fl (80-96); MEAN PLT VOLUME 10.2 fl (7.5-11.1); PLATELET COUNT 161 K/MM3 (134-434); RBC 4.11 M/mm3 (4.00-5.60); RDW 14.6 % (11.9-15.9); WHITE BLOOD COUNT 6.6 K/mm3 (4.0-10.0)
[2020-03-15 16:57] LABS: CALCIUM 8.3 mg/dL (8.5-10.1)
[2020-03-15 16:58] LABS: ALBUMIN 2.9 g/dl (3.4-5.0); BLOOD UREA NITROGEN 15.8 mg/dL (7-18)
[2020-03-15 17:02] LABS: BILIRUBIN,TOTAL 0.9 mg/dL (0.2-1); TOT PROT 5.9 g/dl (6.4-8.2)
[2020-03-15] MEDS ORDERED: OLANZapine 5 MG TABLET PO SCH (22:00)
[2020-03-15] MEDS ORDERED: traZODone HCL 50 MG TABLET (FP) PO SCH (22:00)
[2020-03-16] MEDS ORDERED: chlordiazePOXIDE HCL 25 MG CAPSULE PO SCH (05:00)
[2020-03-17] MEDS ORDERED: chlordiazePOXIDE HCL 10 MG CAPSULE PO PRN
[2020-03-17] MEDS ORDERED: chlordiazePOXIDE HCL 10 MG CAPSULE PO SCH (05:00)
[2020-03-18] MEDS ORDERED: chlordiazePOXIDE HCL 10 MG CAPSULE PO SCH (05:00)
[2020-03-19] MEDS ORDERED: chlordiazePOXIDE HCL 10 MG CAPSULE PO ONE (05:00)
== END 2020-03-15 01:31 | disposition left against medical advice (07) | DRG 770 ==
LOC: YASAS 12:45 → Y6N 21:24
PROVIDERS: ADMIT Allergy & Immunology; ATTEND Allergy & Immunology
PROC: HZ2ZZZZ Detoxification Services for Substance Abuse Treatment (ICD-10-PCS; principal; 2020-03-14)
DX: F10.230 Alcohol dependence with withdrawal, uncomplicated (principal); F12.20 Cannabis dependence, uncomplicated; F17.210 Nicotine dependence, cigarettes, uncomplicated; F19.282 Other psychoactive substance dependence with psychoactive substance-induced sleep disorder; F19.24 Other psychoactive substance dependence with psychoactive substance-induced mood disorder; F31.81 Bipolar II disorder; F43.10 Post-traumatic stress disorder, unspecified; F41.9 Anxiety disorder, unspecified; F42.9 Obsessive-compulsive disorder, unspecified; I10 Essential (primary) hypertension; K21.9 Gastro-esophageal reflux disease without esophagitis; Z89.021 Acquired absence of right finger(s); Z56.0 Unemployment, unspecified; Z59.0 Homelessness
CPT/HCPCS: 36415; 80053; 85027; 86780; C9803; U0003

== ENCOUNTER 2020-04-18 19:53 | Emergency (ER) | payer OTHER ==
[2020-04-18] MEDS ORDERED: FAMOTIDINE 20 MG/50 ML IVPB 20 MG/50 ML MG IVPB ONE ×2 (20:08→20:52)
[2020-04-18] MEDS ORDERED: SODIUM CHLORIDE 1,000 ML IV STA (20:10)
[2020-04-18] MEDS ORDERED: ALBUTEROL SO4 HFA INHALER IH ONE ×2 (20:12→20:52)
[2020-04-18 20:22] VITALS: BMI 29.2
[2020-04-18 20:56] LABS: BASO % 0.8 % (0-2.0); EOS % 1.9 % (0-4.5); HEMATOCRIT 42.7 % (35.4-49); HEMOGLOBIN 14.5 GM/dL (11.7-16.9); LYMPH % 36.9 % (8-40); MCH 33.1 pg (25.7-33.7); MCHC 34.1 g/dl (32.0-35.9); MEAN CELL VOLUME 97.3 fl (80-96); MEAN PLT VOLUME 9.2 fl (7.5-11.1); MONO % 6.1 % (3.8-10.2); NEUT % 54.3 % (42.8-82.8); PLATELET COUNT 219 K/MM3 (134-434); RBC 4.38 M/mm3 (4.00-5.60); RDW 14.5 % (11.9-15.9); WHITE BLOOD COUNT 6.2 K/mm3 (4.0-10.0)
[2020-04-18 21:10] LABS: CHLORIDE 112 mmol/L (98-107); POTASSIUM 4.2 mmol/L (3.5-5.1); SODIUM 145 mmol/L (136-145)
[2020-04-18 21:12] LABS: CALCIUM 8.6 mg/dL (8.5-10.1)
[2020-04-18 21:13] LABS: ALBUMIN 3.8 g/dl (3.4-5.0); ANION GAP 6 MMOL/L (8-16); BLOOD UREA NITROGEN 17.4 mg/dL (7-18); CO2 28 mmol/L (21-32); GLUCOSE,RANDOM 91 mg/dL (74-106)
[2020-04-18 21:16] LABS: SGOT/AST 37 U/L (15-37); SGPT/ALT 51 U/L (13-61)
[2020-04-18] MEDS ORDERED: LACTATED RINGERS SOLUTION 1000 ML INFUS.BAG IV ONE (21:17)
[2020-04-18 21:18] LABS: BILIRUBIN,TOTAL 0.4 mg/dL (0.2-1); TOT PROT 7.6 g/dl (6.4-8.2)
[2020-04-18 21:19] LABS: ALK PHOS 86 U/L (45-117)
[2020-04-18 23:05] LABS: URINE APPEARANCE CLEAR; URINE BILIRUBIN NEGATIVE (NEGATIVE); URINE COLOR YELLOW; URINE GLUCOSE (UA) NEGATIVE (NEGATIVE); URINE KETONE NEGATIVE (NEGATIVE); URINE LEUK ESTERASE NEGATIVE (NEGATIVE); URINE NITRITE NEGATIVE (NEGATIVE); URINE PROTEIN NEGATIVE (NEGATIVE); URINE UROBILINOGEN 0.2 mg/dL (0.2-1.0)
[2020-04-18] MEDS ORDERED: LACTATED RINGERS SOLUTION 1,000 ML/1,000 ML INFUS.BAG IV STA (23:39)
[2020-04-19 06:30] VITALS: TEMP 98.4
[2020-04-19 08:27] VITALS: BP 130/82; PULSE 88
== END 2020-04-19 08:39 ==
LOC: JER 19:53
PROC: 3E033NZ Introduction of Analgesics, Hypnotics, Sedatives into Peripheral Vein, Percutaneous Approach (ICD-10-PCS; principal; 2020-04-18)
PROC: 3E0F7GC Introduction of Other Therapeutic Substance into Respiratory Tract, Via Natural or Artificial Opening (ICD-10-PCS; 2020-04-18)
PROC: 3E0337Z Introduction of Electrolytic and Water Balance Substance into Peripheral Vein, Percutaneous Approach (ICD-10-PCS; 2020-04-18)
DX: N13.4 Hydroureter (principal); N13.2 Hydronephrosis with renal and ureteral calculous obstruction; N40.0 Benign prostatic hyperplasia without lower urinary tract symptoms; F10.920 Alcohol use, unspecified with intoxication, uncomplicated
CPT/HCPCS: 36415; 71045-TC-FY; 74177-TC; 80053; 80178; 80307; 81003; 82550; 82553; 83690; 83880; 84484; 85025; 87077; 87086; 93005; 93010; 99285-25

== ENCOUNTER 2020-04-19 10:56 | Inpatient (IN) | payer OTHER ==
[2020-04-19] MEDS ORDERED: ONDANSETRON *ODT* 4 MG TABLET SL PRN (12:38)
[2020-04-19] MEDS ORDERED: BISMUTH SUBSALICYLATE 524 MG/30 ML UD PO PRN (12:38)
[2020-04-19] MEDS ORDERED: MAGNESIUM CITRATE 300 ML BOTTLE PO PRN (12:38)
[2020-04-19] MEDS ORDERED: MAGNESIUM HYDROX 2400MG/30ML ORAL SUSPENSION 30 ML CUP PO PRN (12:38)
[2020-04-19] MEDS ORDERED: chlordiazePOXIDE HCL 25 MG CAPSULE PO PRN (12:38)
[2020-04-19] MEDS ORDERED: MAG HYDROX/AL HYDROX/SIMETH 30 ML UNIT-DOSE CUP PO PRN (12:38)
[2020-04-19] MEDS ORDERED: MENTHOL/PHENOL 1 EACH UD MM PRN (12:38)
[2020-04-19] MEDS ORDERED: METHOCARBAMOL 500 MG TABLET PO PRN (12:38)
[2020-04-19] MEDS ORDERED: NICOTINE POLACRILEX 2 MG GUM BUC PRN (12:38)
[2020-04-19] MEDS ORDERED: ACETAMINOPHEN 325 MG TABLET (FP) PO PRN ×2 (12:38)
[2020-04-19] MEDS ORDERED: IBUPROFEN 400 MG TABLET (FP) PO PRN (12:38)
[2020-04-19] MEDS: hydrOXYzine PAMOATE 25 MG CAPSULE (FP) PO SCH ×3 (14:50→22:14)
[2020-04-19] MEDS: chlordiazePOXIDE HCL 25 MG CAPSULE PO SCH ×2 (17:46→22:46)
[2020-04-19] MEDS ORDERED: MELATONIN 5 MG TABLETS PO SCH (22:00)
[2020-04-19] MEDS ORDERED: THIAMINE HCL 100 MG TABLET (FP) PO SCH (22:00)
[2020-04-20] MEDS: hydrOXYzine PAMOATE 25 MG CAPSULE (FP) PO SCH ×2 (06:26→10:40)
[2020-04-20] MEDS: chlordiazePOXIDE HCL 25 MG CAPSULE PO SCH ×2 (06:26→10:40)
[2020-04-20] MEDS ORDERED: PRENATAL VITAMINS W/ FOLIC ACID TABLET (FP) PO SCH (10:00)
[2020-04-20] MEDS ORDERED: NICOTINE 7 MG/24 HOURS TOPICAL PATCH TD SCH (10:00)
[2020-04-20 10:51] LABS: HEMATOCRIT 41.5 % (35.4-49); HEMOGLOBIN 14.3 GM/dL (11.7-16.9); MCH 33.3 pg (25.7-33.7); MCHC 34.4 g/dl (32.0-35.9); MEAN PLT VOLUME 9.4 fl (7.5-11.1); PLATELET COUNT 225 K/MM3 (134-434); RBC 4.28 M/mm3 (4.00-5.60); RDW 14.5 % (11.9-15.9); WHITE BLOOD COUNT 5.8 K/mm3 (4.0-10.0)
[2020-04-20 10:53] LABS: POTASSIUM 4.2 mmol/L (3.5-5.1)
[2020-04-20 10:57] LABS: BLOOD UREA NITROGEN 15.6 mg/dL (7-18)
[2020-04-20 10:58] LABS: ALBUMIN 3.5 g/dl (3.4-5.0); CALCIUM 9.1 mg/dL (8.5-10.1)
[2020-04-20 11:04] LABS: CREATININE 0.9 mg/dL (0.55-1.3)
[2020-04-20 11:05] LABS: BILIRUBIN,TOTAL 0.8 mg/dL (0.2-1); TOT PROT 7.1 g/dl (6.4-8.2)
[2020-04-20] MEDS ORDERED: traZODone HCL 50 MG TABLET (FP) PO PRN (11:59)
[2020-04-20 12:54] VITALS: BP 143/95; PULSE 84; TEMP 97.4
[2020-04-21] MEDS ORDERED: chlordiazePOXIDE HCL 25 MG CAPSULE PO SCH (05:00)
[2020-04-22] MEDS ORDERED: chlordiazePOXIDE HCL 10 MG CAPSULE PO PRN
[2020-04-22] MEDS ORDERED: chlordiazePOXIDE HCL 10 MG CAPSULE PO SCH (05:00)
[2020-04-23] MEDS ORDERED: chlordiazePOXIDE HCL 10 MG CAPSULE PO SCH (05:00)
[2020-04-24] MEDS ORDERED: chlordiazePOXIDE HCL 10 MG CAPSULE PO ONE (05:00)
== END 2020-04-20 13:39 | disposition left against medical advice (07) | DRG 770 ==
LOC: YASAS 10:56 → Y6N 14:14
PROVIDERS: ADMIT Allergy & Immunology; ATTEND Allergy & Immunology
PROC: HZ2ZZZZ Detoxification Services for Substance Abuse Treatment (ICD-10-PCS; principal; 2020-04-19)
DX: F10.230 Alcohol dependence with withdrawal, uncomplicated (principal); F12.20 Cannabis dependence, uncomplicated; F17.210 Nicotine dependence, cigarettes, uncomplicated; F19.282 Other psychoactive substance dependence with psychoactive substance-induced sleep disorder; F19.24 Other psychoactive substance dependence with psychoactive substance-induced mood disorder; F31.9 Bipolar disorder, unspecified; F43.10 Post-traumatic stress disorder, unspecified; I10 Essential (primary) hypertension; K21.9 Gastro-esophageal reflux disease without esophagitis; E78.5 Hyperlipidemia, unspecified; Z56.0 Unemployment, unspecified; Z59.0 Homelessness
CPT/HCPCS: 36415; 80053; 85027; 86780; C9803; U0003

== ENCOUNTER 2020-05-22 15:22 | Inpatient (IN) | payer OTHER ==
[2020-05-22 16:38] VITALS: BMI 25.4
[2020-05-22] MEDS ORDERED: METHOCARBAMOL 500 MG TABLET PO PRN (16:45)
[2020-05-22] MEDS ORDERED: BISMUTH SUBSALICYLATE 524 MG/30 ML UD PO PRN (16:45)
[2020-05-22] MEDS ORDERED: ONDANSETRON *ODT* 4 MG TABLET SL PRN (16:45)
[2020-05-22] MEDS ORDERED: MAGNESIUM CITRATE 300 ML BOTTLE PO PRN (16:45)
[2020-05-22] MEDS ORDERED: NICOTINE POLACRILEX 2 MG GUM BUC PRN (16:45)
[2020-05-22] MEDS ORDERED: chlordiazePOXIDE HCL 25 MG CAPSULE PO PRN (16:45)
[2020-05-22] MEDS ORDERED: IBUPROFEN 400 MG TABLET (FP) PO PRN (16:45)
[2020-05-22] MEDS ORDERED: MAG HYDROX/AL HYDROX/SIMETH 30 ML UNIT-DOSE CUP PO PRN (16:45)
[2020-05-22] MEDS ORDERED: ACETAMINOPHEN 325 MG TABLET (FP) PO PRN ×2 (16:45)
[2020-05-22] MEDS ORDERED: MENTHOL/PHENOL 1 EACH UD MM PRN (16:45)
[2020-05-22] MEDS ORDERED: traZODone HCL 50 MG TABLET (FP) PO PRN (16:45)
[2020-05-22] MEDS ORDERED: MAGNESIUM HYDROX 2400MG/30ML ORAL SUSPENSION 30 ML CUP PO PRN (16:45)
[2020-05-22] MEDS: hydrOXYzine PAMOATE 25 MG CAPSULE (FP) PO SCH ×2 (21:42→21:48)
[2020-05-22] MEDS: THIAMINE HCL 100 MG TABLET (FP) PO SCH (21:43)
[2020-05-22] MEDS ORDERED: MELATONIN 5 MG TABLETS PO SCH (22:00)
[2020-05-22] MEDS: chlordiazePOXIDE HCL 25 MG CAPSULE PO SCH (22:04)
[2020-05-23] MEDS: chlordiazePOXIDE HCL 25 MG CAPSULE PO SCH ×4 (06:48→22:32)
[2020-05-23] MEDS: hydrOXYzine PAMOATE 25 MG CAPSULE (FP) PO SCH ×5 (06:49→22:31)
[2020-05-23] MEDS: PRENATAL VITAMINS W/ FOLIC ACID TABLET (FP) PO SCH (10:36)
[2020-05-23] MEDS: NICOTINE 14 MG/24 HOURS TOPICAL PATCH TD SCH (10:38)
[2020-05-23] MEDS ORDERED: traZODone HCL 50 MG TABLET (FP) PO PRN (13:37)
[2020-05-23 13:52] LABS: CALCIUM 8.2 mg/dL (8.5-10.1)
[2020-05-23] MEDS ORDERED: MELATONIN 5 MG TABLETS PO PRN (13:52)
[2020-05-23 13:53] LABS: ALBUMIN 2.9 g/dl (3.4-5.0); BLOOD UREA NITROGEN 15.3 mg/dL (7-18)
[2020-05-23 13:54] LABS: HEMATOCRIT 41.1 % (35.4-49); MCH 33.2 pg (25.7-33.7); MCHC 34.1 g/dl (32.0-35.9); MEAN CELL VOLUME 97.5 fl (80-96); MEAN PLT VOLUME 10.5 fl (7.5-11.1); PLATELET COUNT 144 K/MM3 (134-434); RBC 4.22 M/mm3 (4.00-5.60); RDW 14.6 % (11.9-15.9); WHITE BLOOD COUNT 5.7 K/mm3 (4.0-10.0)
[2020-05-23 13:57] LABS: BILIRUBIN,TOTAL 0.8 mg/dL (0.2-1); TOT PROT 5.6 g/dl (6.4-8.2)
[2020-05-23] MEDS: THIAMINE HCL 100 MG TABLET (FP) PO SCH (22:31)
[2020-05-24] MEDS: chlordiazePOXIDE HCL 25 MG CAPSULE PO SCH ×2 (05:55→10:40)
[2020-05-24] MEDS: hydrOXYzine PAMOATE 25 MG CAPSULE (FP) PO SCH ×2 (05:55→10:40)
[2020-05-24] MEDS ORDERED: FLUoxetine HCL 10 MG CAPSULE PO SCH (10:00)
[2020-05-24] MEDS: NICOTINE 14 MG/24 HOURS TOPICAL PATCH TD SCH (10:39)
[2020-05-24] MEDS: PRENATAL VITAMINS W/ FOLIC ACID TABLET (FP) PO SCH (10:39)
[2020-05-24 13:17] VITALS: BP 136/93; PULSE 93; TEMP 96.9
[2020-05-25] MEDS ORDERED: chlordiazePOXIDE HCL 10 MG CAPSULE PO PRN
[2020-05-25] MEDS ORDERED: chlordiazePOXIDE HCL 10 MG CAPSULE PO SCH (05:00)
[2020-05-25 10:06] LABS: SARS-CoV-2 NAA Not Detected (Not Detected)
[2020-05-26] MEDS ORDERED: chlordiazePOXIDE HCL 10 MG CAPSULE PO SCH (05:00)
[2020-05-27] MEDS ORDERED: chlordiazePOXIDE HCL 10 MG CAPSULE PO ONE (05:00)
== END 2020-05-24 13:20 | disposition left against medical advice (07) | DRG 770 ==
LOC: YASAS 15:22 → Y3N 19:34
PROVIDERS: ADMIT Allergy & Immunology; ATTEND Allergy & Immunology
PROC: HZ2ZZZZ Detoxification Services for Substance Abuse Treatment (ICD-10-PCS; principal; 2020-05-22)
DX: F12.20 Cannabis dependence, uncomplicated (principal); F17.210 Nicotine dependence, cigarettes, uncomplicated; F19.282 Other psychoactive substance dependence with psychoactive substance-induced sleep disorder; F19.24 Other psychoactive substance dependence with psychoactive substance-induced mood disorder; F31.9 Bipolar disorder, unspecified; F42.9 Obsessive-compulsive disorder, unspecified; E46 Unspecified protein-calorie malnutrition; I10 Essential (primary) hypertension; E78.5 Hyperlipidemia, unspecified; K21.9 Gastro-esophageal reflux disease without esophagitis; R94.5 Abnormal results of liver function studies; Z68.25 Body mass index [BMI] 25.0-25.9, adult; M20.002 Unspecified deformity of left finger(s); Z91.14 Patient's other noncompliance with medication regimen
CPT/HCPCS: 36415; 80053; 85027; 86780; 93005; 93010; C9803; U0003; U0005

== ENCOUNTER 2020-06-23 13:20 | Inpatient (IN) | payer OTHER ==
[2020-06-23 14:35] VITALS: BMI 26.9
[2020-06-23] MEDS ORDERED: NICOTINE POLACRILEX 2 MG GUM BUC PRN (14:50)
[2020-06-23] MEDS ORDERED: ACETAMINOPHEN 325 MG TABLET (FP) PO PRN ×2 (14:50)
[2020-06-23] MEDS ORDERED: IBUPROFEN 400 MG TABLET (FP) PO PRN (14:50)
[2020-06-23] MEDS ORDERED: MAG HYDROX/AL HYDROX/SIMETH 30 ML UNIT-DOSE CUP PO PRN (14:50)
[2020-06-23] MEDS ORDERED: METHOCARBAMOL 500 MG TABLET PO PRN (14:50)
[2020-06-23] MEDS ORDERED: MAGNESIUM CITRATE 300 ML BOTTLE PO PRN (14:50)
[2020-06-23] MEDS ORDERED: MENTHOL/PHENOL 1 EACH UD MM PRN (14:50)
[2020-06-23] MEDS ORDERED: LORazepam 1 MG TABLET PO PRN (14:50)
[2020-06-23] MEDS ORDERED: BISMUTH SUBSALICYLATE 524 MG/30 ML UD PO PRN (14:50)
[2020-06-23] MEDS ORDERED: ONDANSETRON *ODT* 4 MG TABLET SL PRN (14:50)
[2020-06-23] MEDS ORDERED: MAGNESIUM HYDROX 2400MG/30ML ORAL SUSPENSION 30 ML CUP PO PRN (14:50)
[2020-06-23] MEDS ORDERED: NICOTINE 14 MG/24 HOURS TOPICAL PATCH TD SCH (15:00)
[2020-06-23] MEDS ORDERED: PRENATAL VITAMINS W/ FOLIC ACID TABLET (FP) PO SCH (15:00)
[2020-06-23 17:13] LABS: ALBUMIN 3.7 g/dl (3.4-5.0)
[2020-06-23 17:14] LABS: BLOOD UREA NITROGEN 18.8 mg/dL (7-18); CALCIUM 8.4 mg/dL (8.5-10.1)
[2020-06-23 17:17] LABS: HEMATOCRIT 44.9 % (35.4-49); HEMOGLOBIN 15.2 GM/dL (11.7-16.9); MCH 33.3 pg (25.7-33.7); MCHC 33.8 g/dl (32.0-35.9); MEAN CELL VOLUME 98.6 fl (80-96); MEAN PLT VOLUME 9.4 fl (7.5-11.1); PLATELET COUNT 229 K/MM3 (134-434); RBC 4.56 M/mm3 (4.00-5.60); RDW 14.3 % (11.9-15.9); WHITE BLOOD COUNT 7.9 K/mm3 (4.0-10.0)
[2020-06-23 17:18] LABS: CREATININE 1.1 mg/dL (0.55-1.3)
[2020-06-23 17:19] LABS: BILIRUBIN,TOTAL 0.8 mg/dL (0.2-1); TOT PROT 7.4 g/dl (6.4-8.2)
[2020-06-23] MEDS: LORazepam 2 MG TABLET PO SCH ×2 (18:17→22:54)
[2020-06-23] MEDS: hydrOXYzine PAMOATE 25 MG CAPSULE (FP) PO SCH ×2 (18:19→22:54)
[2020-06-23] MEDS ORDERED: MELATONIN 5 MG TABLETS PO SCH (22:00)
[2020-06-23] MEDS ORDERED: THIAMINE HCL 100 MG TABLET (FP) PO SCH (22:00)
[2020-06-24] MEDS: hydrOXYzine PAMOATE 25 MG CAPSULE (FP) PO SCH (05:50)
[2020-06-24] MEDS: LORazepam 2 MG TABLET PO SCH (05:50)
[2020-06-24 06:12] VITALS: PULSE 78
[2020-06-24 09:48] VITALS: BP 123/82; TEMP 98.1
[2020-06-24] MEDS ORDERED: PANTOPRAZOLE 20 MG TABLET PO SCH (10:00)
[2020-06-24 10:55] LABS: HIV INTERPRETATION NEGATIVE (NEGATIVE)
[2020-06-25] MEDS ORDERED: LORazepam 1 MG TABLET PO SCH (05:00)
[2020-06-26] MEDS ORDERED: LORazepam 0.5 MG TABLET PO PRN
[2020-06-26] MEDS ORDERED: LORazepam 0.5 MG TABLET PO SCH (05:00)
[2020-06-27] MEDS ORDERED: LORazepam 0.5 MG TABLET PO ONE (05:00)
== END 2020-06-24 09:17 | disposition left against medical advice (07) | DRG 770 ==
LOC: YASAS 13:20 → Y6N 15:51
PROVIDERS: ADMIT Allergy & Immunology; ATTEND Allergy & Immunology
PROC: HZ2ZZZZ Detoxification Services for Substance Abuse Treatment (ICD-10-PCS; principal; 2020-06-23)
DX: F10.230 Alcohol dependence with withdrawal, uncomplicated (principal); F10.220 Alcohol dependence with intoxication, uncomplicated; F12.20 Cannabis dependence, uncomplicated; F17.210 Nicotine dependence, cigarettes, uncomplicated; F31.9 Bipolar disorder, unspecified; F41.9 Anxiety disorder, unspecified; I10 Essential (primary) hypertension; E78.5 Hyperlipidemia, unspecified; K21.9 Gastro-esophageal reflux disease without esophagitis; N40.0 Benign prostatic hyperplasia without lower urinary tract symptoms; R94.5 Abnormal results of liver function studies; Z56.0 Unemployment, unspecified; Z59.0 Homelessness
CPT/HCPCS: 36415; 80053; 85027; 86780; 87389; C9803; U0003; U0005

== ENCOUNTER 2020-07-23 15:32 | Inpatient (IN) | payer OTHER ==
[2020-07-23 16:15] VITALS: BMI 27.6
[2020-07-23] MEDS ORDERED: MAGNESIUM HYDROX 2400MG/30ML ORAL SUSPENSION 30 ML CUP PO PRN (18:11)
[2020-07-23] MEDS ORDERED: diazePAM 5 MG TABLET PO PRN (18:11)
[2020-07-23] MEDS ORDERED: NICOTINE POLACRILEX 2 MG GUM BUC PRN (18:11)
[2020-07-23] MEDS ORDERED: diazePAM 5 MG TABLET PO ONE (18:11)
[2020-07-23] MEDS ORDERED: METHOCARBAMOL 500 MG TABLET PO PRN (18:11)
[2020-07-23] MEDS ORDERED: MAGNESIUM CITRATE 300 ML BOTTLE PO PRN (18:11)
[2020-07-23] MEDS ORDERED: BISMUTH SUBSALICYLATE 524 MG/30 ML PO PRN (18:11)
[2020-07-23] MEDS ORDERED: MENTHOL/PHENOL 1 EACH UD MM PRN (18:11)
[2020-07-23] MEDS ORDERED: IBUPROFEN 400 MG TABLET (FP) PO PRN (18:11)
[2020-07-23] MEDS ORDERED: MAG HYDROX/AL HYDROX/SIMETH 30 ML UNIT-DOSE CUP PO PRN (18:11)
[2020-07-23] MEDS ORDERED: ACETAMINOPHEN 325 MG TABLET (FP) PO PRN ×2 (18:11)
[2020-07-23] MEDS ORDERED: ONDANSETRON *ODT* 4 MG TABLET SL PRN (18:11)
[2020-07-23] MEDS: NICOTINE 21 MG/24 HOURS TOPICAL PATCH TD SCH (19:52)
[2020-07-23] MEDS: PRENATAL VITAMINS W/ FOLIC ACID TABLET (FP) PO SCH (19:52)
[2020-07-23] MEDS: MELATONIN 5 MG TABLETS PO SCH (22:21)
[2020-07-23] MEDS: diazePAM 5 MG TABLET PO SCH (22:21)
[2020-07-23] MEDS: THIAMINE HCL 100 MG TABLET (FP) PO SCH (22:21)
[2020-07-23] MEDS: hydrOXYzine PAMOATE 25 MG CAPSULE (FP) PO SCH (22:23)
[2020-07-24] MEDS: diazePAM 5 MG TABLET PO SCH ×4 (05:22→22:28)
[2020-07-24] MEDS: hydrOXYzine PAMOATE 25 MG CAPSULE (FP) PO SCH ×5 (05:22→22:29)
[2020-07-24] MEDS: PRENATAL VITAMINS W/ FOLIC ACID TABLET (FP) PO SCH (10:25)
[2020-07-24] MEDS: NICOTINE 21 MG/24 HOURS TOPICAL PATCH TD SCH (10:27)
[2020-07-24 10:29] LABS: MCH 33.8 pg (25.7-33.7); MCHC 34.1 g/dl (32.0-35.9); MEAN CELL VOLUME 99.1 fl (80-96); MEAN PLT VOLUME 9.5 fl (7.5-11.1); PLATELET COUNT 146 K/MM3 (134-434); RBC 4.14 M/mm3 (4.00-5.60); RDW 13.8 % (11.9-15.9)
[2020-07-24 10:32] LABS: CALCIUM 8.1 mg/dL (8.5-10.1)
[2020-07-24 10:33] LABS: ALBUMIN 3.2 g/dl (3.4-5.0)
[2020-07-24 10:37] LABS: BILIRUBIN,TOTAL 0.6 mg/dL (0.2-1); TOT PROT 6.2 g/dl (6.4-8.2)
[2020-07-24] MEDS: FLUoxetine HCL 10 MG CAPSULE PO SCH (12:25)
[2020-07-24] MEDS ORDERED: traZODone HCL 100 MG TABLET (FP) PO SCH (22:00)
[2020-07-24] MEDS: THIAMINE HCL 100 MG TABLET (FP) PO SCH (22:27)
[2020-07-24] MEDS: MELATONIN 5 MG TABLETS PO SCH (22:28)
[2020-07-25] MEDS ORDERED: diazePAM 5 MG TABLET PO SCH (06:00)
[2020-07-25] MEDS: hydrOXYzine PAMOATE 25 MG CAPSULE (FP) PO SCH ×2 (07:00→10:52)
[2020-07-25 09:20] VITALS: BP 113/81; PULSE 68; TEMP 97.7
[2020-07-25] MEDS: NICOTINE 21 MG/24 HOURS TOPICAL PATCH TD SCH (10:51)
[2020-07-25] MEDS: PRENATAL VITAMINS W/ FOLIC ACID TABLET (FP) PO SCH (10:51)
[2020-07-25] MEDS: FLUoxetine HCL 10 MG CAPSULE PO SCH (10:52)
[2020-07-26] MEDS ORDERED: diazePAM 5 MG TABLET PO SCH (06:00)
[2020-07-27] MEDS ORDERED: diazePAM 5 MG TABLET PO ONE (06:00)
== END 2020-07-25 13:14 | disposition left against medical advice (07) | DRG 775 ==
LOC: YASAS 15:32 → Y6N 17:55
PROVIDERS: ADMIT Allergy & Immunology; ATTEND Allergy & Immunology
PROC: HZ2ZZZZ Detoxification Services for Substance Abuse Treatment (ICD-10-PCS; principal; 2020-07-23)
DX: F10.230 Alcohol dependence with withdrawal, uncomplicated (principal); F12.20 Cannabis dependence, uncomplicated; F17.210 Nicotine dependence, cigarettes, uncomplicated; F19.24 Other psychoactive substance dependence with psychoactive substance-induced mood disorder; F31.9 Bipolar disorder, unspecified; F42.9 Obsessive-compulsive disorder, unspecified; I10 Essential (primary) hypertension; K21.9 Gastro-esophageal reflux disease without esophagitis; M20.002 Unspecified deformity of left finger(s)
CPT/HCPCS: 36415; 80053; 80178; 85027; 86780; C9803; U0003; U0005

== ENCOUNTER 2020-08-11 12:53 | Inpatient (IN) | payer OTHER ==
[2020-08-11 13:34] VITALS: BMI 29.9
[2020-08-11] MEDS ORDERED: BISMUTH SUBSALICYLATE 524 MG/30 ML PO PRN (14:40)
[2020-08-11] MEDS ORDERED: LORazepam 1 MG TABLET PO PRN (14:40)
[2020-08-11] MEDS ORDERED: NICOTINE POLACRILEX 2 MG GUM BUC PRN (14:40)
[2020-08-11] MEDS ORDERED: MAG HYDROX/AL HYDROX/SIMETH 30 ML UNIT-DOSE CUP PO PRN (14:40)
[2020-08-11] MEDS ORDERED: ACETAMINOPHEN 325 MG TABLET (FP) PO PRN ×2 (14:40)
[2020-08-11] MEDS ORDERED: ONDANSETRON *ODT* 4 MG TABLET SL PRN (14:40)
[2020-08-11] MEDS ORDERED: MAGNESIUM HYDROX 2400MG/30ML ORAL SUSPENSION 30 ML CUP PO PRN (14:40)
[2020-08-11] MEDS ORDERED: IBUPROFEN 400 MG TABLET (FP) PO PRN (14:40)
[2020-08-11] MEDS ORDERED: METHOCARBAMOL 500 MG TABLET PO PRN (14:40)
[2020-08-11] MEDS ORDERED: MENTHOL/PHENOL 1 EACH UD MM PRN (14:40)
[2020-08-11] MEDS ORDERED: MAGNESIUM CITRATE 300 ML BOTTLE PO PRN (14:40)
[2020-08-11 16:02] LABS: HEMATOCRIT 41.4 % (35.4-49); HEMOGLOBIN 14.3 GM/dL (11.7-16.9); MCH 33.3 pg (25.7-33.7); MCHC 34.5 g/dl (32.0-35.9); MEAN CELL VOLUME 96.7 fl (80-96); MEAN PLT VOLUME 8.8 fl (7.5-11.1); PLATELET COUNT 224 10^3/uL (134-434); RBC 4.28 M/mm3 (4.00-5.60); RDW 13.5 % (11.9-15.9); WHITE BLOOD COUNT 5.8 K/mm3 (4.0-10.0)
[2020-08-11 16:09] LABS: CALCIUM 8.3 mg/dL (8.5-10.1)
[2020-08-11 16:10] LABS: ALBUMIN 3.6 g/dl (3.4-5.0); BLOOD UREA NITROGEN 12.1 mg/dL (7-18)
[2020-08-11 16:15] LABS: BILIRUBIN,TOTAL 1.2 mg/dL (0.2-1)
[2020-08-11] MEDS: hydrOXYzine PAMOATE 25 MG CAPSULE (FP) PO SCH ×2 (17:41→22:31)
[2020-08-11] MEDS: PRENATAL VITAMINS W/ FOLIC ACID TABLET (FP) PO SCH (17:41)
[2020-08-11] MEDS: NICOTINE 21 MG/24 HOURS TOPICAL PATCH TD SCH (17:41)
[2020-08-11] MEDS: PANTOPRAZOLE 20 MG TABLET PO SCH (17:42)
[2020-08-11] MEDS: LORazepam 2 MG TABLET PO SCH ×2 (17:42→22:31)
[2020-08-11] MEDS: BACITRACIN 0.9 GM PACKET TP SCH (17:48)
[2020-08-11] MEDS ORDERED: PATIENT'S OWN MEDICATION (NON-FORMULARY) (Omeprazole 20 MG Capsule.Dr) PO SCH (22:00)
[2020-08-11] MEDS: THIAMINE HCL 100 MG TABLET (FP) PO SCH (22:31)
[2020-08-11] MEDS: MELATONIN 5 MG TABLETS PO SCH (22:31)
[2020-08-12] MEDS: LORazepam 2 MG TABLET PO SCH ×4 (05:33→22:28)
[2020-08-12] MEDS: hydrOXYzine PAMOATE 25 MG CAPSULE (FP) PO SCH ×5 (05:33→22:27)
[2020-08-12] MEDS: PANTOPRAZOLE 20 MG TABLET PO SCH (10:24)
[2020-08-12] MEDS: NICOTINE 21 MG/24 HOURS TOPICAL PATCH TD SCH (10:24)
[2020-08-12] MEDS: PRENATAL VITAMINS W/ FOLIC ACID TABLET (FP) PO SCH (10:24)
[2020-08-12] MEDS: BACITRACIN 0.9 GM PACKET TP SCH (10:25)
[2020-08-12] MEDS: traZODone HCL 100 MG TABLET (FP) PO SCH (22:27)
[2020-08-12] MEDS: MELATONIN 5 MG TABLETS PO SCH (22:27)
[2020-08-12] MEDS: THIAMINE HCL 100 MG TABLET (FP) PO SCH (22:27)
[2020-08-13] MEDS: LORazepam 1 MG TABLET PO SCH ×4 (06:22→22:21)
[2020-08-13] MEDS: hydrOXYzine PAMOATE 25 MG CAPSULE (FP) PO SCH ×5 (06:22→22:20)
[2020-08-13] MEDS: NICOTINE 21 MG/24 HOURS TOPICAL PATCH TD SCH (10:07)
[2020-08-13] MEDS: BACITRACIN 0.9 GM PACKET TP SCH (10:09)
[2020-08-13] MEDS: PANTOPRAZOLE 20 MG TABLET PO SCH (10:09)
[2020-08-13] MEDS: PRENATAL VITAMINS W/ FOLIC ACID TABLET (FP) PO SCH (10:09)
[2020-08-13 21:31] VITALS: TEMP 96.8
[2020-08-13] MEDS: traZODone HCL 100 MG TABLET (FP) PO SCH (22:21)
[2020-08-13] MEDS: MELATONIN 5 MG TABLETS PO SCH (22:21)
[2020-08-13] MEDS: THIAMINE HCL 100 MG TABLET (FP) PO SCH (22:21)
[2020-08-14] MEDS ORDERED: LORazepam 0.5 MG TABLET PO PRN
[2020-08-14] MEDS: LORazepam 0.5 MG TABLET PO SCH ×2 (06:04→10:44)
[2020-08-14] MEDS: hydrOXYzine PAMOATE 25 MG CAPSULE (FP) PO SCH ×2 (06:05→09:01)
[2020-08-14 06:49] VITALS: BP 121/81; PULSE 75
[2020-08-14] MEDS: NICOTINE 21 MG/24 HOURS TOPICAL PATCH TD SCH (09:01)
[2020-08-14] MEDS: PANTOPRAZOLE 20 MG TABLET PO SCH (09:01)
[2020-08-14] MEDS: BACITRACIN 0.9 GM PACKET TP SCH (09:01)
[2020-08-14] MEDS: PRENATAL VITAMINS W/ FOLIC ACID TABLET (FP) PO SCH (09:01)
[2020-08-15] MEDS ORDERED: LORazepam 0.5 MG TABLET PO ONE (05:00)
== END 2020-08-14 08:58 | disposition home or self-care (01) | DRG 775 ==
LOC: YASAS 12:53 → Y3N 14:44
PROVIDERS: ADMIT Allergy & Immunology; ATTEND Allergy & Immunology
PROC: HZ2ZZZZ Detoxification Services for Substance Abuse Treatment (ICD-10-PCS; principal; 2020-08-11)
DX: F10.230 Alcohol dependence with withdrawal, uncomplicated (principal); F12.20 Cannabis dependence, uncomplicated; F17.210 Nicotine dependence, cigarettes, uncomplicated; F19.24 Other psychoactive substance dependence with psychoactive substance-induced mood disorder; I10 Essential (primary) hypertension; G47.00 Insomnia, unspecified; K21.9 Gastro-esophageal reflux disease without esophagitis; Z56.0 Unemployment, unspecified; Z59.0 Homelessness
CPT/HCPCS: 36415; 80053; 80178; 85027; 86780; C9803; U0003; U0005

== ENCOUNTER 2020-09-11 13:44 | Inpatient (IN) | payer OTHER ==
[2020-09-11 15:52] VITALS: BMI 26.1
[2020-09-11] MEDS ORDERED: MENTHOL/PHENOL 1 EACH UD MM PRN (20:37)
[2020-09-11] MEDS ORDERED: ONDANSETRON *ODT* 4 MG TABLET SL PRN (20:37)
[2020-09-11] MEDS ORDERED: ACETAMINOPHEN 325 MG TABLET (FP) PO PRN ×2 (20:37)
[2020-09-11] MEDS ORDERED: MAGNESIUM HYDROX 2400MG/30ML ORAL SUSPENSION 30 ML CUP PO PRN (20:37)
[2020-09-11] MEDS ORDERED: BISMUTH SUBSALICYLATE 524 MG/30 ML PO PRN (20:37)
[2020-09-11] MEDS ORDERED: MAGNESIUM CITRATE 300 ML BOTTLE PO PRN (20:37)
[2020-09-11] MEDS ORDERED: IBUPROFEN 400 MG TABLET (FP) PO PRN (20:37)
[2020-09-11] MEDS ORDERED: NICOTINE POLACRILEX 2 MG GUM BUC PRN (20:37)
[2020-09-11] MEDS: THIAMINE HCL 100 MG TABLET (FP) PO SCH (21:59)
[2020-09-11] MEDS: MELATONIN 5 MG TABLETS PO SCH (21:59)
[2020-09-12] MEDS: PRENATAL VITAMINS W/ FOLIC ACID TABLET (FP) PO SCH (09:02)
[2020-09-12] MEDS ORDERED: LORazepam 1 MG TABLET PO PRN (09:45)
[2020-09-12] MEDS: MAG HYDROX/AL HYDROX/SIMETH 30 ML UNIT-DOSE CUP PO PRN (12:10)
[2020-09-12] MEDS: LORazepam 2 MG TABLET PO SCH ×3 (12:10→23:07)
[2020-09-12] MEDS: METHOCARBAMOL 500 MG TABLET PO PRN (12:10)
[2020-09-12] MEDS: hydrOXYzine PAMOATE 25 MG CAPSULE (FP) PO PRN (12:10)
[2020-09-12] MEDS: traZODone HCL 50 MG TABLET (FP) PO SCH (23:07)
[2020-09-12] MEDS: THIAMINE HCL 100 MG TABLET (FP) PO SCH (23:07)
[2020-09-12] MEDS: MELATONIN 5 MG TABLETS PO SCH (23:08)
[2020-09-13] MEDS: LORazepam 2 MG TABLET PO SCH ×4 (08:00→23:18)
[2020-09-13] MEDS: PRENATAL VITAMINS W/ FOLIC ACID TABLET (FP) PO SCH (10:21)
[2020-09-13] MEDS: hydrOXYzine PAMOATE 25 MG CAPSULE (FP) PO PRN (10:21)
[2020-09-13] MEDS: METHOCARBAMOL 500 MG TABLET PO PRN (10:21)
[2020-09-13] MEDS: FLUoxetine HCL 10 MG CAPSULE PO SCH (11:54)
[2020-09-13] MEDS: FAMOTIDINE 20 MG TABLET PO SCH ×2 (11:54→23:18)
[2020-09-13] MEDS: traZODone HCL 50 MG TABLET (FP) PO SCH (23:18)
[2020-09-13] MEDS: MELATONIN 5 MG TABLETS PO SCH (23:18)
[2020-09-13] MEDS: THIAMINE HCL 100 MG TABLET (FP) PO SCH (23:19)
[2020-09-14] MEDS: LORazepam 1 MG TABLET PO SCH ×4 (05:54→22:43)
[2020-09-14] MEDS: PRENATAL VITAMINS W/ FOLIC ACID TABLET (FP) PO SCH (10:17)
[2020-09-14] MEDS: FAMOTIDINE 20 MG TABLET PO SCH ×2 (10:18→22:43)
[2020-09-14] MEDS: hydrOXYzine PAMOATE 25 MG CAPSULE (FP) PO PRN ×2 (10:18→22:42)
[2020-09-14 11:12] LABS: HEMATOCRIT 42.4 % (35.4-49); HEMOGLOBIN 14.5 GM/dL (11.7-16.9); MCH 34.5 pg (25.7-33.7); MCHC 34.3 g/dl (32.0-35.9); MEAN CELL VOLUME 100.6 fl (80-96); PLATELET COUNT 151 10^3/uL (134-434); RBC 4.22 M/mm3 (4.00-5.60); RDW 14.4 % (11.9-15.9); WHITE BLOOD COUNT 4.6 K/mm3 (4.0-10.0)
[2020-09-14 11:21] LABS: ALBUMIN 3.1 g/dl (3.4-5.0); BLOOD UREA NITROGEN 14.1 mg/dL (7-18); CALCIUM 8.7 mg/dL (8.5-10.1)
[2020-09-14 11:25] LABS: BILIRUBIN,TOTAL 0.5 mg/dL (0.2-1); TOT PROT 6.2 g/dl (6.4-8.2)
[2020-09-14] MEDS: FLUoxetine HCL 10 MG CAPSULE PO SCH (12:19)
[2020-09-14] MEDS: MAG HYDROX/AL HYDROX/SIMETH 30 ML UNIT-DOSE CUP PO PRN (17:57)
[2020-09-14] MEDS: METHOCARBAMOL 500 MG TABLET PO PRN (18:00)
[2020-09-14] MEDS: traZODone HCL 50 MG TABLET (FP) PO SCH (22:42)
[2020-09-14] MEDS: THIAMINE HCL 100 MG TABLET (FP) PO SCH (22:43)
[2020-09-14] MEDS: MELATONIN 5 MG TABLETS PO SCH (22:44)
[2020-09-15] MEDS ORDERED: LORazepam 0.5 MG TABLET PO PRN
[2020-09-15] MEDS ORDERED: LORazepam 0.5 MG TABLET PO SCH (05:00)
[2020-09-15 06:43] VITALS: BP 100/73; PULSE 83; TEMP 96.7
[2020-09-16] MEDS ORDERED: LORazepam 0.5 MG TABLET PO ONE (05:00)
== END 2020-09-15 09:15 | disposition home or self-care (01) | DRG 775 ==
LOC: YASAS 13:44 → UNDOADMIN 09-12 10:31 → Y3N 09-12 10:31 → UNDOADMIN 09-12 11:15 → Y3N 09-12 11:15
PROVIDERS: ADMIT Allergy & Immunology; ATTEND Allergy & Immunology
PROC: HZ2ZZZZ Detoxification Services for Substance Abuse Treatment (ICD-10-PCS; principal; 2020-09-12)
DX: F10.230 Alcohol dependence with withdrawal, uncomplicated (principal); F10.220 Alcohol dependence with intoxication, uncomplicated; F12.20 Cannabis dependence, uncomplicated; F17.210 Nicotine dependence, cigarettes, uncomplicated; F19.24 Other psychoactive substance dependence with psychoactive substance-induced mood disorder; F42.9 Obsessive-compulsive disorder, unspecified; F41.9 Anxiety disorder, unspecified; F31.9 Bipolar disorder, unspecified; I10 Essential (primary) hypertension; K21.9 Gastro-esophageal reflux disease without esophagitis; G47.00 Insomnia, unspecified; Z56.0 Unemployment, unspecified; Z59.0 Homelessness
CPT/HCPCS: 36415; 80053; 80178; 85027; 86780; C9803; U0003; U0005

== ENCOUNTER 2020-11-30 12:37 | Inpatient (IN) | payer OTHER ==
[2020-11-30 15:01] VITALS: BMI 26.2
[2020-11-30] MEDS ORDERED: IBUPROFEN 400 MG TABLET (FP) PO PRN (15:47)
[2020-11-30] MEDS ORDERED: MAGNESIUM HYDROX 2400MG/30ML ORAL SUSPENSION 30 ML CUP PO PRN (15:47)
[2020-11-30] MEDS ORDERED: chlordiazePOXIDE HCL 25 MG CAPSULE PO PRN (15:47)
[2020-11-30] MEDS ORDERED: MAGNESIUM CITRATE 300 ML BOTTLE PO PRN (15:47)
[2020-11-30] MEDS ORDERED: ONDANSETRON *ODT* 4 MG TABLET SL PRN (15:47)
[2020-11-30] MEDS ORDERED: BISMUTH SUBSALICYLATE 524 MG/30 ML PO PRN (15:47)
[2020-11-30] MEDS ORDERED: ACETAMINOPHEN 325 MG TABLET (FP) PO PRN ×2 (15:47)
[2020-11-30] MEDS ORDERED: NICOTINE 10 MG CARTRIDGE (INHALER) IH PRN (15:47)
[2020-11-30] MEDS ORDERED: MAG HYDROX/AL HYDROX/SIMETH 30 ML UNIT-DOSE CUP PO PRN (15:47)
[2020-11-30] MEDS ORDERED: diazePAM 5 MG TABLET PO PRN (16:37)
[2020-11-30] MEDS ORDERED: chlordiazePOXIDE HCL 10 MG CAPSULE PO SCH ×2 (16:45→17:00)
[2020-11-30] MEDS ORDERED: chlordiazePOXIDE HCL 25 MG CAPSULE PO SCH ×2 (17:00)
[2020-11-30] MEDS: hydrOXYzine PAMOATE 25 MG CAPSULE (FP) PO SCH ×2 (18:27→23:48)
[2020-11-30] MEDS: diazePAM 5 MG TABLET PO SCH ×2 (18:27→23:48)
[2020-11-30] MEDS ORDERED: MELATONIN 5 MG TABLETS PO SCH (22:00)
[2020-11-30] MEDS ORDERED: PATIENT'S OWN MEDICATION (NON-FORMULARY) (Omeprazole 20 MG Capsule.Dr) PO SCH (22:00)
[2020-11-30] MEDS: THIAMINE HCL 100 MG TABLET (FP) PO SCH (23:49)
[2020-12-01] MEDS: diazePAM 5 MG TABLET PO SCH ×4 (05:40→22:16)
[2020-12-01] MEDS: hydrOXYzine PAMOATE 25 MG CAPSULE (FP) PO SCH ×5 (05:41→23:05)
[2020-12-01] MEDS: PRENATAL VITAMINS W/ FOLIC ACID TABLET (FP) PO SCH (10:32)
[2020-12-01] MEDS: PANTOPRAZOLE 40 MG TABLET PO SCH (10:32)
[2020-12-01] MEDS ORDERED: FLU VACC QS2021-22(6MOS UP)/PF 60 MCG/0.5 ML SYRINGE IM ONE (12:00)
[2020-12-01 12:49] LABS: HEMATOCRIT 43.8 % (35.4-49); HEMOGLOBIN 15.2 GM/dL (11.7-16.9); MCHC 34.8 g/dl (32.0-35.9); MEAN CELL VOLUME 97.8 fl (80-96); MEAN PLT VOLUME 10.7 fl (7.5-11.1); PLATELET COUNT 183 10^3/uL (134-434); RBC 4.47 M/mm3 (4.00-5.60); RDW 12.9 % (11.9-15.9); WHITE BLOOD COUNT 8.5 K/mm3 (4.0-10.0)
[2020-12-01] MEDS: FLUoxetine HCL 10 MG CAPSULE PO SCH (12:55)
[2020-12-01 13:01] LABS: ALBUMIN 3.3 g/dl (3.4-5.0)
[2020-12-01 13:03] LABS: TOT PROT 6.6 g/dl (6.4-8.2)
[2020-12-01 13:05] LABS: CREATININE 0.9 mg/dL (0.55-1.3)
[2020-12-01] MEDS: THIAMINE HCL 100 MG TABLET (FP) PO SCH (22:16)
[2020-12-01] MEDS: traZODone HCL 100 MG TABLET (FP) PO SCH (22:16)
[2020-12-02] MEDS ORDERED: chlordiazePOXIDE HCL 25 MG CAPSULE PO SCH (05:00)
[2020-12-02] MEDS: hydrOXYzine PAMOATE 25 MG CAPSULE (FP) PO SCH ×5 (06:42→22:10)
[2020-12-02] MEDS: diazePAM 5 MG TABLET PO SCH ×3 (06:42→22:09)
[2020-12-02] MEDS: PRENATAL VITAMINS W/ FOLIC ACID TABLET (FP) PO SCH (10:09)
[2020-12-02] MEDS: PANTOPRAZOLE 40 MG TABLET PO SCH (10:10)
[2020-12-02] MEDS: FLUoxetine HCL 10 MG CAPSULE PO SCH (10:10)
[2020-12-02] MEDS: MENTHOL/PHENOL 1 EACH UD MM PRN (10:11)
[2020-12-02] MEDS: METHOCARBAMOL 500 MG TABLET PO PRN (10:11)
[2020-12-02] MEDS: traZODone HCL 100 MG TABLET (FP) PO SCH (22:10)
[2020-12-02] MEDS: THIAMINE HCL 100 MG TABLET (FP) PO SCH (22:11)
[2020-12-03] MEDS ORDERED: chlordiazePOXIDE HCL 10 MG CAPSULE PO PRN
[2020-12-03] MEDS ORDERED: chlordiazePOXIDE HCL 10 MG CAPSULE PO SCH (05:00)
[2020-12-03] MEDS: diazePAM 5 MG TABLET PO SCH ×2 (06:30→17:31)
[2020-12-03] MEDS: hydrOXYzine PAMOATE 25 MG CAPSULE (FP) PO SCH ×5 (06:30→22:00)
[2020-12-03] MEDS: FLUoxetine HCL 10 MG CAPSULE PO SCH (10:04)
[2020-12-03] MEDS: PRENATAL VITAMINS W/ FOLIC ACID TABLET (FP) PO SCH (10:04)
[2020-12-03] MEDS: METHOCARBAMOL 500 MG TABLET PO PRN (10:05)
[2020-12-03] MEDS: PANTOPRAZOLE 40 MG TABLET PO SCH (10:05)
[2020-12-03] MEDS: MENTHOL/PHENOL 1 EACH UD MM PRN (11:39)
[2020-12-03 21:20] VITALS: TEMP 97.5
[2020-12-03] MEDS: traZODone HCL 100 MG TABLET (FP) PO SCH (22:00)
[2020-12-03] MEDS: THIAMINE HCL 100 MG TABLET (FP) PO SCH (22:01)
[2020-12-04] MEDS ORDERED: chlordiazePOXIDE HCL 10 MG CAPSULE PO SCH (05:00)
[2020-12-04] MEDS: hydrOXYzine PAMOATE 25 MG CAPSULE (FP) PO SCH (05:24)
[2020-12-04] MEDS ORDERED: diazePAM 5 MG TABLET PO ONE (06:00)
[2020-12-04 06:05] VITALS: BP 102/63; PULSE 86
[2020-12-05] MEDS ORDERED: chlordiazePOXIDE HCL 10 MG CAPSULE PO ONE (05:00)
== END 2020-12-04 07:41 | disposition home or self-care (01) | DRG 775 ==
LOC: YASAS 12:37 → Y6N 16:44
PROVIDERS: ADMIT Allergy & Immunology; ATTEND Allergy & Immunology
PROC: HZ2ZZZZ Detoxification Services for Substance Abuse Treatment (ICD-10-PCS; principal; 2020-11-30)
DX: F10.230 Alcohol dependence with withdrawal, uncomplicated (principal); F12.20 Cannabis dependence, uncomplicated; F17.210 Nicotine dependence, cigarettes, uncomplicated; F31.9 Bipolar disorder, unspecified; F19.24 Other psychoactive substance dependence with psychoactive substance-induced mood disorder; F19.282 Other psychoactive substance dependence with psychoactive substance-induced sleep disorder; I10 Essential (primary) hypertension; K21.9 Gastro-esophageal reflux disease without esophagitis; E78.5 Hyperlipidemia, unspecified; M20.002 Unspecified deformity of left finger(s); Z56.0 Unemployment, unspecified; Z59.02 Unsheltered homelessness
CPT/HCPCS: 36415; 80053; 85027; 86780; C9803; Q0162; U0003; U0005

== ENCOUNTER 2021-01-04 10:11 | Inpatient (IN) | payer OTHER ==
[2021-01-04] MEDS ORDERED: MAGNESIUM HYDROX 2400MG/30ML ORAL SUSPENSION 30 ML CUP PO PRN (10:35)
[2021-01-04] MEDS ORDERED: ONDANSETRON *ODT* 4 MG TABLET SL PRN (10:35)
[2021-01-04] MEDS ORDERED: NICOTINE 10 MG CARTRIDGE (INHALER) IH PRN (10:35)
[2021-01-04] MEDS ORDERED: MAG HYDROX/AL HYDROX/SIMETH 30 ML UNIT-DOSE CUP PO PRN (10:35)
[2021-01-04] MEDS ORDERED: METHOCARBAMOL 500 MG TABLET PO PRN (10:35)
[2021-01-04] MEDS ORDERED: BISMUTH SUBSALICYLATE 524 MG/30 ML PO PRN (10:35)
[2021-01-04] MEDS ORDERED: IBUPROFEN 400 MG TABLET (FP) PO PRN (10:35)
[2021-01-04] MEDS ORDERED: ACETAMINOPHEN 325 MG TABLET (FP) PO PRN ×2 (10:35)
[2021-01-04] MEDS ORDERED: MAGNESIUM CITRATE 300 ML BOTTLE PO PRN (10:35)
[2021-01-04 10:44] VITALS: BMI 28.1
[2021-01-04] MEDS: NICOTINE 14 MG/24 HOURS TOPICAL PATCH TD SCH (12:13)
[2021-01-04] MEDS: PRENATAL VITAMINS W/ FOLIC ACID TABLET (FP) PO SCH (12:14)
[2021-01-04] MEDS: diazePAM 5 MG TABLET PO SCH ×3 (12:14→22:50)
[2021-01-04] MEDS: hydrOXYzine PAMOATE 25 MG CAPSULE (FP) PO SCH ×3 (14:41→22:50)
[2021-01-04 14:50] LABS: HEMATOCRIT 41.7 % (35.4-49); HEMOGLOBIN 14.2 GM/dL (11.7-16.9); MCH 33.2 pg (25.7-33.7); MCHC 33.9 g/dl (32.0-35.9); MEAN CELL VOLUME 97.7 fl (80-96); MEAN PLT VOLUME 10.2 fl (7.5-11.1); PLATELET COUNT 205 10^3/uL (134-434); RBC 4.27 M/mm3 (4.00-5.60); RDW 13.6 % (11.9-15.9); WHITE BLOOD COUNT 6.5 K/mm3 (4.0-10.0)
[2021-01-04 16:54] LABS: CALCIUM 8.5 mg/dL (8.5-10.1)
[2021-01-04 16:55] LABS: ALBUMIN 3.5 g/dl (3.4-5.0); BLOOD UREA NITROGEN 16.4 mg/dL (7-18)
[2021-01-04 16:58] LABS: BILIRUBIN,TOTAL 0.8 mg/dL (0.2-1); CREATININE 0.8 mg/dL (0.55-1.3); TOT PROT 6.8 g/dl (6.4-8.2)
[2021-01-04] MEDS: MENTHOL/PHENOL 1 EACH UD MM PRN (18:03)
[2021-01-04] MEDS: FAMOTIDINE 20 MG TABLET PO SCH (22:50)
[2021-01-04] MEDS: MELATONIN 5 MG TABLETS PO SCH (22:50)
[2021-01-04] MEDS: THIAMINE HCL 100 MG TABLET (FP) PO SCH (22:50)
[2021-01-05] MEDS: hydrOXYzine PAMOATE 25 MG CAPSULE (FP) PO SCH ×5 (06:21→22:34)
[2021-01-05] MEDS: diazePAM 5 MG TABLET PO SCH ×4 (06:22→22:36)
[2021-01-05] MEDS: NICOTINE 14 MG/24 HOURS TOPICAL PATCH TD SCH (10:39)
[2021-01-05] MEDS: PRENATAL VITAMINS W/ FOLIC ACID TABLET (FP) PO SCH (10:40)
[2021-01-05] MEDS: FAMOTIDINE 20 MG TABLET PO SCH ×2 (10:40→22:34)
[2021-01-05] MEDS: THIAMINE HCL 100 MG TABLET (FP) PO SCH (22:34)
[2021-01-05] MEDS: MELATONIN 5 MG TABLETS PO SCH (22:34)
[2021-01-05] MEDS: traZODone HCL 100 MG TABLET (FP) PO SCH (22:34)
[2021-01-06] MEDS: hydrOXYzine PAMOATE 25 MG CAPSULE (FP) PO SCH ×6 (05:39→23:15)
[2021-01-06] MEDS: diazePAM 5 MG TABLET PO SCH ×4 (05:39→23:15)
[2021-01-06] MEDS: MENTHOL/PHENOL 1 EACH UD MM PRN (05:40)
[2021-01-06] MEDS: FAMOTIDINE 20 MG TABLET PO SCH ×2 (10:32→23:15)
[2021-01-06] MEDS: PRENATAL VITAMINS W/ FOLIC ACID TABLET (FP) PO SCH (10:32)
[2021-01-06] MEDS: NICOTINE 14 MG/24 HOURS TOPICAL PATCH TD SCH (10:32)
[2021-01-06] MEDS: guaiFENesin 200 MG/10 ML 10 ML UNIT-DOSE CUPS PO PRN ×3 (10:32→23:16)
[2021-01-06] MEDS: diazePAM 5 MG TABLET PO PRN ×2 (10:33→18:45)
[2021-01-06] MEDS: THIAMINE HCL 100 MG TABLET (FP) PO SCH (23:15)
[2021-01-06] MEDS: traZODone HCL 100 MG TABLET (FP) PO SCH (23:16)
[2021-01-06] MEDS: MELATONIN 5 MG TABLETS PO SCH (23:16)
[2021-01-07] MEDS: hydrOXYzine PAMOATE 25 MG CAPSULE (FP) PO SCH ×3 (05:54→10:52)
[2021-01-07] MEDS: MENTHOL/PHENOL 1 EACH UD MM PRN ×2 (05:55→10:53)
[2021-01-07] MEDS ORDERED: diazePAM 5 MG TABLET PO SCH (06:00)
[2021-01-07 09:30] VITALS: BP 110/56; PULSE 100; TEMP 97.3
[2021-01-07] MEDS: NICOTINE 14 MG/24 HOURS TOPICAL PATCH TD SCH (10:41)
[2021-01-07] MEDS: PRENATAL VITAMINS W/ FOLIC ACID TABLET (FP) PO SCH (10:42)
[2021-01-07] MEDS: FAMOTIDINE 20 MG TABLET PO SCH (10:42)
[2021-01-08] MEDS ORDERED: diazePAM 5 MG TABLET PO ONE (06:00)
== END 2021-01-07 11:56 | disposition home or self-care (01) | DRG 775 ==
LOC: YASAS 10:11 → Y3N 11:01
PROVIDERS: ADMIT Allergy & Immunology; ATTEND Allergy & Immunology
PROC: HZ2ZZZZ Detoxification Services for Substance Abuse Treatment (ICD-10-PCS; principal; 2021-01-04)
DX: F10.230 Alcohol dependence with withdrawal, uncomplicated (principal); F12.20 Cannabis dependence, uncomplicated; F17.210 Nicotine dependence, cigarettes, uncomplicated; F19.282 Other psychoactive substance dependence with psychoactive substance-induced sleep disorder; F19.24 Other psychoactive substance dependence with psychoactive substance-induced mood disorder; F31.9 Bipolar disorder, unspecified; E78.00 Pure hypercholesterolemia, unspecified; G47.00 Insomnia, unspecified; K21.9 Gastro-esophageal reflux disease without esophagitis; N40.0 Benign prostatic hyperplasia without lower urinary tract symptoms; Z62.810 Personal history of physical and sexual abuse in childhood; Z89.021 Acquired absence of right finger(s); Z56.0 Unemployment, unspecified; Z59.00 Homelessness unspecified
CPT/HCPCS: 36415; 80053; 82962; 83036; 85027; 86780; C9803; U0003; U0005

== ENCOUNTER 2021-01-29 13:19 | Emergency (ER) | payer OTHER ==
[2021-01-29 13:30] VITALS: BP 140/86; PULSE 110; TEMP 98.1; BMI 25.8
[2021-01-29 16:00] LABS: BASO % 1.2 % (0-2.0); EOS % 1.8 % (0-4.5); HEMATOCRIT 41.9 % (35.4-49); HEMOGLOBIN 14.2 GM/dL (11.7-16.9); LYMPH % 32.9 % (8-40); MCH 32.1 pg (25.7-33.7); MCHC 33.8 g/dl (32.0-35.9); MEAN CELL VOLUME 94.7 fl (80-96); MEAN PLT VOLUME 8.2 fl (7.5-11.1); MONO % 4.6 % (3.8-10.2); NEUT % 59.5 % (42.8-82.8); PLATELET COUNT 288 10^3/uL (134-434); RBC 4.43 M/mm3 (4.00-5.60); RDW 13.7 % (11.9-15.9); WHITE BLOOD COUNT 5.9 K/mm3 (4.0-10.0)
[2021-01-29 16:19] LABS: CHLORIDE 109 mmol/L (98-107); SODIUM 143 mmol/L (136-145)
[2021-01-29 16:22] LABS: CALCIUM 8.5 mg/dL (8.5-10.1)
[2021-01-29 16:23] LABS: ALBUMIN 3.5 g/dl (3.4-5.0); ANION GAP 9 MMOL/L (8-16); BLOOD UREA NITROGEN 13.7 mg/dL (7-18); CO2 25 mmol/L (21-32); GLUCOSE,RANDOM 96 mg/dL (74-106); MAGNESIUM 2.3 mg/dL (1.8-2.4)
[2021-01-29 16:26] LABS: CREATININE 0.8 mg/dL (0.55-1.3); SGOT/AST 26 U/L (15-37); SGPT/ALT 35 U/L (13-61)
[2021-01-29 16:28] LABS: BILIRUBIN,TOTAL 0.4 mg/dL (0.2-1); TOT PROT 6.9 g/dl (6.4-8.2)
[2021-01-29 16:29] LABS: ALK PHOS 72 U/L (45-117)
[2021-01-29 17:09] LABS: LIPASE 414 U/L (73-393)
== END 2021-01-29 19:34 | disposition home or self-care (01) ==
LOC: JER 13:19
PROC: 3E033GC Introduction of Other Therapeutic Substance into Peripheral Vein, Percutaneous Approach (ICD-10-PCS; principal; 2021-01-29)
PROC: 3E033GC Introduction of Other Therapeutic Substance into Peripheral Vein, Percutaneous Approach (ICD-10-PCS; 2021-01-29)
DX: F10.129 Alcohol abuse with intoxication, unspecified (principal); R07.9 Chest pain, unspecified
CPT/HCPCS: 36415; 70450-TC; 71045-TC-FY; 72125-TC; 80053; 82550; 83690; 83735; 84484; 85025; 93005; 93010; 99285-25

== ENCOUNTER 2021-01-29 20:16 | Inpatient (IN) | payer OTHER ==
[2021-01-29] MEDS: LORazepam 2 MG TABLET PO SCH (11:50)
[2021-01-29 21:39] VITALS: BMI 23.6
[2021-01-29] MEDS ORDERED: ACETAMINOPHEN 325 MG TABLET (FP) PO PRN ×2 (22:20)
[2021-01-29] MEDS ORDERED: LORazepam 1 MG TABLET PO PRN (22:20)
[2021-01-29] MEDS ORDERED: METHOCARBAMOL 500 MG TABLET PO PRN (22:20)
[2021-01-29] MEDS ORDERED: MENTHOL/PHENOL 1 EACH UD MM PRN (22:20)
[2021-01-29] MEDS ORDERED: NICOTINE POLACRILEX 2 MG GUM BUC PRN (22:20)
[2021-01-29] MEDS ORDERED: MAG HYDROX/AL HYDROX/SIMETH 30 ML UNIT-DOSE CUP PO PRN (22:20)
[2021-01-29] MEDS ORDERED: MAGNESIUM CITRATE 300 ML BOTTLE PO PRN (22:20)
[2021-01-29] MEDS ORDERED: ONDANSETRON *ODT* 4 MG TABLET SL PRN (22:20)
[2021-01-29] MEDS ORDERED: IBUPROFEN 400 MG TABLET (FP) PO PRN (22:20)
[2021-01-29] MEDS ORDERED: MAGNESIUM HYDROX 2400MG/30ML ORAL SUSPENSION 30 ML CUP PO PRN (22:20)
[2021-01-29] MEDS ORDERED: BISMUTH SUBSALICYLATE 524 MG/30 ML PO PRN (22:20)
[2021-01-30] MEDS ORDERED: LORazepam 2 MG TABLET ONE (00:07)
[2021-01-30] MEDS: LORazepam 2 MG TABLET PO SCH ×4 (06:27→22:41)
[2021-01-30] MEDS: PRENATAL VITAMINS W/ FOLIC ACID TABLET (FP) PO SCH (10:30)
[2021-01-30] MEDS: NICOTINE 21 MG/24 HOURS TOPICAL PATCH TD SCH (10:31)
[2021-01-30 11:08] LABS: HEMATOCRIT 39.8 % (35.4-49); HEMOGLOBIN 13.8 GM/dL (11.7-16.9); MCH 33.4 pg (25.7-33.7); MCHC 34.7 g/dl (32.0-35.9); MEAN CELL VOLUME 96.4 fl (80-96); MEAN PLT VOLUME 8.8 fl (7.5-11.1); PLATELET COUNT 240 10^3/uL (134-434); RBC 4.13 M/mm3 (4.00-5.60); RDW 13.7 % (11.9-15.9); WHITE BLOOD COUNT 6.3 K/mm3 (4.0-10.0)
[2021-01-30 11:20] LABS: ALBUMIN 3.2 g/dl (3.4-5.0); BLOOD UREA NITROGEN 12.9 mg/dL (7-18)
[2021-01-30 11:23] LABS: CREATININE 0.8 mg/dL (0.55-1.3)
[2021-01-30 11:24] LABS: BILIRUBIN,TOTAL 0.4 mg/dL (0.2-1); TOT PROT 6.4 g/dl (6.4-8.2)
[2021-01-30] MEDS ORDERED: MELATONIN 5 MG TABLETS PO SCH (22:00)
[2021-01-30] MEDS ORDERED: THIAMINE HCL 100 MG TABLET (FP) PO SCH (22:00)
[2021-01-30] MEDS ORDERED: traZODone HCL 50 MG TABLET (FP) PO SCH (22:00)
[2021-01-31 07:19] VITALS: TEMP 97.1
[2021-01-31] MEDS: LORazepam 1 MG TABLET PO SCH ×2 (07:39→12:46)
[2021-01-31 09:09] VITALS: BP 113/68; PULSE 78
[2021-01-31] MEDS: PRENATAL VITAMINS W/ FOLIC ACID TABLET (FP) PO SCH (10:08)
[2021-01-31] MEDS: NICOTINE 21 MG/24 HOURS TOPICAL PATCH TD SCH (10:08)
[2021-02-01] MEDS ORDERED: LORazepam 0.5 MG TABLET PO PRN
[2021-02-01] MEDS ORDERED: LORazepam 0.5 MG TABLET PO SCH (05:00)
[2021-02-02] MEDS ORDERED: LORazepam 0.5 MG TABLET PO ONE (05:00)
== END 2021-01-31 13:00 | disposition left against medical advice (07) | DRG 770 ==
LOC: YASAS 20:16 → Y3N 01-30 00:03
PROVIDERS: ADMIT Allergy & Immunology; ATTEND Allergy & Immunology
PROC: HZ2ZZZZ Detoxification Services for Substance Abuse Treatment (ICD-10-PCS; principal; 2021-01-30)
DX: F10.230 Alcohol dependence with withdrawal, uncomplicated (principal); F14.20 Cocaine dependence, uncomplicated; F17.210 Nicotine dependence, cigarettes, uncomplicated; F31.9 Bipolar disorder, unspecified; F42.9 Obsessive-compulsive disorder, unspecified; F41.9 Anxiety disorder, unspecified; F19.24 Other psychoactive substance dependence with psychoactive substance-induced mood disorder; F19.282 Other psychoactive substance dependence with psychoactive substance-induced sleep disorder; I10 Essential (primary) hypertension; K21.9 Gastro-esophageal reflux disease without esophagitis; R74.01 Elevation of levels of liver transaminase levels; R77.0 Abnormality of albumin; E83.51 Hypocalcemia; G47.00 Insomnia, unspecified; R00.0 Tachycardia, unspecified; E78.5 Hyperlipidemia, unspecified; Z91.14 Patient's other noncompliance with medication regimen; Z56.0 Unemployment, unspecified; Z59.02 Unsheltered homelessness
CPT/HCPCS: 36415; 80053; 85027; 86780; 87811; C9803; U0003; U0005

== ENCOUNTER 2021-03-03 12:08 | Inpatient (IN) | payer OTHER ==
[2021-03-03] MEDS ORDERED: ONDANSETRON *ODT* 4 MG TABLET SL PRN (12:43)
[2021-03-03] MEDS ORDERED: NICOTINE 10 MG CARTRIDGE (INHALER) IH PRN (12:43)
[2021-03-03] MEDS ORDERED: ACETAMINOPHEN 325 MG TABLET (FP) PO PRN ×2 (12:43)
[2021-03-03] MEDS ORDERED: MAGNESIUM CITRATE 300 ML BOTTLE PO PRN (12:43)
[2021-03-03] MEDS ORDERED: MENTHOL/PHENOL 1 EACH UD MM PRN (12:43)
[2021-03-03] MEDS ORDERED: BISMUTH SUBSALICYLATE 524 MG/30 ML PO PRN (12:43)
[2021-03-03] MEDS ORDERED: MAG HYDROX/AL HYDROX/SIMETH 30 ML UNIT-DOSE CUP PO PRN (12:43)
[2021-03-03] MEDS ORDERED: chlordiazePOXIDE HCL 25 MG CAPSULE PO PRN (12:43)
[2021-03-03] MEDS ORDERED: MAGNESIUM HYDROX 2400MG/30ML ORAL SUSPENSION 30 ML CUP PO PRN (12:43)
[2021-03-03 13:45] VITALS: BMI 26.8
[2021-03-03] MEDS: PRENATAL VITAMINS W/ FOLIC ACID TABLET (FP) PO SCH (15:43)
[2021-03-03] MEDS: hydrOXYzine PAMOATE 25 MG CAPSULE (FP) PO SCH ×3 (15:43→22:04)
[2021-03-03] MEDS: chlordiazePOXIDE HCL 25 MG CAPSULE PO SCH ×3 (15:44→22:04)
[2021-03-03] MEDS: IBUPROFEN 400 MG TABLET (FP) PO PRN (15:46)
[2021-03-03] MEDS: METHOCARBAMOL 500 MG TABLET PO PRN ×2 (15:47→22:04)
[2021-03-03] MEDS: NICOTINE 14 MG/24 HOURS TOPICAL PATCH TD SCH (16:03)
[2021-03-03] MEDS: LITHIUM CARBONATE 300 MG CAPSULE PO SCH ×2 (16:39→22:04)
[2021-03-03 17:15] LABS: CALCIUM 9.1 mg/dL (8.5-10.1)
[2021-03-03 17:18] LABS: CREATININE 0.8 mg/dL (0.55-1.3)
[2021-03-03 17:20] LABS: BILIRUBIN,TOTAL 0.9 mg/dL (0.2-1); TOT PROT 7.6 g/dl (6.4-8.2)
[2021-03-03 17:26] LABS: HEMATOCRIT 45.4 % (35.4-49); HEMOGLOBIN 14.7 GM/dL (11.7-16.9); MCHC 32.5 g/dl (32.0-35.9); MEAN CELL VOLUME 95.5 fl (80-96); MEAN PLT VOLUME 9.2 fl (7.5-11.1); PLATELET COUNT 285 10^3/uL (134-434); RBC 4.75 M/mm3 (4.00-5.60); RDW 16.1 % (11.9-15.9)
[2021-03-03] MEDS: MELATONIN 5 MG TABLETS PO SCH (22:03)
[2021-03-03] MEDS: THIAMINE HCL 100 MG TABLET (FP) PO SCH (22:03)
[2021-03-03] MEDS: FAMOTIDINE 20 MG TABLET PO SCH (22:04)
[2021-03-03] MEDS: traZODone HCL 100 MG TABLET (FP) PO SCH (22:04)
[2021-03-04] MEDS: chlordiazePOXIDE HCL 25 MG CAPSULE PO SCH (06:36)
[2021-03-04] MEDS: LITHIUM CARBONATE 300 MG CAPSULE PO SCH ×3 (06:37→22:35)
[2021-03-04] MEDS: hydrOXYzine PAMOATE 25 MG CAPSULE (FP) PO SCH ×5 (06:37→22:36)
[2021-03-04] MEDS ORDERED: LORazepam 0.5 MG TABLET PO PRN (10:14)
[2021-03-04] MEDS: NICOTINE 14 MG/24 HOURS TOPICAL PATCH TD SCH (10:31)
[2021-03-04] MEDS: METHOCARBAMOL 500 MG TABLET PO PRN (10:31)
[2021-03-04] MEDS: FAMOTIDINE 20 MG TABLET PO SCH ×2 (10:32→22:36)
[2021-03-04] MEDS: PRENATAL VITAMINS W/ FOLIC ACID TABLET (FP) PO SCH (10:32)
[2021-03-04] MEDS ORDERED: chlordiazePOXIDE HCL 10 MG CAPSULE PO ONE (10:40)
[2021-03-04] MEDS: amLODIPine BESYLATE 5 MG TABLET (FP) PO SCH (10:53)
[2021-03-04] MEDS: IBUPROFEN 400 MG TABLET (FP) PO PRN (10:53)
[2021-03-04] MEDS ORDERED: LORazepam 0.5 MG TABLET PO SCH (11:00)
[2021-03-04] MEDS ORDERED: FLU VACC QS2021-22(6MOS UP)/PF 60 MCG/0.5 ML SYRINGE IM ONE (12:00)
[2021-03-04] MEDS: METHYL SALICYLATE/MENTHOL OINT 30 GM TUBE TP SCH ×2 (12:21→22:34)
[2021-03-04] MEDS: traZODone HCL 100 MG TABLET (FP) PO SCH (22:36)
[2021-03-04] MEDS: THIAMINE HCL 100 MG TABLET (FP) PO SCH (22:36)
[2021-03-04] MEDS: MELATONIN 5 MG TABLETS PO SCH (22:36)
[2021-03-05] MEDS ORDERED: chlordiazePOXIDE HCL 25 MG CAPSULE PO SCH (05:00)
[2021-03-05] MEDS ORDERED: LORazepam 0.5 MG TABLET PO SCH (06:00)
[2021-03-05] MEDS: hydrOXYzine PAMOATE 25 MG CAPSULE (FP) PO SCH ×5 (06:58→22:11)
[2021-03-05] MEDS: LITHIUM CARBONATE 300 MG CAPSULE PO SCH ×3 (06:58→22:06)
[2021-03-05] MEDS: PRENATAL VITAMINS W/ FOLIC ACID TABLET (FP) PO SCH (10:23)
[2021-03-05] MEDS: FAMOTIDINE 20 MG TABLET PO SCH ×2 (10:23→22:05)
[2021-03-05] MEDS: METHOCARBAMOL 500 MG TABLET PO PRN ×2 (10:23→22:10)
[2021-03-05] MEDS: IBUPROFEN 400 MG TABLET (FP) PO PRN ×2 (10:23→17:57)
[2021-03-05] MEDS: amLODIPine BESYLATE 5 MG TABLET (FP) PO SCH (10:23)
[2021-03-05] MEDS: chlordiazePOXIDE HCL 25 MG CAPSULE PO SCH ×3 (10:24→22:05)
[2021-03-05] MEDS: METHYL SALICYLATE/MENTHOL OINT 30 GM TUBE TP SCH ×2 (10:26→22:06)
[2021-03-05] MEDS: NICOTINE 14 MG/24 HOURS TOPICAL PATCH TD SCH (10:26)
[2021-03-05] MEDS: traZODone HCL 100 MG TABLET (FP) PO SCH (22:04)
[2021-03-05] MEDS: THIAMINE HCL 100 MG TABLET (FP) PO SCH (22:04)
[2021-03-05] MEDS: MELATONIN 5 MG TABLETS PO SCH (22:38)
[2021-03-06] MEDS ORDERED: chlordiazePOXIDE HCL 10 MG CAPSULE PO PRN
[2021-03-06] MEDS: hydrOXYzine PAMOATE 25 MG CAPSULE (FP) PO SCH ×5 (06:00→22:16)
[2021-03-06] MEDS: chlordiazePOXIDE HCL 10 MG CAPSULE PO SCH ×4 (06:00→22:36)
[2021-03-06] MEDS ORDERED: LORazepam 0.5 MG TABLET PO SCH (06:00)
[2021-03-06] MEDS: LITHIUM CARBONATE 300 MG CAPSULE PO SCH ×3 (06:00→22:16)
[2021-03-06] MEDS: IBUPROFEN 400 MG TABLET (FP) PO PRN ×2 (06:01→14:08)
[2021-03-06] MEDS: amLODIPine BESYLATE 5 MG TABLET (FP) PO SCH (11:28)
[2021-03-06] MEDS: FAMOTIDINE 20 MG TABLET PO SCH ×2 (11:28→22:15)
[2021-03-06] MEDS: PRENATAL VITAMINS W/ FOLIC ACID TABLET (FP) PO SCH (11:28)
[2021-03-06] MEDS: NICOTINE 14 MG/24 HOURS TOPICAL PATCH TD SCH (11:32)
[2021-03-06] MEDS: METHYL SALICYLATE/MENTHOL OINT 30 GM TUBE TP SCH ×2 (11:32→22:15)
[2021-03-06] MEDS ORDERED: traZODone HCL 50 MG TABLET (FP) ONE (21:38)
[2021-03-06] MEDS: traZODone HCL 100 MG TABLET (FP) PO SCH (22:16)
[2021-03-06] MEDS: THIAMINE HCL 100 MG TABLET (FP) PO SCH (22:16)
[2021-03-06] MEDS: MELATONIN 5 MG TABLETS PO SCH (22:16)
[2021-03-07] MEDS: chlordiazePOXIDE HCL 10 MG CAPSULE PO SCH ×2 (05:49→17:53)
[2021-03-07] MEDS: hydrOXYzine PAMOATE 25 MG CAPSULE (FP) PO SCH ×5 (05:49→22:06)
[2021-03-07] MEDS ORDERED: LORazepam 0.5 MG TABLET PO SCH (06:00)
[2021-03-07] MEDS: LITHIUM CARBONATE 300 MG CAPSULE PO SCH ×3 (06:06→22:09)
[2021-03-07] MEDS: METHYL SALICYLATE/MENTHOL OINT 30 GM TUBE TP SCH ×2 (10:20→22:09)
[2021-03-07] MEDS: METHOCARBAMOL 500 MG TABLET PO PRN (10:20)
[2021-03-07] MEDS: PRENATAL VITAMINS W/ FOLIC ACID TABLET (FP) PO SCH (10:20)
[2021-03-07] MEDS: FAMOTIDINE 20 MG TABLET PO SCH ×2 (10:20→22:06)
[2021-03-07] MEDS: NICOTINE 14 MG/24 HOURS TOPICAL PATCH TD SCH (10:21)
[2021-03-07] MEDS: IBUPROFEN 400 MG TABLET (FP) PO PRN (10:22)
[2021-03-07] MEDS: MELATONIN 5 MG TABLETS PO SCH (22:05)
[2021-03-07] MEDS: traZODone HCL 100 MG TABLET (FP) PO SCH (22:05)
[2021-03-07] MEDS: THIAMINE HCL 100 MG TABLET (FP) PO SCH (22:06)
[2021-03-08] MEDS ORDERED: chlordiazePOXIDE HCL 10 MG CAPSULE PO ONE (05:00)
[2021-03-08] MEDS: LITHIUM CARBONATE 300 MG CAPSULE PO SCH (05:28)
[2021-03-08] MEDS: hydrOXYzine PAMOATE 25 MG CAPSULE (FP) PO SCH (05:28)
[2021-03-08] MEDS ORDERED: LORazepam 0.5 MG TABLET PO ONE (06:00)
[2021-03-08 08:56] VITALS: BP 135/83; PULSE 78; TEMP 97.7
== END 2021-03-08 09:15 | disposition home or self-care (01) | DRG 775 ==
LOC: YASAS 12:08 → Y6N 14:10
PROVIDERS: ADMIT Allergy & Immunology; ATTEND Allergy & Immunology
PROC: HZ2ZZZZ Detoxification Services for Substance Abuse Treatment (ICD-10-PCS; principal; 2021-03-03)
DX: F10.230 Alcohol dependence with withdrawal, uncomplicated (principal); F12.20 Cannabis dependence, uncomplicated; F17.213 Nicotine dependence, cigarettes, with withdrawal; F19.282 Other psychoactive substance dependence with psychoactive substance-induced sleep disorder; F19.24 Other psychoactive substance dependence with psychoactive substance-induced mood disorder; F31.9 Bipolar disorder, unspecified; I10 Essential (primary) hypertension; K21.9 Gastro-esophageal reflux disease without esophagitis; R74.01 Elevation of levels of liver transaminase levels; Z56.0 Unemployment, unspecified; Z59.00 Homelessness unspecified
CPT/HCPCS: 36415; 80053; 84450; 84460; 85027; 86780; 90686; C9803; G0008; U0003; U0005

== ENCOUNTER 2021-04-02 05:44 | Inpatient (IN) | payer OTHER ==
[2021-04-02 08:45] VITALS: BMI 25.5
[2021-04-02] MEDS ORDERED: LOPERAMIDE HCL 2 MG CAPSULE PO PRN (09:05)
[2021-04-02] MEDS ORDERED: ONDANSETRON *ODT* 4 MG TABLET SL PRN (09:05)
[2021-04-02] MEDS ORDERED: ACETAMINOPHEN 325 MG TABLET (FP) PO PRN ×2 (09:05)
[2021-04-02] MEDS ORDERED: MAGNESIUM HYDROX 2400MG/30ML ORAL SUSPENSION 30 ML CUP PO PRN (09:05)
[2021-04-02] MEDS ORDERED: BISMUTH SUBSALICYLATE 262 MG/15 ML BTL PO PRN (09:05)
[2021-04-02] MEDS ORDERED: MAG HYDROX/AL HYDROX/SIMETH 30 ML UNIT-DOSE CUP PO PRN (09:05)
[2021-04-02] MEDS ORDERED: IBUPROFEN 400 MG TABLET (FP) PO PRN (09:05)
[2021-04-02] MEDS ORDERED: MAGNESIUM CITRATE 300 ML BOTTLE PO PRN (09:05)
[2021-04-02] MEDS ORDERED: MENTHOL/PHENOL 1 EACH UD MM PRN (09:05)
[2021-04-02] MEDS ORDERED: LORazepam 1 MG TABLET PO PRN (09:05)
[2021-04-02] MEDS ORDERED: NICOTINE 10 MG CARTRIDGE (INHALER) IH PRN (09:05)
[2021-04-02] MEDS: NICOTINE 14 MG/24 HOURS TOPICAL PATCH TD SCH (10:57)
[2021-04-02] MEDS: LORazepam 2 MG TABLET PO SCH ×3 (10:57→22:35)
[2021-04-02] MEDS: hydrOXYzine PAMOATE 25 MG CAPSULE (FP) PO SCH ×4 (10:58→22:36)
[2021-04-02] MEDS: PRENATAL VITAMINS W/ FOLIC ACID TABLET (FP) PO SCH (10:58)
[2021-04-02 14:28] LABS: HEMATOCRIT 44.4 % (35.4-49); HEMOGLOBIN 14.6 GM/dL (11.7-16.9); MCH 31.7 pg (25.7-33.7); MEAN CELL VOLUME 96.2 fl (80-96); MEAN PLT VOLUME 8.8 fl (7.5-11.1); PLATELET COUNT 275 10^3/uL (134-434); RBC 4.61 M/mm3 (4.00-5.60); RDW 15.7 % (11.9-15.9); WHITE BLOOD COUNT 5.5 K/mm3 (4.0-10.0)
[2021-04-02 14:51] LABS: CALCIUM 8.9 mg/dL (8.5-10.1)
[2021-04-02 14:52] LABS: BLOOD UREA NITROGEN 13.4 mg/dL (7-18)
[2021-04-02 14:53] LABS: ALBUMIN 3.9 g/dl (3.4-5.0)
[2021-04-02 14:54] LABS: CREATININE 0.9 mg/dL (0.55-1.3)
[2021-04-02 14:56] LABS: TOT PROT 7.2 g/dl (6.4-8.2)
[2021-04-02] MEDS ORDERED: MELATONIN 5 MG TABLETS PO SCH (22:00)
[2021-04-02] MEDS ORDERED: traZODone HCL 100 MG TABLET (FP) PO SCH (22:00)
[2021-04-02] MEDS ORDERED: THIAMINE HCL 100 MG TABLET (FP) PO SCH (22:00)
[2021-04-02] MEDS: METHOCARBAMOL 500 MG TABLET PO PRN (22:36)
[2021-04-03] MEDS: hydrOXYzine PAMOATE 25 MG CAPSULE (FP) PO SCH ×4 (06:12→17:39)
[2021-04-03] MEDS: LORazepam 2 MG TABLET PO SCH ×3 (06:12→17:39)
[2021-04-03] MEDS ORDERED: FLUoxetine HCL 10 MG CAPSULE PO SCH (10:00)
[2021-04-03] MEDS: NICOTINE 14 MG/24 HOURS TOPICAL PATCH TD SCH (10:50)
[2021-04-03] MEDS: PRENATAL VITAMINS W/ FOLIC ACID TABLET (FP) PO SCH (10:50)
[2021-04-03] MEDS: METHOCARBAMOL 500 MG TABLET PO PRN (10:51)
[2021-04-03 19:38] VITALS: BP 138/81; PULSE 85; TEMP 97.3
[2021-04-04] MEDS ORDERED: LORazepam 1 MG TABLET PO SCH (05:00)
[2021-04-05] MEDS ORDERED: LORazepam 0.5 MG TABLET PO PRN
[2021-04-05] MEDS ORDERED: LORazepam 0.5 MG TABLET PO SCH (05:00)
[2021-04-06] MEDS ORDERED: LORazepam 0.5 MG TABLET PO ONE (05:00)
== END 2021-04-03 21:25 | disposition left against medical advice (07) | DRG 770 ==
LOC: YASAS 05:44 → Y3N 09:31
PROVIDERS: ADMIT Allergy & Immunology; ATTEND Allergy & Immunology
PROC: HZ2ZZZZ Detoxification Services for Substance Abuse Treatment (ICD-10-PCS; principal; 2021-04-02)
DX: F10.230 Alcohol dependence with withdrawal, uncomplicated (principal); F12.20 Cannabis dependence, uncomplicated; F17.210 Nicotine dependence, cigarettes, uncomplicated; F19.282 Other psychoactive substance dependence with psychoactive substance-induced sleep disorder; F19.24 Other psychoactive substance dependence with psychoactive substance-induced mood disorder; F31.9 Bipolar disorder, unspecified; G47.00 Insomnia, unspecified; I10 Essential (primary) hypertension; K21.9 Gastro-esophageal reflux disease without esophagitis; Z62.810 Personal history of physical and sexual abuse in childhood; Z56.0 Unemployment, unspecified; Z59.00 Homelessness unspecified
CPT/HCPCS: 36415; 80053; 85027; 86780; C9803; U0003; U0005

== ENCOUNTER 2021-04-28 12:18 | Inpatient (IN) | payer OTHER ==
[2021-04-28] MEDS ORDERED: chlordiazePOXIDE HCL 25 MG CAPSULE PO PRN (13:17)
[2021-04-28] MEDS ORDERED: MAGNESIUM HYDROX 2400MG/30ML ORAL SUSPENSION 30 ML CUP PO PRN (13:17)
[2021-04-28] MEDS ORDERED: IBUPROFEN 400 MG TABLET (FP) PO PRN (13:17)
[2021-04-28] MEDS ORDERED: MENTHOL/PHENOL 1 EACH UD MM PRN (13:17)
[2021-04-28] MEDS ORDERED: ACETAMINOPHEN 325 MG TABLET (FP) PO PRN ×2 (13:17)
[2021-04-28] MEDS ORDERED: METHOCARBAMOL 500 MG TABLET PO PRN (13:17)
[2021-04-28] MEDS ORDERED: BISMUTH SUBSALICYLATE 524 MG/30 ML PO PRN (13:17)
[2021-04-28] MEDS ORDERED: MAG HYDROX/AL HYDROX/SIMETH 30 ML UNIT-DOSE CUP PO PRN (13:17)
[2021-04-28] MEDS ORDERED: LOPERAMIDE HCL 2 MG CAPSULE PO PRN (13:17)
[2021-04-28] MEDS ORDERED: NICOTINE 10 MG CARTRIDGE (INHALER) IH PRN (13:17)
[2021-04-28] MEDS ORDERED: MAGNESIUM CITRATE 300 ML BOTTLE PO PRN (13:17)
[2021-04-28] MEDS ORDERED: ONDANSETRON *ODT* 4 MG TABLET SL PRN (13:17)
[2021-04-28 14:21] VITALS: BMI 25.0
[2021-04-28] MEDS: hydrOXYzine PAMOATE 25 MG CAPSULE (FP) PO SCH ×3 (18:03→22:43)
[2021-04-28] MEDS ORDERED: MELATONIN 5 MG TABLETS PO SCH (22:00)
[2021-04-28] MEDS ORDERED: THIAMINE HCL 100 MG TABLET (FP) PO SCH (22:00)
[2021-04-28] MEDS: FAMOTIDINE 20 MG TABLET PO SCH (22:43)
[2021-04-28] MEDS: chlordiazePOXIDE HCL 25 MG CAPSULE PO SCH (22:43)
[2021-04-29] MEDS: hydrOXYzine PAMOATE 25 MG CAPSULE (FP) PO SCH ×3 (06:18→14:54)
[2021-04-29] MEDS: chlordiazePOXIDE HCL 25 MG CAPSULE PO SCH ×2 (06:18→10:18)
[2021-04-29] MEDS ORDERED: PRENATAL VITAMINS W/ FOLIC ACID TABLET (FP) PO SCH (10:00)
[2021-04-29] MEDS: FAMOTIDINE 20 MG TABLET PO SCH (10:18)
[2021-04-29 10:21] LABS: HEMATOCRIT 45.5 % (35.4-49); HEMOGLOBIN 15.2 GM/dL (11.7-16.9); MCH 32.4 pg (25.7-33.7); MCHC 33.5 g/dl (32.0-35.9); MEAN CELL VOLUME 96.8 fl (80-96); MEAN PLT VOLUME 10.9 fl (7.5-11.1); PLATELET COUNT 238 10^3/uL (134-434); RDW 14.7 % (11.9-15.9); WHITE BLOOD COUNT 6.7 K/mm3 (4.0-10.0)
[2021-04-29 10:40] LABS: ALBUMIN 4.3 g/dl (3.4-5.0); CALCIUM 9.1 mg/dL (8.5-10.1)
[2021-04-29 10:41] LABS: BLOOD UREA NITROGEN 19.2 mg/dL (7-18)
[2021-04-29 10:44] LABS: BILIRUBIN,TOTAL 0.7 mg/dL (0.2-1); TOT PROT 7.8 g/dl (6.4-8.2)
[2021-04-29 13:16] VITALS: BP 125/71; PULSE 72; TEMP 96.9
[2021-04-30] MEDS ORDERED: chlordiazePOXIDE HCL 25 MG CAPSULE PO SCH (05:00)
[2021-04-30 07:08] LABS: SARS-CoV-2 NAA Not Detected (Not Detected)
[2021-05-01] MEDS ORDERED: chlordiazePOXIDE HCL 10 MG CAPSULE PO PRN
[2021-05-01] MEDS ORDERED: chlordiazePOXIDE HCL 10 MG CAPSULE PO SCH (05:00)
[2021-05-02] MEDS ORDERED: chlordiazePOXIDE HCL 10 MG CAPSULE PO SCH (05:00)
[2021-05-03] MEDS ORDERED: chlordiazePOXIDE HCL 10 MG CAPSULE PO ONE (05:00)
== END 2021-04-29 17:36 | disposition left against medical advice (07) | DRG 770 ==
LOC: YASAS 12:18 → Y3N 15:12
PROVIDERS: ADMIT Allergy & Immunology; ATTEND Allergy & Immunology
PROC: HZ2ZZZZ Detoxification Services for Substance Abuse Treatment (ICD-10-PCS; principal; 2021-04-28)
DX: F10.230 Alcohol dependence with withdrawal, uncomplicated (principal); F17.210 Nicotine dependence, cigarettes, uncomplicated; F31.9 Bipolar disorder, unspecified; F41.9 Anxiety disorder, unspecified; F42.9 Obsessive-compulsive disorder, unspecified; I10 Essential (primary) hypertension; K21.9 Gastro-esophageal reflux disease without esophagitis; N28.9 Disorder of kidney and ureter, unspecified
CPT/HCPCS: 36415; 80053; 85027; 86780; C9803; Q0162; U0003; U0005

== ENCOUNTER 2021-06-02 12:05 | Inpatient (IN) | payer OTHER ==
[2021-06-02] MEDS ORDERED: NICOTINE 10 MG CARTRIDGE (INHALER) IH PRN (13:41)
[2021-06-02] MEDS ORDERED: LORazepam 1 MG TABLET PO PRN (13:41)
[2021-06-02] MEDS ORDERED: ACETAMINOPHEN 325 MG TABLET (FP) PO PRN ×2 (13:41)
[2021-06-02] MEDS ORDERED: MAG HYDROX/AL HYDROX/SIMETH 30 ML UNIT-DOSE CUP PO PRN (13:41)
[2021-06-02] MEDS ORDERED: IBUPROFEN 400 MG TABLET (FP) PO PRN (13:41)
[2021-06-02] MEDS ORDERED: ONDANSETRON *ODT* 4 MG TABLET SL PRN (13:41)
[2021-06-02] MEDS ORDERED: MAGNESIUM CITRATE 300 ML BOTTLE PO PRN (13:41)
[2021-06-02] MEDS ORDERED: DICYCLOMINE HCL 10 MG CAPSULE PO PRN (13:41)
[2021-06-02] MEDS ORDERED: LOPERAMIDE HCL 2 MG CAPSULE PO PRN (13:41)
[2021-06-02] MEDS ORDERED: MAGNESIUM HYDROX 2400MG/30ML ORAL SUSPENSION 30 ML CUP PO PRN (13:41)
[2021-06-02] MEDS ORDERED: BENZOCAINE/MENTHOL (CHLORASEPTIC ) LOZENGE MM PRN (13:41)
[2021-06-02] MEDS ORDERED: BISMUTH SUBSALICYLATE 262 MG/15 ML BTL PO PRN (13:41)
[2021-06-02 14:37] VITALS: BMI 28.8
[2021-06-02 16:34] LABS: BLOOD UREA NITROGEN 15.3 mg/dL (7-18); CALCIUM 9.2 mg/dL (8.5-10.1)
[2021-06-02 16:35] LABS: ALBUMIN 3.7 g/dl (3.4-5.0)
[2021-06-02 16:38] LABS: CREATININE 1.1 mg/dL (0.55-1.3)
[2021-06-02 16:39] LABS: BILIRUBIN,TOTAL 1.2 mg/dL (0.2-1); TOT PROT 7.2 g/dl (6.4-8.2)
[2021-06-02 16:45] LABS: HEMATOCRIT 46.2 % (35.4-49); HEMOGLOBIN 15.5 GM/dL (11.7-16.9); MCH 32.6 pg (25.7-33.7); MCHC 33.6 g/dl (32.0-35.9); MEAN CELL VOLUME 96.9 fl (80-96); MEAN PLT VOLUME 9.2 fl (7.5-11.1); PLATELET COUNT 137 10^3/uL (134-434); RBC 4.77 M/mm3 (4.00-5.60); RDW 15.7 % (11.9-15.9); WHITE BLOOD COUNT 5.3 K/mm3 (4.0-10.0)
[2021-06-02] MEDS: hydrOXYzine PAMOATE 25 MG CAPSULE (FP) PO SCH ×3 (17:45→23:31)
[2021-06-02] MEDS: NICOTINE 21 MG/24 HOURS TOPICAL PATCH TD SCH (17:48)
[2021-06-02] MEDS: LORazepam 2 MG TABLET PO SCH (23:30)
[2021-06-02] MEDS: MELATONIN 5 MG TABLETS PO SCH (23:30)
[2021-06-02] MEDS: THIAMINE HCL 100 MG TABLET (FP) PO SCH (23:31)
[2021-06-03] MEDS: LORazepam 2 MG TABLET PO SCH ×4 (05:04→22:56)
[2021-06-03] MEDS: hydrOXYzine PAMOATE 25 MG CAPSULE (FP) PO SCH ×5 (05:04→23:14)
[2021-06-03] MEDS: NICOTINE 21 MG/24 HOURS TOPICAL PATCH TD SCH (10:32)
[2021-06-03] MEDS: PRENATAL VITAMINS W/ FOLIC ACID TABLET (FP) PO SCH (10:32)
[2021-06-03] MEDS: traZODone HCL 50 MG TABLET (FP) PO SCH (22:56)
[2021-06-03] MEDS: OLANZapine 5 MG TABLET PO SCH (22:56)
[2021-06-03] MEDS: THIAMINE HCL 100 MG TABLET (FP) PO SCH (22:56)
[2021-06-03] MEDS: MELATONIN 5 MG TABLETS PO SCH (23:14)
[2021-06-04 06:06] LABS: SARS-CoV-2 NAA Not Detected (Not Detected)
[2021-06-04] MEDS: LORazepam 1 MG TABLET PO SCH ×4 (06:54→23:10)
[2021-06-04] MEDS: hydrOXYzine PAMOATE 25 MG CAPSULE (FP) PO SCH ×5 (06:54→23:09)
[2021-06-04] MEDS: PRENATAL VITAMINS W/ FOLIC ACID TABLET (FP) PO SCH (10:38)
[2021-06-04] MEDS: NICOTINE 21 MG/24 HOURS TOPICAL PATCH TD SCH (10:38)
[2021-06-04] MEDS: METHOCARBAMOL 500 MG TABLET PO PRN ×2 (10:38→18:43)
[2021-06-04] MEDS: traZODone HCL 50 MG TABLET (FP) PO SCH (23:08)
[2021-06-04] MEDS: THIAMINE HCL 100 MG TABLET (FP) PO SCH (23:08)
[2021-06-04] MEDS: MELATONIN 5 MG TABLETS PO SCH (23:08)
[2021-06-04] MEDS: OLANZapine 5 MG TABLET PO SCH (23:09)
[2021-06-05] MEDS ORDERED: LORazepam 0.5 MG TABLET PO PRN
[2021-06-05] MEDS: hydrOXYzine PAMOATE 25 MG CAPSULE (FP) PO SCH ×2 (06:14→10:31)
[2021-06-05] MEDS: LORazepam 0.5 MG TABLET PO SCH ×4 (06:14→22:30)
[2021-06-05] MEDS: METHOCARBAMOL 500 MG TABLET PO PRN (10:30)
[2021-06-05] MEDS: PRENATAL VITAMINS W/ FOLIC ACID TABLET (FP) PO SCH (10:30)
[2021-06-05] MEDS: NICOTINE 21 MG/24 HOURS TOPICAL PATCH TD SCH (10:31)
[2021-06-05] MEDS ORDERED: hydrOXYzine PAMOATE 25 MG CAPSULE (FP) PO PRN (11:42)
[2021-06-05 21:08] VITALS: PULSE 72
[2021-06-05] MEDS: THIAMINE HCL 100 MG TABLET (FP) PO SCH (22:30)
[2021-06-05] MEDS: traZODone HCL 50 MG TABLET (FP) PO SCH (22:30)
[2021-06-05] MEDS: OLANZapine 5 MG TABLET PO SCH (22:30)
[2021-06-05] MEDS: MELATONIN 5 MG TABLETS PO SCH (22:32)
[2021-06-06] MEDS: LORazepam 0.5 MG TABLET PO ONE ×2 (05:46→05:55)
[2021-06-06 07:28] VITALS: BP 111/68; TEMP 97.5
== END 2021-06-06 07:22 | disposition home or self-care (01) | DRG 775 ==
LOC: YASAS 12:05 → Y6N 16:19
PROVIDERS: ADMIT Allergy & Immunology; ATTEND Allergy & Immunology
PROC: HZ2ZZZZ Detoxification Services for Substance Abuse Treatment (ICD-10-PCS; principal; 2021-06-02)
DX: F10.230 Alcohol dependence with withdrawal, uncomplicated (principal); F12.20 Cannabis dependence, uncomplicated; F17.213 Nicotine dependence, cigarettes, with withdrawal; F19.282 Other psychoactive substance dependence with psychoactive substance-induced sleep disorder; F19.24 Other psychoactive substance dependence with psychoactive substance-induced mood disorder; F31.9 Bipolar disorder, unspecified; F42.9 Obsessive-compulsive disorder, unspecified; I10 Essential (primary) hypertension; K21.9 Gastro-esophageal reflux disease without esophagitis; Z86.59 Personal history of other mental and behavioral disorders
CPT/HCPCS: 36415; 80053; 82947; 83036; 85027; 86780; C9803-CS; U0003; U0005

== ENCOUNTER 2021-06-28 11:37 | Inpatient (IN) | payer OTHER ==
[2021-06-28] MEDS ORDERED: IBUPROFEN 400 MG TABLET (FP) PO PRN (12:03)
[2021-06-28] MEDS ORDERED: MAGNESIUM CITRATE 300 ML BOTTLE PO PRN (12:03)
[2021-06-28] MEDS ORDERED: BENZOCAINE/MENTHOL (CHLORASEPTIC ) LOZENGE MM PRN (12:03)
[2021-06-28] MEDS ORDERED: ONDANSETRON *ODT* 4 MG TABLET SL PRN (12:03)
[2021-06-28] MEDS ORDERED: BISMUTH SUBSALICYLATE 262 MG/15 ML BTL PO PRN (12:03)
[2021-06-28] MEDS ORDERED: chlordiazePOXIDE HCL 25 MG CAPSULE PO PRN (12:03)
[2021-06-28] MEDS ORDERED: MAGNESIUM HYDROX 2400MG/30ML ORAL SUSPENSION 30 ML CUP PO PRN (12:03)
[2021-06-28] MEDS ORDERED: ACETAMINOPHEN 325 MG TABLET (FP) PO PRN ×2 (12:03)
[2021-06-28] MEDS ORDERED: NICOTINE 10 MG CARTRIDGE (INHALER) IH PRN (12:03)
[2021-06-28] MEDS ORDERED: DICYCLOMINE HCL 10 MG CAPSULE PO PRN (12:03)
[2021-06-28] MEDS ORDERED: METHOCARBAMOL 500 MG TABLET PO PRN (12:03)
[2021-06-28] MEDS ORDERED: MAG HYDROX/AL HYDROX/SIMETH 30 ML UNIT-DOSE CUP PO PRN (12:03)
[2021-06-28] MEDS ORDERED: LOPERAMIDE HCL 2 MG CAPSULE PO PRN (12:03)
[2021-06-28 12:32] VITALS: BMI 25.7
[2021-06-28] MEDS: NICOTINE 14 MG/24 HOURS TOPICAL PATCH TD SCH (15:06)
[2021-06-28] MEDS: hydrOXYzine PAMOATE 25 MG CAPSULE (FP) PO SCH ×3 (15:07→23:02)
[2021-06-28] MEDS: PRENATAL VITAMINS W/ FOLIC ACID TABLET (FP) PO SCH (15:10)
[2021-06-28 17:07] LABS: HEMATOCRIT 45.4 % (35.4-49); HEMOGLOBIN 15.4 GM/dL (11.7-16.9); MCH 32.8 pg (25.7-33.7); MEAN CELL VOLUME 96.6 fl (80-96); MEAN PLT VOLUME 9.6 fl (7.5-11.1); PLATELET COUNT 257 10^3/uL (134-434); RDW 15.1 % (11.9-15.9)
[2021-06-28 17:21] LABS: CALCIUM 9.6 mg/dL (8.5-10.1)
[2021-06-28 17:23] LABS: ALBUMIN 4.2 g/dl (3.4-5.0); BLOOD UREA NITROGEN 23.2 mg/dL (7-18)
[2021-06-28 17:25] LABS: BILIRUBIN,TOTAL 0.9 mg/dL (0.2-1); TOT PROT 7.7 g/dl (6.4-8.2)
[2021-06-28 17:26] LABS: CREATININE 0.9 mg/dL (0.55-1.3)
[2021-06-28] MEDS: chlordiazePOXIDE HCL 25 MG CAPSULE PO SCH ×2 (18:11→23:01)
[2021-06-28] MEDS: FAMOTIDINE 20 MG TABLET PO SCH (23:01)
[2021-06-28] MEDS: MELATONIN 5 MG TABLETS PO SCH (23:01)
[2021-06-28] MEDS: THIAMINE HCL 100 MG TABLET (FP) PO SCH (23:02)
[2021-06-29] MEDS: chlordiazePOXIDE HCL 25 MG CAPSULE PO SCH ×4 (05:32→22:51)
[2021-06-29] MEDS: hydrOXYzine PAMOATE 25 MG CAPSULE (FP) PO SCH ×5 (05:32→22:47)
[2021-06-29] MEDS: NICOTINE 14 MG/24 HOURS TOPICAL PATCH TD SCH (10:15)
[2021-06-29] MEDS: FAMOTIDINE 20 MG TABLET PO SCH ×2 (10:15→22:47)
[2021-06-29] MEDS: PRENATAL VITAMINS W/ FOLIC ACID TABLET (FP) PO SCH (10:15)
[2021-06-29] MEDS ORDERED: traZODone HCL 50 MG TABLET (FP) PO SCH (22:00)
[2021-06-29] MEDS ORDERED: OLANZapine 10 MG TABLET PO SCH (22:00)
[2021-06-29] MEDS: MELATONIN 5 MG TABLETS PO SCH (22:47)
[2021-06-29] MEDS: THIAMINE HCL 100 MG TABLET (FP) PO SCH (22:48)
[2021-06-30] MEDS ORDERED: chlordiazePOXIDE HCL 25 MG CAPSULE PO SCH (05:00)
[2021-06-30] MEDS: hydrOXYzine PAMOATE 25 MG CAPSULE (FP) PO SCH (06:23)
[2021-06-30 06:24] VITALS: BP 113/70; PULSE 79; TEMP 96.9
[2021-06-30 10:07] LABS: SARS-CoV-2 NAA Not Detected (Not Detected)
[2021-07-01] MEDS ORDERED: chlordiazePOXIDE HCL 10 MG CAPSULE PO PRN
[2021-07-01] MEDS ORDERED: chlordiazePOXIDE HCL 10 MG CAPSULE PO SCH (05:00)
[2021-07-02] MEDS ORDERED: chlordiazePOXIDE HCL 10 MG CAPSULE PO SCH (05:00)
[2021-07-03] MEDS ORDERED: chlordiazePOXIDE HCL 10 MG CAPSULE PO ONE (05:00)
== END 2021-06-30 08:52 | disposition left against medical advice (07) | DRG 770 ==
LOC: YASAS 11:37 → Y3N 13:35
PROVIDERS: ADMIT Allergy & Immunology; ATTEND Surgery
PROC: HZ2ZZZZ Detoxification Services for Substance Abuse Treatment (ICD-10-PCS; principal; 2021-06-28)
DX: F10.230 Alcohol dependence with withdrawal, uncomplicated (principal); F14.20 Cocaine dependence, uncomplicated; F12.20 Cannabis dependence, uncomplicated; F17.210 Nicotine dependence, cigarettes, uncomplicated; F31.9 Bipolar disorder, unspecified; K21.9 Gastro-esophageal reflux disease without esophagitis; M79.671 Pain in right foot
CPT/HCPCS: 36415; 73630-TC-RT-FY; 80053; 84520; 85027; 86780; 87811; C9803-CS; U0003; U0005

== ENCOUNTER 2021-07-30 11:45 | Inpatient (IN) | payer OTHER ==
[2021-07-30 12:05] VITALS: BMI 28.8
[2021-07-30] MEDS ORDERED: ACETAMINOPHEN 325 MG TABLET (FP) PO PRN ×2 (12:26)
[2021-07-30] MEDS ORDERED: IBUPROFEN 400 MG TABLET (FP) PO PRN (12:26)
[2021-07-30] MEDS ORDERED: LOPERAMIDE HCL 2 MG CAPSULE PO PRN (12:26)
[2021-07-30] MEDS ORDERED: MAGNESIUM CITRATE 300 ML BOTTLE PO PRN (12:26)
[2021-07-30] MEDS ORDERED: BENZOCAINE/MENTHOL (CHLORASEPTIC ) LOZENGE MM PRN (12:26)
[2021-07-30] MEDS ORDERED: DICYCLOMINE HCL 10 MG CAPSULE PO PRN (12:26)
[2021-07-30] MEDS ORDERED: ONDANSETRON *ODT* 4 MG TABLET SL PRN (12:26)
[2021-07-30] MEDS ORDERED: chlordiazePOXIDE HCL 25 MG CAPSULE PO PRN (12:26)
[2021-07-30] MEDS ORDERED: MAGNESIUM HYDROX 2400MG/30ML ORAL SUSPENSION 30 ML CUP PO PRN (12:26)
[2021-07-30] MEDS ORDERED: MAG HYDROX/AL HYDROX/SIMETH 30 ML UNIT-DOSE CUP PO PRN (12:26)
[2021-07-30] MEDS ORDERED: BISMUTH SUBSALICYLATE 262 MG/15 ML BTL PO PRN (12:26)
[2021-07-30] MEDS ORDERED: NICOTINE 10 MG CARTRIDGE (INHALER) IH PRN (12:26)
[2021-07-30] MEDS ORDERED: IBUPROFEN 600 MG TABLET (FP) PO PRN (12:26)
[2021-07-30] MEDS ORDERED: LORazepam 1 MG TABLET PO PRN (12:31)
[2021-07-30 15:20] LABS: HEMATOCRIT 45.1 % (35.4-49); HEMOGLOBIN 15.2 GM/dL (11.7-16.9); MCH 32.9 pg (25.7-33.7); MCHC 33.7 g/dl (32.0-35.9); MEAN CELL VOLUME 97.4 fl (80-96); MEAN PLT VOLUME 10.7 fl (7.5-11.1); PLATELET COUNT 152 10^3/uL (134-434); RBC 4.63 M/mm3 (4.00-5.60); RDW 15.2 % (11.9-15.9); WHITE BLOOD COUNT 5.5 K/mm3 (4.0-10.0)
[2021-07-30 15:31] LABS: CALCIUM 8.9 mg/dL (8.5-10.1)
[2021-07-30 15:32] LABS: BLOOD UREA NITROGEN 18.5 mg/dL (7-18)
[2021-07-30 15:35] LABS: CREATININE 1.1 mg/dL (0.55-1.3)
[2021-07-30 15:36] LABS: TOT PROT 7.4 g/dl (6.4-8.2)
[2021-07-30 15:37] LABS: BILIRUBIN,TOTAL 1.3 mg/dL (0.2-1)
[2021-07-30] MEDS: NICOTINE 21 MG/24 HOURS TOPICAL PATCH TD SCH (15:41)
[2021-07-30] MEDS: hydrOXYzine PAMOATE 25 MG CAPSULE (FP) PO SCH ×3 (15:42→22:49)
[2021-07-30] MEDS: FAMOTIDINE 20 MG TABLET PO SCH ×2 (15:42→22:48)
[2021-07-30] MEDS: PRENATAL VITAMINS W/ FOLIC ACID TABLET (FP) PO SCH (15:42)
[2021-07-30] MEDS ORDERED: chlordiazePOXIDE HCL 25 MG CAPSULE PO SCH (17:00)
[2021-07-30] MEDS: LORazepam 2 MG TABLET PO SCH ×2 (20:06→22:50)
[2021-07-30] MEDS: THIAMINE HCL 100 MG TABLET (FP) PO SCH (22:48)
[2021-07-30] MEDS: traZODone HCL 50 MG TABLET (FP) PO SCH (22:49)
[2021-07-30] MEDS: MELATONIN 5 MG TABLETS PO SCH (22:49)
[2021-07-30] MEDS: OLANZapine 10 MG TABLET PO SCH (22:49)
[2021-07-31] MEDS: LORazepam 2 MG TABLET PO SCH ×4 (06:32→22:32)
[2021-07-31] MEDS: hydrOXYzine PAMOATE 25 MG CAPSULE (FP) PO SCH ×5 (07:10→22:33)
[2021-07-31] MEDS: NICOTINE 21 MG/24 HOURS TOPICAL PATCH TD SCH (10:28)
[2021-07-31] MEDS: PRENATAL VITAMINS W/ FOLIC ACID TABLET (FP) PO SCH (10:29)
[2021-07-31] MEDS: FAMOTIDINE 20 MG TABLET PO SCH ×2 (10:29→22:32)
[2021-07-31] MEDS: METHOCARBAMOL 500 MG TABLET PO PRN (10:29)
[2021-07-31] MEDS: traZODone HCL 50 MG TABLET (FP) PO SCH (22:32)
[2021-07-31] MEDS: MELATONIN 5 MG TABLETS PO SCH (22:33)
[2021-07-31] MEDS: THIAMINE HCL 100 MG TABLET (FP) PO SCH (22:34)
[2021-07-31] MEDS: OLANZapine 10 MG TABLET PO SCH (22:34)
[2021-08-01] MEDS ORDERED: chlordiazePOXIDE HCL 25 MG CAPSULE PO SCH (05:00)
[2021-08-01] MEDS: hydrOXYzine PAMOATE 25 MG CAPSULE (FP) PO SCH ×5 (05:46→22:46)
[2021-08-01] MEDS: LORazepam 1 MG TABLET PO SCH ×4 (05:46→22:44)
[2021-08-01] MEDS: FAMOTIDINE 20 MG TABLET PO SCH ×2 (11:44→22:44)
[2021-08-01] MEDS: PRENATAL VITAMINS W/ FOLIC ACID TABLET (FP) PO SCH (11:44)
[2021-08-01] MEDS: METHOCARBAMOL 500 MG TABLET PO PRN (11:44)
[2021-08-01] MEDS: NICOTINE 21 MG/24 HOURS TOPICAL PATCH TD SCH (11:45)
[2021-08-01] MEDS: THIAMINE HCL 100 MG TABLET (FP) PO SCH (22:44)
[2021-08-01] MEDS: traZODone HCL 50 MG TABLET (FP) PO SCH (22:44)
[2021-08-01] MEDS: OLANZapine 10 MG TABLET PO SCH (22:45)
[2021-08-01] MEDS: MELATONIN 5 MG TABLETS PO SCH (23:08)
[2021-08-02] MEDS ORDERED: chlordiazePOXIDE HCL 10 MG CAPSULE PO PRN
[2021-08-02] MEDS ORDERED: LORazepam 0.5 MG TABLET PO PRN
[2021-08-02] MEDS ORDERED: chlordiazePOXIDE HCL 10 MG CAPSULE PO SCH (05:00)
[2021-08-02] MEDS ORDERED: LORazepam 0.5 MG TABLET PO SCH (05:00)
[2021-08-02] MEDS: hydrOXYzine PAMOATE 25 MG CAPSULE (FP) PO SCH (06:00)
[2021-08-02 07:04] VITALS: BP 134/92; PULSE 80; TEMP 96.8
[2021-08-03] MEDS ORDERED: LORazepam 0.5 MG TABLET PO ONE (05:00)
[2021-08-03] MEDS ORDERED: chlordiazePOXIDE HCL 10 MG CAPSULE PO SCH (05:00)
[2021-08-04] MEDS ORDERED: chlordiazePOXIDE HCL 10 MG CAPSULE PO ONE (05:00)
== END 2021-08-02 08:53 | disposition home or self-care (01) | DRG 774 ==
LOC: YASAS 11:45 → Y6N 15:17
PROVIDERS: ADMIT Allergy & Immunology; ATTEND Surgery
PROC: HZ2ZZZZ Detoxification Services for Substance Abuse Treatment (ICD-10-PCS; principal; 2021-07-30)
DX: F10.230 Alcohol dependence with withdrawal, uncomplicated (principal); F14.10 Cocaine abuse, uncomplicated; F12.20 Cannabis dependence, uncomplicated; F17.210 Nicotine dependence, cigarettes, uncomplicated; F19.282 Other psychoactive substance dependence with psychoactive substance-induced sleep disorder; F25.1 Schizoaffective disorder, depressive type; F31.9 Bipolar disorder, unspecified; I10 Essential (primary) hypertension; K21.9 Gastro-esophageal reflux disease without esophagitis; R74.8 Abnormal levels of other serum enzymes
CPT/HCPCS: 36415; 80053; 85027; 86780; C9803-CS; U0003; U0005

== ENCOUNTER 2021-08-29 12:25 | Inpatient (IN) | payer OTHER ==
[2021-08-29 13:36] VITALS: BMI 24.3
[2021-08-29] MEDS ORDERED: BISMUTH SUBSALICYLATE 524 MG/30 ML PO PRN (15:30)
[2021-08-29] MEDS ORDERED: ACETAMINOPHEN 325 MG TABLET (FP) PO PRN ×2 (15:30)
[2021-08-29] MEDS ORDERED: IBUPROFEN 600 MG TABLET (FP) PO PRN (15:30)
[2021-08-29] MEDS ORDERED: chlordiazePOXIDE HCL 25 MG CAPSULE PO PRN (15:30)
[2021-08-29] MEDS ORDERED: BENZOCAINE/MENTHOL (CHLORASEPTIC ) LOZENGE MM PRN (15:30)
[2021-08-29] MEDS ORDERED: LOPERAMIDE HCL 2 MG CAPSULE PO PRN (15:30)
[2021-08-29] MEDS ORDERED: IBUPROFEN 400 MG TABLET (FP) PO PRN (15:30)
[2021-08-29] MEDS ORDERED: ONDANSETRON *ODT* 4 MG TABLET SL PRN (15:30)
[2021-08-29] MEDS ORDERED: MAG HYDROX/AL HYDROX/SIMETH 30 ML UNIT-DOSE CUP PO PRN (15:30)
[2021-08-29] MEDS ORDERED: MAGNESIUM HYDROX 2400MG/30ML ORAL SUSPENSION 30 ML CUP PO PRN (15:30)
[2021-08-29] MEDS ORDERED: MAGNESIUM CITRATE 300 ML BOTTLE PO PRN (15:30)
[2021-08-29] MEDS ORDERED: NICOTINE 10 MG CARTRIDGE (INHALER) IH PRN (15:30)
[2021-08-29] MEDS ORDERED: DICYCLOMINE HCL 10 MG CAPSULE PO PRN (15:30)
[2021-08-29] MEDS: hydrOXYzine PAMOATE 25 MG CAPSULE (FP) PO SCH ×2 (18:30→23:00)
[2021-08-29] MEDS: METHOCARBAMOL 500 MG TABLET PO PRN (18:38)
[2021-08-29] MEDS: THIAMINE HCL 100 MG TABLET (FP) PO SCH (23:00)
[2021-08-29] MEDS: FAMOTIDINE 20 MG TABLET PO SCH (23:00)
[2021-08-29] MEDS: chlordiazePOXIDE HCL 25 MG CAPSULE PO SCH (23:00)
[2021-08-29] MEDS: MELATONIN 5 MG TABLETS PO SCH (23:56)
[2021-08-30] MEDS: hydrOXYzine PAMOATE 25 MG CAPSULE (FP) PO SCH ×5 (06:03→22:33)
[2021-08-30] MEDS: chlordiazePOXIDE HCL 25 MG CAPSULE PO SCH ×2 (06:03→10:49)
[2021-08-30] MEDS ORDERED: TRIMETHOBENZAMIDE HCL 200MG/2ML INJ IM PRN (10:00)
[2021-08-30] MEDS: PRENATAL VITAMINS W/ FOLIC ACID TABLET (FP) PO SCH (10:48)
[2021-08-30] MEDS: FAMOTIDINE 20 MG TABLET PO SCH ×2 (10:48→22:33)
[2021-08-30] MEDS: NICOTINE 21 MG/24 HOURS TOPICAL PATCH TD SCH (10:49)
[2021-08-30] MEDS ORDERED: LORazepam 1 MG TABLET PO PRN (12:35)
[2021-08-30] MEDS: LORazepam 2 MG TABLET PO SCH ×2 (17:38→22:36)
[2021-08-30] MEDS ORDERED: OLANZapine 5 MG TABLET PO SCH (22:00)
[2021-08-30] MEDS ORDERED: traZODone HCL 50 MG TABLET (FP) PO SCH (22:00)
[2021-08-30] MEDS: THIAMINE HCL 100 MG TABLET (FP) PO SCH (22:33)
[2021-08-30] MEDS: MELATONIN 5 MG TABLETS PO SCH (22:33)
[2021-08-30] MEDS: METHOCARBAMOL 500 MG TABLET PO PRN (22:34)
[2021-08-31] MEDS ORDERED: chlordiazePOXIDE HCL 25 MG CAPSULE PO SCH (05:00)
[2021-08-31] MEDS: LORazepam 2 MG TABLET PO SCH ×2 (06:07→10:39)
[2021-08-31] MEDS: hydrOXYzine PAMOATE 25 MG CAPSULE (FP) PO SCH ×2 (06:07→09:47)
[2021-08-31 09:29] VITALS: BP 115/57; PULSE 85; TEMP 97.3
[2021-08-31] MEDS: NICOTINE 21 MG/24 HOURS TOPICAL PATCH TD SCH (09:47)
[2021-08-31] MEDS: FAMOTIDINE 20 MG TABLET PO SCH (09:47)
[2021-08-31] MEDS: PRENATAL VITAMINS W/ FOLIC ACID TABLET (FP) PO SCH (09:47)
[2021-08-31 11:40] LABS: HEMOGLOBIN 13.2 GM/dL (11.7-16.9); MCH 32.9 pg (25.7-33.7); MCHC 32.3 g/dl (32.0-35.9); MEAN CELL VOLUME 101.8 fl (80-96); MEAN PLT VOLUME 10.1 fl (7.5-11.1); PLATELET COUNT 105 10^3/uL (134-434); RBC 4.03 M/mm3 (4.00-5.60); RDW 16.2 % (11.9-15.9); WHITE BLOOD COUNT 7.5 K/mm3 (4.0-10.0)
[2021-08-31 13:25] LABS: ALBUMIN 2.9 g/dl (3.4-5.0); BLOOD UREA NITROGEN 8.4 mg/dL (7-18); CALCIUM 8.1 mg/dL (8.5-10.1)
[2021-08-31 13:30] LABS: BILIRUBIN,TOTAL 0.7 mg/dL (0.2-1); TOT PROT 5.6 g/dl (6.4-8.2)
[2021-09-01] MEDS ORDERED: chlordiazePOXIDE HCL 10 MG CAPSULE PO PRN
[2021-09-01] MEDS ORDERED: LORazepam 1 MG TABLET PO SCH (05:00)
[2021-09-01] MEDS ORDERED: chlordiazePOXIDE HCL 10 MG CAPSULE PO SCH (05:00)
[2021-09-02] MEDS ORDERED: LORazepam 0.5 MG TABLET PO PRN
[2021-09-02] MEDS ORDERED: LORazepam 0.5 MG TABLET PO SCH (05:00)
[2021-09-02] MEDS ORDERED: chlordiazePOXIDE HCL 10 MG CAPSULE PO SCH (05:00)
[2021-09-03] MEDS ORDERED: LORazepam 0.5 MG TABLET PO ONE (05:00)
[2021-09-03] MEDS ORDERED: chlordiazePOXIDE HCL 10 MG CAPSULE PO ONE (05:00)
== END 2021-08-31 09:00 | disposition left against medical advice (07) | DRG 770 ==
LOC: YASAS 12:25 → Y6N 16:48
PROVIDERS: ADMIT Allergy & Immunology; ATTEND Surgery
PROC: HZ2ZZZZ Detoxification Services for Substance Abuse Treatment (ICD-10-PCS; principal; 2021-08-29)
DX: F10.230 Alcohol dependence with withdrawal, uncomplicated (principal); F12.20 Cannabis dependence, uncomplicated; F10.282 Alcohol dependence with alcohol-induced sleep disorder; F10.24 Alcohol dependence with alcohol-induced mood disorder; F31.9 Bipolar disorder, unspecified; F42.9 Obsessive-compulsive disorder, unspecified; E78.5 Hyperlipidemia, unspecified; I10 Essential (primary) hypertension; K21.9 Gastro-esophageal reflux disease without esophagitis; R74.8 Abnormal levels of other serum enzymes
CPT/HCPCS: 36415; 80053; 85027; C9803-CS; U0003; U0005

== ENCOUNTER 2021-09-30 13:12 | Inpatient (IN) | payer OTHER ==
[2021-09-30 14:31] VITALS: BMI 24.3
[2021-09-30] MEDS ORDERED: LOPERAMIDE HCL 2 MG CAPSULE PO PRN (15:25)
[2021-09-30] MEDS ORDERED: BENZOCAINE/MENTHOL (CHLORASEPTIC ) LOZENGE MM PRN (15:25)
[2021-09-30] MEDS ORDERED: DICYCLOMINE HCL 10 MG CAPSULE PO PRN (15:25)
[2021-09-30] MEDS ORDERED: ONDANSETRON *ODT* 4 MG TABLET SL PRN (15:25)
[2021-09-30] MEDS ORDERED: ACETAMINOPHEN 325 MG TABLET (FP) PO PRN ×2 (15:25)
[2021-09-30] MEDS ORDERED: MAGNESIUM CITRATE 300 ML BOTTLE PO PRN (15:25)
[2021-09-30] MEDS ORDERED: MAG HYDROX/AL HYDROX/SIMETH 30 ML UNIT-DOSE CUP PO PRN (15:25)
[2021-09-30] MEDS ORDERED: IBUPROFEN 600 MG TABLET (FP) PO PRN (15:25)
[2021-09-30] MEDS ORDERED: NICOTINE 10 MG CARTRIDGE (INHALER) IH PRN (15:25)
[2021-09-30] MEDS ORDERED: MAGNESIUM HYDROX 2400MG/30ML ORAL SUSPENSION 30 ML CUP PO PRN (15:25)
[2021-09-30] MEDS ORDERED: BISMUTH SUBSALICYLATE 524 MG/30 ML PO PRN (15:25)
[2021-09-30] MEDS ORDERED: METHOCARBAMOL 500 MG TABLET PO PRN (15:25)
[2021-09-30] MEDS ORDERED: IBUPROFEN 400 MG TABLET (FP) PO PRN (15:25)
[2021-09-30] MEDS ORDERED: LORazepam 1 MG TABLET PO PRN (15:25)
[2021-09-30] MEDS: hydrOXYzine PAMOATE 25 MG CAPSULE (FP) PO SCH ×2 (18:13→23:14)
[2021-09-30] MEDS: LORazepam 2 MG TABLET PO SCH ×2 (18:13→23:14)
[2021-09-30] MEDS: NICOTINE 21 MG/24 HOURS TOPICAL PATCH TD SCH (18:16)
[2021-09-30] MEDS: MELATONIN 5 MG TABLETS PO SCH (23:14)
[2021-09-30] MEDS: OLANZapine 5 MG TABLET PO SCH (23:14)
[2021-09-30] MEDS: traZODone HCL 50 MG TABLET (FP) PO SCH (23:14)
[2021-09-30] MEDS: THIAMINE HCL 100 MG TABLET (FP) PO SCH (23:14)
[2021-10-01] MEDS: hydrOXYzine PAMOATE 25 MG CAPSULE (FP) PO SCH ×5 (07:08→22:42)
[2021-10-01] MEDS: LORazepam 2 MG TABLET PO SCH ×4 (07:08→22:42)
[2021-10-01] MEDS: NICOTINE 21 MG/24 HOURS TOPICAL PATCH TD SCH (11:10)
[2021-10-01] MEDS: PRENATAL VITAMINS W/ FOLIC ACID TABLET (FP) PO SCH (11:10)
[2021-10-01] MEDS: NYSTATIN 100,000 UNIT/GM TOPICAL CREAM 15 GM TUBE TP SCH ×2 (15:01→22:50)
[2021-10-01] MEDS: traZODone HCL 50 MG TABLET (FP) PO SCH (22:42)
[2021-10-01] MEDS: THIAMINE HCL 100 MG TABLET (FP) PO SCH (22:42)
[2021-10-01] MEDS: OLANZapine 5 MG TABLET PO SCH (22:42)
[2021-10-01] MEDS: FAMOTIDINE 20 MG TABLET PO SCH (22:42)
[2021-10-01] MEDS: MELATONIN 5 MG TABLETS PO SCH (22:42)
[2021-10-02] MEDS: LORazepam 1 MG TABLET PO SCH ×4 (06:27→23:04)
[2021-10-02] MEDS: hydrOXYzine PAMOATE 25 MG CAPSULE (FP) PO SCH ×4 (06:28→18:25)
[2021-10-02] MEDS: NYSTATIN 100,000 UNIT/GM TOPICAL CREAM 15 GM TUBE TP SCH (11:07)
[2021-10-02] MEDS: NICOTINE 21 MG/24 HOURS TOPICAL PATCH TD SCH (11:07)
[2021-10-02] MEDS: FAMOTIDINE 20 MG TABLET PO SCH ×2 (11:07→23:03)
[2021-10-02] MEDS: PRENATAL VITAMINS W/ FOLIC ACID TABLET (FP) PO SCH (11:08)
[2021-10-02] MEDS: traZODone HCL 50 MG TABLET (FP) PO SCH (23:03)
[2021-10-02] MEDS: THIAMINE HCL 100 MG TABLET (FP) PO SCH (23:03)
[2021-10-02] MEDS: MELATONIN 5 MG TABLETS PO SCH (23:03)
[2021-10-02] MEDS: OLANZapine 5 MG TABLET PO SCH (23:03)
[2021-10-03] MEDS ORDERED: LORazepam 0.5 MG TABLET PO PRN
[2021-10-03] MEDS: hydrOXYzine PAMOATE 25 MG CAPSULE (FP) PO SCH ×3 (00:31→10:10)
[2021-10-03] MEDS: NYSTATIN 100,000 UNIT/GM TOPICAL CREAM 15 GM TUBE TP SCH ×2 (00:31→10:09)
[2021-10-03] MEDS: LORazepam 0.5 MG TABLET PO SCH ×2 (06:40→10:10)
[2021-10-03 06:45] VITALS: RESP 18
[2021-10-03 09:45] VITALS: TEMP 97.8
[2021-10-03 09:46] VITALS: BP 146/94; PULSE 86
[2021-10-03] MEDS: NICOTINE 21 MG/24 HOURS TOPICAL PATCH TD SCH (10:09)
[2021-10-03] MEDS: FAMOTIDINE 20 MG TABLET PO SCH (10:10)
[2021-10-03] MEDS: PRENATAL VITAMINS W/ FOLIC ACID TABLET (FP) PO SCH (10:10)
[2021-10-04] MEDS ORDERED: LORazepam 0.5 MG TABLET PO ONE (05:00)
== END 2021-10-03 10:00 | disposition home or self-care (01) | DRG 774 ==
LOC: YASAS 13:12 → Y3N 16:14
PROVIDERS: ADMIT Allergy & Immunology; ATTEND Surgery
PROC: HZ2ZZZZ Detoxification Services for Substance Abuse Treatment (ICD-10-PCS; principal; 2021-09-30)
DX: F10.230 Alcohol dependence with withdrawal, uncomplicated (principal); F14.10 Cocaine abuse, uncomplicated; F12.20 Cannabis dependence, uncomplicated; F17.210 Nicotine dependence, cigarettes, uncomplicated; F19.282 Other psychoactive substance dependence with psychoactive substance-induced sleep disorder; F19.24 Other psychoactive substance dependence with psychoactive substance-induced mood disorder; U07.1 COVID-19; I10 Essential (primary) hypertension; K21.9 Gastro-esophageal reflux disease without esophagitis; E78.5 Hyperlipidemia, unspecified; Z86.59 Personal history of other mental and behavioral disorders; Z59.00 Homelessness unspecified; Z56.0 Unemployment, unspecified
CPT/HCPCS: C9803-CS; U0003; U0005

== ENCOUNTER 2021-10-30 13:44 | Inpatient (IN) | payer OTHER ==
[2021-10-30 15:18] VITALS: BMI 28.8
[2021-10-30] MEDS ORDERED: METHOCARBAMOL 500 MG TABLET PO PRN (16:19)
[2021-10-30] MEDS ORDERED: BENZOCAINE/MENTHOL (CHLORASEPTIC ) LOZENGE MM PRN (16:19)
[2021-10-30] MEDS ORDERED: MELATONIN 5 MG TABLETS PO PRN (16:19)
[2021-10-30] MEDS ORDERED: MAGNESIUM HYDROX 2400MG/30ML ORAL SUSPENSION 30 ML CUP PO PRN (16:19)
[2021-10-30] MEDS ORDERED: NICOTINE POLACRILEX 2 MG GUM BUC PRN (16:19)
[2021-10-30] MEDS ORDERED: MAGNESIUM CITRATE 300 ML BOTTLE PO PRN (16:19)
[2021-10-30] MEDS ORDERED: BISMUTH SUBSALICYLATE 524 MG/30 ML PO PRN (16:19)
[2021-10-30] MEDS ORDERED: guaiFENesin 200 MG/10 ML 10 ML UNIT-DOSE CUPS PO PRN (16:19)
[2021-10-30] MEDS ORDERED: LOPERAMIDE HCL 2 MG CAPSULE PO PRN (16:19)
[2021-10-30] MEDS ORDERED: DICYCLOMINE HCL 10 MG CAPSULE PO PRN (16:19)
[2021-10-30] MEDS ORDERED: MAG HYDROX/AL HYDROX/SIMETH 30 ML UNIT-DOSE CUP PO PRN (16:19)
[2021-10-30] MEDS ORDERED: ACETAMINOPHEN 325 MG TABLET (FP) PO PRN ×2 (16:19)
[2021-10-30] MEDS ORDERED: ONDANSETRON *ODT* 4 MG TABLET SL PRN (16:19)
[2021-10-30] MEDS ORDERED: IBUPROFEN 600 MG TABLET (FP) PO PRN (16:19)
[2021-10-30] MEDS ORDERED: IBUPROFEN 400 MG TABLET (FP) PO PRN (16:19)
[2021-10-30] MEDS ORDERED: P-EPHED 60MG/TRIPROLIDI 2.5MG TABLET PO PRN (16:19)
[2021-10-30] MEDS: FAMOTIDINE 20 MG TABLET PO SCH (22:44)
[2021-10-30] MEDS: THIAMINE HCL 100 MG TABLET (FP) PO SCH (22:44)
[2021-10-31] MEDS ORDERED: chlordiazePOXIDE HCL 25 MG CAPSULE PO PRN (09:55)
[2021-10-31] MEDS: FAMOTIDINE 20 MG TABLET PO SCH ×2 (10:25→22:02)
[2021-10-31] MEDS: PRENATAL VITAMINS W/ FOLIC ACID TABLET (FP) PO SCH (10:25)
[2021-10-31] MEDS: hydrOXYzine PAMOATE 25 MG CAPSULE (FP) PO PRN ×2 (10:25→17:49)
[2021-10-31] MEDS: chlordiazePOXIDE HCL 25 MG CAPSULE PO SCH ×3 (10:26→22:03)
[2021-10-31 10:58] LABS: HEMATOCRIT 45.5 % (35.4-49); HEMOGLOBIN 15.4 GM/dL (11.7-16.9); MCH 33.3 pg (25.7-33.7); MCHC 33.8 g/dl (32.0-35.9); MEAN CELL VOLUME 98.4 fl (80-96); MEAN PLT VOLUME 9.2 fl (7.5-11.1); PLATELET COUNT 200 10^3/uL (134-434); RBC 4.62 M/mm3 (4.00-5.60); RDW 13.9 % (11.9-15.9); WHITE BLOOD COUNT 5.6 K/mm3 (4.0-10.0)
[2021-10-31 11:14] LABS: ALBUMIN 3.7 g/dl (3.4-5.0); BLOOD UREA NITROGEN 15.5 mg/dL (7-18); CALCIUM 8.8 mg/dL (8.5-10.1)
[2021-10-31 11:17] LABS: BILIRUBIN,TOTAL 0.7 mg/dL (0.2-1); CREATININE 0.8 mg/dL (0.55-1.3)
[2021-10-31 11:18] LABS: TOT PROT 6.9 g/dl (6.4-8.2)
[2021-10-31] MEDS: NICOTINE 21 MG/24 HOURS TOPICAL PATCH TD SCH (14:22)
[2021-10-31] MEDS: OLANZapine 5 MG TABLET PO SCH (22:02)
[2021-10-31] MEDS: traZODone HCL 100 MG TABLET (FP) PO SCH (22:03)
[2021-10-31] MEDS: THIAMINE HCL 100 MG TABLET (FP) PO SCH (22:03)
[2021-11-01] MEDS: hydrOXYzine PAMOATE 25 MG CAPSULE (FP) PO PRN ×2 (05:27→10:38)
[2021-11-01] MEDS: chlordiazePOXIDE HCL 25 MG CAPSULE PO SCH ×4 (05:28→22:30)
[2021-11-01] MEDS: FAMOTIDINE 20 MG TABLET PO SCH ×2 (10:37→22:30)
[2021-11-01] MEDS: NICOTINE 21 MG/24 HOURS TOPICAL PATCH TD SCH (10:38)
[2021-11-01] MEDS: PRENATAL VITAMINS W/ FOLIC ACID TABLET (FP) PO SCH (10:38)
[2021-11-01] MEDS: THIAMINE HCL 100 MG TABLET (FP) PO SCH (22:30)
[2021-11-01] MEDS: traZODone HCL 100 MG TABLET (FP) PO SCH (22:30)
[2021-11-01] MEDS: OLANZapine 5 MG TABLET PO SCH (22:30)
[2021-11-02] MEDS: hydrOXYzine PAMOATE 25 MG CAPSULE (FP) PO PRN ×2 (06:53→10:38)
[2021-11-02] MEDS: chlordiazePOXIDE HCL 25 MG CAPSULE PO SCH ×2 (06:53→10:36)
[2021-11-02] MEDS: PRENATAL VITAMINS W/ FOLIC ACID TABLET (FP) PO SCH (10:36)
[2021-11-02] MEDS: FAMOTIDINE 20 MG TABLET PO SCH (10:36)
[2021-11-02] MEDS: NICOTINE 21 MG/24 HOURS TOPICAL PATCH TD SCH (10:37)
[2021-11-02 17:24] VITALS: BP 99/59; PULSE 83; RESP 18; TEMP 97
[2021-11-03] MEDS ORDERED: chlordiazePOXIDE HCL 10 MG CAPSULE PO PRN
[2021-11-03] MEDS ORDERED: chlordiazePOXIDE HCL 10 MG CAPSULE PO SCH (05:00)
[2021-11-04] MEDS ORDERED: chlordiazePOXIDE HCL 10 MG CAPSULE PO SCH (05:00)
[2021-11-05] MEDS ORDERED: chlordiazePOXIDE HCL 10 MG CAPSULE PO ONE (05:00)
== END 2021-11-02 18:22 | disposition left against medical advice (07) | DRG 770 ==
LOC: YASAS 13:44 → UNDOADMIN 16:19 → Y3N 16:19
PROVIDERS: ADMIT Allergy & Immunology; ATTEND Surgery
PROC: HZ2ZZZZ Detoxification Services for Substance Abuse Treatment (ICD-10-PCS; principal; 2021-10-30)
DX: F10.230 Alcohol dependence with withdrawal, uncomplicated (principal); F12.20 Cannabis dependence, uncomplicated; F10.220 Alcohol dependence with intoxication, uncomplicated; F17.210 Nicotine dependence, cigarettes, uncomplicated; F31.9 Bipolar disorder, unspecified; F10.282 Alcohol dependence with alcohol-induced sleep disorder; F10.24 Alcohol dependence with alcohol-induced mood disorder; I10 Essential (primary) hypertension; K21.9 Gastro-esophageal reflux disease without esophagitis; E78.5 Hyperlipidemia, unspecified
CPT/HCPCS: 36415; 80053; 85027; 86780; C9803-CS; U0003; U0005

== ENCOUNTER 2021-11-29 14:10 | Emergency (ER) | payer OTHER ==
[2021-11-29 15:45] VITALS: BP 137/90; PULSE 101; RESP 20; TEMP 97.1; BMI 28.8
[2021-11-29] MEDS ORDERED: LACTATED RINGERS SOLUTION 1000 ML INFUS.BAG IV ONE (16:29)
== END 2021-11-29 19:18 | disposition home or self-care (01) ==
LOC: JER 14:10
DX: F10.129 Alcohol abuse with intoxication, unspecified (principal)
CPT/HCPCS: 99283-25

== ENCOUNTER 2021-11-29 17:29 | Inpatient (IN) | payer OTHER ==
[2021-11-29 18:46] VITALS: BMI 24.9
[2021-11-29] MEDS ORDERED: LOPERAMIDE HCL 2 MG CAPSULE PO PRN (20:34)
[2021-11-29] MEDS ORDERED: MAGNESIUM HYDROX 2400MG/30ML ORAL SUSPENSION 30 ML CUP PO PRN (20:34)
[2021-11-29] MEDS ORDERED: IBUPROFEN 400 MG TABLET (FP) PO PRN (20:34)
[2021-11-29] MEDS ORDERED: BENZOCAINE/MENTHOL (CHLORASEPTIC ) LOZENGE MM PRN (20:34)
[2021-11-29] MEDS ORDERED: MAGNESIUM CITRATE 300 ML BOTTLE PO PRN (20:34)
[2021-11-29] MEDS ORDERED: DICYCLOMINE HCL 10 MG CAPSULE PO PRN (20:34)
[2021-11-29] MEDS ORDERED: NALOXONE HCL (KLOXXADO) 8 MG SPRAY NS PRN (20:34)
[2021-11-29] MEDS ORDERED: ONDANSETRON *ODT* 4 MG TABLET SL PRN (20:34)
[2021-11-29] MEDS ORDERED: chlordiazePOXIDE HCL 25 MG CAPSULE PO PRN (20:34)
[2021-11-29] MEDS ORDERED: MAG HYDROX/AL HYDROX/SIMETH 30 ML UNIT-DOSE CUP PO PRN (20:34)
[2021-11-29] MEDS ORDERED: NICOTINE POLACRILEX 2 MG GUM BUC PRN (20:34)
[2021-11-29] MEDS ORDERED: ACETAMINOPHEN 325 MG TABLET (FP) PO PRN ×2 (20:34)
[2021-11-29] MEDS ORDERED: BISMUTH SUBSALICYLATE 524 MG/30 ML PO PRN (20:34)
[2021-11-29] MEDS: THIAMINE HCL 100 MG TABLET (FP) PO SCH (22:35)
[2021-11-29] MEDS: chlordiazePOXIDE HCL 25 MG CAPSULE PO SCH (22:35)
[2021-11-29] MEDS: MELATONIN 5 MG TABLETS PO SCH (22:35)
[2021-11-29] MEDS: hydrOXYzine PAMOATE 25 MG CAPSULE (FP) PO PRN (22:35)
[2021-11-30] MEDS: hydrOXYzine PAMOATE 25 MG CAPSULE (FP) PO PRN (06:13)
[2021-11-30] MEDS: IBUPROFEN 600 MG TABLET (FP) PO PRN ×2 (06:13→18:20)
[2021-11-30] MEDS: chlordiazePOXIDE HCL 25 MG CAPSULE PO SCH ×4 (06:14→22:24)
[2021-11-30] MEDS: FAMOTIDINE 20 MG TABLET PO SCH ×2 (10:31→22:24)
[2021-11-30] MEDS: NICOTINE 21 MG/24 HOURS TOPICAL PATCH TD SCH (10:31)
[2021-11-30] MEDS: PRENATAL VITAMINS W/ FOLIC ACID TABLET (FP) PO SCH (10:31)
[2021-11-30 15:25] LABS: HEMOGLOBIN 13.6 GM/dL (11.7-16.9); MCHC 33.9 g/dl (32.0-35.9); MEAN CELL VOLUME 97.3 fl (80-96); MEAN PLT VOLUME 9.6 fl (7.5-11.1); PLATELET COUNT 105 10^3/uL (134-434); RBC 4.11 M/mm3 (4.00-5.60); WHITE BLOOD COUNT 3.7 K/mm3 (4.0-10.0)
[2021-11-30 17:43] LABS: ALBUMIN 3.1 g/dl (3.4-5.0); BLOOD UREA NITROGEN 14.5 mg/dL (7-18)
[2021-11-30 17:46] LABS: CREATININE 0.9 mg/dL (0.55-1.3)
[2021-11-30 17:48] LABS: BILIRUBIN,TOTAL 0.5 mg/dL (0.2-1); TOT PROT 5.6 g/dl (6.4-8.2)
[2021-11-30] MEDS ORDERED: chlordiazePOXIDE HCL 25 MG CAPSULE ONE (18:10)
[2021-11-30] MEDS: OLANZapine 5 MG TABLET PO SCH (22:24)
[2021-11-30] MEDS: traZODone HCL 100 MG TABLET (FP) PO SCH (22:24)
[2021-11-30] MEDS: THIAMINE HCL 100 MG TABLET (FP) PO SCH (22:24)
[2021-11-30] MEDS: MELATONIN 5 MG TABLETS PO SCH (22:27)
[2021-12-01] MEDS ORDERED: chlordiazePOXIDE HCL 25 MG CAPSULE PO SCH (05:00)
[2021-12-01] MEDS ORDERED: LORazepam 1 MG TABLET PO PRN (09:48)
[2021-12-01] MEDS: METHOCARBAMOL 500 MG TABLET PO PRN (11:01)
[2021-12-01] MEDS: PRENATAL VITAMINS W/ FOLIC ACID TABLET (FP) PO SCH (11:01)
[2021-12-01] MEDS: FAMOTIDINE 20 MG TABLET PO SCH ×2 (11:01→22:26)
[2021-12-01] MEDS: NICOTINE 21 MG/24 HOURS TOPICAL PATCH TD SCH (11:01)
[2021-12-01] MEDS: LORazepam 2 MG TABLET PO SCH ×3 (11:02→22:26)
[2021-12-01] MEDS: hydrOXYzine PAMOATE 25 MG CAPSULE (FP) PO PRN ×2 (11:04→18:10)
[2021-12-01] MEDS: THIAMINE HCL 100 MG TABLET (FP) PO SCH (22:25)
[2021-12-01] MEDS: traZODone HCL 100 MG TABLET (FP) PO SCH (22:25)
[2021-12-01] MEDS: OLANZapine 5 MG TABLET PO SCH (22:26)
[2021-12-01] MEDS: IBUPROFEN 600 MG TABLET (FP) PO PRN (22:27)
[2021-12-01 22:47] VITALS: RESP 18
[2021-12-01] MEDS: MELATONIN 5 MG TABLETS PO SCH (23:28)
[2021-12-02] MEDS ORDERED: chlordiazePOXIDE HCL 10 MG CAPSULE PO PRN
[2021-12-02] MEDS ORDERED: chlordiazePOXIDE HCL 10 MG CAPSULE PO SCH (05:00)
[2021-12-02] MEDS ORDERED: LORazepam 1 MG TABLET PO SCH (05:00)
[2021-12-02] MEDS: METHOCARBAMOL 500 MG TABLET PO PRN (06:12)
[2021-12-02] MEDS: hydrOXYzine PAMOATE 25 MG CAPSULE (FP) PO PRN (06:13)
[2021-12-02] MEDS: IBUPROFEN 600 MG TABLET (FP) PO PRN (06:14)
[2021-12-02 06:15] VITALS: BP 105/66; PULSE 80; TEMP 96.8
[2021-12-03] MEDS ORDERED: LORazepam 0.5 MG TABLET PO PRN
[2021-12-03] MEDS ORDERED: chlordiazePOXIDE HCL 10 MG CAPSULE PO SCH (05:00)
[2021-12-03] MEDS ORDERED: LORazepam 0.5 MG TABLET PO SCH (05:00)
[2021-12-04] MEDS ORDERED: chlordiazePOXIDE HCL 10 MG CAPSULE PO ONE (05:00)
[2021-12-04] MEDS ORDERED: LORazepam 0.5 MG TABLET PO ONE (05:00)
== END 2021-12-02 08:52 | disposition left against medical advice (07) | DRG 770 ==
LOC: YASAS 17:29 → Y6N 20:29
PROVIDERS: ADMIT Allergy & Immunology; ATTEND Surgery
PROC: HZ2ZZZZ Detoxification Services for Substance Abuse Treatment (ICD-10-PCS; principal; 2021-11-29)
DX: F10.20 Alcohol dependence, uncomplicated (principal); F14.20 Cocaine dependence, uncomplicated; F12.20 Cannabis dependence, uncomplicated; F17.210 Nicotine dependence, cigarettes, uncomplicated; F10.282 Alcohol dependence with alcohol-induced sleep disorder; F10.24 Alcohol dependence with alcohol-induced mood disorder; F42.9 Obsessive-compulsive disorder, unspecified; I10 Essential (primary) hypertension; K21.9 Gastro-esophageal reflux disease without esophagitis; E78.5 Hyperlipidemia, unspecified; S99.921A Unspecified injury of right foot, initial encounter; W51.XXXA Accidental striking against or bumped into by another person, initial encounter; Y92.238 Other place in hospital as the place of occurrence of the external cause; Y99.9 Unspecified external cause status; Z56.0 Unemployment, unspecified; Z59.00 Homelessness unspecified
CPT/HCPCS: 36415; 73630-TC-RT-FY; 80053; 85027; 86780; 93005; 93010; C9803-CS; Q0162; U0003; U0005

== ENCOUNTER 2022-01-04 14:01 | Inpatient (IN) | payer OTHER ==
[2022-01-04 15:29] VITALS: BMI 25.8
[2022-01-04] MEDS ORDERED: POLYETHYLENE GLYCOL (HEALTHYLAX) 3350 17 GM PACKET PO PRN (17:10)
[2022-01-04] MEDS ORDERED: IBUPROFEN 600 MG TABLET (FP) PO PRN (17:10)
[2022-01-04] MEDS ORDERED: NICOTINE POLACRILEX 2 MG GUM BUC PRN (17:10)
[2022-01-04] MEDS ORDERED: BENZOCAINE/MENTHOL (CHLORASEPTIC ) LOZENGE MM PRN (17:10)
[2022-01-04] MEDS ORDERED: MAGNESIUM HYDROX 2400MG/30ML ORAL SUSPENSION 30 ML CUP PO PRN (17:10)
[2022-01-04] MEDS ORDERED: DICYCLOMINE HCL 10 MG CAPSULE PO PRN (17:10)
[2022-01-04] MEDS ORDERED: ONDANSETRON *ODT* 4 MG TABLET SL PRN (17:10)
[2022-01-04] MEDS ORDERED: P-EPHED 60MG/TRIPROLIDI 2.5MG TABLET PO PRN (17:10)
[2022-01-04] MEDS ORDERED: MAG HYDROX/AL HYDROX/SIMETH 30 ML UNIT-DOSE CUP PO PRN (17:10)
[2022-01-04] MEDS ORDERED: LOPERAMIDE HCL 2 MG CAPSULE PO PRN (17:10)
[2022-01-04] MEDS ORDERED: IBUPROFEN 400 MG TABLET (FP) PO PRN (17:10)
[2022-01-04] MEDS ORDERED: BISMUTH SUBSALICYLATE 524 MG/30 ML PO PRN (17:10)
[2022-01-04] MEDS ORDERED: ACETAMINOPHEN 325 MG TABLET (FP) PO PRN ×2 (17:10)
[2022-01-04] MEDS ORDERED: guaiFENesin 200 MG/10 ML 10 ML UNIT-DOSE CUPS PO PRN (17:10)
[2022-01-04] MEDS ORDERED: chlordiazePOXIDE HCL 25 MG CAPSULE PO PRN (17:12)
[2022-01-04] MEDS ORDERED: chlordiazePOXIDE HCL 25 MG CAPSULE ONE (18:15)
[2022-01-04] MEDS ORDERED: ONDANSETRON *ODT* 4 MG TABLET ONE (18:16)
[2022-01-04] MEDS: chlordiazePOXIDE HCL 25 MG CAPSULE PO SCH ×2 (18:18→22:25)
[2022-01-04] MEDS: FAMOTIDINE 20 MG TABLET PO SCH (22:24)
[2022-01-04] MEDS: THIAMINE HCL 100 MG TABLET (FP) PO SCH (22:24)
[2022-01-04] MEDS: hydrOXYzine PAMOATE 25 MG CAPSULE (FP) PO PRN (22:26)
[2022-01-05] MEDS: chlordiazePOXIDE HCL 25 MG CAPSULE PO SCH ×4 (05:28→22:36)
[2022-01-05] MEDS: hydrOXYzine PAMOATE 25 MG CAPSULE (FP) PO PRN ×2 (05:29→17:34)
[2022-01-05] MEDS: PRENATAL VITAMINS W/ FOLIC ACID TABLET (FP) PO SCH (10:16)
[2022-01-05] MEDS: FAMOTIDINE 20 MG TABLET PO SCH ×2 (10:17→22:35)
[2022-01-05] MEDS: NICOTINE 14 MG/24 HOURS TOPICAL PATCH TD SCH (10:17)
[2022-01-05 12:51] LABS: HEMATOCRIT 39.9 % (35.4-49); HEMOGLOBIN 13.5 GM/dL (11.7-16.9); MCH 32.4 pg (25.7-33.7); MCHC 33.7 g/dl (32.0-35.9); MEAN CELL VOLUME 95.9 fl (80-96); MEAN PLT VOLUME 9.6 fl (7.5-11.1); PLATELET COUNT 187 10^3/uL (134-434); RBC 4.16 M/mm3 (4.00-5.60); RDW 14.2 % (11.9-15.9); WHITE BLOOD COUNT 4.8 K/mm3 (4.0-10.0)
[2022-01-05 12:53] LABS: CALCIUM 8.6 mg/dL (8.5-10.1)
[2022-01-05 12:54] LABS: BLOOD UREA NITROGEN 16.6 mg/dL (7-18)
[2022-01-05 12:55] LABS: ALBUMIN 3.4 g/dl (3.4-5.0)
[2022-01-05 12:57] LABS: CREATININE 0.9 mg/dL (0.55-1.3)
[2022-01-05 12:59] LABS: TOT PROT 6.4 g/dl (6.4-8.2)
[2022-01-05 21:42] VITALS: RESP 18
[2022-01-05] MEDS: METHOCARBAMOL 500 MG TABLET PO PRN (22:35)
[2022-01-05] MEDS: traZODone HCL 100 MG TABLET (FP) PO SCH (22:36)
[2022-01-05] MEDS: OLANZapine 5 MG TABLET PO SCH (22:36)
[2022-01-05] MEDS: THIAMINE HCL 100 MG TABLET (FP) PO SCH (22:36)
[2022-01-06] MEDS: chlordiazePOXIDE HCL 25 MG CAPSULE PO SCH ×4 (06:33→22:10)
[2022-01-06] MEDS: METHOCARBAMOL 500 MG TABLET PO PRN ×2 (06:35→22:11)
[2022-01-06] MEDS: hydrOXYzine PAMOATE 25 MG CAPSULE (FP) PO PRN (06:35)
[2022-01-06] MEDS: FAMOTIDINE 20 MG TABLET PO SCH ×2 (10:18→22:10)
[2022-01-06] MEDS: PRENATAL VITAMINS W/ FOLIC ACID TABLET (FP) PO SCH (10:18)
[2022-01-06] MEDS: NICOTINE 14 MG/24 HOURS TOPICAL PATCH TD SCH (10:19)
[2022-01-06] MEDS: traZODone HCL 100 MG TABLET (FP) PO SCH (22:10)
[2022-01-06] MEDS: THIAMINE HCL 100 MG TABLET (FP) PO SCH (22:11)
[2022-01-06] MEDS: OLANZapine 5 MG TABLET PO SCH (22:11)
[2022-01-07] MEDS ORDERED: chlordiazePOXIDE HCL 10 MG CAPSULE PO PRN
[2022-01-07] MEDS ORDERED: chlordiazePOXIDE HCL 10 MG CAPSULE PO SCH (05:00)
[2022-01-07 08:47] VITALS: BP 130/85; PULSE 88; TEMP 97.5
[2022-01-08] MEDS ORDERED: chlordiazePOXIDE HCL 10 MG CAPSULE PO SCH (05:00)
[2022-01-09] MEDS ORDERED: chlordiazePOXIDE HCL 10 MG CAPSULE PO ONE (05:00)
== END 2022-01-07 09:26 | disposition home or self-care (01) | DRG 775 ==
LOC: YASAS 14:01 → Y3N 17:47
PROVIDERS: ADMIT Allergy & Immunology; ATTEND Surgery
PROC: HZ2ZZZZ Detoxification Services for Substance Abuse Treatment (ICD-10-PCS; principal; 2022-01-04)
DX: F10.230 Alcohol dependence with withdrawal, uncomplicated (principal); F12.20 Cannabis dependence, uncomplicated; F17.210 Nicotine dependence, cigarettes, uncomplicated; F31.9 Bipolar disorder, unspecified; F19.282 Other psychoactive substance dependence with psychoactive substance-induced sleep disorder; F19.24 Other psychoactive substance dependence with psychoactive substance-induced mood disorder; F41.9 Anxiety disorder, unspecified; F42.9 Obsessive-compulsive disorder, unspecified; E78.5 Hyperlipidemia, unspecified; I10 Essential (primary) hypertension; Z56.0 Unemployment, unspecified; Z59.01 Sheltered homelessness
CPT/HCPCS: 36415; 80053; 85027; 86780; C9803-CS; Q0162; U0003; U0005

== ENCOUNTER 2022-02-03 20:51 | Inpatient (IN) | payer OTHER ==
[2022-02-03 21:58] VITALS: BMI 26.6
[2022-02-03] MEDS ORDERED: DICYCLOMINE HCL 10 MG CAPSULE PO PRN (22:05)
[2022-02-03] MEDS ORDERED: guaiFENesin 200 MG/10 ML 10 ML UNIT-DOSE CUPS PO PRN (22:05)
[2022-02-03] MEDS ORDERED: ACETAMINOPHEN 325 MG TABLET (FP) PO PRN ×2 (22:05)
[2022-02-03] MEDS ORDERED: BENZOCAINE/MENTHOL (CHLORASEPTIC ) LOZENGE MM PRN (22:05)
[2022-02-03] MEDS ORDERED: IBUPROFEN 600 MG TABLET (FP) PO PRN (22:05)
[2022-02-03] MEDS ORDERED: MAGNESIUM HYDROX 2400MG/30ML ORAL SUSPENSION 30 ML CUP PO PRN (22:05)
[2022-02-03] MEDS ORDERED: POLYETHYLENE GLYCOL (HEALTHYLAX) 3350 17 GM PACKET PO PRN (22:05)
[2022-02-03] MEDS ORDERED: MELATONIN 5 MG TABLETS PO PRN (22:05)
[2022-02-03] MEDS ORDERED: NICOTINE 10 MG CARTRIDGE (INHALER) IH PRN (22:05)
[2022-02-03] MEDS ORDERED: ONDANSETRON *ODT* 4 MG TABLET SL PRN (22:05)
[2022-02-03] MEDS ORDERED: IBUPROFEN 400 MG TABLET (FP) PO PRN (22:05)
[2022-02-03] MEDS ORDERED: LOPERAMIDE HCL 2 MG CAPSULE PO PRN (22:05)
[2022-02-03] MEDS ORDERED: P-EPHED 60MG/TRIPROLIDI 2.5MG TABLET PO PRN (22:05)
[2022-02-03] MEDS ORDERED: MAG HYDROX/AL HYDROX/SIMETH 30 ML UNIT-DOSE CUP PO PRN (22:05)
[2022-02-03] MEDS ORDERED: BISMUTH SUBSALICYLATE 524 MG/30 ML PO PRN (22:05)
[2022-02-03] MEDS ORDERED: chlordiazePOXIDE HCL 25 MG CAPSULE PO PRN (22:08)
[2022-02-03] MEDS: FAMOTIDINE 20 MG TABLET PO SCH (23:28)
[2022-02-04] MEDS: chlordiazePOXIDE HCL 25 MG CAPSULE PO SCH ×5 (00:09→22:07)
[2022-02-04] MEDS ORDERED: PRENATAL VITAMINS W/ FOLIC ACID TABLET (FP) PO SCH (10:00)
[2022-02-04] MEDS: FAMOTIDINE 20 MG TABLET PO SCH ×2 (10:16→22:07)
[2022-02-04] MEDS: METHOCARBAMOL 500 MG TABLET PO PRN ×2 (10:17→22:09)
[2022-02-04] MEDS: hydrOXYzine PAMOATE 25 MG CAPSULE (FP) PO PRN ×2 (10:17→22:09)
[2022-02-04] MEDS ORDERED: NICOTINE 14 MG/24 HOURS TOPICAL PATCH TD SCH (12:30)
[2022-02-04] MEDS ORDERED: THIAMINE HCL 100 MG TABLET (FP) PO SCH (22:00)
[2022-02-05] MEDS ORDERED: chlordiazePOXIDE HCL 25 MG CAPSULE PO SCH (05:00)
[2022-02-05] MEDS: METHOCARBAMOL 500 MG TABLET PO PRN (05:22)
[2022-02-05 09:04] VITALS: BP 134/77; PULSE 64; RESP 18; TEMP 98.4
[2022-02-06] MEDS ORDERED: chlordiazePOXIDE HCL 10 MG CAPSULE PO PRN
[2022-02-06] MEDS ORDERED: chlordiazePOXIDE HCL 10 MG CAPSULE PO SCH (05:00)
[2022-02-07] MEDS ORDERED: chlordiazePOXIDE HCL 10 MG CAPSULE PO SCH (05:00)
[2022-02-08] MEDS ORDERED: chlordiazePOXIDE HCL 10 MG CAPSULE PO ONE (05:00)
== END 2022-02-05 10:50 | disposition left against medical advice (07) | DRG 770 ==
LOC: YASAS 20:51 → Y3N 22:16
PROVIDERS: ADMIT Allergy & Immunology; ATTEND Surgery
PROC: HZ2ZZZZ Detoxification Services for Substance Abuse Treatment (ICD-10-PCS; principal; 2022-02-03)
DX: F10.230 Alcohol dependence with withdrawal, uncomplicated (principal); F12.20 Cannabis dependence, uncomplicated; F17.210 Nicotine dependence, cigarettes, uncomplicated; F31.9 Bipolar disorder, unspecified; F19.24 Other psychoactive substance dependence with psychoactive substance-induced mood disorder; F42.9 Obsessive-compulsive disorder, unspecified; G47.00 Insomnia, unspecified; I10 Essential (primary) hypertension; K21.9 Gastro-esophageal reflux disease without esophagitis; Z62.810 Personal history of physical and sexual abuse in childhood; Z89.021 Acquired absence of right finger(s); Z56.0 Unemployment, unspecified
CPT/HCPCS: 0241U-QW; 36415; 80053; 80178; 83690; 83735; 85025; Q0162

== ENCOUNTER 2022-03-11 11:21 | Inpatient (IN) | payer OTHER ==
[2022-03-11 12:08] VITALS: BMI 30.3
[2022-03-11] MEDS ORDERED: LOPERAMIDE HCL 2 MG CAPSULE PO PRN (12:38)
[2022-03-11] MEDS ORDERED: NALOXONE HCL (KLOXXADO) 8 MG SPRAY NS PRN (12:38)
[2022-03-11] MEDS ORDERED: NICOTINE 10 MG CARTRIDGE (INHALER) IH PRN (12:38)
[2022-03-11] MEDS ORDERED: MAG HYDROX/AL HYDROX/SIMETH 30 ML UNIT-DOSE CUP PO PRN (12:38)
[2022-03-11] MEDS ORDERED: ONDANSETRON *ODT* 4 MG TABLET SL PRN (12:38)
[2022-03-11] MEDS ORDERED: DICYCLOMINE HCL 10 MG CAPSULE PO PRN (12:38)
[2022-03-11] MEDS ORDERED: BISMUTH SUBSALICYLATE 262 MG/15 ML BTL PO PRN (12:38)
[2022-03-11] MEDS ORDERED: POLYETHYLENE GLYCOL (HEALTHYLAX) 3350 17 GM PACKET PO PRN (12:38)
[2022-03-11] MEDS ORDERED: ACETAMINOPHEN 325 MG TABLET (FP) PO PRN ×2 (12:38)
[2022-03-11] MEDS ORDERED: MAGNESIUM HYDROX 2400MG/30ML ORAL SUSPENSION 30 ML CUP PO PRN (12:38)
[2022-03-11] MEDS ORDERED: IBUPROFEN 600 MG TABLET (FP) PO PRN (12:38)
[2022-03-11] MEDS ORDERED: IBUPROFEN 400 MG TABLET (FP) PO PRN (12:38)
[2022-03-11] MEDS ORDERED: BENZOCAINE/MENTHOL (CHLORASEPTIC ) LOZENGE MM PRN (12:38)
[2022-03-11] MEDS ORDERED: ONDANSETRON *ODT* 4 MG TABLET ONE (15:19)
[2022-03-11] MEDS: NICOTINE 21 MG/24 HOURS TOPICAL PATCH TD SCH (15:48)
[2022-03-11] MEDS: PRENATAL VITAMINS W/ FOLIC ACID TABLET (FP) PO SCH (15:48)
[2022-03-11] MEDS: FAMOTIDINE 20 MG TABLET PO SCH ×2 (15:52→21:55)
[2022-03-11 17:47] LABS: HEMATOCRIT 42.4 % (35.4-49); HEMOGLOBIN 13.9 GM/dL (11.7-16.9); MCH 31.5 pg (25.7-33.7); MCHC 32.8 g/dl (32.0-35.9); MEAN CELL VOLUME 96.1 fl (80-96); MEAN PLT VOLUME 9.6 fl (7.5-11.1); PLATELET COUNT 183 10^3/uL (134-434); RBC 4.41 M/mm3 (4.00-5.60); RDW 15.5 % (11.9-15.9); WHITE BLOOD COUNT 5.5 K/mm3 (4.0-10.0)
[2022-03-11 18:07] LABS: CALCIUM 8.8 mg/dL (8.5-10.1)
[2022-03-11 18:09] LABS: ALBUMIN 3.5 g/dl (3.4-5.0); BLOOD UREA NITROGEN 20.6 mg/dL (7-18)
[2022-03-11 18:14] LABS: BILIRUBIN,TOTAL 0.4 mg/dL (0.2-1)
[2022-03-11] MEDS: THIAMINE HCL 100 MG TABLET (FP) PO SCH (21:55)
[2022-03-11] MEDS: METHOCARBAMOL 500 MG TABLET PO PRN (21:55)
[2022-03-11] MEDS: hydrOXYzine PAMOATE 25 MG CAPSULE (FP) PO PRN (21:55)
[2022-03-11] MEDS ORDERED: MELATONIN 5 MG TABLETS PO SCH (22:00)
[2022-03-12] MEDS: METHOCARBAMOL 500 MG TABLET PO PRN (07:07)
[2022-03-12] MEDS: hydrOXYzine PAMOATE 25 MG CAPSULE (FP) PO PRN (07:07)
[2022-03-12] MEDS: FLUoxetine HCL 10 MG CAPSULE PO SCH (10:12)
[2022-03-12] MEDS: FAMOTIDINE 20 MG TABLET PO SCH ×2 (10:12→23:05)
[2022-03-12] MEDS: PRENATAL VITAMINS W/ FOLIC ACID TABLET (FP) PO SCH (10:12)
[2022-03-12] MEDS: NICOTINE 21 MG/24 HOURS TOPICAL PATCH TD SCH (10:13)
[2022-03-12] MEDS ORDERED: chlordiazePOXIDE HCL 25 MG CAPSULE PO PRN (11:25)
[2022-03-12] MEDS: chlordiazePOXIDE HCL 25 MG CAPSULE PO SCH ×3 (11:43→23:05)
[2022-03-12] MEDS: LACTULOSE 20 GM/30 ML UDC (FOR ORAL USE ONLY) PO SCH ×3 (13:51→23:05)
[2022-03-12] MEDS ORDERED: traZODone HCL 50 MG TABLET (FP) PO SCH ×2 (22:00→23:15)
[2022-03-12] MEDS ORDERED: OLANZapine 10 MG TABLET PO SCH ×2 (22:00→23:15)
[2022-03-12] MEDS: THIAMINE HCL 100 MG TABLET (FP) PO SCH (23:05)
[2022-03-13] MEDS: chlordiazePOXIDE HCL 25 MG CAPSULE PO SCH ×2 (06:35→10:50)
[2022-03-13 09:39] VITALS: BP 129/83; PULSE 83; RESP 16; TEMP 96
[2022-03-13] MEDS: NICOTINE 21 MG/24 HOURS TOPICAL PATCH TD SCH (10:49)
[2022-03-13] MEDS: PRENATAL VITAMINS W/ FOLIC ACID TABLET (FP) PO SCH (10:49)
[2022-03-13] MEDS: LACTULOSE 20 GM/30 ML UDC (FOR ORAL USE ONLY) PO SCH (10:49)
[2022-03-13] MEDS: FAMOTIDINE 20 MG TABLET PO SCH (10:49)
[2022-03-13] MEDS: FLUoxetine HCL 10 MG CAPSULE PO SCH (10:50)
[2022-03-14] MEDS ORDERED: chlordiazePOXIDE HCL 10 MG CAPSULE PO SCH (05:00)
[2022-03-15] MEDS ORDERED: chlordiazePOXIDE HCL 10 MG CAPSULE PO PRN
[2022-03-15] MEDS ORDERED: chlordiazePOXIDE HCL 10 MG CAPSULE PO SCH (05:00)
[2022-03-16] MEDS ORDERED: chlordiazePOXIDE HCL 10 MG CAPSULE PO ONE (05:00)
== END 2022-03-13 09:25 | disposition left against medical advice (07) | DRG 770 ==
LOC: YASAS 11:21 → UNDOADMIN 15:09 → Y3N 15:09 → UNDODISIN 03-13 09:25
PROVIDERS: ADMIT Allergy & Immunology; ATTEND Family Medicine
PROC: HZ2ZZZZ Detoxification Services for Substance Abuse Treatment (ICD-10-PCS; principal; 2022-03-11)
DX: F10.230 Alcohol dependence with withdrawal, uncomplicated (principal); F12.20 Cannabis dependence, uncomplicated; F17.210 Nicotine dependence, cigarettes, uncomplicated; F20.9 Schizophrenia, unspecified; F31.9 Bipolar disorder, unspecified; F19.282 Other psychoactive substance dependence with psychoactive substance-induced sleep disorder; F19.24 Other psychoactive substance dependence with psychoactive substance-induced mood disorder; F41.9 Anxiety disorder, unspecified; F32.A Depression, unspecified; E78.5 Hyperlipidemia, unspecified; I10 Essential (primary) hypertension; K21.9 Gastro-esophageal reflux disease without esophagitis
CPT/HCPCS: 36415; 80053; 82140; 85027; 86780; 87811; C9803-CS; Q0162; U0003; U0005

== ENCOUNTER 2022-04-13 12:07 | Inpatient (IN) | payer OTHER ==
[2022-04-13 13:09] VITALS: BMI 26.3
[2022-04-13] MEDS ORDERED: LOPERAMIDE HCL 2 MG CAPSULE PO PRN (14:28)
[2022-04-13] MEDS ORDERED: NICOTINE 10 MG CARTRIDGE (INHALER) IH PRN (14:28)
[2022-04-13] MEDS ORDERED: DICYCLOMINE HCL 10 MG CAPSULE PO PRN (14:28)
[2022-04-13] MEDS ORDERED: ACETAMINOPHEN 325 MG TABLET (FP) PO PRN ×2 (14:28)
[2022-04-13] MEDS ORDERED: BISMUTH SUBSALICYLATE 262 MG/15 ML BTL PO PRN (14:28)
[2022-04-13] MEDS ORDERED: IBUPROFEN 600 MG TABLET (FP) PO PRN (14:28)
[2022-04-13] MEDS ORDERED: NALOXONE HCL (KLOXXADO) 8 MG SPRAY NS PRN (14:28)
[2022-04-13] MEDS ORDERED: POLYETHYLENE GLYCOL (HEALTHYLAX) 3350 17 GM PACKET PO PRN (14:28)
[2022-04-13] MEDS ORDERED: MAGNESIUM HYDROX 2400MG/30ML ORAL SUSPENSION 30 ML CUP PO PRN (14:28)
[2022-04-13] MEDS ORDERED: ONDANSETRON *ODT* 4 MG TABLET SL PRN (14:28)
[2022-04-13] MEDS ORDERED: MAG HYDROX/AL HYDROX/SIMETH 30 ML UNIT-DOSE CUP PO PRN (14:28)
[2022-04-13] MEDS ORDERED: IBUPROFEN 400 MG TABLET (FP) PO PRN (14:28)
[2022-04-13] MEDS ORDERED: BENZOCAINE/MENTHOL (CHLORASEPTIC ) LOZENGE MM PRN (14:28)
[2022-04-13] MEDS: NICOTINE 21 MG/24 HOURS TOPICAL PATCH TD SCH (15:06)
[2022-04-13] MEDS: PRENATAL VITAMINS W/ FOLIC ACID TABLET (FP) PO SCH (15:06)
[2022-04-13] MEDS ORDERED: NICOTINE 21 MG/24 HOURS TOPICAL PATCH ONE (15:09)
[2022-04-13] MEDS ORDERED: PRENATAL VITAMINS W/ FOLIC ACID TABLET (FP) PO ONE (15:10)
[2022-04-13] MEDS: hydrOXYzine PAMOATE 25 MG CAPSULE (FP) PO PRN ×2 (15:20→22:26)
[2022-04-13] MEDS: METHOCARBAMOL 500 MG TABLET PO PRN (15:20)
[2022-04-13] MEDS: chlordiazePOXIDE HCL 25 MG CAPSULE PO SCH ×2 (17:03→22:24)
[2022-04-13] MEDS: THIAMINE HCL 100 MG TABLET (FP) PO SCH (22:24)
[2022-04-13] MEDS: MELATONIN 5 MG TABLETS PO SCH (22:24)
[2022-04-13] MEDS: SULFAMETHOXAZOLE/TRIMETHOPRIM 800MG/160MG D.S. TABLET PO SCH (22:26)
[2022-04-13] MEDS: FAMOTIDINE 20 MG TABLET PO SCH (22:26)
[2022-04-14] MEDS: chlordiazePOXIDE HCL 25 MG CAPSULE PO SCH ×4 (05:42→22:50)
[2022-04-14] MEDS: FAMOTIDINE 20 MG TABLET PO SCH ×2 (10:23→22:50)
[2022-04-14] MEDS: PRENATAL VITAMINS W/ FOLIC ACID TABLET (FP) PO SCH (10:23)
[2022-04-14] MEDS: SULFAMETHOXAZOLE/TRIMETHOPRIM 800MG/160MG D.S. TABLET PO SCH ×2 (10:23→22:50)
[2022-04-14] MEDS: NICOTINE 21 MG/24 HOURS TOPICAL PATCH TD SCH (10:26)
[2022-04-14] MEDS: FLUoxetine HCL 10 MG TABLET PO SCH (11:19)
[2022-04-14 14:28] LABS: HEMATOCRIT 41.5 % (35.4-49); HEMOGLOBIN 13.8 GM/dL (11.7-16.9); MCH 31.1 pg (25.7-33.7); MCHC 33.2 g/dl (32.0-35.9); MEAN CELL VOLUME 93.7 fl (80-96); MEAN PLT VOLUME 9.9 fl (7.5-11.1); PLATELET COUNT 135 10^3/uL (134-434); RBC 4.43 M/mm3 (4.00-5.60); RDW 15.3 % (11.9-15.9); WHITE BLOOD COUNT 5.7 K/mm3 (4.0-10.0)
[2022-04-14 15:07] LABS: CALCIUM 8.8 mg/dL (8.5-10.1)
[2022-04-14 15:08] LABS: ALBUMIN 3.3 g/dl (3.4-5.0)
[2022-04-14 15:10] LABS: BLOOD UREA NITROGEN 12.8 mg/dL (7-18)
[2022-04-14 15:11] LABS: CREATININE 0.9 mg/dL (0.55-1.3)
[2022-04-14 15:13] LABS: BILIRUBIN,TOTAL 0.5 mg/dL (0.2-1); TOT PROT 6.3 g/dl (6.4-8.2)
[2022-04-14] MEDS: hydrOXYzine PAMOATE 25 MG CAPSULE (FP) PO PRN (17:33)
[2022-04-14] MEDS: MELATONIN 5 MG TABLETS PO SCH (22:49)
[2022-04-14] MEDS: THIAMINE HCL 100 MG TABLET (FP) PO SCH (22:50)
[2022-04-14] MEDS: METHOCARBAMOL 500 MG TABLET PO PRN (22:50)
[2022-04-14] MEDS: OLANZapine 5 MG TABLET PO SCH (22:50)
[2022-04-14] MEDS: traZODone HCL 100 MG TABLET (FP) PO SCH (22:50)
[2022-04-15] MEDS: chlordiazePOXIDE HCL 25 MG CAPSULE PO SCH ×4 (05:57→22:31)
[2022-04-15] MEDS: NICOTINE 21 MG/24 HOURS TOPICAL PATCH TD SCH (10:27)
[2022-04-15] MEDS: SULFAMETHOXAZOLE/TRIMETHOPRIM 800MG/160MG D.S. TABLET PO SCH ×2 (10:27→22:31)
[2022-04-15] MEDS: FAMOTIDINE 20 MG TABLET PO SCH ×2 (10:27→22:31)
[2022-04-15] MEDS: PRENATAL VITAMINS W/ FOLIC ACID TABLET (FP) PO SCH (10:27)
[2022-04-15] MEDS: FLUoxetine HCL 10 MG TABLET PO SCH (10:28)
[2022-04-15 21:10] VITALS: RESP 18; TEMP 97.3
[2022-04-15] MEDS: THIAMINE HCL 100 MG TABLET (FP) PO SCH (22:31)
[2022-04-15] MEDS: traZODone HCL 100 MG TABLET (FP) PO SCH (22:31)
[2022-04-15] MEDS: OLANZapine 5 MG TABLET PO SCH (22:31)
[2022-04-15] MEDS: MELATONIN 5 MG TABLETS PO SCH (22:44)
[2022-04-16] MEDS ORDERED: chlordiazePOXIDE HCL 10 MG CAPSULE PO SCH (05:00)
[2022-04-16 06:29] VITALS: BP 102/59; PULSE 72
[2022-04-16] MEDS: FAMOTIDINE 20 MG TABLET PO SCH (09:16)
[2022-04-16] MEDS: SULFAMETHOXAZOLE/TRIMETHOPRIM 800MG/160MG D.S. TABLET PO SCH (09:16)
[2022-04-16] MEDS: FLUoxetine HCL 10 MG TABLET PO SCH (09:16)
[2022-04-16] MEDS: NICOTINE 21 MG/24 HOURS TOPICAL PATCH TD SCH (09:16)
[2022-04-16] MEDS: PRENATAL VITAMINS W/ FOLIC ACID TABLET (FP) PO SCH (09:16)
[2022-04-17] MEDS ORDERED: chlordiazePOXIDE HCL 10 MG CAPSULE PO SCH (05:00)
[2022-04-18] MEDS ORDERED: chlordiazePOXIDE HCL 10 MG CAPSULE PO ONE (05:00)
== END 2022-04-16 09:13 | disposition left against medical advice (07) | DRG 770 ==
LOC: YASAS 12:07 → Y6N 14:18
PROVIDERS: ADMIT Allergy & Immunology; ATTEND Surgery
PROC: HZ2ZZZZ Detoxification Services for Substance Abuse Treatment (ICD-10-PCS; principal; 2022-04-13)
DX: F10.230 Alcohol dependence with withdrawal, uncomplicated (principal); F12.20 Cannabis dependence, uncomplicated; F17.210 Nicotine dependence, cigarettes, uncomplicated; F19.282 Other psychoactive substance dependence with psychoactive substance-induced sleep disorder; F19.24 Other psychoactive substance dependence with psychoactive substance-induced mood disorder; F31.9 Bipolar disorder, unspecified; E78.5 Hyperlipidemia, unspecified; I10 Essential (primary) hypertension; K21.9 Gastro-esophageal reflux disease without esophagitis; L03.115 Cellulitis of right lower limb
CPT/HCPCS: 36415; 80053; 85027; 86780; 87811; C9803-CS; U0003; U0005

== ENCOUNTER 2022-09-12 12:05 | Inpatient (IN) | payer OTHER ==
[2022-09-12 12:30] VITALS: BMI 25.8
[2022-09-12] MEDS ORDERED: ONDANSETRON *ODT* 4 MG TABLET SL PRN (13:06)
[2022-09-12] MEDS ORDERED: BENZOCAINE/MENTHOL (CHLORASEPTIC ) LOZENGE MM PRN (13:06)
[2022-09-12] MEDS ORDERED: DICYCLOMINE HCL 10 MG CAPSULE PO PRN (13:06)
[2022-09-12] MEDS ORDERED: METHOCARBAMOL 500 MG TABLET PO PRN (13:06)
[2022-09-12] MEDS ORDERED: POLYETHYLENE GLYCOL (HEALTHYLAX) 3350 17 GM PACKET PO PRN (13:06)
[2022-09-12] MEDS ORDERED: guaiFENesin 600 MG TABLET.ER (FP) PO PRN (13:06)
[2022-09-12] MEDS ORDERED: IBUPROFEN 600 MG TABLET (FP) PO PRN (13:06)
[2022-09-12] MEDS ORDERED: NALOXONE HCL 0.4 MG/ML VIAL IM PRN (13:06)
[2022-09-12] MEDS ORDERED: MAG HYDROX/AL HYDROX/SIMETH 30 ML UNIT-DOSE CUP PO PRN (13:06)
[2022-09-12] MEDS ORDERED: ACETAMINOPHEN 325 MG TABLET (FP) PO PRN (13:06)
[2022-09-12] MEDS ORDERED: MAGNESIUM HYDROX 2400MG/30ML ORAL SUSPENSION 30 ML CUP PO PRN (13:06)
[2022-09-12] MEDS ORDERED: BISMUTH SUBSALICYLATE 262 MG/15 ML BTL PO PRN (13:06)
[2022-09-12] MEDS ORDERED: IBUPROFEN 400 MG TABLET (FP) PO PRN (13:06)
[2022-09-12] MEDS ORDERED: NICOTINE POLACRILEX 2 MG GUM BUC PRN (13:06)
[2022-09-12] MEDS ORDERED: LOPERAMIDE HCL 2 MG CAPSULE PO PRN (13:06)
[2022-09-12] MEDS ORDERED: NALOXONE HCL (KLOXXADO) 8 MG SPRAY NS PRN (13:06)
[2022-09-12] MEDS ORDERED: BENZONATATE 200 MG CAPSULE PO PRN (13:06)
[2022-09-12] MEDS ORDERED: LORazepam 1 MG TABLET PO PRN (13:14)
[2022-09-12] MEDS ORDERED: chlordiazePOXIDE HCL 25 MG CAPSULE PO PRN (13:17)
[2022-09-12] MEDS ORDERED: LORazepam 2 MG TABLET PO SCH (17:00)
[2022-09-12] MEDS: chlordiazePOXIDE HCL 25 MG CAPSULE PO SCH ×2 (18:16→22:02)
[2022-09-12] MEDS ORDERED: MELATONIN 5 MG TABLETS PO SCH (22:00)
[2022-09-12] MEDS ORDERED: THIAMINE HCL 100 MG TABLET (FP) PO SCH (22:00)
[2022-09-13] MEDS: chlordiazePOXIDE HCL 25 MG CAPSULE PO SCH ×2 (05:50→10:24)
[2022-09-13 06:36] VITALS: PULSE 80
[2022-09-13] MEDS ORDERED: hydrOXYzine PAMOATE 25 MG CAPSULE (FP) PO PRN (08:15)
[2022-09-13 09:33] VITALS: BP 143/90; RESP 17; TEMP 97.5
[2022-09-13] MEDS ORDERED: NICOTINE 21 MG/24 HOURS TOPICAL PATCH TD SCH (10:00)
[2022-09-13] MEDS ORDERED: PRENATAL VITAMINS W/ FOLIC ACID TABLET (FP) PO SCH (10:00)
[2022-09-13] MEDS ORDERED: FAMOTIDINE 20 MG TABLET PO SCH (10:00)
[2022-09-13 10:44] LABS: HEMATOCRIT 37.1 % (35.4-49); HEMOGLOBIN 12.1 GM/dL (11.7-16.9); MCH 31.4 pg (25.7-33.7); MCHC 32.7 g/dl (32.0-35.9); MEAN CELL VOLUME 96.2 fl (80-96); MEAN PLT VOLUME 9.5 fl (7.5-11.1); PLATELET COUNT 152 10^3/uL (134-434); RBC 3.86 M/mm3 (4.00-5.60); RDW 14.9 % (11.9-15.9); WHITE BLOOD COUNT 4.4 K/mm3 (4.0-10.0)
[2022-09-13 11:02] LABS: ALBUMIN 2.7 g/dl (3.4-5.0); BLOOD UREA NITROGEN 15.9 mg/dL (7-18); CALCIUM 7.8 mg/dL (8.5-10.1)
[2022-09-13 11:05] LABS: CREATININE 0.8 mg/dL (0.55-1.3)
[2022-09-13 11:07] LABS: BILIRUBIN,TOTAL 0.3 mg/dL (0.2-1); TOT PROT 5.5 g/dl (6.4-8.2)
[2022-09-13] MEDS ORDERED: OLANZapine 5 MG TABLET PO SCH (22:00)
[2022-09-13] MEDS ORDERED: traZODone HCL 100 MG TABLET (FP) PO SCH (22:00)
[2022-09-14] MEDS ORDERED: LORazepam 1 MG TABLET PO SCH (05:00)
[2022-09-14] MEDS ORDERED: chlordiazePOXIDE HCL 25 MG CAPSULE PO SCH (05:00)
[2022-09-15] MEDS ORDERED: LORazepam 0.5 MG TABLET PO PRN
[2022-09-15] MEDS ORDERED: chlordiazePOXIDE HCL 10 MG CAPSULE PO PRN
[2022-09-15] MEDS ORDERED: LORazepam 0.5 MG TABLET PO SCH (05:00)
[2022-09-15] MEDS ORDERED: chlordiazePOXIDE HCL 10 MG CAPSULE PO SCH (05:00)
[2022-09-16] MEDS ORDERED: chlordiazePOXIDE HCL 10 MG CAPSULE PO SCH (05:00)
[2022-09-16] MEDS ORDERED: LORazepam 0.5 MG TABLET PO ONE (05:00)
[2022-09-17] MEDS ORDERED: chlordiazePOXIDE HCL 10 MG CAPSULE PO ONE (05:00)
== END 2022-09-13 12:30 | disposition left against medical advice (07) | DRG 770 ==
LOC: YASAS 12:05 → Y6N 13:33
PROVIDERS: ADMIT Allergy & Immunology; ATTEND Surgery
PROC: HZ2ZZZZ Detoxification Services for Substance Abuse Treatment (ICD-10-PCS; principal; 2022-09-12)
DX: F10.230 Alcohol dependence with withdrawal, uncomplicated (principal); F14.20 Cocaine dependence, uncomplicated; F12.20 Cannabis dependence, uncomplicated; F17.213 Nicotine dependence, cigarettes, with withdrawal; F31.9 Bipolar disorder, unspecified; F19.282 Other psychoactive substance dependence with psychoactive substance-induced sleep disorder; F19.24 Other psychoactive substance dependence with psychoactive substance-induced mood disorder; I10 Essential (primary) hypertension; K21.9 Gastro-esophageal reflux disease without esophagitis
CPT/HCPCS: 36415; 80053; 85027; 86780; 87635; 87811

== ENCOUNTER 2022-10-15 10:47 | Inpatient (IN) | payer OTHER ==
[2022-10-15 11:20] VITALS: BMI 24.6
[2022-10-15] MEDS ORDERED: NALOXONE HCL 0.4 MG/ML VIAL IM PRN (12:10)
[2022-10-15] MEDS ORDERED: chlordiazePOXIDE HCL 25 MG CAPSULE PO PRN (12:10)
[2022-10-15] MEDS ORDERED: LOPERAMIDE HCL 2 MG CAPSULE PO PRN (12:10)
[2022-10-15] MEDS ORDERED: BISMUTH SUBSALICYLATE 524 MG/30 ML PO PRN (12:10)
[2022-10-15] MEDS ORDERED: COLLOIDAL OATMEAL 1 BAR EACH TP PRN (12:10)
[2022-10-15] MEDS ORDERED: MAGNESIUM HYDROX 2400MG/30ML ORAL SUSPENSION 30 ML CUP PO PRN (12:10)
[2022-10-15] MEDS ORDERED: NALOXONE HCL (KLOXXADO) 8 MG SPRAY NS PRN (12:10)
[2022-10-15] MEDS ORDERED: DICYCLOMINE HCL 10 MG CAPSULE PO PRN (12:10)
[2022-10-15] MEDS ORDERED: POLYETHYLENE GLYCOL (HEALTHYLAX) 3350 17 GM PACKET PO PRN (12:10)
[2022-10-15] MEDS ORDERED: IBUPROFEN 400 MG TABLET (FP) PO PRN (12:10)
[2022-10-15] MEDS ORDERED: ACETAMINOPHEN 325 MG TABLET (FP) PO PRN (12:10)
[2022-10-15] MEDS ORDERED: BENZONATATE 200 MG CAPSULE PO PRN (12:10)
[2022-10-15] MEDS ORDERED: NICOTINE 21 MG/24 HOURS TOPICAL PATCH TD PRN (12:10)
[2022-10-15] MEDS ORDERED: MAG HYDROX/AL HYDROX/SIMETH 30 ML UNIT-DOSE CUP PO PRN (12:10)
[2022-10-15] MEDS ORDERED: METHOCARBAMOL 500 MG TABLET PO PRN (12:10)
[2022-10-15] MEDS ORDERED: guaiFENesin 600 MG TABLET.ER (FP) PO PRN (12:10)
[2022-10-15] MEDS ORDERED: ONDANSETRON *ODT* 4 MG TABLET SL PRN (12:10)
[2022-10-15] MEDS ORDERED: BENZOCAINE/MENTHOL (CHLORASEPTIC ) LOZENGE MM PRN (12:10)
[2022-10-15] MEDS: IBUPROFEN 600 MG TABLET (FP) PO PRN (13:32)
[2022-10-15] MEDS ORDERED: IBUPROFEN 600 MG TABLET (FP) PO ONE (13:36)
[2022-10-15] MEDS: CEPHALEXIN MONOHYDRATE 500 MG CAPSULE (UD) PO SCH ×2 (17:19→23:11)
[2022-10-15] MEDS: chlordiazePOXIDE HCL 25 MG CAPSULE PO SCH ×2 (17:20→22:36)
[2022-10-15] MEDS: FAMOTIDINE 20 MG TABLET PO SCH (22:31)
[2022-10-15] MEDS: THIAMINE HCL 100 MG TABLET (FP) PO SCH (22:31)
[2022-10-15] MEDS: MELATONIN 5 MG TABLETS PO SCH (22:31)
[2022-10-16] MEDS: IBUPROFEN 600 MG TABLET (FP) PO PRN ×2 (05:46→15:35)
[2022-10-16] MEDS: chlordiazePOXIDE HCL 25 MG CAPSULE PO SCH ×4 (05:47→22:05)
[2022-10-16] MEDS: CEPHALEXIN MONOHYDRATE 500 MG CAPSULE (UD) PO SCH ×4 (05:47→23:01)
[2022-10-16] MEDS: FAMOTIDINE 20 MG TABLET PO SCH ×2 (09:58→22:05)
[2022-10-16] MEDS: PRENATAL VITAMINS W/ FOLIC ACID TABLET (FP) PO SCH (09:58)
[2022-10-16] MEDS ORDERED: hydrOXYzine PAMOATE 25 MG CAPSULE (FP) PO PRN (10:09)
[2022-10-16 11:18] LABS: HEMATOCRIT 39.7 % (35.4-49); HEMOGLOBIN 12.6 GM/dL (11.7-16.9); MCH 30.8 pg (25.7-33.7); MCHC 31.9 g/dl (32.0-35.9); MEAN CELL VOLUME 96.7 fl (80-96); MEAN PLT VOLUME 9.4 fl (7.5-11.1); PLATELET COUNT 214 10^3/uL (134-434); RDW 15.7 % (11.9-15.9); WHITE BLOOD COUNT 7.4 K/mm3 (4.0-10.0)
[2022-10-16 11:22] LABS: POTASSIUM 4.2 mmol/L (3.5-5.1)
[2022-10-16 11:28] LABS: BLOOD UREA NITROGEN 16.7 mg/dL (7-18); CALCIUM 8.5 mg/dL (8.5-10.1)
[2022-10-16 11:31] LABS: CREATININE 0.8 mg/dL (0.55-1.3)
[2022-10-16 11:33] LABS: BILIRUBIN,TOTAL 0.4 mg/dL (0.2-1); TOT PROT 6.2 g/dl (6.4-8.2)
[2022-10-16] MEDS ORDERED: OLANZapine 5 MG TABLET PO SCH (22:00)
[2022-10-16] MEDS ORDERED: traZODone HCL 50 MG TABLET (FP) PO SCH (22:00)
[2022-10-16] MEDS: MELATONIN 5 MG TABLETS PO SCH (22:05)
[2022-10-16] MEDS: THIAMINE HCL 100 MG TABLET (FP) PO SCH (22:05)
[2022-10-16] MEDS: BACITRACIN 0.9 GM PACKET TP SCH (22:05)
[2022-10-17] MEDS: IBUPROFEN 600 MG TABLET (FP) PO PRN (01:41)
[2022-10-17] MEDS: chlordiazePOXIDE HCL 25 MG CAPSULE PO SCH ×2 (05:56→10:43)
[2022-10-17] MEDS: CEPHALEXIN MONOHYDRATE 500 MG CAPSULE (UD) PO SCH (05:57)
[2022-10-17 09:16] VITALS: BP 126/85; PULSE 91; RESP 18; TEMP 97.3
[2022-10-17] MEDS: BACITRACIN 0.9 GM PACKET TP SCH (10:10)
[2022-10-17] MEDS: PRENATAL VITAMINS W/ FOLIC ACID TABLET (FP) PO SCH (10:10)
[2022-10-17] MEDS: FAMOTIDINE 20 MG TABLET PO SCH (10:10)
[2022-10-18] MEDS ORDERED: chlordiazePOXIDE HCL 10 MG CAPSULE PO PRN
[2022-10-18] MEDS ORDERED: chlordiazePOXIDE HCL 10 MG CAPSULE PO SCH (05:00)
[2022-10-19] MEDS ORDERED: chlordiazePOXIDE HCL 10 MG CAPSULE PO SCH (05:00)
[2022-10-20] MEDS ORDERED: chlordiazePOXIDE HCL 10 MG CAPSULE PO ONE (05:00)
== END 2022-10-17 09:22 | disposition left against medical advice (07) | DRG 770 ==
LOC: YASAS 10:47 → Y6N 16:18
PROVIDERS: ADMIT Allergy & Immunology; ATTEND Surgery
PROC: HZ2ZZZZ Detoxification Services for Substance Abuse Treatment (ICD-10-PCS; principal; 2022-10-15)
DX: F10.230 Alcohol dependence with withdrawal, uncomplicated (principal); F14.20 Cocaine dependence, uncomplicated; F12.20 Cannabis dependence, uncomplicated; F17.210 Nicotine dependence, cigarettes, uncomplicated; F31.9 Bipolar disorder, unspecified; F10.282 Alcohol dependence with alcohol-induced sleep disorder; F10.24 Alcohol dependence with alcohol-induced mood disorder; L97.819 Non-pressure chronic ulcer of other part of right lower leg with unspecified severity; L03.115 Cellulitis of right lower limb; R79.89 Other specified abnormal findings of blood chemistry
CPT/HCPCS: 36415; 80053; 82140; 85027; 86780; 87635

== ENCOUNTER 2023-02-18 10:03 | Inpatient (IN) | payer OTHER ==
[2023-02-18 10:28] VITALS: BMI 26.1
[2023-02-18] MEDS ORDERED: COLLOIDAL OATMEAL 1 BAR EACH TP PRN (11:32)
[2023-02-18] MEDS ORDERED: BENZOCAINE/MENTHOL (CHLORASEPTIC ) LOZENGE MM PRN (11:32)
[2023-02-18] MEDS ORDERED: MAG HYDROX/AL HYDROX/SIMETH 30 ML UNIT-DOSE CUP PO PRN (11:32)
[2023-02-18] MEDS ORDERED: BENZONATATE 200 MG CAPSULE PO PRN (11:32)
[2023-02-18] MEDS ORDERED: LOPERAMIDE HCL 2 MG CAPSULE PO PRN (11:32)
[2023-02-18] MEDS ORDERED: ONDANSETRON *ODT* 4 MG TABLET SL PRN (11:32)
[2023-02-18] MEDS ORDERED: NALOXONE HCL (KLOXXADO) 8 MG SPRAY NS PRN (11:32)
[2023-02-18] MEDS ORDERED: IBUPROFEN 400 MG TABLET (FP) PO PRN (11:32)
[2023-02-18] MEDS ORDERED: AMMONIUM LACTATE 12% LOTION 225 GM BOTTLE TP PRN (11:32)
[2023-02-18] MEDS ORDERED: ACETAMINOPHEN 325 MG TABLET (FP) PO PRN (11:32)
[2023-02-18] MEDS ORDERED: BISMUTH SUBSALICYLATE 524 MG/30 ML PO PRN (11:32)
[2023-02-18] MEDS ORDERED: NALOXONE HCL 0.4 MG/ML VIAL IM PRN (11:32)
[2023-02-18] MEDS ORDERED: MAGNESIUM HYDROX 2400MG/30ML ORAL SUSPENSION 30 ML CUP PO PRN (11:32)
[2023-02-18] MEDS ORDERED: POLYETHYLENE GLYCOL (HEALTHYLAX) 3350 17 GM PACKET PO PRN (11:32)
[2023-02-18] MEDS ORDERED: guaiFENesin 600 MG TABLET.ER (FP) PO PRN (11:32)
[2023-02-18] MEDS ORDERED: IBUPROFEN 600 MG TABLET (FP) PO PRN (11:32)
[2023-02-18] MEDS ORDERED: DICYCLOMINE HCL 10 MG CAPSULE PO PRN (11:32)
[2023-02-18] MEDS ORDERED: NICOTINE 21 MG/24 HOURS TOPICAL PATCH TD PRN (11:32)
[2023-02-18] MEDS ORDERED: IBUPROFEN 600 MG TABLET (FP) PO ONE (12:30)
[2023-02-18] MEDS: levETIRAcetam 500 MG TABLET (FP) PO SCH ×2 (14:16→22:48)
[2023-02-18] MEDS: CEPHALEXIN MONOHYDRATE 500 MG CAPSULE (UD) PO SCH ×2 (14:16→22:49)
[2023-02-18] MEDS: hydrOXYzine PAMOATE 25 MG CAPSULE (FP) PO PRN ×2 (17:50→22:52)
[2023-02-18] MEDS: METHOCARBAMOL 500 MG TABLET PO PRN (17:50)
[2023-02-18] MEDS ORDERED: chlordiazePOXIDE HCL 25 MG CAPSULE PO PRN (19:53)
[2023-02-18] MEDS: MELATONIN 5 MG TABLETS PO SCH (22:48)
[2023-02-18] MEDS: THIAMINE HCL 100 MG TABLET (FP) PO SCH (22:48)
[2023-02-18] MEDS: chlordiazePOXIDE HCL 25 MG CAPSULE PO SCH (22:49)
[2023-02-18] MEDS: FAMOTIDINE 20 MG TABLET PO SCH (22:50)
[2023-02-19] MEDS: chlordiazePOXIDE HCL 25 MG CAPSULE PO SCH ×4 (05:16→22:03)
[2023-02-19] MEDS: CEPHALEXIN MONOHYDRATE 500 MG CAPSULE (UD) PO SCH ×3 (05:16→22:03)
[2023-02-19] MEDS: PRENATAL VITAMINS W/ FOLIC ACID TABLET (FP) PO SCH (10:20)
[2023-02-19] MEDS: METHOCARBAMOL 500 MG TABLET PO PRN (10:21)
[2023-02-19] MEDS: hydrOXYzine PAMOATE 25 MG CAPSULE (FP) PO PRN (10:21)
[2023-02-19] MEDS: levETIRAcetam 500 MG TABLET (FP) PO SCH ×2 (10:21→22:04)
[2023-02-19] MEDS: FAMOTIDINE 20 MG TABLET PO SCH ×2 (10:21→22:03)
[2023-02-19] MEDS: FLUoxetine HCL 20 MG CAPSULE PO SCH (11:05)
[2023-02-19 12:47] LABS: HEMATOCRIT 40.4 % (35.4-49); MCH 29.8 pg (25.7-33.7); MCHC 32.1 g/dl (32.0-35.9); MEAN CELL VOLUME 92.7 fl (80-96); MEAN PLT VOLUME 9.6 fl (7.5-11.1); PLATELET COUNT 208 10^3/uL (134-434); RBC 4.35 M/mm3 (4.00-5.60); RDW 15.4 % (11.9-15.9); WHITE BLOOD COUNT 5.7 K/mm3 (4.0-10.0)
[2023-02-19 12:55] LABS: CHLORIDE 105 mmol/L (98-107); POTASSIUM 4.2 mmol/L (3.5-5.1); SODIUM 138 mmol/L (136-145)
[2023-02-19 12:58] LABS: ANION GAP 6 mmol/L (4-13); CALCIUM 8.7 mg/dL (8.5-10.1); CO2 27 mmol/L (21-32); GLUCOSE,RANDOM 94 mg/dL (74-106)
[2023-02-19 12:59] LABS: BLOOD UREA NITROGEN 13.5 mg/dL (7-18)
[2023-02-19 13:01] LABS: CREATININE 0.8 mg/dL (0.55-1.3); SGPT/ALT 37 U/L (13-61)
[2023-02-19 13:02] LABS: SGOT/AST 21 U/L (15-37)
[2023-02-19 13:03] LABS: BILIRUBIN,TOTAL 0.3 mg/dL (0.2-1); TOT PROT 6.2 g/dl (6.4-8.2)
[2023-02-19 13:04] LABS: ALK PHOS 78 U/L (45-117)
[2023-02-19 20:43] VITALS: RESP 18; TEMP 97.6
[2023-02-19] MEDS ORDERED: OLANZapine 5 MG TABLET PO SCH (22:00)
[2023-02-19] MEDS ORDERED: LITHIUM CARBONATE 300 MG CAPSULE PO SCH (22:00)
[2023-02-19] MEDS ORDERED: traZODone HCL 50 MG TABLET (FP) PO SCH (22:00)
[2023-02-19] MEDS: MELATONIN 5 MG TABLETS PO SCH (22:04)
[2023-02-19] MEDS: THIAMINE HCL 100 MG TABLET (FP) PO SCH (22:04)
[2023-02-20] MEDS: chlordiazePOXIDE HCL 25 MG CAPSULE PO SCH ×2 (05:55→10:24)
[2023-02-20] MEDS: CEPHALEXIN MONOHYDRATE 500 MG CAPSULE (UD) PO SCH (06:08)
[2023-02-20 07:08] VITALS: BP 124/80; PULSE 86
[2023-02-20] MEDS: FAMOTIDINE 20 MG TABLET PO SCH (09:24)
[2023-02-20] MEDS: levETIRAcetam 500 MG TABLET (FP) PO SCH (09:24)
[2023-02-20] MEDS: FLUoxetine HCL 20 MG CAPSULE PO SCH (09:24)
[2023-02-20] MEDS: PRENATAL VITAMINS W/ FOLIC ACID TABLET (FP) PO SCH (09:24)
[2023-02-21] MEDS ORDERED: chlordiazePOXIDE HCL 10 MG CAPSULE PO PRN
[2023-02-21] MEDS ORDERED: chlordiazePOXIDE HCL 10 MG CAPSULE PO SCH (05:00)
[2023-02-22] MEDS ORDERED: chlordiazePOXIDE HCL 10 MG CAPSULE PO SCH (05:00)
[2023-02-23] MEDS ORDERED: chlordiazePOXIDE HCL 10 MG CAPSULE PO ONE (05:00)
== END 2023-02-20 09:19 | disposition left against medical advice (07) | DRG 770 ==
LOC: YASAS 10:03 → Y3N 12:29
PROVIDERS: ADMIT Allergy & Immunology; ATTEND Allergy & Immunology
PROC: HZ2ZZZZ Detoxification Services for Substance Abuse Treatment (ICD-10-PCS; principal; 2023-02-18)
DX: F10.230 Alcohol dependence with withdrawal, uncomplicated (principal); F12.20 Cannabis dependence, uncomplicated; F17.210 Nicotine dependence, cigarettes, uncomplicated; F31.9 Bipolar disorder, unspecified; F25.1 Schizoaffective disorder, depressive type; F10.282 Alcohol dependence with alcohol-induced sleep disorder; F10.24 Alcohol dependence with alcohol-induced mood disorder; K21.9 Gastro-esophageal reflux disease without esophagitis; M54.50 Low back pain, unspecified; G89.29 Other chronic pain
CPT/HCPCS: 36415; 80053; 80177; 80178; 80307; 82140; 85027; 86780; 87635; 93005; 93010

== ENCOUNTER 2023-03-21 13:18 | Inpatient (IN) | payer OTHER ==
[2023-03-21 13:50] VITALS: BMI 25.8
[2023-03-21] MEDS ORDERED: LOPERAMIDE HCL 2 MG CAPSULE PO PRN (15:09)
[2023-03-21] MEDS ORDERED: POLYETHYLENE GLYCOL (HEALTHYLAX) 3350 17 GM PACKET PO PRN (15:09)
[2023-03-21] MEDS ORDERED: chlordiazePOXIDE HCL 25 MG CAPSULE PO PRN (15:09)
[2023-03-21] MEDS ORDERED: NALOXONE HCL (KLOXXADO) 8 MG SPRAY NS PRN (15:09)
[2023-03-21] MEDS ORDERED: NALOXONE HCL 0.4 MG/ML VIAL IM PRN (15:09)
[2023-03-21] MEDS ORDERED: MAGNESIUM HYDROX 2400MG/30ML ORAL SUSPENSION 30 ML CUP PO PRN (15:09)
[2023-03-21] MEDS ORDERED: BISMUTH SUBSALICYLATE 262 MG/15 ML BTL PO PRN (15:09)
[2023-03-21] MEDS ORDERED: DICYCLOMINE HCL 10 MG CAPSULE PO PRN (15:09)
[2023-03-21] MEDS ORDERED: IBUPROFEN 400 MG TABLET (FP) PO PRN (15:09)
[2023-03-21] MEDS ORDERED: ACETAMINOPHEN 325 MG TABLET (FP) PO PRN (15:09)
[2023-03-21] MEDS ORDERED: BENZONATATE 200 MG CAPSULE PO PRN (15:09)
[2023-03-21] MEDS ORDERED: guaiFENesin 600 MG TABLET.ER (FP) PO PRN (15:09)
[2023-03-21] MEDS ORDERED: MAG HYDROX/AL HYDROX/SIMETH 30 ML UNIT-DOSE CUP PO PRN (15:09)
[2023-03-21] MEDS: PRENATAL VITAMINS W/ FOLIC ACID TABLET (FP) PO SCH (15:46)
[2023-03-21] MEDS: NICOTINE 21 MG/24 HOURS TOPICAL PATCH TD SCH (15:46)
[2023-03-21] MEDS ORDERED: NICOTINE 21 MG/24 HOURS TOPICAL PATCH ONE (15:53)
[2023-03-21] MEDS: ONDANSETRON *ODT* 4 MG TABLET SL PRN (17:00)
[2023-03-21] MEDS: chlordiazePOXIDE HCL 25 MG CAPSULE PO SCH (17:26)
[2023-03-21] MEDS: FAMOTIDINE 20 MG TABLET PO SCH (22:26)
[2023-03-21] MEDS: THIAMINE HCL 100 MG TABLET (FP) PO SCH (22:26)
[2023-03-21] MEDS: BACITRACIN 0.9 GM PACKET TP SCH (22:26)
[2023-03-21] MEDS: BENZOCAINE/MENTHOL (CHLORASEPTIC ) LOZENGE MM PRN (22:26)
[2023-03-21] MEDS: MELATONIN 5 MG TABLETS PO SCH (22:26)
[2023-03-21] MEDS: hydrOXYzine PAMOATE 25 MG CAPSULE (FP) PO PRN (22:29)
[2023-03-22] MEDS: METHOCARBAMOL 500 MG TABLET PO PRN (10:23)
[2023-03-22 12:14] LABS: HEMATOCRIT 37.9 % (35.4-49); HEMOGLOBIN 13.1 GM/dL (11.7-16.9); MCH 31.6 pg (25.7-33.7); MCHC 34.5 g/dl (32.0-35.9); MEAN CELL VOLUME 91.5 fl (80-96); PLATELET COUNT 156 10^3/uL (134-434); RBC 4.14 M/mm3 (4.00-5.60); RDW 16.4 % (11.9-15.9); WHITE BLOOD COUNT 4.2 K/mm3 (4.0-10.0)
[2023-03-22 12:23] LABS: CHLORIDE 103 mmol/L (98-107); POTASSIUM 3.6 mmol/L (3.5-5.1); SODIUM 137 mmol/L (136-145)
[2023-03-22 12:33] LABS: CALCIUM 8.2 mg/dL (8.5-10.1)
[2023-03-22 12:34] LABS: ANION GAP 8 mmol/L (4-13); BLOOD UREA NITROGEN 6.2 mg/dL (7-18); CO2 26 mmol/L (21-32); GLUCOSE,RANDOM 168 mg/dL (74-106)
[2023-03-22 12:36] LABS: SGPT/ALT 44 U/L (13-61)
[2023-03-22 12:37] LABS: CREATININE 0.9 mg/dL (0.55-1.3); SGOT/AST 58 U/L (15-37)
[2023-03-22 12:38] LABS: TOT PROT 5.6 g/dl (6.4-8.2)
[2023-03-22 12:39] LABS: BILIRUBIN,TOTAL 0.5 mg/dL (0.2-1)
[2023-03-22 12:40] LABS: ALK PHOS 105 U/L (45-117)
[2023-03-22] MEDS: traZODone HCL 100 MG TABLET (FP) PO SCH (22:23)
[2023-03-22] MEDS: OLANZapine 5 MG TABLET PO SCH (22:23)
[2023-03-23] MEDS: chlordiazePOXIDE HCL 25 MG CAPSULE PO SCH (05:55)
[2023-03-23] MEDS: FLUoxetine HCL 20 MG CAPSULE PO SCH (10:32)
[2023-03-23] MEDS: METHOCARBAMOL 500 MG TABLET PO PRN (17:13)
[2023-03-24] MEDS ORDERED: chlordiazePOXIDE HCL 10 MG CAPSULE PO PRN
[2023-03-24] MEDS: chlordiazePOXIDE HCL 10 MG CAPSULE PO SCH (06:17)
[2023-03-24 20:45] VITALS: RESP 16
[2023-03-24] MEDS: IBUPROFEN 600 MG TABLET (FP) PO PRN (22:19)
[2023-03-25] MEDS: chlordiazePOXIDE HCL 10 MG CAPSULE PO SCH (05:55)
[2023-03-25 06:22] VITALS: BP 107/67; PULSE 77; TEMP 98.4
[2023-03-26] MEDS ORDERED: chlordiazePOXIDE HCL 10 MG CAPSULE PO ONE (05:00)
== END 2023-03-25 08:59 | disposition home or self-care (01) | DRG 774 ==
LOC: YASAS 13:18 → SUATTDRO 13:18 → Y3N 16:07
PROVIDERS: ADMIT Allergy & Immunology; ATTEND Surgery
PROC: HZ2ZZZZ Detoxification Services for Substance Abuse Treatment (ICD-10-PCS; principal; 2023-03-21)
DX: F10.230 Alcohol dependence with withdrawal, uncomplicated (principal); F14.20 Cocaine dependence, uncomplicated; F12.20 Cannabis dependence, uncomplicated; F19.24 Other psychoactive substance dependence with psychoactive substance-induced mood disorder; F10.282 Alcohol dependence with alcohol-induced sleep disorder; F10.24 Alcohol dependence with alcohol-induced mood disorder; G62.9 Polyneuropathy, unspecified; K21.9 Gastro-esophageal reflux disease without esophagitis; Z62.810 Personal history of physical and sexual abuse in childhood; Z63.8 Other specified problems related to primary support group
CPT/HCPCS: 36415; 80053; 80307; 85027; 86780; 87635; 93005; 93010; Q0162

== ENCOUNTER 2023-04-20 10:34 | Inpatient (IN) | payer OTHER ==
[2023-04-20 11:22] VITALS: BMI 24.5
[2023-04-20] MEDS ORDERED: POLYETHYLENE GLYCOL (HEALTHYLAX) 3350 17 GM PACKET PO PRN (12:17)
[2023-04-20] MEDS ORDERED: BISMUTH SUBSALICYLATE 262 MG/15 ML BTL PO PRN (12:17)
[2023-04-20] MEDS ORDERED: NALOXONE HCL (KLOXXADO) 8 MG SPRAY NS PRN (12:17)
[2023-04-20] MEDS ORDERED: IBUPROFEN 600 MG TABLET (FP) PO PRN (12:17)
[2023-04-20] MEDS ORDERED: NICOTINE POLACRILEX 2 MG GUM BUC PRN (12:17)
[2023-04-20] MEDS ORDERED: BENZONATATE 200 MG CAPSULE PO PRN (12:17)
[2023-04-20] MEDS ORDERED: ACETAMINOPHEN 325 MG TABLET (FP) PO PRN (12:17)
[2023-04-20] MEDS ORDERED: guaiFENesin 600 MG TABLET.ER (FP) PO PRN (12:17)
[2023-04-20] MEDS ORDERED: BENZOCAINE/MENTHOL (CHLORASEPTIC ) LOZENGE MM PRN (12:17)
[2023-04-20] MEDS ORDERED: LOPERAMIDE HCL 2 MG CAPSULE PO PRN (12:17)
[2023-04-20] MEDS ORDERED: DICYCLOMINE HCL 10 MG CAPSULE PO PRN (12:17)
[2023-04-20] MEDS ORDERED: NALOXONE HCL 0.4 MG/ML VIAL IM PRN (12:17)
[2023-04-20] MEDS ORDERED: MAGNESIUM HYDROX 2400MG/30ML ORAL SUSPENSION 30 ML CUP PO PRN (12:17)
[2023-04-20] MEDS ORDERED: IBUPROFEN 400 MG TABLET (FP) PO PRN (12:17)
[2023-04-20] MEDS ORDERED: ONDANSETRON *ODT* 4 MG TABLET SL PRN (12:17)
[2023-04-20] MEDS ORDERED: chlordiazePOXIDE HCL 25 MG CAPSULE PO PRN (12:21)
[2023-04-20] MEDS: hydrOXYzine PAMOATE 25 MG CAPSULE (FP) PO PRN (15:01)
[2023-04-20] MEDS: chlordiazePOXIDE HCL 25 MG CAPSULE PO SCH (16:57)
[2023-04-20] MEDS ORDERED: traZODone HCL 100 MG TABLET (FP) PO SCH (22:00)
[2023-04-20] MEDS: THIAMINE HCL 100 MG TABLET (FP) PO SCH (22:32)
[2023-04-20] MEDS: traZODone HCL 50 MG TABLET (FP) PO SCH (22:34)
[2023-04-20] MEDS: OLANZapine 5 MG TABLET PO SCH (22:34)
[2023-04-20] MEDS: MELATONIN 5 MG TABLETS PO SCH (22:37)
[2023-04-21] MEDS: PRENATAL VITAMINS W/ FOLIC ACID TABLET (FP) PO SCH (10:11)
[2023-04-21] MEDS: NICOTINE 21 MG/24 HOURS TOPICAL PATCH TD SCH (10:12)
[2023-04-21] MEDS: METHOCARBAMOL 500 MG TABLET PO PRN (10:12)
[2023-04-21 12:42] LABS: HEMATOCRIT 39.8 % (35.4-49); HEMOGLOBIN 13.5 GM/dL (11.7-16.9); MCH 31.3 pg (25.7-33.7); MCHC 33.9 g/dl (32.0-35.9); MEAN CELL VOLUME 92.5 fl (80-96); MEAN PLT VOLUME 8.9 fl (7.5-11.1); PLATELET COUNT 241 10^3/uL (134-434); RDW 16.6 % (11.9-15.9)
[2023-04-21 15:33] LABS: BLOOD UREA NITROGEN 12.3 mg/dL (7-18)
[2023-04-21 15:35] LABS: ALBUMIN 3.6 g/dl (3.4-5.0); CALCIUM 8.7 mg/dL (8.5-10.1)
[2023-04-21 15:39] LABS: CREATININE 0.7 mg/dL (0.55-1.3)
[2023-04-21 15:40] LABS: BILIRUBIN,TOTAL 0.6 mg/dL (0.2-1); TOT PROT 6.7 g/dl (6.4-8.2)
[2023-04-21] MEDS: MAG HYDROX/AL HYDROX/SIMETH 30 ML UNIT-DOSE CUP PO PRN (17:19)
[2023-04-22] MEDS: chlordiazePOXIDE HCL 25 MG CAPSULE PO SCH (06:15)
[2023-04-22 08:58] VITALS: BP 135/90; PULSE 67; RESP 20; TEMP 97.4
[2023-04-23] MEDS ORDERED: chlordiazePOXIDE HCL 10 MG CAPSULE PO PRN
[2023-04-23] MEDS ORDERED: chlordiazePOXIDE HCL 10 MG CAPSULE PO SCH (05:00)
[2023-04-24] MEDS ORDERED: chlordiazePOXIDE HCL 10 MG CAPSULE PO SCH (05:00)
[2023-04-25] MEDS ORDERED: chlordiazePOXIDE HCL 10 MG CAPSULE PO ONE (05:00)
== END 2023-04-22 09:18 | disposition left against medical advice (07) | DRG 770 ==
LOC: YASAS 10:34 → Y6N 13:48
PROVIDERS: ADMIT Allergy & Immunology; ATTEND Surgery
PROC: HZ2ZZZZ Detoxification Services for Substance Abuse Treatment (ICD-10-PCS; principal; 2023-04-20)
DX: F10.230 Alcohol dependence with withdrawal, uncomplicated (principal); F12.20 Cannabis dependence, uncomplicated; F17.210 Nicotine dependence, cigarettes, uncomplicated; F25.9 Schizoaffective disorder, unspecified; F31.9 Bipolar disorder, unspecified; F42.9 Obsessive-compulsive disorder, unspecified; F19.24 Other psychoactive substance dependence with psychoactive substance-induced mood disorder; I10 Essential (primary) hypertension; E78.5 Hyperlipidemia, unspecified; M54.50 Low back pain, unspecified; G89.29 Other chronic pain; Z62.810 Personal history of physical and sexual abuse in childhood; Z63.8 Other specified problems related to primary support group
CPT/HCPCS: 36415; 80053; 80305; 80307; 85027; 86780; 87635; 93005; 93010

== ENCOUNTER 2023-05-21 13:29 | Inpatient (IN) | payer OTHER ==
[2023-05-21 13:51] VITALS: BMI 24.6
[2023-05-21] MEDS ORDERED: MAG HYDROX/AL HYDROX/SIMETH 30 ML UNIT-DOSE CUP PO PRN (15:09)
[2023-05-21] MEDS ORDERED: MAGNESIUM HYDROX 2400MG/30ML ORAL SUSPENSION 30 ML CUP PO PRN (15:09)
[2023-05-21] MEDS ORDERED: IBUPROFEN 400 MG TABLET (FP) PO PRN (15:09)
[2023-05-21] MEDS ORDERED: LOPERAMIDE HCL 2 MG CAPSULE PO PRN (15:09)
[2023-05-21] MEDS ORDERED: POLYETHYLENE GLYCOL (HEALTHYLAX) 3350 17 GM PACKET PO PRN (15:09)
[2023-05-21] MEDS ORDERED: IBUPROFEN 600 MG TABLET (FP) PO PRN (15:09)
[2023-05-21] MEDS ORDERED: BENZOCAINE/MENTHOL (CHLORASEPTIC ) LOZENGE MM PRN (15:09)
[2023-05-21] MEDS ORDERED: ACETAMINOPHEN 325 MG TABLET (FP) PO PRN (15:09)
[2023-05-21] MEDS ORDERED: guaiFENesin 600 MG TABLET.ER (FP) PO PRN (15:09)
[2023-05-21] MEDS ORDERED: ONDANSETRON *ODT* 4 MG TABLET SL PRN (15:09)
[2023-05-21] MEDS ORDERED: chlordiazePOXIDE HCL 25 MG CAPSULE PO PRN (15:09)
[2023-05-21] MEDS ORDERED: NALOXONE HCL (KLOXXADO) 8 MG SPRAY NS PRN (15:09)
[2023-05-21] MEDS ORDERED: BENZONATATE 200 MG CAPSULE PO PRN (15:09)
[2023-05-21] MEDS ORDERED: NALOXONE HCL 0.4 MG/ML VIAL IM PRN (15:09)
[2023-05-21] MEDS: chlordiazePOXIDE HCL 25 MG CAPSULE PO SCH (17:12)
[2023-05-21] MEDS: FAMOTIDINE 20 MG TABLET PO SCH (22:35)
[2023-05-21] MEDS: THIAMINE HCL 100 MG TABLET (FP) PO SCH (22:36)
[2023-05-21] MEDS: levETIRAcetam 500 MG TABLET (FP) PO SCH (22:36)
[2023-05-21] MEDS: DICYCLOMINE HCL 10 MG CAPSULE PO PRN (22:42)
[2023-05-21] MEDS: MELATONIN 5 MG TABLETS PO SCH (22:44)
[2023-05-22] MEDS: PRENATAL VITAMINS W/ FOLIC ACID TABLET (FP) PO SCH (09:21)
[2023-05-22] MEDS: NICOTINE 21 MG/24 HOURS TOPICAL PATCH TD SCH (09:22)
[2023-05-22 12:01] LABS: HEMATOCRIT 39.2 % (35.4-49); HEMOGLOBIN 12.5 GM/dL (11.7-16.9); MCH 30.2 pg (25.7-33.7); MEAN CELL VOLUME 94.3 fl (80-96); MEAN PLT VOLUME 9.2 fl (7.5-11.1); PLATELET COUNT 170 10^3/uL (134-434); RBC 4.15 M/mm3 (4.00-5.60); RDW 16.5 % (11.9-15.9); WHITE BLOOD COUNT 4.7 K/mm3 (4.0-10.0)
[2023-05-22 12:07] LABS: CHLORIDE 102 mmol/L (98-107); POTASSIUM 3.7 mmol/L (3.5-5.1); SODIUM 135 mmol/L (136-145)
[2023-05-22 12:16] LABS: ALBUMIN 2.8 g/dl (3.4-5.0); ANION GAP 5 mmol/L (4-13); BLOOD UREA NITROGEN 13.8 mg/dL (7-18); CALCIUM 8.3 mg/dL (8.5-10.1); CO2 28 mmol/L (21-32); GLUCOSE,RANDOM 100 mg/dL (74-106)
[2023-05-22 12:19] LABS: CREATININE 0.7 mg/dL (0.55-1.3); SGOT/AST 31 U/L (15-37); SGPT/ALT 30 U/L (13-61)
[2023-05-22 12:21] LABS: BILIRUBIN,TOTAL 0.4 mg/dL (0.2-1); TOT PROT 5.5 g/dl (6.4-8.2)
[2023-05-22 12:22] LABS: ALK PHOS 73 U/L (45-117)
[2023-05-22] MEDS: traZODone HCL 100 MG TABLET (FP) PO SCH (22:45)
[2023-05-22] MEDS: OLANZapine 5 MG TABLET PO SCH (22:45)
[2023-05-23] MEDS: chlordiazePOXIDE HCL 25 MG CAPSULE PO SCH (05:47)
[2023-05-23] MEDS: METHOCARBAMOL 500 MG TABLET PO PRN (05:49)
[2023-05-23] MEDS: hydrOXYzine PAMOATE 25 MG CAPSULE (FP) PO PRN (10:51)
[2023-05-23] MEDS: LACTULOSE 20 GM/30 ML UDC (FOR ORAL USE ONLY) PO SCH (13:30)
[2023-05-23] MEDS: BISMUTH SUBSALICYLATE 524 MG/30 ML PO PRN (17:20)
[2023-05-24] MEDS ORDERED: chlordiazePOXIDE HCL 10 MG CAPSULE PO PRN
[2023-05-24] MEDS: chlordiazePOXIDE HCL 10 MG CAPSULE PO SCH (06:00)
[2023-05-24 09:03] VITALS: BP 147/78; PULSE 97; RESP 20; TEMP 96.9
[2023-05-25] MEDS ORDERED: chlordiazePOXIDE HCL 10 MG CAPSULE PO SCH (05:00)
[2023-05-26] MEDS ORDERED: chlordiazePOXIDE HCL 10 MG CAPSULE PO ONE (05:00)
== END 2023-05-24 08:35 | disposition home or self-care (01) | DRG 775 ==
LOC: YASAS 13:29 → Y6N 15:13
PROVIDERS: ADMIT Allergy & Immunology; ATTEND Surgery
PROC: HZ2ZZZZ Detoxification Services for Substance Abuse Treatment (ICD-10-PCS; principal; 2023-05-21)
DX: F10.230 Alcohol dependence with withdrawal, uncomplicated (principal); F12.20 Cannabis dependence, uncomplicated; F17.210 Nicotine dependence, cigarettes, uncomplicated; F31.9 Bipolar disorder, unspecified; F10.282 Alcohol dependence with alcohol-induced sleep disorder; F10.24 Alcohol dependence with alcohol-induced mood disorder; F42.9 Obsessive-compulsive disorder, unspecified; M54.50 Low back pain, unspecified; G89.29 Other chronic pain; R79.89 Other specified abnormal findings of blood chemistry; Z86.19 Personal history of other infectious and parasitic diseases; Z62.810 Personal history of physical and sexual abuse in childhood; Z63.4 Disappearance and death of family member; Z63.8 Other specified problems related to primary support group; Z63.79 Other stressful life events affecting family and household
CPT/HCPCS: 36415; 71046-TC-FY; 80053; 80307; 82140; 85027; 86780; 93005; 93010

== ENCOUNTER 2023-06-15 10:06 | Inpatient (IN) | payer OTHER ==
[2023-06-15 10:33] VITALS: BMI 25.8
[2023-06-15] MEDS ORDERED: ONDANSETRON *ODT* 4 MG TABLET SL PRN (11:57)
[2023-06-15] MEDS ORDERED: MAGNESIUM HYDROX 2400MG/30ML ORAL SUSPENSION 30 ML CUP PO PRN (11:57)
[2023-06-15] MEDS ORDERED: POLYETHYLENE GLYCOL (HEALTHYLAX) 3350 17 GM PACKET PO PRN (11:57)
[2023-06-15] MEDS ORDERED: NALOXONE HCL 0.4 MG/ML VIAL IM PRN (11:57)
[2023-06-15] MEDS ORDERED: LOPERAMIDE HCL 2 MG CAPSULE PO PRN (11:57)
[2023-06-15] MEDS ORDERED: NALOXONE HCL (KLOXXADO) 8 MG SPRAY NS PRN (11:57)
[2023-06-15] MEDS ORDERED: IBUPROFEN 400 MG TABLET (FP) PO PRN (11:57)
[2023-06-15] MEDS ORDERED: guaiFENesin 600 MG TABLET.ER (FP) PO PRN (11:57)
[2023-06-15] MEDS ORDERED: DICYCLOMINE HCL 10 MG CAPSULE PO PRN (11:57)
[2023-06-15] MEDS ORDERED: MAG HYDROX/AL HYDROX/SIMETH 30 ML UNIT-DOSE CUP PO PRN (11:57)
[2023-06-15] MEDS ORDERED: BISMUTH SUBSALICYLATE 524 MG/30 ML PO PRN (11:57)
[2023-06-15] MEDS ORDERED: BENZONATATE 200 MG CAPSULE PO PRN (11:57)
[2023-06-15] MEDS ORDERED: BENZOCAINE/MENTHOL (CHLORASEPTIC ) LOZENGE MM PRN (11:57)
[2023-06-15] MEDS: levETIRAcetam 500 MG TABLET (FP) PO SCH ×2 (13:29→13:36)
[2023-06-15] MEDS: NICOTINE 21 MG/24 HOURS TOPICAL PATCH TD SCH (13:29)
[2023-06-15] MEDS: hydrOXYzine PAMOATE 25 MG CAPSULE (FP) PO PRN (13:29)
[2023-06-15] MEDS: PRENATAL VITAMINS W/ FOLIC ACID TABLET (FP) PO SCH (13:29)
[2023-06-15] MEDS: FAMOTIDINE 20 MG TABLET PO SCH ×2 (13:30→13:36)
[2023-06-15] MEDS: ACETAMINOPHEN 325 MG TABLET (FP) PO PRN (13:30)
[2023-06-15] MEDS: METHOCARBAMOL 500 MG TABLET PO PRN (17:26)
[2023-06-15] MEDS: LORazepam 2 MG TABLET PO SCH (17:26)
[2023-06-15] MEDS: OLANZapine 5 MG TABLET PO SCH (22:58)
[2023-06-15] MEDS: THIAMINE 100 MG TABLET PO SCH (22:59)
[2023-06-15] MEDS: MELATONIN 5 MG TABLETS PO SCH (22:59)
[2023-06-15] MEDS: traZODone HCL 100 MG TABLET (FP) PO SCH (22:59)
[2023-06-15] MEDS: IBUPROFEN 600 MG TABLET (FP) PO PRN (22:59)
[2023-06-16 11:56] LABS: HEMOGLOBIN 11.9 GM/dL (11.7-16.9); MCH 32.7 pg (25.7-33.7); MCHC 33.9 g/dl (32.0-35.9); MEAN CELL VOLUME 96.3 fl (80-96); MEAN PLT VOLUME 8.1 fl (7.5-11.1); PLATELET COUNT 153 10^3/uL (134-434); RBC 3.64 M/mm3 (4.00-5.60); RDW 17.6 % (11.9-15.9); WHITE BLOOD COUNT 3.9 K/mm3 (4.0-10.0)
[2023-06-16 12:00] LABS: CHLORIDE 106 mmol/L (98-107); POTASSIUM 3.3 mmol/L (3.5-5.1); SODIUM 137 mmol/L (136-145)
[2023-06-16 12:05] LABS: CALCIUM 7.8 mg/dL (8.5-10.1)
[2023-06-16 12:06] LABS: ALBUMIN 2.8 g/dl (3.4-5.0); ANION GAP 4 mmol/L (4-13); CO2 27 mmol/L (21-32); GLUCOSE,RANDOM 91 mg/dL (74-106)
[2023-06-16 12:09] LABS: CREATININE 0.7 mg/dL (0.55-1.3); SGOT/AST 44 U/L (15-37); SGPT/ALT 33 U/L (13-61)
[2023-06-16 12:10] LABS: BILIRUBIN,TOTAL 0.9 mg/dL (0.2-1); TOT PROT 4.9 g/dl (6.4-8.2)
[2023-06-16 12:12] LABS: ALK PHOS 68 U/L (45-117)
[2023-06-16] MEDS ORDERED: POTASSIUM CHLORIDE ORAL LIQUID 20 MEQ/15 ML PO ONE (16:24)
[2023-06-16] MEDS: LORazepam 1 MG TABLET PO PRN (18:36)
[2023-06-16] MEDS: POTASSIUM CHLORIDE ORAL LIQUID 20 MEQ/15 ML PO ONE (18:37)
[2023-06-16] MEDS: POTASSIUM CHLORIDE ORAL LIQUID 20 MEQ/15 ML PO SCH (21:56)
[2023-06-16] MEDS: LACTULOSE 20 GM/30 ML UDC (FOR ORAL USE ONLY) PO SCH (21:56)
[2023-06-17] MEDS: LORazepam 1 MG TABLET PO SCH (05:59)
[2023-06-17 06:32] VITALS: RESP 17
[2023-06-17 08:58] VITALS: BP 141/92; PULSE 85; TEMP 96.9
[2023-06-18] MEDS ORDERED: LORazepam 0.5 MG TABLET PO PRN
[2023-06-18] MEDS ORDERED: LORazepam 0.5 MG TABLET PO SCH (05:00)
[2023-06-19] MEDS ORDERED: LORazepam 0.5 MG TABLET PO ONE (05:00)
== END 2023-06-17 09:31 | disposition left against medical advice (07) | DRG 770 ==
LOC: YASAS 10:06 → Y6N 12:46
PROVIDERS: ADMIT Allergy & Immunology; ATTEND Surgery
PROC: HZ2ZZZZ Detoxification Services for Substance Abuse Treatment (ICD-10-PCS; principal; 2023-06-15)
DX: F10.230 Alcohol dependence with withdrawal, uncomplicated (principal); F12.20 Cannabis dependence, uncomplicated; F17.210 Nicotine dependence, cigarettes, uncomplicated; F19.282 Other psychoactive substance dependence with psychoactive substance-induced sleep disorder; F19.24 Other psychoactive substance dependence with psychoactive substance-induced mood disorder; F25.1 Schizoaffective disorder, depressive type; E72.20 Disorder of urea cycle metabolism, unspecified; E87.6 Hypokalemia; I10 Essential (primary) hypertension; K21.9 Gastro-esophageal reflux disease without esophagitis
CPT/HCPCS: 36415; 80053; 80305; 80307; 82140; 85027; 86780; 93005; 93010

== ENCOUNTER 2023-07-08 13:25 | Inpatient (IN) | payer OTHER ==
[2023-07-08 13:47] VITALS: BMI 27.4
[2023-07-08] MEDS ORDERED: chlordiazePOXIDE HCL 25 MG CAPSULE PO PRN (14:02)
[2023-07-08] MEDS ORDERED: MAGNESIUM HYDROX 2400MG/30ML ORAL SUSPENSION 30 ML CUP PO PRN (14:03)
[2023-07-08] MEDS ORDERED: MAG HYDROX/AL HYDROX/SIMETH 30 ML UNIT-DOSE CUP PO PRN (14:03)
[2023-07-08] MEDS ORDERED: guaiFENesin 600 MG TABLET.ER (FP) PO PRN (14:03)
[2023-07-08] MEDS ORDERED: POLYETHYLENE GLYCOL (HEALTHYLAX) 3350 17 GM PACKET PO PRN (14:03)
[2023-07-08] MEDS ORDERED: LOPERAMIDE HCL 2 MG CAPSULE PO PRN (14:03)
[2023-07-08] MEDS ORDERED: ONDANSETRON *ODT* 4 MG TABLET SL PRN (14:03)
[2023-07-08] MEDS ORDERED: BENZONATATE 200 MG CAPSULE PO PRN (14:03)
[2023-07-08] MEDS ORDERED: BENZOCAINE/MENTHOL (CHLORASEPTIC ) LOZENGE MM PRN (14:03)
[2023-07-08] MEDS ORDERED: BISMUTH SUBSALICYLATE 524 MG/30 ML PO PRN (14:03)
[2023-07-08] MEDS ORDERED: IBUPROFEN 400 MG TABLET (FP) PO PRN (14:03)
[2023-07-08] MEDS ORDERED: DICYCLOMINE HCL 10 MG CAPSULE PO PRN (14:03)
[2023-07-08] MEDS: levETIRAcetam 500 MG TABLET (FP) PO SCH (15:00)
[2023-07-08] MEDS: NICOTINE 21 MG/24 HOURS TOPICAL PATCH TD SCH (15:00)
[2023-07-08] MEDS ORDERED: NICOTINE 21 MG/24 HOURS TOPICAL PATCH ONE (15:14)
[2023-07-08] MEDS ORDERED: levETIRAcetam 500 MG TABLET (FP) PO ONE (15:14)
[2023-07-08] MEDS ORDERED: IBUPROFEN 600 MG TABLET (FP) PO ONE (15:14)
[2023-07-08] MEDS: IBUPROFEN 600 MG TABLET (FP) PO PRN (15:17)
[2023-07-08] MEDS ORDERED: chlordiazePOXIDE HCL 25 MG CAPSULE ONE (16:12)
[2023-07-08] MEDS: chlordiazePOXIDE HCL 25 MG CAPSULE PO SCH (16:14)
[2023-07-08] MEDS: FAMOTIDINE 20 MG TABLET PO SCH (22:38)
[2023-07-08] MEDS: THIAMINE 100 MG TABLET PO SCH (22:38)
[2023-07-08] MEDS: MELATONIN 5 MG TABLETS PO SCH (22:39)
[2023-07-08] MEDS: hydrOXYzine PAMOATE 25 MG CAPSULE (FP) PO PRN (22:40)
[2023-07-08] MEDS: METHOCARBAMOL 500 MG TABLET PO PRN (22:42)
[2023-07-09] MEDS: amLODIPine BESYLATE 10 MG TABLET (FP) PO SCH (10:33)
[2023-07-09] MEDS: PRENATAL VITAMINS W/ FOLIC ACID TABLET (FP) PO SCH (10:34)
[2023-07-09] MEDS: ACETAMINOPHEN 325 MG TABLET (FP) PO PRN (17:42)
[2023-07-09] MEDS: OLANZapine 5 MG TABLET PO SCH (22:31)
[2023-07-09] MEDS: traZODone HCL 100 MG TABLET (FP) PO SCH (22:31)
[2023-07-10] MEDS: chlordiazePOXIDE HCL 25 MG CAPSULE PO SCH (05:51)
[2023-07-10 06:51] VITALS: BP 114/70; PULSE 74; RESP 16; TEMP 97.6
[2023-07-11] MEDS ORDERED: chlordiazePOXIDE HCL 10 MG CAPSULE PO PRN
[2023-07-11] MEDS ORDERED: chlordiazePOXIDE HCL 10 MG CAPSULE PO SCH (05:00)
[2023-07-12] MEDS ORDERED: chlordiazePOXIDE HCL 10 MG CAPSULE PO SCH (05:00)
[2023-07-13] MEDS ORDERED: chlordiazePOXIDE HCL 10 MG CAPSULE PO ONE (05:00)
== END 2023-07-10 08:51 | disposition left against medical advice (07) | DRG 770 ==
LOC: YASAS 13:25 → Y6N 15:25
PROVIDERS: ADMIT Allergy & Immunology; ATTEND Surgery
PROC: HZ2ZZZZ Detoxification Services for Substance Abuse Treatment (ICD-10-PCS; principal; 2023-07-08)
DX: F10.230 Alcohol dependence with withdrawal, uncomplicated (principal); F14.20 Cocaine dependence, uncomplicated; F12.20 Cannabis dependence, uncomplicated; F17.213 Nicotine dependence, cigarettes, with withdrawal; F10.282 Alcohol dependence with alcohol-induced sleep disorder; F10.24 Alcohol dependence with alcohol-induced mood disorder; F31.9 Bipolar disorder, unspecified; G62.9 Polyneuropathy, unspecified; K21.9 Gastro-esophageal reflux disease without esophagitis; R56.9 Unspecified convulsions; Z62.810 Personal history of physical and sexual abuse in childhood; Z63.8 Other specified problems related to primary support group; Z56.0 Unemployment, unspecified; Z59.02 Unsheltered homelessness
CPT/HCPCS: 80305; 80307

== ENCOUNTER 2023-08-19 11:28 | Inpatient (IN) | payer OTHER ==
[2023-08-19 12:11] VITALS: BMI 25.0
[2023-08-19] MEDS ORDERED: chlordiazePOXIDE HCL 25 MG CAPSULE PO PRN (14:13)
[2023-08-19] MEDS ORDERED: LOPERAMIDE HCL 2 MG CAPSULE PO PRN (14:57)
[2023-08-19] MEDS ORDERED: IBUPROFEN 400 MG TABLET (FP) PO PRN (14:57)
[2023-08-19] MEDS ORDERED: ACETAMINOPHEN 325 MG TABLET (FP) PO PRN (14:57)
[2023-08-19] MEDS: METHOCARBAMOL 500 MG TABLET PO PRN (15:47)
[2023-08-19] MEDS: ONDANSETRON *ODT* 4 MG TABLET SL PRN (15:47)
[2023-08-19] MEDS ORDERED: METHOCARBAMOL 500 MG TABLET ONE (15:49)
[2023-08-19] MEDS ORDERED: ONDANSETRON *ODT* 4 MG TABLET ONE (15:49)
[2023-08-19] MEDS: chlordiazePOXIDE HCL 25 MG CAPSULE PO SCH (16:55)
[2023-08-19] MEDS: CEPHALEXIN MONOHYDRATE 500 MG CAPSULE (UD) PO SCH (18:10)
[2023-08-19] MEDS: FAMOTIDINE 20 MG TABLET PO SCH (22:11)
[2023-08-19] MEDS: levETIRAcetam 500 MG TABLET (FP) PO SCH (22:11)
[2023-08-19] MEDS: BACITRACIN 0.9 GM PACKET TP SCH (22:11)
[2023-08-19] MEDS: hydrOXYzine PAMOATE 25 MG CAPSULE (FP) PO PRN (22:15)
[2023-08-20] MEDS: PRENATAL VITAMINS W/ FOLIC ACID TABLET (FP) PO SCH (10:09)
[2023-08-20] MEDS: NICOTINE 14 MG/24 HOURS TOPICAL PATCH TD SCH (10:09)
[2023-08-20] MEDS: THIAMINE 100 MG TABLET PO SCH (10:10)
[2023-08-20] MEDS: amLODIPine BESYLATE 5 MG TABLET (FP) PO SCH (10:10)
[2023-08-20 11:23] LABS: HEMATOCRIT 37.2 % (35.4-49); HEMOGLOBIN 12.4 GM/dL (11.7-16.9); MCH 31.1 pg (25.7-33.7); MCHC 33.3 g/dl (32.0-35.9); MEAN CELL VOLUME 93.2 fl (80-96); MEAN PLT VOLUME 9.1 fl (7.5-11.1); PLATELET COUNT 151 10^3/uL (134-434); RBC 3.99 M/mm3 (4.00-5.60); RDW 17.8 % (11.9-15.9); WHITE BLOOD COUNT 3.6 K/mm3 (4.0-10.0)
[2023-08-20 11:26] LABS: POTASSIUM 4.1 mmol/L (3.5-5.1)
[2023-08-20 11:32] LABS: CALCIUM 8.2 mg/dL (8.5-10.1)
[2023-08-20 11:33] LABS: ALBUMIN 2.9 g/dl (3.4-5.0); BLOOD UREA NITROGEN 11.5 mg/dL (7-18)
[2023-08-20 11:37] LABS: CREATININE 0.9 mg/dL (0.55-1.3)
[2023-08-20 11:38] LABS: BILIRUBIN,TOTAL 0.5 mg/dL (0.2-1); TOT PROT 5.5 g/dl (6.4-8.2)
[2023-08-20 20:45] VITALS: PULSE 69
[2023-08-20] MEDS: OLANZapine 5 MG TABLET PO SCH (22:33)
[2023-08-20] MEDS: traZODone HCL 100 MG TABLET (FP) PO SCH (22:34)
[2023-08-21] MEDS: chlordiazePOXIDE HCL 25 MG CAPSULE PO SCH (05:55)
[2023-08-21 06:05] VITALS: BP 108/68; RESP 16; TEMP 97.6
[2023-08-22] MEDS ORDERED: chlordiazePOXIDE HCL 10 MG CAPSULE PO PRN
[2023-08-22] MEDS ORDERED: chlordiazePOXIDE HCL 10 MG CAPSULE PO SCH (05:00)
[2023-08-23] MEDS ORDERED: chlordiazePOXIDE HCL 10 MG CAPSULE PO SCH (05:00)
[2023-08-24] MEDS ORDERED: chlordiazePOXIDE HCL 10 MG CAPSULE PO ONE (05:00)
== END 2023-08-21 09:02 | disposition left against medical advice (07) | DRG 770 ==
LOC: YASAS 11:28 → Y3N 14:26
PROVIDERS: ADMIT Allergy & Immunology; ATTEND Surgery
PROC: HZ2ZZZZ Detoxification Services for Substance Abuse Treatment (ICD-10-PCS; principal; 2023-08-19)
DX: F10.230 Alcohol dependence with withdrawal, uncomplicated (principal); F14.20 Cocaine dependence, uncomplicated; F12.20 Cannabis dependence, uncomplicated; F17.213 Nicotine dependence, cigarettes, with withdrawal; F10.282 Alcohol dependence with alcohol-induced sleep disorder; F10.24 Alcohol dependence with alcohol-induced mood disorder; F31.9 Bipolar disorder, unspecified; G62.9 Polyneuropathy, unspecified; I10 Essential (primary) hypertension; K21.9 Gastro-esophageal reflux disease without esophagitis; G40.909 Epilepsy, unspecified, not intractable, without status epilepticus; L03.115 Cellulitis of right lower limb; Z62.810 Personal history of physical and sexual abuse in childhood; Z63.8 Other specified problems related to primary support group; Z56.0 Unemployment, unspecified; Z59.00 Homelessness unspecified
CPT/HCPCS: 36415; 80053; 80305; 85027; 86780; Q0162

== ENCOUNTER 2023-09-02 14:48 | Inpatient (IN) | payer OTHER ==
[2023-09-02 15:45] VITALS: BMI 25.2
[2023-09-02] MEDS ORDERED: P-EPHED 60MG/TRIPROLIDI 2.5MG TABLET PO PRN (16:08)
[2023-09-02] MEDS ORDERED: LOPERAMIDE HCL 2 MG CAPSULE PO PRN (16:08)
[2023-09-02] MEDS ORDERED: IBUPROFEN 400 MG TABLET (FP) PO PRN (16:08)
[2023-09-02] MEDS ORDERED: MAGNESIUM HYDROX 2400MG/30ML ORAL SUSPENSION 30 ML CUP PO PRN (16:08)
[2023-09-02] MEDS ORDERED: BISMUTH SUBSALICYLATE 524 MG/30 ML PO PRN (16:08)
[2023-09-02] MEDS ORDERED: DICYCLOMINE HCL 10 MG CAPSULE PO PRN (16:08)
[2023-09-02] MEDS ORDERED: POLYETHYLENE GLYCOL (HEALTHYLAX) 3350 17 GM PACKET PO PRN (16:08)
[2023-09-02] MEDS ORDERED: BENZOCAINE/MENTHOL (CHLORASEPTIC ) LOZENGE MM PRN (16:08)
[2023-09-02] MEDS ORDERED: BENZONATATE 200 MG CAPSULE PO PRN (16:08)
[2023-09-02] MEDS ORDERED: guaiFENesin 600 MG TABLET.ER (FP) PO PRN (16:08)
[2023-09-02] MEDS ORDERED: ONDANSETRON *ODT* 4 MG TABLET SL PRN (16:08)
[2023-09-02] MEDS ORDERED: NICOTINE POLACRILEX 2 MG LOZENGE BC PRN (16:08)
[2023-09-02] MEDS ORDERED: ACETAMINOPHEN 325 MG TABLET (FP) PO PRN (16:08)
[2023-09-02] MEDS: MELATONIN 5 MG TABLETS PO SCH (22:18)
[2023-09-02] MEDS: THIAMINE 100 MG TABLET PO SCH (22:18)
[2023-09-02] MEDS: levETIRAcetam 500 MG TABLET (FP) PO SCH (22:18)
[2023-09-02] MEDS: METHOCARBAMOL 500 MG TABLET PO PRN (22:19)
[2023-09-02] MEDS: FAMOTIDINE 20 MG TABLET PO SCH (22:19)
[2023-09-02] MEDS: hydrOXYzine PAMOATE 25 MG CAPSULE (FP) PO PRN (22:19)
[2023-09-03] MEDS: amLODIPine BESYLATE 5 MG TABLET (FP) PO SCH (10:18)
[2023-09-03] MEDS: PRENATAL VITAMINS W/ FOLIC ACID TABLET (FP) PO SCH (10:19)
[2023-09-03] MEDS: chlordiazePOXIDE HCL 25 MG CAPSULE PO SCH (11:02)
[2023-09-03] MEDS: NICOTINE POLACRILEX 2 MG GUM BUC PRN (11:43)
[2023-09-03] MEDS: traZODone HCL 100 MG TABLET (FP) PO SCH (22:22)
[2023-09-03] MEDS: OLANZapine 5 MG TABLET PO SCH (22:22)
[2023-09-03] MEDS: IBUPROFEN 600 MG TABLET (FP) PO PRN (22:23)
[2023-09-04] MEDS: chlordiazePOXIDE HCL 10 MG CAPSULE PO SCH (10:11)
[2023-09-04] MEDS: MAG HYDROX/AL HYDROX/SIMETH 30 ML UNIT-DOSE CUP PO PRN (13:01)
[2023-09-05] MEDS ORDERED: chlordiazePOXIDE HCL 25 MG CAPSULE PO SCH (05:00)
[2023-09-05] MEDS: chlordiazePOXIDE HCL 10 MG CAPSULE PO SCH (09:39)
[2023-09-05 17:14] VITALS: RESP 16
[2023-09-06] MEDS ORDERED: chlordiazePOXIDE HCL 10 MG CAPSULE PO SCH (05:00)
[2023-09-06 06:21] VITALS: BP 121/73; PULSE 85; TEMP 97.6
[2023-09-06] MEDS: chlordiazePOXIDE HCL 10 MG CAPSULE PO ONE (06:22)
[2023-09-07] MEDS ORDERED: chlordiazePOXIDE HCL 10 MG CAPSULE PO SCH (05:00)
== END 2023-09-06 08:07 | disposition home or self-care (01) | DRG 774 ==
LOC: YASAS 14:48 → Y3N 17:07
PROVIDERS: ADMIT Allergy & Immunology; ATTEND Surgery
PROC: HZ2ZZZZ Detoxification Services for Substance Abuse Treatment (ICD-10-PCS; principal; 2023-09-02)
DX: F10.230 Alcohol dependence with withdrawal, uncomplicated (principal); F14.20 Cocaine dependence, uncomplicated; F12.20 Cannabis dependence, uncomplicated; F17.210 Nicotine dependence, cigarettes, uncomplicated; F25.9 Schizoaffective disorder, unspecified; F31.9 Bipolar disorder, unspecified; F19.282 Other psychoactive substance dependence with psychoactive substance-induced sleep disorder; F19.24 Other psychoactive substance dependence with psychoactive substance-induced mood disorder; G40.909 Epilepsy, unspecified, not intractable, without status epilepticus; G62.9 Polyneuropathy, unspecified; I10 Essential (primary) hypertension; K21.9 Gastro-esophageal reflux disease without esophagitis; M54.50 Low back pain, unspecified; G89.29 Other chronic pain
CPT/HCPCS: 80305; 80307

== ENCOUNTER 2023-09-25 16:21 | Inpatient (IN) | payer OTHER ==
[2023-09-25 17:10] VITALS: BMI 28.8
[2023-09-25] MEDS ORDERED: MAG HYDROX/AL HYDROX/SIMETH 30 ML UNIT-DOSE CUP PO PRN (17:42)
[2023-09-25] MEDS ORDERED: MAGNESIUM HYDROX 2400MG/30ML ORAL SUSPENSION 30 ML CUP PO PRN (17:42)
[2023-09-25] MEDS ORDERED: POLYETHYLENE GLYCOL (HEALTHYLAX) 3350 17 GM PACKET PO PRN (17:42)
[2023-09-25] MEDS ORDERED: NICOTINE POLACRILEX 2 MG LOZENGE BC PRN (17:42)
[2023-09-25] MEDS ORDERED: BENZONATATE 200 MG CAPSULE PO PRN (17:42)
[2023-09-25] MEDS ORDERED: METHOCARBAMOL 500 MG TABLET PO PRN (17:42)
[2023-09-25] MEDS ORDERED: hydrOXYzine PAMOATE 25 MG CAPSULE (FP) PO PRN (17:42)
[2023-09-25] MEDS ORDERED: BENZOCAINE/MENTHOL (CHLORASEPTIC ) LOZENGE MM PRN (17:42)
[2023-09-25] MEDS ORDERED: guaiFENesin 600 MG TABLET.ER (FP) PO PRN (17:42)
[2023-09-25] MEDS ORDERED: ACETAMINOPHEN 325 MG TABLET (FP) PO PRN (17:42)
[2023-09-25] MEDS ORDERED: LOPERAMIDE HCL 2 MG CAPSULE PO PRN (17:42)
[2023-09-25] MEDS ORDERED: DICYCLOMINE HCL 10 MG CAPSULE PO PRN (17:42)
[2023-09-25] MEDS ORDERED: NICOTINE POLACRILEX 2 MG GUM BUC PRN (17:42)
[2023-09-25] MEDS ORDERED: ONDANSETRON *ODT* 4 MG TABLET ONE (18:38)
[2023-09-25] MEDS: ONDANSETRON *ODT* 4 MG TABLET SL PRN (18:39)
[2023-09-25] MEDS: chlordiazePOXIDE HCL 25 MG CAPSULE PO ONE (19:49)
[2023-09-25] MEDS: chlordiazePOXIDE HCL 25 MG CAPSULE PO PRN (19:51)
[2023-09-25] MEDS: TRIMETHOBENZAMIDE HCL 200MG/2ML INJ IM ONE (22:35)
[2023-09-25] MEDS: chlordiazePOXIDE HCL 25 MG CAPSULE PO SCH (22:58)
[2023-09-25] MEDS: levETIRAcetam 500 MG TABLET (FP) PO SCH (22:58)
[2023-09-25] MEDS: BACITRACIN 0.9 GM PACKET TP SCH (22:58)
[2023-09-25] MEDS: FAMOTIDINE 20 MG TABLET PO SCH (22:58)
[2023-09-25] MEDS: MELATONIN 5 MG TABLETS PO SCH (23:00)
[2023-09-25] MEDS: THIAMINE 100 MG TABLET PO SCH (23:09)
[2023-09-26] MEDS: chlordiazePOXIDE HCL 25 MG CAPSULE PO SCH (05:59)
[2023-09-26] MEDS ORDERED: TRIMETHOBENZAMIDE HCL 200MG/2ML INJ IM PRN (08:53)
[2023-09-26] MEDS: PRENATAL VITAMINS W/ FOLIC ACID TABLET (FP) PO SCH (10:18)
[2023-09-26] MEDS: amLODIPine BESYLATE 5 MG TABLET (FP) PO SCH (10:18)
[2023-09-26] MEDS: FAMOTIDINE 20 MG TABLET PO SCH (10:18)
[2023-09-26] MEDS: BISMUTH SUBSALICYLATE 524 MG/30 ML PO PRN (10:20)
[2023-09-26 11:39] LABS: HEMATOCRIT 37.3 % (35.4-49); HEMOGLOBIN 12.6 GM/dL (11.7-16.9); MCH 31.1 pg (25.7-33.7); MCHC 33.9 g/dl (32.0-35.9); MEAN CELL VOLUME 91.7 fl (80-96); MEAN PLT VOLUME 8.5 fl (7.5-11.1); PLATELET COUNT 126 10^3/uL (134-434); RBC 4.06 M/mm3 (4.00-5.60); RDW 17.6 % (11.9-15.9); WHITE BLOOD COUNT 3.8 K/mm3 (4.0-10.0)
[2023-09-26 11:57] LABS: POTASSIUM 3.3 mmol/L (3.5-5.1)
[2023-09-26 12:06] LABS: ALBUMIN 2.9 g/dl (3.4-5.0); BLOOD UREA NITROGEN 5.8 mg/dL (7-18); CALCIUM 7.9 mg/dL (8.5-10.1)
[2023-09-26 12:10] LABS: BILIRUBIN,TOTAL 0.3 mg/dL (0.2-1)
[2023-09-26] MEDS ORDERED: LORazepam 1 MG TABLET PO PRN (13:03)
[2023-09-26] MEDS: POTASSIUM CHLORIDE ORAL LIQUID 20 MEQ/15 ML PO SCH (13:45)
[2023-09-26] MEDS: LORazepam 2 MG TABLET PO SCH (17:18)
[2023-09-26] MEDS: OLANZapine 5 MG TABLET PO SCH (22:55)
[2023-09-26] MEDS: traZODone HCL 100 MG TABLET (FP) PO SCH (22:56)
[2023-09-27] MEDS ORDERED: chlordiazePOXIDE HCL 10 MG CAPSULE PO SCH (05:00)
[2023-09-27] MEDS: LORazepam 1 MG TABLET PO SCH (06:00)
[2023-09-27] MEDS: SUCRALFATE 1 GM TABLET (FP) PO SCH (06:03)
[2023-09-27 08:49] VITALS: BP 102/64; PULSE 73; RESP 18; TEMP 97.5
[2023-09-28] MEDS ORDERED: chlordiazePOXIDE HCL 10 MG CAPSULE PO PRN
[2023-09-28] MEDS ORDERED: LORazepam 0.5 MG TABLET PO SCH (05:00)
[2023-09-28] MEDS ORDERED: chlordiazePOXIDE HCL 10 MG CAPSULE PO SCH (05:00)
[2023-09-29] MEDS ORDERED: LORazepam 0.5 MG TABLET PO ONE (05:00)
[2023-09-29] MEDS ORDERED: chlordiazePOXIDE HCL 10 MG CAPSULE PO ONE (05:00)
== END 2023-09-27 09:00 | disposition home or self-care (01) | DRG 774 ==
LOC: YASAS 16:21 → Y6N 18:44
PROVIDERS: ADMIT Allergy & Immunology; ATTEND Surgery
PROC: HZ2ZZZZ Detoxification Services for Substance Abuse Treatment (ICD-10-PCS; principal; 2023-09-25)
DX: F10.230 Alcohol dependence with withdrawal, uncomplicated (principal); F10.282 Alcohol dependence with alcohol-induced sleep disorder; F10.24 Alcohol dependence with alcohol-induced mood disorder; F14.20 Cocaine dependence, uncomplicated; F12.20 Cannabis dependence, uncomplicated; F17.210 Nicotine dependence, cigarettes, uncomplicated; F25.1 Schizoaffective disorder, depressive type; F31.9 Bipolar disorder, unspecified; R74.01 Elevation of levels of liver transaminase levels; I10 Essential (primary) hypertension; K21.9 Gastro-esophageal reflux disease without esophagitis; E87.6 Hypokalemia; G62.89 Other specified polyneuropathies; M54.59 Other low back pain; G89.29 Other chronic pain; G40.909 Epilepsy, unspecified, not intractable, without status epilepticus; Z56.0 Unemployment, unspecified; Z59.00 Homelessness unspecified
CPT/HCPCS: 36415; 80053; 80305; 80307; 85027; 86780; 93005; 93010; Q0162

== ENCOUNTER 2023-10-31 15:36 | Inpatient (IN) | payer OTHER ==
[2023-10-31 17:19] VITALS: BMI 28.8
[2023-10-31] MEDS ORDERED: BISMUTH SUBSALICYLATE 524 MG/30 ML PO PRN (18:14)
[2023-10-31] MEDS ORDERED: ONDANSETRON *ODT* 4 MG TABLET SL PRN (18:14)
[2023-10-31] MEDS ORDERED: MAG HYDROX/AL HYDROX/SIMETH 30 ML UNIT-DOSE CUP PO PRN (18:14)
[2023-10-31] MEDS ORDERED: BENZOCAINE/MENTHOL (CHLORASEPTIC ) LOZENGE MM PRN (18:14)
[2023-10-31] MEDS ORDERED: NICOTINE POLACRILEX 2 MG GUM BUC PRN (18:14)
[2023-10-31] MEDS ORDERED: IBUPROFEN 600 MG TABLET (FP) PO PRN (18:14)
[2023-10-31] MEDS ORDERED: POLYETHYLENE GLYCOL (HEALTHYLAX) 3350 17 GM PACKET PO PRN (18:14)
[2023-10-31] MEDS ORDERED: DICYCLOMINE HCL 10 MG CAPSULE PO PRN (18:14)
[2023-10-31] MEDS ORDERED: IBUPROFEN 400 MG TABLET (FP) PO PRN (18:14)
[2023-10-31] MEDS ORDERED: NICOTINE POLACRILEX 2 MG LOZENGE BC PRN (18:14)
[2023-10-31] MEDS ORDERED: guaiFENesin 600 MG TABLET.ER (FP) PO PRN (18:14)
[2023-10-31] MEDS ORDERED: LOPERAMIDE HCL 2 MG CAPSULE PO PRN (18:14)
[2023-10-31] MEDS ORDERED: ACETAMINOPHEN 325 MG TABLET (FP) PO PRN (18:14)
[2023-10-31] MEDS ORDERED: MAGNESIUM HYDROX 2400MG/30ML ORAL SUSPENSION 30 ML CUP PO PRN (18:14)
[2023-10-31] MEDS ORDERED: BENZONATATE 200 MG CAPSULE PO PRN (18:14)
[2023-10-31] MEDS ORDERED: levETIRAcetam 500 MG TABLET (FP) PO ONE (23:28)
[2023-10-31] MEDS ORDERED: MELATONIN 5 MG TABLETS ONE (23:28)
[2023-10-31] MEDS: levETIRAcetam 500 MG TABLET (FP) PO SCH (23:41)
[2023-10-31] MEDS: THIAMINE 100 MG TABLET PO SCH (23:41)
[2023-10-31] MEDS: MELATONIN 5 MG TABLETS PO SCH (23:41)
[2023-11-01] MEDS: FAMOTIDINE 20 MG TABLET PO SCH (06:08)
[2023-11-01] MEDS ORDERED: levETIRAcetam 500 MG TABLET (FP) PO ONE (09:27)
[2023-11-01] MEDS ORDERED: PRENATAL VITAMINS W/ FOLIC ACID TABLET (FP) PO ONE (09:28)
[2023-11-01] MEDS: amLODIPine BESYLATE 2.5 MG TABLET (FP) PO SCH (09:31)
[2023-11-01] MEDS: PRENATAL VITAMINS W/ FOLIC ACID TABLET (FP) PO SCH (09:32)
[2023-11-01] MEDS ORDERED: chlordiazePOXIDE HCL 25 MG CAPSULE ONE (11:04)
[2023-11-01] MEDS: chlordiazePOXIDE HCL 25 MG CAPSULE PO ONE (11:08)
[2023-11-01] MEDS: hydrOXYzine PAMOATE 25 MG CAPSULE (FP) PO PRN (11:37)
[2023-11-01] MEDS ORDERED: chlordiazePOXIDE HCL 25 MG CAPSULE PO PRN (11:40)
[2023-11-01] MEDS: AMOX TR/POT CLAV 875MG/125MG TABLETS (FP) PO SCH (13:21)
[2023-11-01 13:48] LABS: HEMATOCRIT 40.7 % (35.4-49); MCH 30.5 pg (25.7-33.7); MCHC 31.9 g/dl (32.0-35.9); MEAN CELL VOLUME 95.6 fl (80-96); MEAN PLT VOLUME 9.6 fl (7.5-11.1); PLATELET COUNT 176 10^3/uL (134-434); RBC 4.25 M/mm3 (4.00-5.60); RDW 17.4 % (11.9-15.9); WHITE BLOOD COUNT 5.4 K/mm3 (4.0-10.0)
[2023-11-01 14:56] LABS: POTASSIUM 4.1 mmol/L (3.5-5.1)
[2023-11-01 15:00] LABS: ALBUMIN 3.2 g/dl (3.4-5.0); BLOOD UREA NITROGEN 13.3 mg/dL (7-18); CALCIUM 8.7 mg/dL (8.5-10.1)
[2023-11-01 15:03] LABS: CREATININE 0.8 mg/dL (0.55-1.3)
[2023-11-01 15:04] LABS: BILIRUBIN,TOTAL 0.6 mg/dL (0.2-1); TOT PROT 6.1 g/dl (6.4-8.2)
[2023-11-01] MEDS: chlordiazePOXIDE HCL 25 MG CAPSULE PO SCH (17:52)
[2023-11-01] MEDS: METHOCARBAMOL 500 MG TABLET PO PRN (22:37)
[2023-11-02] MEDS ORDERED: chlordiazePOXIDE HCL 10 MG CAPSULE PO SCH (06:00)
[2023-11-02] MEDS: chlordiazePOXIDE HCL 10 MG CAPSULE PO SCH (06:35)
[2023-11-02] MEDS: chlordiazePOXIDE HCL 25 MG CAPSULE PO SCH (06:37)
[2023-11-02] MEDS: FOLIC ACID 1 MG TABLET (FP) PO SCH (09:19)
[2023-11-02 09:57] VITALS: BP 148/89; PULSE 87; RESP 18; TEMP 96.9
[2023-11-03] MEDS ORDERED: chlordiazePOXIDE HCL 10 MG CAPSULE PO SCH (05:00)
[2023-11-04] MEDS ORDERED: chlordiazePOXIDE HCL 10 MG CAPSULE PO ONE (05:00)
== END 2023-11-02 09:24 | disposition left against medical advice (07) | DRG 770 ==
LOC: YASAS 15:36 → Y3N 11-01 10:57
PROVIDERS: ADMIT Allergy & Immunology; ATTEND Surgery
PROC: HZ2ZZZZ Detoxification Services for Substance Abuse Treatment (ICD-10-PCS; principal; 2023-11-01)
DX: F10.230 Alcohol dependence with withdrawal, uncomplicated (principal); F17.210 Nicotine dependence, cigarettes, uncomplicated; F31.9 Bipolar disorder, unspecified; F20.9 Schizophrenia, unspecified; F42.9 Obsessive-compulsive disorder, unspecified; F41.9 Anxiety disorder, unspecified; G62.9 Polyneuropathy, unspecified; G40.909 Epilepsy, unspecified, not intractable, without status epilepticus; I10 Essential (primary) hypertension; R78.5 Finding of other psychotropic drug in blood; K21.9 Gastro-esophageal reflux disease without esophagitis; M54.50 Low back pain, unspecified; G89.29 Other chronic pain; Z56.0 Unemployment, unspecified; Z59.02 Unsheltered homelessness
CPT/HCPCS: 36415; 80053; 80305; 80307; 85027

== ENCOUNTER 2023-11-30 05:30 | Emergency (ER) | payer OTHER ==
[2023-11-30 05:50] VITALS: BP 134/91; PULSE 101; RESP 20; TEMP 97.5; BMI 28.8
[2023-11-30] MEDS: ACETAMINOPHEN 500 MG TABLET (FP) PO ONE ×2 (06:37→06:52)
[2023-11-30] MEDS ORDERED: ACETAMINOPHEN 325 MG TABLET (FP) ONE (06:47)
== END 2023-11-30 07:48 ==
LOC: JER 05:30
DX: S80.811A Abrasion, right lower leg, initial encounter (principal); M79.661 Pain in right lower leg; M79.675 Pain in left toe(s); M79.662 Pain in left lower leg; R00.0 Tachycardia, unspecified; F10.10 Alcohol abuse, uncomplicated
CPT/HCPCS: 99285-25